=== PATIENT | male | born 1965 | race Caucasian/White ===

== ENCOUNTER 2016-10-18 16:16 | Inpatient (IN) | payer OTHER ==
[2016-10-18 17:39] VITALS: BMI 42.4
--- NOTE | 2016-10-18 17:55 | HP ---
CIWA Score - CIWA Score Nausea/Vomitin-Mild Nausea/No Vomiting Muscle Tremors: 4-Moderate,w/Arms Extend Anxiety: 4-Mod. Anxious/Guarded Agitation: 4-Moderately Restless Paroxysmal Sweats: 2 Orientation: 1-Uncertain about Date Tacttile Disturbances: 0-None Auditory Disturbances: 0-None Visual Disturbances: 0-None Headache: 2-Mild CIWA-Ar Total Score: 18 Admission ROS BHS - HPI Chief Complaint: withdrawal sx Allergies/Adverse Reactions: Allergies Allergy/AdvReac Type Severity Reaction Status Date / Time No Known Allergies Allergy Verified 10/18/16 17:52 History of Present Illness: 51 years old male with long history of alcohol dependence, asthma gerd left leg pain depression, is admitted to detox Exam Limitations: No Limitations - Ebola screening Have you traveled outside of the country in the last 21 days: No Have you had contact with anyone from an Ebola affected area: No Have you been sick,other than usual withdrawal symptoms: No Do you have a fever: No - Review of Systems Constitutional: Chills, Changes in sleep, Weight Stable EENT: reports: Dental Problems (upper left denture), Other (eye glasses) Respiratory: reports: No Symptoms reported Cardiac: reports: Palpitations GI: reports: Nausea, Poor Fluid Intake, Vomiting, Indigestion, Abdominal cramping : reports: No Symptoms Reported Musculoskeletal: reports: Muscle Weakness (left legs) Integumentary: reports: No Symptoms Reported Neuro: reports: Tremors Endocrine: reports: No Symptoms Reported Psychiatric: reports: Judgement Intact, Anxious, Depressed Other Systems: Reviewed and Negative Patient History - Patient Medical History Hx Anemia: No Hx Asthma: Yes Hx Chronic Obstructive Pulmonary Disease (COPD): No Hx Cancer: No Hx Cardiac Disorders: No Hx Congestive Heart Failure: No Hx Hypertension: No Hx Hypercholesterolemia: No Hx Pacemaker: No HX Cerebrovascular Accident: No Hx Seizures: No Hx Dementia: No Hx Diabetes: No Hx Gastrointestinal Disorders: Yes Hx Liver Disease: No Hx Genitourinary Disorders: No Hx Sexually Transmitted Disorders: No Hx Renal Disease (ESRD): No Hx Thyroid Disease: No Hx Human Immunodeficiency Virus (HIV): No Hx Hepatitis C: No Hx Depression: Yes Hx Suicide Attempt: No Hx Bipolar Disorder: No Hx Schizophrenia: No - Patient Surgical History Past Surgical History: No - PPD History Previous Implant?: Yes Documented Results: Negative w/o proof Implanted On Prior [facility] Admission?: No PPD to be Administered?: Yes - Smoking Cessation Smoking history: Smoker current status UNK Have you smoked in the past 12 months: No Hx Chewing Tobacco Use: No Initiated information on smoking cessation: No - Substance & Tx. History Hx Alcohol Use: Yes Hx Substance Use: Yes Substance Use Type: Alcohol, Cocaine Hx Substance Use Treatment: Yes - Substances Abused Alcohol Route: Oral Frequency: Daily Amount used: 1/2 gallon sara Age of first use: 10 Date of Last Use: 10/18/16 Family Disease History - Family Disease History Family Disease History: Other: Grandparent, Father ( alcohol), Mother ( alcohol) Admission Physical Exam BHS - Vital Signs Vital Signs: Vital Signs - 24 hr 10/18/16 17:37 Temperature 97.8 F Pulse Rate 99 H Respiratory 20 Rate Blood Pressure 114/72 - Physical General Appearance: Yes: Appropriately Dressed, Moderate Distress, Alcohol on Breath, Tremorous, Irritable, Sweating, Anxious HEENTM: Yes: Hearing grossly Normal, Normal ENT Inspection, Normocephalic, Normal Voice, Other (eye glasses) Respiratory: Yes: Chest Non-Tender, Lungs Clear, Normal Breath Sounds, No Respiratory Distress, No Accessory Muscle Use Neck: Yes: Supple, Trachea in good position Breast: Yes: Breasts Symetrical Cardiology: Yes: Regular Rhythm, Regular Rate, S1, S2 Abdominal: Yes: Non Tender, Soft Genitourinary: Yes: Within Normal Limits Back: Yes: Normal Inspection Musculoskeletal: Yes: full range of Motion, Gait Steady, Muscle weakness (left leg) Extremities: Yes: Normal Range of Motion, Non-Tender, Tremors Neurological: Yes: Alert, Motor Strength 5/5, Normal Response, Depressed Affect Integumentary: Yes: Warm, Clammy Lymphatic: Yes: Within Normal Limits - Diagnostic (1) Alcohol dependence with uncomplicated withdrawal Current Visit: Yes Status: Acute (2) Asthma Current Visit: Yes Status: Acute Qualifiers: Asthma severity: mild persistent Asthma complication type: with status asthmaticus Qualified Code(s): J45.32 - Mild persistent asthma with status asthmaticus (3) GERD (gastroesophageal reflux disease) Current Visit: Yes Status: Acute Qualifiers: Esophagitis presence: without esophagitis Qualified Code(s): K21.9 - Gastro-esophageal reflux disease without esophagitis (4) Burn of lip Current Visit: Yes Status: Acute Qualifiers: Encounter type: sequela Comment: smoke crack bacitracin ointment (5) Left leg weakness Current Visit: Yes Status: Acute Comment: cane naproxen flexeril (6) Encounter for monitoring Suboxone maintenance therapy Current Visit: Yes Status: Acute Comment: suboxone 8/2 tid x 6 years Cleared for Admission [facility] - Detox or Rehab [facility] Level of Care: Medically Managed Detox Regimen/Protocol: Librium [facility] Breath Alcohol Content Breath Alcohol Content: 0.200 Urine Drug Screen - Results Drug Screen Negative: No Urine Drug Screen Results: MARTIN-Cocaine
[2016-10-18] MEDS ORDERED: MENTHOL/PHENOL 1 EACH UD MM PRN (18:01)
[2016-10-18] MEDS ORDERED: MAGNESIUM CITRATE 300 ML BOTTLE PO PRN (18:01)
[2016-10-18] MEDS ORDERED: diphenhydrAMINE HCL 50 MG CAPSULE PO PRN (18:01)
[2016-10-18] MEDS ORDERED: MAG HYDROX/AL HYDROX/SIMETH 30 ML UNIT-DOSE CUP PO PRN (18:01)
[2016-10-18] MEDS ORDERED: ACETAMINOPHEN 325 MG TABLET (FP) PO PRN (18:01)
[2016-10-18] MEDS ORDERED: MAGNESIUM HYDROX 2400MG/30ML ORAL SUSPENSION 30 ML CUP PO PRN (18:01)
[2016-10-18] MEDS ORDERED: hydrOXYzine PAMOATE 50 MG CAPSULE (FP) PO PRN (18:01)
[2016-10-18] MEDS ORDERED: guaiFENesin/D-METHORPHAN HB 10 ML UNIT-DOSE CUPS PO PRN (18:01)
[2016-10-18] MEDS ORDERED: LOPERAMIDE HCL 2 MG CAPSULE PO PRN (18:01)
[2016-10-18] MEDS ORDERED: P-EPHED 60MG/TRIPROLIDI 2.5MG TABLET PO PRN (18:01)
[2016-10-18] MEDS ORDERED: ALBUTEROL SO4 6.7 GM HFA INHALER IH PRN (18:04)
[2016-10-18] MEDS ORDERED: ALBUTEROL SO4 2.5/IPRATROPIUM 0.5 INH SOL 3 ML VIAL.NEB. NEB PRN (18:04)
[2016-10-18] MEDS ORDERED: CYCLOBENZAPRINE HCL 10 MG TABLET (FP) PO PRN (18:05)
[2016-10-18] MEDS ORDERED: BACITRACIN 0.9 GM PACKET TP ONE (19:00)
[2016-10-18] MEDS ORDERED: chlordiazePOXIDE HCL 25 MG CAPSULE PO ONE (19:00)
[2016-10-18] MEDS: BUPRENORPHINE/NALOXONE 8 MG/2 MG FILM PACKET SL SCH (22:13)
[2016-10-18] MEDS: THIAMINE HCL 100 MG TABLET (FP) PO SCH (22:14)
[2016-10-18] MEDS: RANITIDINE HCL 150 MG TABLET (FP) PO SCH (22:14)
[2016-10-18] MEDS: chlordiazePOXIDE HCL 25 MG CAPSULE PO SCH (22:14)
[2016-10-18 22:59] LABS: URINE APPEARANCE CLEAR; URINE BILIRUBIN NEGATIVE (NEGATIVE); URINE BLOOD NEGATIVE (NEGATIVE); URINE COLOR AMBER; URINE GLUCOSE (UA) NEGATIVE (NEGATIVE); URINE KETONE NEGATIVE (NEGATIVE); URINE LEUK ESTERASE NEGATIVE (NEGATIVE); URINE NITRITE NEGATIVE (NEGATIVE); URINE UROBILINOGEN 2.0 E.U/dl E.U./dl (0.2-1.0)
[2016-10-18 23:00] LABS: URINE PROTEIN 2+ (NEGATIVE)
[2016-10-18 23:08] LABS: URINE RBC 1 /hpf (0-3); URINE WBC <1 /hpf (3-5)
[2016-10-19] MEDS: BUPRENORPHINE/NALOXONE 8 MG/2 MG FILM PACKET SL SCH (05:50)
[2016-10-19] MEDS: chlordiazePOXIDE HCL 25 MG CAPSULE PO SCH ×4 (05:50→22:09)
--- NOTE | 2016-10-19 07:53 | CONSULT ---
[facility] Psychiatric Consult - Data Date of interview: 10/19/16 Admission source: [facility] Identifying data: This is 51 years old male with no psychiatric hospitalization history, intoxicated with: Alcohol and Nicotine. Patient reports takijng prior to admission Suboxone 24mg films per day protocol Substance Abuse History: - Smoking Cessation. Smoking history: Smoker current status UNK. Have you smoked in the past 12 months: No. Hx Chewing Tobacco Use : No. Initiated information on smoking cessation: No. - Substance & Tx. History. Hx Alcohol Use: Yes. Hx Substance Use: Yes. Substance Use Type: Alcohol, Cocaine. Hx Substance Use Treatment: Yes. - Substances Abused. Alcohol. Route: Oral. Frequency: Daily. Amount used: 1/2 gallon volka. Age of first use: 10. Date of Last Use: 10/18/16 Medical History: GERD, Left leg weackness hidtory, Psychiatric History: Patient reports history of Anxiety and Insomnia, reprots taking prior to admission: Vistaril 50mg po tid. Seroquel 50mg po qhs Physical/Sexual Abuse/Trauma History: Denies Additional Comment: Vistaril 50mg po tid. Seroquel 50mg po qhs Mental Status Exam - Mental Status Exam Alert and Oriented to: Person Cognitive Function: Fair Patient Appearance: Unkempt Mood: Sad Affect: Flat Patient Behavior: Cooperative Speech Pattern: Appropriate Voice Loudness: Mildly Soft/Quiet Thought Process: Circumstantial, Goal Oriented Thought Disorder: Being Controlled Hallucinations: Denies Suicidal Ideation: Denies Homicidal Ideation: Denies Insight/Judgement: Fair Sleep: Difficulty falling asleep Appetite: Weight gain Muscle strength/Tone: Normal Gait/Station: Shuffling Additional Comments: Vistaril 50mg po tid. Seroquel 50mg po qhs Psychiatric Findings - Problem List ([place] 1, 2,3) (1) Alcohol dependence with uncomplicated withdrawal Current Visit: Yes Status: Acute (2) Opioid dependence Current Visit: Yes Status: Acute (3) Nicotine dependence Current Visit: Yes Status: Acute (4) Drug-induced mood disorder Current Visit: Yes Status: Acute - Initial Treatment Plan Initial Treatment Plan: Vistaril 50mg po tid. Seroquel 50mg po qhs
[2016-10-19 10:16] LABS: MCH 27.3 pg (25.7-33.7); MCHC 32.5 g/dl (32.0-35.9); MEAN CELL VOLUME 83.7 fl (80-96); MEAN PLT VOLUME 7.4 fl (7.5-11.1); PLATELET COUNT 98 K/MM3 (134-434); RDW 16.3 % (11.9-15.9); WHITE BLOOD COUNT 3.5 K/mm3 (4.0-10.0)
[2016-10-19 10:17] LABS: ANION GAP 8 (8-16); BILIRUBIN,TOTAL 0.7 mg/dL (0.2-1.0); CALCIUM 7.8 mg/dL (8.5-10.1); CO2 31 mmol/L (21-32); GLUCOSE,RANDOM 164 mg/dL (74-106); SGOT/AST 86 U/L (15-37); SGPT/ALT 40 U/L (12-78); TOT PROT 6.5 g/dl (6.4-8.2)
[2016-10-19 10:18] LABS: ALK PHOS 144 U/L (45-117)
[2016-10-19] MEDS: PRENATAL VITAMINS W/ FOLIC ACID TABLET (FP) PO SCH (10:23)
[2016-10-19] MEDS: NAPROXEN 500 MG TABLET (FP) PO PRN (10:24)
[2016-10-19] MEDS: RANITIDINE HCL 150 MG TABLET (FP) PO SCH ×2 (10:24→22:07)
--- NOTE | 2016-10-19 11:35 | PN ---
[facility] CIWA - CIWA Score Nausea/Vomitin Muscle Tremors: 3 Anxiety: 3 Agitation: 3 Paroxysmal Sweats: 3 Orientation: 0-Oriented Tacttile Disturbances: 2-Mild Itch/Numbness/Burn Auditory Disturbances: 0-None Visual Disturbances: 0-None Headache: 0-None Present CIWA-Ar Total Score: 17 S Progress Note (SOAP) Subjective: sweats, shakes , decreased appetite Objective: 10/19/16 11:33 Vital Signs Temperature 98.2 F 10/19/16 09:58 Pulse Rate 86 10/19/16 09:58 Respiratory Rate 18 10/19/16 09:58 Blood Pressure 145/102 10/19/16 09:58 O2 Sat by Pulse Oximetry (%) Laboratory Tests 10/18/16 10/19/16 10/19/16 21:00 07:00 07:00 WBC 3.5 L RBC 4.12 Hgb 11.2 L Hct 34.5 L MCV 83.7 MCHC 32.5 RDW 16.3 H Plt Count 98 L MPV 7.4 L Sodium 142 Potassium 2.9 L* Chloride 103 Carbon Dioxide 31 Anion Gap 8 BUN 8 Creatinine 1.0 Creat Clearance w eGFR > 60 Random Glucose 164 H Calcium 7.8 L Total Bilirubin 0.7 AST 86 H ALT 40 Alkaline Phosphatase 144 H Total Protein 6.5 Albumin 3.0 L Urine Color Surekha Urine Appearance Clear Urine pH 5.0 Ur Specific [place] 1.031 Urine Protein 2+ H Urine Glucose (UA) Negative Urine Ketones Negative Urine Blood Negative Urine Nitrite Negative Urine Bilirubin Negative Urine Urobilinogen 2.0 e.u/dl Ur Leukocyte Esterase Negative Urine RBC 1 Urine WBC <1 Ur Epithelial Cells Rare pt aox3 in nad sitting up in bed lipas multiple excoriations 10/19/16 13:57 Assessment: 10/19/16 11:34 withdrawl sx;s hypokalemia lip rea suboxone maintance want dosage decrease 10/19/16 11:35 10/19/16 13:57 Plan: cont. detox increase fuids decrease suboxone to 8mg bid bacitracin oint motrin prn
[2016-10-19] MEDS: POTASSIUM CHLORIDE TABS 20 MEQ TABLET.ER (FP) PO SCH ×3 (12:03→19:01)
[2016-10-19] MEDS: chlordiazePOXIDE HCL 25 MG CAPSULE PO PRN ×2 (12:14→19:04)
--- NOTE | 2016-10-19 12:21 | EKG ---
Test Reason : Blood Pressure : / mmHG Vent. Rate : 098 BPM Atrial Rate : 098 BPM P-R Int : 172 ms QRS Dur : 084 ms QT Int : 442 ms P-R-T Axes : 021 002 009 degrees QTc Int : 564 ms NORMAL SINUS RHYTHM PROLONGED QT ABNORMAL ECG NO PREVIOUS ECGS AVAILABLE Confirmed by JOHANNE BURCH MD ([id number]) on 10/19/2016 12:21:08 PM Referred By: Confirmed By:JOHANNE BURCH MD
[2016-10-19] MEDS: hydrOXYzine PAMOATE 50 MG CAPSULE (FP) PO SCH ×2 (14:29→22:07)
[2016-10-19] MEDS ORDERED: cloNIDine HCL 0.1 MG TABLET PO ONE (15:26)
[2016-10-19] MEDS: amLODIPine BESYLATE 5 MG TABLET (FP) PO SCH (15:43)
[2016-10-19] MEDS: THIAMINE HCL 100 MG TABLET (FP) PO SCH (22:07)
[2016-10-19] MEDS: QUEtiapine FUMARATE 50 MG TABLET PO SCH (22:07)
[2016-10-20] MEDS: hydrOXYzine PAMOATE 50 MG CAPSULE (FP) PO SCH ×3 (05:39→22:12)
[2016-10-20] MEDS: chlordiazePOXIDE HCL 25 MG CAPSULE PO SCH ×3 (05:39→17:54)
[2016-10-20] MEDS: PRENATAL VITAMINS W/ FOLIC ACID TABLET (FP) PO SCH (10:20)
[2016-10-20] MEDS: BUPRENORPHINE/NALOXONE 8 MG/2 MG FILM PACKET SL SCH ×2 (10:21→22:11)
[2016-10-20] MEDS: NAPROXEN 500 MG TABLET (FP) PO PRN (10:21)
[2016-10-20] MEDS: RANITIDINE HCL 150 MG TABLET (FP) PO SCH ×2 (10:21→22:12)
[2016-10-20] MEDS: amLODIPine BESYLATE 5 MG TABLET (FP) PO SCH (10:21)
--- NOTE | 2016-10-20 11:33 | PN ---
[facility] CIWA - CIWA Score Nausea/Vomitin-No Nausea/No Vomiting Muscle Tremors: 4-Moderate,w/Arms Extend Anxiety: 4-Mod. Anxious/Guarded Agitation: 4-Moderately Restless Paroxysmal Sweats: 3 Orientation: 0-Oriented Tacttile Disturbances: 0-None Auditory Disturbances: 0-None Visual Disturbances: 0-None Headache: 1-Very Mild CIWA-Ar Total Score: 16 BHS Progress Note (SOAP) Subjective: shakes sweats tired interrupted sleep Objective: 10/20/16 11:41 Vital Signs Temperature 97.5 F L 10/20/16 09:13 Pulse Rate 80 10/20/16 09:13 Respiratory Rate 18 10/20/16 09:13 Blood Pressure 150/101 10/20/16 09:13 O2 Sat by Pulse Oximetry (%) Laboratory Tests 10/18/16 10/19/16 10/19/16 21:00 07:00 07:00 WBC 3.5 L RBC 4.12 Hgb 11.2 L Hct 34.5 L MCV 83.7 MCHC 32.5 RDW 16.3 H Plt Count 98 L MPV 7.4 L Sodium 142 Potassium 2.9 L* Chloride 103 Carbon Dioxide 31 Anion Gap 8 BUN 8 Creatinine 1.0 Creat Clearance w eGFR > 60 Random Glucose 164 H Calcium 7.8 L Total Bilirubin 0.7 AST 86 H ALT 40 Alkaline Phosphatase 144 H Total Protein 6.5 Albumin 3.0 L Urine Color Surekha Urine Appearance Clear Urine pH 5.0 Ur Specific [place] 1.031 Urine Protein 2+ H Urine Glucose (UA) Negative Urine Ketones Negative Urine Blood Negative Urine Nitrite Negative Urine Bilirubin Negative Urine Urobilinogen 2.0 e.u/dl Ur Leukocyte Esterase Negative Urine RBC 1 Urine WBC <1 Ur Epithelial Cells Rare RPR Titer 10/19/16 07:00 WBC RBC Hgb Hct MCV MCHC RDW Plt Count MPV Sodium Potassium Chloride Carbon Dioxide Anion Gap BUN Creatinine Creat Clearance w eGFR Random Glucose Calcium Total Bilirubin AST ALT Alkaline Phosphatase Total Protein Albumin Urine Color Urine Appearance Urine pH Ur Specific [place] Urine Protein Urine Glucose (UA) Urine Ketones Urine Blood Urine Nitrite Urine Bilirubin Urine Urobilinogen Ur Leukocyte Esterase Urine RBC Urine WBC Ur Epithelial Cells RPR Titer Nonreactive awake/alert ambulating no acute distress hct 12.5mg daily ordered repeat cbc/cmp Assessment: 10/20/16 11:44 withdrawal sx Plan: continue detox hctz 12.5mg ordered labs repeated follow up
[2016-10-20] MEDS: chlordiazePOXIDE HCL 25 MG CAPSULE PO PRN (11:37)
[2016-10-20] MEDS: HYDROCHLOROTHIAZIDE 12.5 MG CAPSULE (FP) PO SCH (12:30)
[2016-10-20] MEDS: BACITRACIN 0.9 GM PACKET TP SCH ×2 (13:00→22:11)
[2016-10-20] MEDS: chlordiazePOXIDE 5 MG CAPSULE PO SCH (22:12)
[2016-10-20] MEDS: THIAMINE HCL 100 MG TABLET (FP) PO SCH (22:12)
[2016-10-20] MEDS: QUEtiapine FUMARATE 50 MG TABLET PO SCH (22:12)
[2016-10-21] MEDS: chlordiazePOXIDE 5 MG CAPSULE PO SCH ×3 (05:54→17:29)
[2016-10-21] MEDS: hydrOXYzine PAMOATE 50 MG CAPSULE (FP) PO SCH ×3 (06:21→22:12)
[2016-10-21] MEDS: PRENATAL VITAMINS W/ FOLIC ACID TABLET (FP) PO SCH (10:20)
[2016-10-21] MEDS: amLODIPine BESYLATE 5 MG TABLET (FP) PO SCH (10:20)
[2016-10-21] MEDS: NAPROXEN 500 MG TABLET (FP) PO PRN (10:20)
[2016-10-21] MEDS: BUPRENORPHINE/NALOXONE 8 MG/2 MG FILM PACKET SL SCH (10:20)
[2016-10-21] MEDS: RANITIDINE HCL 150 MG TABLET (FP) PO SCH ×2 (10:20→22:12)
[2016-10-21] MEDS: HYDROCHLOROTHIAZIDE 12.5 MG CAPSULE (FP) PO SCH (10:20)
[2016-10-21] MEDS: BACITRACIN 0.9 GM PACKET TP SCH ×2 (10:20→22:12)
[2016-10-21 10:21] LABS: BASOPHIL 1.1 % (0-2.0); EOSINOPHIL 6.2 % (0-4.5); MCH 27.1 pg (25.7-33.7); MCHC 32.2 g/dl (32.0-35.9); MEAN CELL VOLUME 84.1 fl (80-96); MEAN PLT VOLUME 7.6 fl (7.5-11.1); NEUTROPHILS 51.5 % (42.8-82.8); PLATELET COUNT 104 K/MM3 (134-434); RDW 16.3 % (11.9-15.9); WHITE BLOOD COUNT 4.8 K/mm3 (4.0-10.0)
[2016-10-21 10:32] LABS: ALK PHOS 152 U/L (45-117); ANION GAP 10 (8-16); BILIRUBIN,TOTAL 0.7 mg/dL (0.2-1.0); CALCIUM 8.6 mg/dL (8.5-10.1); CO2 29 mmol/L (21-32); GLUCOSE,RANDOM 164 mg/dL (74-106); SGOT/AST 83 U/L (15-37); SGPT/ALT 44 U/L (12-78); TOT PROT 6.4 g/dl (6.4-8.2)
--- NOTE | 2016-10-21 10:39 | PN ---
BHS Progress Note (SOAP) Subjective: CO POOR SLEEP, SHAKINESS, GI UPSET Objective: 10/21/16 10:38 Laboratory Tests 10/18/16 10/19/16 10/19/16 21:00 07:00 07:00 WBC 3.5 L RBC 4.12 Hgb 11.2 L Hct 34.5 L MCV 83.7 MCHC 32.5 RDW 16.3 H Plt Count 98 L MPV 7.4 L Neutrophils % Lymphocytes % Monocytes % Eosinophils % Basophils % Sodium 142 Potassium 2.9 L* Chloride 103 Carbon Dioxide 31 Anion Gap 8 BUN 8 Creatinine 1.0 Creat Clearance w eGFR > 60 Random Glucose 164 H Calcium 7.8 L Total Bilirubin 0.7 AST 86 H ALT 40 Alkaline Phosphatase 144 H Total Protein 6.5 Albumin 3.0 L Urine Color Surekha Urine Appearance Clear Urine pH 5.0 Ur Specific [place] 1.031 Urine Protein 2+ H Urine Glucose (UA) Negative Urine Ketones Negative Urine Blood Negative Urine Nitrite Negative Urine Bilirubin Negative Urine Urobilinogen 2.0 e.u/dl Ur Leukocyte Esterase Negative Urine RBC 1 Urine WBC <1 Ur Epithelial Cells Rare RPR Titer 10/19/16 10/21/16 07:00 07:00 WBC 4.8 D RBC 4.43 Hgb 12.0 Hct 37.2 MCV 84.1 MCHC 32.2 RDW 16.3 H Plt Count 104 L MPV 7.6 Neutrophils % 51.5 Lymphocytes % 31.4 Monocytes % 9.8 Eosinophils % 6.2 H Basophils % 1.1 Sodium Potassium Chloride Carbon Dioxide Anion Gap BUN Creatinine Creat Clearance w eGFR Random Glucose Calcium Total Bilirubin AST ALT Alkaline Phosphatase Total Protein Albumin Urine Color Urine Appearance Urine pH Ur Specific [place] Urine Protein Urine Glucose (UA) Urine Ketones Urine Blood Urine Nitrite Urine Bilirubin Urine Urobilinogen Ur Leukocyte Esterase Urine RBC Urine WBC Ur Epithelial Cells RPR Titer Nonreactive Vital Signs - 24 hr 10/20/16 10/20/16 10/20/16 13:52 18:19 21:46 Temperature 97.7 F 97.5 F L 96.1 F L Pulse Rate 78 78 72 Respiratory 18 16 18 Rate Blood Pressure 155/98 146/89 146/100 10/21/16 10/21/16 10/21/16 00:30 03:30 06:00 Temperature 97.9 F Pulse Rate 80 Respiratory 18 20 18 Rate Blood Pressure 154/92 10/21/16 10:16 Temperature 97.3 F L Pulse Rate 77 Respiratory 20 Rate Blood Pressure 151/98 Assessment: 10/21/16 10:38 ONGOING WITHDRAWAL Plan: CONTINUE DETOX PROTOCOL FU POTASSIUM LEVELS
[2016-10-21] MEDS: QUEtiapine FUMARATE 50 MG TABLET PO SCH (22:12)
[2016-10-21] MEDS: chlordiazePOXIDE HCL 10 MG CAPSULE PO SCH (22:12)
[2016-10-21] MEDS: THIAMINE HCL 100 MG TABLET (FP) PO SCH (22:12)
[2016-10-22] MEDS: hydrOXYzine PAMOATE 50 MG CAPSULE (FP) PO SCH (05:20)
[2016-10-22] MEDS: chlordiazePOXIDE HCL 10 MG CAPSULE PO SCH ×2 (05:20→11:03)
[2016-10-22 06:52] VITALS: TEMP 97.5
--- NOTE | 2016-10-22 08:34 | PN ---
S Progress Note (SOAP) Subjective: ALERT,NO COMPLAINT Objective: 10/22/16 08:31 Vital Signs Temperature 97.5 F L 10/22/16 06:52 Pulse Rate 87 10/22/16 06:52 Respiratory Rate 20 10/22/16 06:52 Blood Pressure 149/88 10/22/16 06:52 O2 Sat by Pulse Oximetry (%) 10/22/16 08:32 Laboratory Last Values WBC 4.8 K/mm3 (4.0-10.0) D 10/21/16 07:00 RBC 4.43 M/mm3 (4.00-5.60) 10/21/16 07:00 Hgb 12.0 GM/dL (11.7-16.9) 10/21/16 07:00 Hct 37.2 % (35.4-49) 10/21/16 07:00 MCV 84.1 fl (80-96) 10/21/16 07:00 MCHC 32.2 g/dl (32.0-35.9) 10/21/16 07:00 RDW 16.3 % (11.9-15.9) H 10/21/16 07:00 Plt Count 104 K/MM3 (134-434) L 10/21/16 07:00 MPV 7.6 fl (7.5-11.1) 10/21/16 07:00 Neutrophils % 51.5 % (42.8-82.8) 10/21/16 07:00 Lymphocytes % 31.4 % (8-40) 10/21/16 07:00 Monocytes % 9.8 % (3.8-10.2) 10/21/16 07:00 Eosinophils % 6.2 % (0-4.5) H 10/21/16 07:00 Basophils % 1.1 % (0-2.0) 10/21/16 07:00 Sodium 139 mmol/L (136-145) 10/21/16 07:00 Potassium 3.4 mmol/L (3.5-5.1) L 10/21/16 07:00 Chloride 100 mmol/L (98-107) 10/21/16 07:00 Carbon Dioxide 29 mmol/L (21-32) 10/21/16 07:00 Anion Gap 10 (8-16) 10/21/16 07:00 BUN 11 mg/dL (7-18) D 10/21/16 07:00 Creatinine 1.0 mg/dL (0.7-1.3) 10/21/16 07:00 Creat Clearance w eGFR > 60 (>60) 10/21/16 07:00 Random Glucose 164 mg/dL (74-106) H 10/21/16 07:00 Calcium 8.6 mg/dL (8.5-10.1) 10/21/16 07:00 Total Bilirubin 0.7 mg/dL (0.2-1.0) 10/21/16 07:00 AST 83 U/L (15-37) H 10/21/16 07:00 ALT 44 U/L (12-78) 10/21/16 07:00 Alkaline Phosphatase 152 U/L (45-117) H 10/21/16 07:00 Total Protein 6.4 g/dl (6.4-8.2) 10/21/16 07:00 Albumin 3.0 g/dl (3.4-5.0) L 10/21/16 07:00 Urine Color Surekha 10/18/16 21:00 Urine Appearance Clear 10/18/16 21:00 Urine pH 5.0 (5.0-8.0) 10/18/16 21:00 Ur Specific [place] 1.031 (1.001-1.035) 10/18/16 21:00 Urine Protein 2+ (NEGATIVE) H 10/18/16 21:00 Urine Glucose (UA) Negative (NEGATIVE) 10/18/16 21:00 Urine Ketones Negative (NEGATIVE) 10/18/16 21:00 Urine Blood Negative (NEGATIVE) 10/18/16 21:00 Urine Nitrite Negative (NEGATIVE) 10/18/16 21:00 Urine Bilirubin Negative (NEGATIVE) 10/18/16 21:00 Urine Urobilinogen 2.0 e.u/dl E.U./dl (0.2-1.0) 10/18/16 21:00 Ur Leukocyte Esterase Negative (NEGATIVE) 10/18/16 21:00 Urine RBC 1 /hpf (0-3) 10/18/16 21:00 Urine WBC <1 /hpf (3-5) 10/18/16 21:00 Ur Epithelial Cells Rare /hpf (FEW) 10/18/16 21:00 RPR Titer Nonreactive (NONREACTIVE) 10/19/16 07:00 Assessment: 10/22/16 08:33 DETOX COMPLETED,NO WITHDRAWAL SYMPTOM Plan: DISCHARGE TODAY,FOLLOW UP WITH AFTER CARE PROGRAM ARRANGEMENT
--- NOTE | 2016-10-22 08:36 | DS ---
[facility] Detox Discharge Summary Admission Date: 10/18/16 Discharge Date: 10/22/16 - History Present History: Alcohol Dependence Additional Comments: FOLLOW UP WITH AFTER [facility] PROGRAM ARRANGEMENT AND PMD FOR MEDICAL PROBLEM Pertinent Past History: ASTHMA HYPERTENSION - Physical Exam Results Vital Signs: Vital Signs Temperature 97.5 F L 10/22/16 06:52 Pulse Rate 87 10/22/16 06:52 Respiratory Rate 20 10/22/16 06:52 Blood Pressure 149/88 10/22/16 06:52 O2 Sat by Pulse Oximetry (%) Pertinent Admission Physical Exam Findings: WITHDRAWAL SYMPTOM - Treatment Hospital Course: Detox Protocol Followed, Detoxed Safely, Responded well, Discharged Condition Good, Rehab Referral Accepted Patient has Accepted a Rehab Referral to: [facility] - Medication Discharge Medications: Ambulatory Orders Esomeprazole Mag Trihydrate [NexIUM for SUSP] 40 mg PO DAILY 10/18/16 Hydroxyzine Pamoate [Vistaril -] 25 mg PO TID 10/18/16 Quetiapine Fumarate [Seroquel -] 50 mg PO HS 10/18/16 Fluoxetine HCl [Prozac] 20 mg PO DAILY #30 capsule 10/19/16 Quetiapine Fumarate [Seroquel -] 50 mg PO HS #30 tablet 10/19/16 - Diagnosis (1) Alcohol dependence with uncomplicated withdrawal Current Visit: Yes Status: Acute (2) Asthma Current Visit: Yes Status: Acute Qualifiers: Asthma severity: mild persistent Asthma complication type: with status asthmaticus Qualified Code(s): J45.32 - Mild persistent asthma with status asthmaticus (3) GERD (gastroesophageal reflux disease) Current Visit: Yes Status: Acute Qualifiers: Esophagitis presence: without esophagitis Qualified Code(s): K21.9 - Gastro-esophageal reflux disease without esophagitis (4) Nicotine dependence Current Visit: Yes Status: Acute - AMA Did Patient Leave Against Medical Advice: No
[2016-10-22 09:47] VITALS: BP 140/82; PULSE 89
[2016-10-22] MEDS ORDERED: BUPRENORPHINE/NALOXONE 8 MG/2 MG FILM PACKET SL ONE (10:57)
[2016-10-22] MEDS: PRENATAL VITAMINS W/ FOLIC ACID TABLET (FP) PO SCH (11:03)
[2016-10-22] MEDS: amLODIPine BESYLATE 5 MG TABLET (FP) PO SCH (11:03)
[2016-10-22] MEDS: BACITRACIN 0.9 GM PACKET TP SCH (11:04)
[2016-10-22] MEDS: RANITIDINE HCL 150 MG TABLET (FP) PO SCH (11:04)
[2016-10-22] MEDS: HYDROCHLOROTHIAZIDE 12.5 MG CAPSULE (FP) PO SCH (11:04)
== END 2016-10-22 11:14 | disposition home or self-care (01) | DRG 897 ==
LOC: YASAS 16:16 → Y6N 18:44
PROVIDERS: ADMIT Internal Medicine Addiction Medicine; ATTEND Internal Medicine Addiction Medicine
PROC: HZ2ZZZZ Detoxification Services for Substance Abuse Treatment (ICD-10-PCS; principal; 2016-10-22)
DX: F11.23 Opioid dependence with withdrawal (principal); J45.32 Mild persistent asthma with status asthmaticus; F10.230 Alcohol dependence with withdrawal, uncomplicated; F17.210 Nicotine dependence, cigarettes, uncomplicated; F19.24 Other psychoactive substance dependence with psychoactive substance-induced mood disorder; K21.9 Gastro-esophageal reflux disease without esophagitis; M62.81 Muscle weakness (generalized)
CPT/HCPCS: 36415; 80053; 81003; 81015; 85025; 85027; 86593; 93005; 93010

== ENCOUNTER 2016-11-13 10:34 | Inpatient (IN) | payer OTHER ==
[2016-11-13 10:59] VITALS: BMI 40.6
--- NOTE | 2016-11-13 15:09 | HP ---
CIWA Score - CIWA Score Nausea/Vomitin Muscle Tremors: 4-Moderate,w/Arms Extend Anxiety: 4-Mod. Anxious/Guarded Agitation: 4-Moderately Restless Paroxysmal Sweats: 3 Orientation: 0-Oriented Tacttile Disturbances: 2-Mild Itch/Numbness/Burn Auditory Disturbances: 0-None Visual Disturbances: 0-None Headache: 0-None Present CIWA-Ar Total Score: 19 Admission ROS BHS - HPI Chief Complaint: Withdrawal sx. Allergies/Adverse Reactions: Allergies Allergy/AdvReac Type Severity Reaction Status Date / Time No Known Drug Allergies Allergy Verified 11/13/16 13:56 History of Present Illness: 51 y/o man with a long hx. of alcoholism is admitted for detox. Pt. was here last month but did not f/u with after care program. Exam Limitations: No Limitations - Ebola screening Have you traveled outside of the country in the last 21 days: No Have you had contact with anyone from an Ebola affected area: No Have you been sick,other than usual withdrawal symptoms: No Do you have a fever: No - Review of Systems Constitutional: Diaphoresis EENT: reports: No Symptoms Reported Respiratory: reports: Shortness of Breath (asrhma) Cardiac: reports: No Symptoms Reported GI: reports: Nausea, Abdominal cramping : reports: No Symptoms Reported Musculoskeletal: reports: Back Pain, Joint Pain, Muscle Pain Integumentary: reports: Sweating Neuro: reports: Tremors Endocrine: reports: No Symptoms Reported Hematology: reports: No Symptoms Reported Psychiatric: reports: No Sypmtoms Reported Other Systems: Reviewed and Negative Patient History - Patient Medical History Hx Anemia: No Hx Asthma: Yes (ON VENTOLIN) Hx Chronic Obstructive Pulmonary Disease (COPD): No Hx Cancer: No Hx Cardiac Disorders: No Hx Congestive Heart Failure: No Hx Hypertension: Yes (ON NORVASC 5MG) Hx Hypercholesterolemia: No Hx Pacemaker: No HX Cerebrovascular Accident: No Hx Seizures: No Hx Dementia: No Hx Diabetes: No Hx Gastrointestinal Disorders: Yes (GERD was on nexium) Hx Liver Disease: Yes (cirrhosis was in a coma in 2010 from drinking) Hx Genitourinary Disorders: No Hx Sexually Transmitted Disorders: No Hx Renal Disease (ESRD): No Hx Thyroid Disease: No Hx Human Immunodeficiency Virus (HIV): No Hx Hepatitis C: No Hx Depression: Yes (seroquel 50mg hs) Hx Suicide Attempt: No Hx Bipolar Disorder: No Hx Schizophrenia: No - Patient Surgical History Past Surgical History: No Hx Neurologic Surgery: No Hx Cataract Extraction: No Hx Cardiac Surgery: No Hx Lung Surgery: No Hx Breast Surgery: No Hx Breast Biopsy: No Hx Abdominal Surgery: No Hx Appendectomy: No Hx Cholecystectomy: No Hx Genitourinary Surgery: No Hx Section: No Hx Orthopedic Surgery: No Anesthesia Reaction: No - PPD History Previous Implant?: Yes Documented Results: Negative w/proof Implanted On Prior [facility] Admission?: Yes Date: 10/20/16 PPD to be Administered?: No - Smoking Cessation Smoking history: Never smoked Have you smoked in the past 12 months: No Hx Chewing Tobacco Use: No - Substance & Tx. History Hx Alcohol Use: Yes Hx Substance Use: Yes Substance Use Type: Alcohol, Cocaine Hx Substance Use Treatment: Yes (Detox) - Substances Abused Alcohol Route: Smoking Frequency: Daily Amount used: vodka- half gallon daily Age of first use: 6 Date of Last Use: 11/13/16 Crack Route: Smoking Frequency: 1-3 times last 30 days Amount used: $30 Age of first use: 22 Date of Last Use: 11/07/16 Family Disease History - Family Disease History Family Disease History: Other: Grandparent, Father ( alcohol), Mother ( alcohol) Admission Physical Exam BHS - Vital Signs Vital Signs: Vital Signs - 24 hr 11/13/16 10:45 Temperature 96.8 F L Pulse Rate 86 Respiratory 18 Rate Blood Pressure 139/82 - Physical General Appearance: Yes: Alcohol on Breath, Tremorous, Sweating, Anxious HEENTM: Yes: Within Normal Limits Respiratory: Yes: Chest Non-Tender, Lungs Clear, Normal Breath Sounds Neck: Yes: Supple Breast: Yes: Breast Exam Deferred Cardiology: Yes: Regular Rhythm, Regular Rate, S1, S2 Abdominal: Yes: Normal Bowel Sounds, Non Tender, Soft Genitourinary: Yes: Within Normal Limits Back: Yes: Within Normal Limits Musculoskeletal: Yes: Within Normal Limits Extremities: Yes: Tremors Neurological: Yes: Fully Oriented, Alert Integumentary: Yes: Diaphoresis Lymphatic: Yes: Within Normal Limits - Diagnostic (1) Alcohol dependence with uncomplicated withdrawal Current Visit: Yes Status: Acute (2) Asthma Current Visit: Yes Status: Acute Qualifiers: Asthma severity: mild persistent Asthma complication type: with status asthmaticus Qualified Code(s): J45.32 - Mild persistent asthma with status asthmaticus (3) GERD (gastroesophageal reflux disease) Current Visit: Yes Status: Acute Qualifiers: Esophagitis presence: without esophagitis Qualified Code(s): K21.9 - Gastro-esophageal reflux disease without esophagitis Cleared for Admission [facility] - Detox or Rehab [facility] Level of Care: Medically Managed Detox Regimen/Protocol: Librium [facility] Breath Alcohol Content Breath Alcohol Content: 0.138 Urine Drug Screen - Results Drug Screen Negative: No Urine Drug Screen Results: MARTIN-Cocaine, BZO-Benzodiazepines
[2016-11-13] MEDS ORDERED: LOPERAMIDE HCL 2 MG CAPSULE PO PRN (15:14)
[2016-11-13] MEDS ORDERED: ACETAMINOPHEN 325 MG TABLET (FP) PO PRN (15:14)
[2016-11-13] MEDS ORDERED: chlordiazePOXIDE HCL 25 MG CAPSULE PO ONE (15:14)
[2016-11-13] MEDS ORDERED: diphenhydrAMINE HCL 50 MG CAPSULE PO PRN (15:14)
[2016-11-13] MEDS ORDERED: MAGNESIUM HYDROX 2400MG/30ML ORAL SUSPENSION 30 ML CUP PO PRN (15:14)
[2016-11-13] MEDS ORDERED: MAG HYDROX/AL HYDROX/SIMETH 30 ML UNIT-DOSE CUP PO PRN (15:14)
[2016-11-13] MEDS ORDERED: P-EPHED 60MG/TRIPROLIDI 2.5MG TABLET PO PRN (15:14)
[2016-11-13] MEDS ORDERED: IBUPROFEN 400 MG TABLET (FP) PO PRN (15:14)
[2016-11-13] MEDS ORDERED: MAGNESIUM CITRATE 300 ML BOTTLE PO PRN (15:14)
[2016-11-13] MEDS ORDERED: guaiFENesin/D-METHORPHAN HB 10 ML UNIT-DOSE CUPS PO PRN (15:14)
[2016-11-13] MEDS ORDERED: MENTHOL/PHENOL 1 EACH UD MM PRN (15:14)
[2016-11-13] MEDS ORDERED: ALBUTEROL SO4 6.7 GM HFA INHALER IH PRN (15:17)
[2016-11-13] MEDS: TRIAMTERENE AND HCTZ - 37.5 MG/25 MG CAPSULE PO SCH (16:08)
[2016-11-13] MEDS: chlordiazePOXIDE HCL 25 MG CAPSULE PO SCH ×2 (17:37→22:10)
[2016-11-13 20:56] LABS: URINE APPEARANCE CLEAR; URINE BILIRUBIN NEGATIVE (NEGATIVE); URINE BLOOD NEGATIVE (NEGATIVE); URINE COLOR LTYELLOW; URINE GLUCOSE (UA) NEGATIVE (NEGATIVE); URINE KETONE NEGATIVE (NEGATIVE); URINE LEUK ESTERASE NEGATIVE (NEGATIVE); URINE NITRITE NEGATIVE (NEGATIVE); URINE PROTEIN NEGATIVE (NEGATIVE); URINE UROBILINOGEN NEGATIVE E.U./dl (0.2-1.0)
[2016-11-13] MEDS: THIAMINE HCL 100 MG TABLET (FP) PO SCH (22:10)
[2016-11-14] MEDS: chlordiazePOXIDE HCL 25 MG CAPSULE PO PRN ×3 (00:45→19:58)
[2016-11-14] MEDS: chlordiazePOXIDE HCL 25 MG CAPSULE PO SCH ×4 (05:45→22:17)
[2016-11-14] MEDS: hydrOXYzine PAMOATE 50 MG CAPSULE (FP) PO PRN ×2 (09:04→19:58)
--- NOTE | 2016-11-14 09:13 | PN ---
S CIWA - CIWA Score Nausea/Vomitin-No Nausea/No Vomiting Muscle Tremors: 4-Moderate,w/Arms Extend Anxiety: 3 Agitation: 4-Moderately Restless Paroxysmal Sweats: 3 Orientation: 0-Oriented Tacttile Disturbances: 0-None Auditory Disturbances: 0-None Visual Disturbances: 0-None Headache: 1-Very Mild CIWA-Ar Total Score: 15 BHS Progress Note (SOAP) Subjective: shakes sweats irritable body aches agitation interrupted sleep Objective: 11/14/16 09:13 Vital Signs Temperature 97.5 F L 11/14/16 06:00 Pulse Rate 74 11/14/16 06:00 Respiratory Rate 20 11/14/16 06:00 Blood Pressure 134/84 11/14/16 06:00 O2 Sat by Pulse Oximetry (%) Laboratory Tests 11/13/16 20:30 Urine Color Ltyellow Urine Appearance Clear Urine pH 6.0 Ur Specific [place] 1.011 Urine Protein Negative Urine Glucose (UA) Negative Urine Ketones Negative Urine Blood Negative Urine Nitrite Negative Urine Bilirubin Negative Urine Urobilinogen Negative Ur Leukocyte Esterase Negative labs pending awake/alert ambulating no acute distress Assessment: 11/14/16 09:25 withdrawal sx Plan: continue detox increase fluids labs pending
[2016-11-14] MEDS: PRENATAL VITAMINS W/ FOLIC ACID TABLET (FP) PO SCH (10:29)
[2016-11-14] MEDS: amLODIPine BESYLATE 5 MG TABLET (FP) PO SCH (10:29)
[2016-11-14] MEDS: TRIAMTERENE AND HCTZ - 37.5 MG/25 MG CAPSULE PO SCH (10:29)
[2016-11-14 10:32] LABS: MCH 27.2 pg (25.7-33.7); MCHC 32.8 g/dl (32.0-35.9); MEAN CELL VOLUME 83.1 fl (80-96); MEAN PLT VOLUME 7.6 fl (7.5-11.1); PLATELET COUNT 175 K/MM3 (134-434); RDW 16.9 % (11.9-15.9); WHITE BLOOD COUNT 7.4 K/mm3 (4.0-10.0)
[2016-11-14 10:38] LABS: ALBUMIN 3.3 g/dl (3.4-5.0); ALK PHOS 163 U/L (45-117); BILIRUBIN,TOTAL 1.2 mg/dL (0.2-1.0); CO2 32 mmol/L (21-32); CREATININE 1.1 mg/dL (0.7-1.3); GLUCOSE,RANDOM 136 mg/dL (74-106); SGOT/AST 124 U/L (15-37); SGPT/ALT 53 U/L (12-78); TOT PROT 7.3 g/dl (6.4-8.2)
[2016-11-14 10:45] LABS: ANION GAP 12 (8-16)
[2016-11-14] MEDS: POTASSIUM CHLORIDE ORAL LIQUID 20 MEQ/15 ML PO SCH ×3 (12:43→19:55)
[2016-11-14] MEDS ORDERED: cloNIDine HCL 0.1 MG TABLET PO ONE (15:01)
--- NOTE | 2016-11-14 15:01 | EKG ---
Test Reason : Blood Pressure : / mmHG Vent. Rate : 082 BPM Atrial Rate : 082 BPM P-R Int : 164 ms QRS Dur : 078 ms QT Int : 394 ms P-R-T Axes : 049 000 015 degrees QTc Int : 460 ms NORMAL SINUS RHYTHM NORMAL ECG WHEN COMPARED WITH ECG OF 18-OCT-2016 19:41, NO SIGNIFICANT CHANGE WAS FOUND Confirmed by MATT CARBALLO MD ([id number]) on 11/14/2016 3:00:57 PM Referred By: Confirmed By:MATT CARBALLO MD
--- NOTE | 2016-11-14 16:12 | CONSULT ---
[facility] Psychiatric Consult - Data Date of interview: 11/14/16 Admission source: [facility] Identifying data: Readmissionb to [facility] for this 51 y/o male seeking detox treatment on for alcohol and cocaine (crack) dependence.Patient is single,a father of three,domiciled,disabled and supported on [facility] benefits. Substance Abuse History: - Smoking Cessation. Smoking history: Never smoked. Have you smoked in the past 12 months: No. Hx Chewing Tobacco Use: No. - Substance & Tx. History. Hx Alcohol Use: Yes. Hx Substance Use: Yes. Substance Use Type: Alcohol, Cocaine. Hx Substance Use Treatment: Yes (Detox). - Substances Abused. Alcohol. Route: Smoking. Frequency: Daily. Amount used: vodka- half gallon daily. Age of first use: 6. Date of Last Use: . Crack. Route: Smoking. Frequency: 1-3 times last 30 days. Amount used : $30. Age of first use: 22. Date of Last Use: 11/07/16. Confirmed by the patient. Medical History: Gerd,bronchial asthma,hypertension and cirrhosis of the liver. Psychiatric History: No reported history of psychiatric hospitalizations.Patient used to be on suboxone maintenance.Diagnosed with MDD and Anxiety Disorder.Mr Salinas is followed at the [facility] in [facility].Prescribed seroquel 50 mg/hs.Patient admits to a history of one suicide attempt via deliberate self exposure to oncoming traffic (1999). Physical/Sexual Abuse/Trauma History: Patient denies. Additional Comment: Urine Drug Screen Results: MARTIN-Cocaine, BZO- Benzodiazepines.Noted. Mental Status Exam - Mental Status Exam Alert and Oriented to: Time, Place, Person Cognitive Function: Good Patient Appearance: Well Groomed (obese,short stature) Mood: Nervous, Withdrawn, Anxious Affect: Mood Congruent Patient Behavior: Fatigued, Appropriate, Cooperative Speech Pattern: Clear, Appropriate Voice Loudness: Normal Thought Process: Goal Oriented Thought Disorder: Not Present Hallucinations: Denies Suicidal Ideation: Denies Homicidal Ideation: Denies Insight/Judgement: Poor Sleep: Poorly, Difficulty falling asleep Muscle strength/Tone: Normal Gait/Station: Normal Psychiatric Findings - Problem List ([place] 1, 2,3) (1) Alcohol dependence with uncomplicated withdrawal Current Visit: Yes Status: Acute (2) Cocaine dependence Current Visit: Yes Status: Acute (3) Drug-induced mood disorder Current Visit: Yes Status: Acute (4) Asthma Current Visit: Yes Status: Chronic Qualifiers: Asthma severity: mild persistent Asthma complication type: with status asthmaticus Qualified Code(s): J45.32 - Mild persistent asthma with status asthmaticus (5) GERD (gastroesophageal reflux disease) Current Visit: Yes Status: Chronic Qualifiers: Esophagitis presence: without esophagitis Qualified Code(s): K21.9 - Gastro-esophageal reflux disease without esophagitis (6) Insomnia Current Visit: Yes Status: Acute - Initial Treatment Plan Initial Treatment Plan: Psychoeducation.Detoxification.Seroquel 50 mg po hs.Side effects/benefits discussed with the patient.He agrees with this careplan.Observation.
[2016-11-14] MEDS: THIAMINE HCL 100 MG TABLET (FP) PO SCH (22:16)
[2016-11-14] MEDS: QUEtiapine FUMARATE 50 MG TABLET PO SCH (22:16)
[2016-11-14] MEDS: cloNIDine HCL 0.1 MG TABLET PO SCH (22:17)
[2016-11-15] MEDS: hydrOXYzine PAMOATE 50 MG CAPSULE (FP) PO PRN (01:01)
[2016-11-15] MEDS: chlordiazePOXIDE HCL 25 MG CAPSULE PO PRN ×2 (01:01→16:34)
[2016-11-15] MEDS: chlordiazePOXIDE HCL 25 MG CAPSULE PO SCH ×2 (06:19→10:44)
[2016-11-15] MEDS: TRIAMTERENE AND HCTZ - 37.5 MG/25 MG CAPSULE PO SCH (10:44)
[2016-11-15] MEDS: PRENATAL VITAMINS W/ FOLIC ACID TABLET (FP) PO SCH (10:44)
[2016-11-15] MEDS: cloNIDine HCL 0.1 MG TABLET PO SCH ×2 (10:44→22:18)
[2016-11-15] MEDS: amLODIPine BESYLATE 5 MG TABLET (FP) PO SCH (10:44)
[2016-11-15] MEDS: chlordiazePOXIDE 5 MG CAPSULE PO SCH ×2 (17:38→22:16)
[2016-11-15] MEDS: QUEtiapine FUMARATE 50 MG TABLET PO SCH (22:16)
[2016-11-15] MEDS: THIAMINE HCL 100 MG TABLET (FP) PO SCH (22:16)
[2016-11-16] MEDS: chlordiazePOXIDE 5 MG CAPSULE PO SCH ×2 (05:52→10:41)
--- NOTE | 2016-11-16 09:06 | PN ---
S CIWA - CIWA Score Nausea/Vomitin Muscle Tremors: 2 Anxiety: 2 Agitation: 2 Paroxysmal Sweats: 3 Orientation: 0-Oriented Tacttile Disturbances: 2-Mild Itch/Numbness/Burn Auditory Disturbances: 0-None Visual Disturbances: 0-None Headache: 0-None Present CIWA-Ar Total Score: 13 BHS Progress Note (SOAP) Subjective: note for 11/15/16 interrupted sleep, sweats , lbp Objective: 11/16/16 09:04 Vital Signs Temperature 97.2 F L 11/16/16 06:57 Pulse Rate 74 11/16/16 06:57 Respiratory Rate 20 11/16/16 06:57 Blood Pressure 94/54 11/16/16 06:57 O2 Sat by Pulse Oximetry (%) Laboratory Tests 11/13/16 11/14/16 11/14/16 20:30 07:00 07:00 WBC 7.4 D RBC 4.90 Hgb 13.3 D Hct 40.7 MCV 83.1 MCHC 32.8 RDW 16.9 H Plt Count 175 D MPV 7.6 Sodium 138 Potassium 2.8 L* Chloride 94 L Carbon Dioxide 32 Anion Gap 12 BUN 8 D Creatinine 1.1 Creat Clearance w eGFR > 60 Random Glucose 136 H Calcium 9.0 Total Bilirubin 1.2 H D AST 124 H D ALT 53 D Alkaline Phosphatase 163 H Total Protein 7.3 Albumin 3.3 L Urine Color Ltyellow Urine Appearance Clear Urine pH 6.0 Ur Specific [place] 1.011 Urine Protein Negative Urine Glucose (UA) Negative Urine Ketones Negative Urine Blood Negative Urine Nitrite Negative Urine Bilirubin Negative Urine Urobilinogen Negative Ur Leukocyte Esterase Negative RPR Titer 11/14/16 07:00 WBC RBC Hgb Hct MCV MCHC RDW Plt Count MPV Sodium Potassium Chloride Carbon Dioxide Anion Gap BUN Creatinine Creat Clearance w eGFR Random Glucose Calcium Total Bilirubin AST ALT Alkaline Phosphatase Total Protein Albumin Urine Color Urine Appearance Urine pH Ur Specific [place] Urine Protein Urine Glucose (UA) Urine Ketones Urine Blood Urine Nitrite Urine Bilirubin Urine Urobilinogen Ur Leukocyte Esterase RPR Titer Nonreactive pt aox3 in nad ambulating Assessment: 11/16/16 09:04 withdrawal sx's hypokalemia -k replaced Plan: cont. detox increase fluids d/c in am on 11/16/16.
[2016-11-16] MEDS ORDERED: IBUPROFEN 600 MG TABLET (FP) PO PRN (09:14)
[2016-11-16] MEDS: PRENATAL VITAMINS W/ FOLIC ACID TABLET (FP) PO SCH (09:19)
[2016-11-16] MEDS: amLODIPine BESYLATE 5 MG TABLET (FP) PO SCH (09:19)
[2016-11-16] MEDS: TRIAMTERENE AND HCTZ - 37.5 MG/25 MG CAPSULE PO SCH (09:19)
[2016-11-16] MEDS: cloNIDine HCL 0.1 MG TABLET PO SCH ×2 (09:19→22:19)
[2016-11-16] MEDS: chlordiazePOXIDE HCL 25 MG CAPSULE PO PRN (12:20)
[2016-11-16] MEDS: hydrOXYzine PAMOATE 50 MG CAPSULE (FP) PO PRN (14:33)
[2016-11-16] MEDS: chlordiazePOXIDE HCL 10 MG CAPSULE PO SCH ×2 (17:50→22:19)
[2016-11-16] MEDS ORDERED: QUEtiapine FUMARATE 25 MG TABLET (FP) ONE (20:55)
[2016-11-16] MEDS: THIAMINE HCL 100 MG TABLET (FP) PO SCH (22:20)
[2016-11-16] MEDS: QUEtiapine FUMARATE 50 MG TABLET PO SCH (22:20)
[2016-11-17] MEDS: hydrOXYzine PAMOATE 50 MG CAPSULE (FP) PO PRN (01:34)
[2016-11-17] MEDS: chlordiazePOXIDE HCL 10 MG CAPSULE PO SCH (05:59)
[2016-11-17] MEDS ORDERED: IBUPROFEN 400 MG TABLET (FP) PO ONE (09:08)
--- NOTE | 2016-11-17 09:40 | DS ---
[facility] Detox Discharge Summary Admission Date: 11/13/16 Discharge Date: 11/17/16 - History Present History: Alcohol Dependence, Cocaine Dependence, Opioid Dependence - Physical Exam Results Vital Signs: Vital Signs Temperature 96.7 F L 11/17/16 07:11 Pulse Rate 77 11/17/16 07:11 Respiratory Rate 18 11/17/16 07:11 Blood Pressure 109/68 11/17/16 07:11 O2 Sat by Pulse Oximetry (%) - Treatment Hospital Course: Detox Protocol Followed, Detoxed Safely, Responded well, Discharged Condition Good - Medication Discharge Medications: Ambulatory Orders Quetiapine Fumarate [Seroquel -] 50 mg PO HS 10/18/16 Albuterol Sulfate Inhaler - [Ventolin HFA Inhaler -] 2 puff IH Q4H PRN #1 inhaler 10/22/16 Amlodipine Besylate [Norvasc -] 5 mg PO DAILY #30 tablet 10/22/16 Buprenorphine HCl/Naloxone HCl [Suboxone 8 mg-2 mg Sl Tablets] 1 each SL TID 08/20 Quetiapine Fumarate [Seroquel -] 50 mg PO HS #30 tablet 11/14/16 - Diagnosis (1) Alcohol dependence with uncomplicated withdrawal Current Visit: Yes Status: Acute (2) Cocaine dependence Current Visit: Yes Status: Acute (3) Asthma Current Visit: Yes Status: Chronic Qualifiers: Asthma severity: mild persistent Asthma complication type: with status asthmaticus Qualified Code(s): J45.32 - Mild persistent asthma with status asthmaticus (4) GERD (gastroesophageal reflux disease) Current Visit: Yes Status: Chronic Qualifiers: Esophagitis presence: without esophagitis Qualified Code(s): K21.9 - Gastro-esophageal reflux disease without esophagitis (5) Encounter for monitoring Suboxone maintenance therapy Current Visit: Yes Status: Chronic (6) Nicotine dependence Current Visit: Yes Status: Chronic Qualifiers: Nicotine product type: cigarettes Substance use status: uncomplicated Qualified Code(s): F17.210 - Nicotine dependence, cigarettes, uncomplicated - AMA Did Patient Leave Against Medical Advice: No
[2016-11-17 10:14] VITALS: BP 131/61; PULSE 71; TEMP 96.8
[2016-11-17] MEDS: PRENATAL VITAMINS W/ FOLIC ACID TABLET (FP) PO SCH (10:26)
[2016-11-17] MEDS: amLODIPine BESYLATE 5 MG TABLET (FP) PO SCH (10:27)
[2016-11-17] MEDS: TRIAMTERENE AND HCTZ - 37.5 MG/25 MG CAPSULE PO SCH (10:27)
[2016-11-17] MEDS: cloNIDine HCL 0.1 MG TABLET PO SCH (10:27)
== END 2016-11-17 10:40 | disposition home or self-care (01) | DRG 897 ==
LOC: YASAS 10:34 → Y6N 14:24
PROVIDERS: ADMIT Internal Medicine; ATTEND Internal Medicine Addiction Medicine
PROC: HZ2ZZZZ Detoxification Services for Substance Abuse Treatment (ICD-10-PCS; principal; 2016-11-17)
DX: F11.20 Opioid dependence, uncomplicated (principal); F10.230 Alcohol dependence with withdrawal, uncomplicated; F14.20 Cocaine dependence, uncomplicated; F17.210 Nicotine dependence, cigarettes, uncomplicated; F19.24 Other psychoactive substance dependence with psychoactive substance-induced mood disorder; G47.00 Insomnia, unspecified; K74.60 Unspecified cirrhosis of liver; K21.9 Gastro-esophageal reflux disease without esophagitis
CPT/HCPCS: 36415; 80053; 81003; 85027; 86593; 93005; 93010

== ENCOUNTER 2019-03-04 10:32 | Inpatient (IN) | payer OTHER ==
[2019-03-04 12:39] VITALS: BMI 33.9
--- NOTE | 2019-03-04 14:27 | HP ---
CIWA Score Nausea/Vomitin-Int. Nausea w/Dry Heave Muscle Tremors: 3 Anxiety: 5 Agitation: 0-Normal Activity Paroxysmal Sweats: 3 Orientation: 0-Oriented Tacttile Disturbances: 0-None Auditory Disturbances: 1-Very Mild Visual Disturbances: 0-None Headache: 2-Mild CIWA-Ar Total Score: 18 - Admission Criteria OASAS Guidelines: Admission for Medically Managed Detox: Requires at least one of the followin. CIWA greater than 12 2. Seizures within the past 24 hours 3. Delirium tremens within the past 24 hours 4. Hallucinations within the past 24 hours 5. Acute intervention needed for co occurring medical disorder 6. Acute intervention needed for co occurring psychiatric disorder 7. Severe withdrawal that cannot be handled at a lower level of care (continued vomiting, continued diarrhea, abnormal vital signs) requiring intravenous medication and/or fluids 8. Admission ROS [facility] Chief Complaint: 54 y/o M with PMH liver cirrhosis, asthma, HTN, on suboxone, who is presenting for detox from alcohol. Last drink was at noon today. Feeling very anxious and nervous ever since. Never has had seizures from alcohol withdrawal. 1/2 gallon of vodka daily for the past five weeks, previously had been clean 2.5 yrs. Was age 14 when started drinking. Used to use heroin and cocaine but has been clean for five years. PMH: liver cirrhosis, asthma, HTN PsxH: October - bariatric surgery, lost 25 pounds meds: amlodipine, calcium, iron, daily multivitamin; since he has been drinking excessively last week, has been noncompliant, suboxone 24mg TID-last took it this morning. allergies: NKDA FH: none SH: lives in an apartment in [place]. denies smoking cigarettes alcohol use as above used to use heroin and cocaine in past. Allergies/Adverse Reactions: Allergies Allergy/AdvReac Type Severity Reaction Status Date / Time No Known Drug Allergies Allergy Verified 03/04/19 12:28 History of Present Illness: 54 y/o M with PMH liver cirrhosis, asthma, HTN who is presenting for detox from alcohol. Last drink was at noon today. Exam Limitations: No Limitations - Ebola screening Have you traveled outside of the country in the last 21 days: No Have you had contact with anyone from an Ebola affected area: No Do you have a fever: No - Review of Systems Constitutional: Diaphoresis, Loss of Appetite EENT: reports: No Symptoms Reported Respiratory: reports: No Symptoms reported Cardiac: reports: No Symptoms Reported GI: reports: Nausea, Vomiting, Abdominal cramping : reports: No Symptoms Reported Musculoskeletal: reports: No Symptoms Reported, Muscle Weakness Integumentary: reports: Sweating Neuro: reports: No Symptoms reported Endocrine: reports: No Symptoms Reported Hematology: reports: No Symptoms Reported Psychiatric: reports: Orientated x3 Patient History - Patient Medical History Hx Anemia: No Hx Asthma: Yes (ON VENTOLIN) Hx Chronic Obstructive Pulmonary Disease (COPD): No Hx Cancer: No Hx Cardiac Disorders: No Hx Congestive Heart Failure: No Hx Hypertension: Yes (ON NORVASC 5MG) Hx Hypercholesterolemia: No Hx Pacemaker: No HX Cerebrovascular Accident: No Hx Seizures: No Hx Dementia: No Hx Diabetes: No Hx Gastrointestinal Disorders: Yes (GERD was on nexium) Hx Liver Disease: Yes (cirrhosis was in a coma in 2010 from drinking) Hx Genitourinary Disorders: No Hx Sexually Transmitted Disorders: No Hx Renal Disease (ESRD): No Hx Thyroid Disease: No Hx Human Immunodeficiency Virus (HIV): No Hx Hepatitis C: No Hx Depression: Yes (seroquel 50mg hs) Hx Suicide Attempt: No Hx Bipolar Disorder: No Hx Schizophrenia: No - Patient Surgical History Past Surgical History: Yes Hx Neurologic Surgery: No Hx Cataract Extraction: No Hx Cardiac Surgery: No Hx Lung Surgery: No Hx Breast Surgery: No Hx Breast Biopsy: No Hx Abdominal Surgery: No Hx Appendectomy: No Hx Cholecystectomy: No Hx Genitourinary Surgery: No Hx Section: No Hx Orthopedic Surgery: No Anesthesia Reaction: No - PPD History Documented Results: Negative w/o proof Date: 10/20/16 PPD to be Administered?: Yes - Reproductive History Patient is a Female of Child Bearing Age (11 -55 yrs old): No - Smoking Cessation Smoking history: Never smoked Have you smoked in the past 12 months: No Hx Chewing Tobacco Use: No - Substance & Tx. History Hx Alcohol Use: Yes Substance Use Type: Alcohol Hx Substance Use Treatment: Yes (detox 2017 alcohol) - Substances abused Alcohol Substance route: Oral Frequency: Daily Amount used: 1.5 gallon of vodka a day Age of first use: 14 Date of last use: 03/04/19 Family Disease History - Family Disease History Family History: Denies Family Disease History: Other: Grandparent, Father ( alcohol), Mother ( alcohol) Admission Physical Exam [facility] - Vital Signs Vital Signs: Vital Signs - 24 hr 03/04/19 12:34 Temperature 97.7 F Pulse Rate 82 Respiratory 18 Rate Blood Pressure 139/93 - Physical General Appearance: Yes: Mild Distress HEENTM: Yes: Within Normal Limits Respiratory: Yes: Within Normal Limits, Lungs Clear, No Accessory Muscle Use Neck: Yes: Within Normal Limits Breast: Yes: Breast Exam Deferred Cardiology: Yes: Tachycardia Abdominal: Yes: Tenderness Genitourinary: Yes: Within Normal Limits Back: Yes: Muscle Spasm Musculoskeletal: Yes: Muscle Pain Extremities: Yes: Within Normal Limits Neurological: Yes: cabin cleaner II-XII NML intact Integumentary: Yes: Diaphoresis - Diagnostic (1) Cirrhosis of liver Current Visit: Yes Status: Acute (2) Depression Current Visit: Yes Status: Acute (3) Hypertension Current Visit: Yes Status: Acute (4) Alcohol dependence with uncomplicated withdrawal Current Visit: No Status: Acute (5) Asthma Current Visit: No Status: Chronic Qualifiers: Asthma severity: mild persistent Asthma complication type: with status asthmaticus (6) GERD (gastroesophageal reflux disease) Current Visit: No Status: Chronic Qualifiers: Esophagitis presence: without esophagitis Qualified Code(s): K21.9 - Gastro -esophageal reflux disease without esophagitis Cleared for Admission [facility] - Detox or Rehab [facility] Level of Care: Medically Managed (+ativan protocol d/t cirrhosis) Breathalyzer - Breathalyzer Breathalyzer: 0.156 Urine Drug Screen - Test Device Lot number: [id number] Expiration date: 11/01/20 - Control Is test valid?: Yes - Results Drug screen NEGATIVE: No Urine drug screen results: BZO-Benzodiazepines, BUP-Suboxone Inpatient Rehab Admission - Rehab Decision to Admit Inpatient rehab admission?: No
[2019-03-04] MEDS ORDERED: LORazepam 1 MG TABLET PO PRN (14:47)
[2019-03-04] MEDS ORDERED: MENTHOL/PHENOL 1 EACH UD MM PRN (14:49)
[2019-03-04] MEDS ORDERED: ACETAMINOPHEN 325 MG TABLET (FP) PO PRN ×2 (14:49)
[2019-03-04] MEDS ORDERED: hydrOXYzine PAMOATE 25 MG CAPSULE (FP) PO PRN (14:49)
[2019-03-04] MEDS ORDERED: MAG HYDROX/AL HYDROX/SIMETH 30 ML UNIT-DOSE CUP PO PRN (14:49)
[2019-03-04] MEDS ORDERED: METHOCARBAMOL 500 MG TABLET PO PRN (14:49)
[2019-03-04] MEDS ORDERED: BISMUTH SUBSALICYLATE 524 MG/30 ML UD PO PRN (14:49)
[2019-03-04] MEDS ORDERED: MAGNESIUM HYDROX 2400MG/30ML ORAL SUSPENSION 30 ML CUP PO PRN (14:49)
[2019-03-04] MEDS ORDERED: MAGNESIUM CITRATE 300 ML BOTTLE PO PRN (14:49)
[2019-03-04] MEDS ORDERED: IBUPROFEN 400 MG TABLET (FP) PO PRN (14:49)
[2019-03-04] MEDS ORDERED: MELATONIN 5 MG TABLETS PO PRN (14:49)
[2019-03-04] MEDS ORDERED: ALBUTEROL SO4 8 GM HFA INHALER IH PRN (14:53)
--- NOTE | 2019-03-04 15:44 | PN ---
EITAN Progress Note Note: this 54 years old male with alcohol dependence ,cirrhosis of liver,s/p lap bariatic surgery ,incisional hernia,also suboxone maintenance for inpatient detox medically manage,librium regimen i personally present ,review and decision making with plan of treatment and concurred with history,physical examination, by Dr.Abbi Humphreys
[2019-03-04] MEDS: amLODIPine BESYLATE 5 MG TABLET (FP) PO SCH (16:39)
[2019-03-04] MEDS: LORazepam 2 MG TABLET PO SCH ×2 (16:39→22:35)
[2019-03-04 18:11] LABS: HEMATOCRIT 43.3 % (35.4-49); HEMOGLOBIN 14.5 GM/dL (11.7-16.9); MCH 28.2 pg (25.7-33.7); MCHC 33.4 g/dl (32.0-35.9); MEAN CELL VOLUME 84.3 fl (80-96); PLATELET COUNT 151 K/MM3 (134-434); RBC 5.13 M/mm3 (4.00-5.60); RDW 15.9 % (11.9-15.9); WHITE BLOOD COUNT 7.1 K/mm3 (4.0-10.0)
[2019-03-04 18:30] LABS: ALBUMIN 3.6 g/dl (3.4-5.0); BILIRUBIN,TOTAL 0.5 mg/dL (0.2-1); BLOOD UREA NITROGEN 3.4 mg/dL (7-18); CALCIUM 8.5 mg/dL (8.5-10.1); CREATININE 0.9 mg/dL (0.55-1.3); POTASSIUM 3.4 mmol/L (3.5-5.1); TOT PROT 7.9 g/dl (6.4-8.2)
[2019-03-04] MEDS: QUEtiapine FUMARATE 50 MG TABLET PO SCH (22:35)
[2019-03-04] MEDS: BUPRENORPHINE/NALOXONE 8 MG/2 MG FILM PACKET SL SCH (22:35)
[2019-03-04] MEDS: THIAMINE HCL 100 MG TABLET (FP) PO SCH (22:36)
[2019-03-05] MEDS ORDERED: LORazepam 0.5 MG TABLET PO ONE (05:00)
[2019-03-05] MEDS: LORazepam 2 MG TABLET PO SCH ×4 (06:00→22:33)
[2019-03-05] MEDS: BUPRENORPHINE/NALOXONE 8 MG/2 MG FILM PACKET SL SCH ×3 (06:00→22:32)
[2019-03-05] MEDS ORDERED: PRENATAL VITAMINS W/ FOLIC ACID TABLET (FP) PO SCH (10:00)
[2019-03-05] MEDS ORDERED: TRIAMTERENE AND HCTZ - 37.5 MG/25 MG CAPSULE PO SCH (10:00)
--- NOTE | 2019-03-05 10:14 | CONSULT ---
[facility] Psychiatric Consult - Data Date of interview: 03/05/19 Admission source: Self-referred Identifying data: Mr Salinas is a 54 years old single , father of 3 children, unemployed SSD, domiciled seeking detox treatment for alcohol Substance Abuse History: Reports history of alcohol use. Refer to addiction conselor's summary for further information Medical History: Significant for GERD, bronchial asthma, hypertension, cirrhosis of the liver and history of bariatric surgery Psychiatric History: Patient reports being diagnosed with depression and anxiety and prescribed medication by a staff psychiatrist while in treatment at [facility]. His most recent outpatient psychiatric treatment was while at [facility] in [facility] which he completed in September 2017. Reports that he was prescribed Seroquel 50 mg/hs. 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 Denies previous psychiatric hospitalization. Patient admits to one previous suicide attempt in 1999 via deliberate self exposure to oncoming traffic. At present, Physical/Sexual Abuse/Trauma History: Denies history of emotional, physical or sexual abuse as well as DV relationship. No service Additional Comment: Reports history of multiple previous misdemeanor arrests on charges of trespParAcceling Mental Status Exam - Mental Status Exam Alert and Oriented to: Place, Person Cognitive Function: Fair Patient Appearance: Well Groomed Mood: Depressed Affect: Appropriate Patient Behavior: Sedated (mildly ), Cooperative Hallucinations: Denies Suicidal Ideation: Denies Homicidal Ideation: Denies Insight/Judgement: Poor Sleep: Poorly Appetite: Poor Muscle strength/Tone: Normal Gait/Station: Normal Psychiatric Findings - Problem List ([place] 1, 2,3) (1) Mood disorder Current Visit: Yes Status: Chronic (2) Substance induced mood disorder Current Visit: Yes Status: Acute (3) Substance-induced sleep disorder Current Visit: Yes Status: Acute (4) Alcohol dependence with uncomplicated withdrawal Current Visit: No Status: Acute (5) Opioid dependence on agonist therapy Current Visit: Yes Status: Chronic (6) HTN (hypertension) Current Visit: Yes Status: Chronic (7) Bronchial asthma Current Visit: Yes Status: Chronic (8) GERD (gastroesophageal reflux disease) Current Visit: No Status: Chronic Qualifiers: Esophagitis presence: without esophagitis Qualified Code(s): K21.9 - Gastro -esophageal reflux disease without esophagitis (9) Cirrhosis of liver Current Visit: Yes Status: Chronic (10) Hx of bariatric surgery Current Visit: Yes Status: Resolved - Initial Treatment Plan Initial Treatment Plan: 1) Start Seroquel 50 mg po HS. 2) Continue inpatient detoxification
[2019-03-05] MEDS: amLODIPine BESYLATE 5 MG TABLET (FP) PO SCH (10:49)
--- NOTE | 2019-03-05 11:21 | PN ---
CHANDRAS Progress Note Note: patient is on ativan regimen,history of cirrhosis of liver
--- NOTE | 2019-03-05 11:25 | PN ---
S CIWA - CIWA Score Nausea/Vomitin Muscle Tremors: 2 Anxiety: 2 Agitation: 2 Paroxysmal Sweats: No Perspiration Orientation: 0-Oriented Tacttile Disturbances: 1-Very Mild Itch/Numbness Auditory Disturbances: 1-Very Mild Visual Disturbances: 0-None Headache: 2-Mild CIWA-Ar Total Score: 12 BHS Progress Note (SOAP) Subjective: alert,irritable,anxious,interrupted sleep,tremor Objective: 03/05/19 11:23 Vital Signs Temperature 98.6 F 03/05/19 09:25 Pulse Rate 97 H 03/05/19 09:25 Respiratory Rate 18 03/05/19 09:25 Blood Pressure 152/96 03/05/19 09:25 O2 Sat by Pulse Oximetry (%) 03/05/19 11:23 Laboratory Last Values WBC 7.1 K/mm3 (4.0-10.0) 03/04/19 14:50 RBC 5.13 M/mm3 (4.00-5.60) 03/04/19 14:50 Hgb 14.5 GM/dL (11.7-16.9) 03/04/19 14:50 Hct 43.3 % (35.4-49) 03/04/19 14:50 MCV 84.3 fl (80-96) 03/04/19 14:50 MCH 28.2 pg (25.7-33.7) 03/04/19 14:50 MCHC 33.4 g/dl (32.0-35.9) 03/04/19 14:50 RDW 15.9 % (11.9-15.9) 03/04/19 14:50 Plt Count 151 K/MM3 (134-434) 03/04/19 14:50 MPV 7.0 fl (7.5-11.1) L 03/04/19 14:50 Sodium 139 mmol/L (136-145) 03/04/19 14:50 Potassium 3.4 mmol/L (3.5-5.1) L 03/04/19 14:50 Chloride 103 mmol/L (98-107) 03/04/19 14:50 Carbon Dioxide 31 mmol/L (21-32) 03/04/19 14:50 Anion Gap 5 MMOL/L (8-16) L 03/04/19 14:50 BUN 3.4 mg/dL (7-18) L 03/04/19 14:50 Creatinine 0.9 mg/dL (0.55-1.3) 03/04/19 14:50 Est GFR (CKD-EPI)AfAm 111.83 03/04/19 14:50 Est GFR (CKD-EPI)NonAf 96.49 03/04/19 14:50 Random Glucose 107 mg/dL (74-106) H 03/04/19 14:50 Calcium 8.5 mg/dL (8.5-10.1) 03/04/19 14:50 Total Bilirubin 0.5 mg/dL (0.2-1) 03/04/19 14:50 AST 41 U/L (15-37) H 03/04/19 14:50 ALT 26 U/L (13-61) 03/04/19 14:50 Alkaline Phosphatase 210 U/L (45-117) H 03/04/19 14:50 Total Protein 7.9 g/dl (6.4-8.2) 03/04/19 14:50 Albumin 3.6 g/dl (3.4-5.0) 03/04/19 14:50 Assessment: 03/05/19 11:24 withdrawal symptom Plan: continue detox,k is 3.4,k dur 20 meq po daily
[2019-03-05] MEDS ORDERED: ALBUTEROL SO4 8 GM HFA INHALER IH PRN (11:37)
[2019-03-05] MEDS ORDERED: POTASSIUM CHLORIDE TABS 20 MEQ TABLET.ER (FP) PO SCH (11:45)
[2019-03-05 17:52] LABS: URINE APPEARANCE CLEAR; URINE BILIRUBIN NEGATIVE (NEGATIVE); URINE COLOR YELLOW; URINE GLUCOSE (UA) NEGATIVE (NEGATIVE); URINE KETONE NEGATIVE (NEGATIVE); URINE LEUK ESTERASE NEGATIVE (NEGATIVE); URINE NITRITE NEGATIVE (NEGATIVE); URINE PROTEIN NEGATIVE (NEGATIVE); URINE UROBILINOGEN 0.2 mg/dL (0.2-1.0)
[2019-03-05] MEDS: THIAMINE HCL 100 MG TABLET (FP) PO SCH (22:32)
[2019-03-05] MEDS: QUEtiapine FUMARATE 50 MG TABLET PO SCH (22:33)
[2019-03-06] MEDS ORDERED: LORazepam 1 MG TABLET PO SCH (05:00)
[2019-03-06] MEDS: BUPRENORPHINE/NALOXONE 8 MG/2 MG FILM PACKET SL SCH (05:46)
[2019-03-06 08:00] VITALS: BP 113/105; PULSE 113; TEMP 98.2
[2019-03-06 10:19] LABS: BLOOD UREA NITROGEN 11.9 mg/dL (7-18); CREATININE 0.9 mg/dL (0.55-1.3); POTASSIUM 3.2 mmol/L (3.5-5.1)
--- NOTE | 2019-03-06 16:27 | DS ---
[facility] Detox Discharge Summary Admission Date: 03/04/19 Discharge Date: 03/06/19 - History Present History: Alcohol Dependence, Cocaine Dependence Additional Comments: PT DECLINED TO CONTINUE WITH DETOX FOR PERSONAL REASONS. PT REPORTS HE HAS A PRIMARY CARE AT [facility]. ALERT O X 3. DENIES S/H/I. Pertinent Past History: PLEASE SEE DX BELOW - Physical Exam Results Vital Signs: Vital Signs Temperature 98.2 F 03/06/19 07:55 Pulse Rate 113 H 03/06/19 07:55 Respiratory Rate 20 03/06/19 07:55 Blood Pressure 113/105 H 03/06/19 07:55 O2 Sat by Pulse Oximetry (%) Pertinent Admission Physical Exam Findings: WITHDRAWAL SX Laboratory Tests 03/04/19 03/04/19 03/04/19 14:50 14:50 14:50 WBC 7.1 RBC 5.13 Hgb 14.5 Hct 43.3 MCV 84.3 MCH 28.2 MCHC 33.4 RDW 15.9 Plt Count 151 MPV 7.0 L Sodium 139 Potassium 3.4 L Chloride 103 Carbon Dioxide 31 Anion Gap 5 L BUN 3.4 L Creatinine 0.9 Est GFR (CKD-EPI)AfAm 111.83 Est GFR (CKD-EPI)NonAf 96.49 Random Glucose 107 H Calcium 8.5 Total Bilirubin 0.5 AST 41 H ALT 26 Alkaline Phosphatase 210 H Total Protein 7.9 Albumin 3.6 Urine Color Urine Appearance Urine pH Ur Specific [place] Urine Protein Urine Glucose (UA) Urine Ketones Urine Blood Urine Nitrite Urine Bilirubin Urine Urobilinogen Ur Leukocyte Esterase RPR Titer Nonreactive HIV 1&2 Antibody Screen HIV P24 Antigen TB (QFT) Incubation TB Test (QFT) Nil TB Test (QFT) Mitogen TB Test (QFT) Antigen TB Test (QFT) TB Positive Criteria 03/04/19 03/04/19 03/04/19 14:50 15:30 23:30 WBC RBC Hgb Hct MCV MCH MCHC RDW Plt Count MPV Sodium Potassium Chloride Carbon Dioxide Anion Gap BUN Creatinine Est GFR (CKD-EPI)AfAm Est GFR (CKD-EPI)NonAf Random Glucose Calcium Total Bilirubin AST ALT Alkaline Phosphatase Total Protein Albumin Urine Color Yellow Urine Appearance Clear Urine pH 5.0 Ur Specific [place] 1.002 L Urine Protein Negative Urine Glucose (UA) Negative Urine Ketones Negative Urine Blood Negative Urine Nitrite Negative Urine Bilirubin Negative Urine Urobilinogen 0.2 Ur Leukocyte Esterase Negative RPR Titer HIV 1&2 Antibody Screen Negative HIV P24 Antigen Negative TB (QFT) Incubation TB Test (QFT) Nil 0.05 TB Test (QFT) Mitogen >10.00 TB Test (QFT) Antigen 0.14 TB Test (QFT) Negative TB Positive Criteria 03/06/19 07:50 WBC RBC Hgb Hct MCV MCH MCHC RDW Plt Count MPV Sodium 137 Potassium 3.2 L Chloride 99 Carbon Dioxide 28 Anion Gap 10 BUN 11.9 Creatinine 0.9 Est GFR (CKD-EPI)AfAm 111.83 Est GFR (CKD-EPI)NonAf 96.49 Random Glucose 171 H Calcium 9.0 Total Bilirubin AST ALT Alkaline Phosphatase Total Protein Albumin Urine Color Urine Appearance Urine pH Ur Specific [place] Urine Protein Urine Glucose (UA) Urine Ketones Urine Blood Urine Nitrite Urine Bilirubin Urine Urobilinogen Ur Leukocyte Esterase RPR Titer HIV 1&2 Antibody Screen HIV P24 Antigen TB (QFT) Incubation TB Test (QFT) Nil TB Test (QFT) Mitogen TB Test (QFT) Antigen TB Test (QFT) TB Positive Criteria - Treatment Hospital Course: Discharged Condition Good - Medication Discharge Medications: Ambulatory Orders Buprenorphine/Naloxone [Suboxone 8Mg/2Mg Sl Film -] 1 each SL TID 07/22/16 Ibuprofen [Motrin -] 600 mg PO TID PRN 07/22/16 Quetiapine Fumarate [Seroquel -] 50 mg PO HS #30 tablet 07/23/16 Albuterol Sulfate Inhaler - [Ventolin HFA Inhaler -] 2 inh IH Q4H PRN #1 inhaler 07/26/16 Fluticasone Prop 0.05% Nasal [Flonase -] 1 spray NS BID #1 spray 07/26/16 Potassium Chloride [K-Dur -] 20 meq PO BID #10 tablet.er 07/26/16 hydrOXYzine PAMOATE [Vistaril -] 50 mg PO Q4H PRN #120 capsule 08/15/16 Quetiapine Fumarate [Seroquel -] 50 mg PO HS 10/18/16 Albuterol Sulfate Inhaler - [Ventolin HFA Inhaler -] 2 puff IH Q4H PRN #1 inhaler 10/22/16 Amlodipine Besylate [Norvasc -] 5 mg PO DAILY #30 tablet 10/22/16 Buprenorphine HCl/Naloxone HCl [Suboxone 8 mg-2 mg Sl Tablets] 1 each SL TID 08/20 Quetiapine Fumarate [Seroquel -] 50 mg PO HS #30 tablet 11/14/16 Albuterol Sulfate Inhaler - [Ventolin HFA Inhaler -] 2 puff IH Q4H PRN #1 inhaler 11/17/16 Amlodipine Besylate [Norvasc -] 5 mg PO DAILY #30 tablet 11/17/16 Hctz 25Mg/Triamterene [Dyazide 25/37.5 -] 1 cap PO DAILY #30 tab 11/17/16 Ibuprofen [Motrin -] 800 mg PO TID PRN #90 tablet 11/17/16 - AMA Did Patient Leave Against Medical Advice: Yes (AMA)
[2019-03-07] MEDS ORDERED: LORazepam 0.5 MG TABLET PO PRN
[2019-03-07] MEDS ORDERED: LORazepam 0.5 MG TABLET PO SCH (05:00)
== END 2019-03-06 09:22 | disposition left against medical advice (07) | DRG 894 ==
LOC: YASAS 10:32 → Y6N 15:32
PROVIDERS: ADMIT Surgery; ATTEND Surgery
PROC: HZ2ZZZZ Detoxification Services for Substance Abuse Treatment (ICD-10-PCS; principal; 2019-03-04)
DX: F10.230 Alcohol dependence with withdrawal, uncomplicated (principal); F11.20 Opioid dependence, uncomplicated; F14.20 Cocaine dependence, uncomplicated; F19.282 Other psychoactive substance dependence with psychoactive substance-induced sleep disorder; F19.24 Other psychoactive substance dependence with psychoactive substance-induced mood disorder; F32.9 Major depressive disorder, single episode, unspecified; E87.6 Hypokalemia; I10 Essential (primary) hypertension; J45.909 Unspecified asthma, uncomplicated; K21.9 Gastro-esophageal reflux disease without esophagitis; K74.60 Unspecified cirrhosis of liver; Z98.84 Bariatric surgery status
CPT/HCPCS: 36415; 80048; 80053; 81003; 85027; 86480; 86593; 87389

== ENCOUNTER 2019-04-08 11:15 | Inpatient (IN) | payer OTHER ==
[2019-04-08 12:24] VITALS: BMI 37.5
--- NOTE | 2019-04-08 13:28 | HP ---
CIWA Score Nausea/Vomitin-Mild Nausea/No Vomiting Muscle Tremors: 4-Moderate,w/Arms Extend Anxiety: 5 Agitation: 3 Paroxysmal Sweats: 1-Minimal Palms Moist Orientation: 0-Oriented Tacttile Disturbances: 0-None Auditory Disturbances: 0-None Visual Disturbances: 0-None Headache: 2-Mild CIWA-Ar Total Score: 16 - Admission Criteria OASAS Guidelines: Admission for Medically Managed Detox: Requires at least one of the followin. CIWA greater than 12 2. Seizures within the past 24 hours 3. Delirium tremens within the past 24 hours 4. Hallucinations within the past 24 hours 5. Acute intervention needed for co occurring medical disorder 6. Acute intervention needed for co occurring psychiatric disorder 7. Severe withdrawal that cannot be handled at a lower level of care (continued vomiting, continued diarrhea, abnormal vital signs) requiring intravenous medication and/or fluids 8. Admission ROS [facility] Chief Complaint: here for alcohol detox. Was here about a month ago for the same reason Allergies/Adverse Reactions: Allergies Allergy/AdvReac Type Severity Reaction Status Date / Time No Known Drug Allergies Allergy Verified 04/08/19 12:06 History of Present Illness: 54 y/o M with PMH liver cirrhosis, asthma, umbilical hernia, HTN, on suboxone, who is presenting for detox from alcohol. Last drink was this morning. Feeling very anxious and nervous ever since. Never has had seizures from alcohol withdrawal. 1/2 gallon of vodka daily for the past five weeks, previously had been without using for 3 yrs. Was age 14 when started drinking. Used to use heroin and cocaine but has been without using for five years[address] Candelario, [address], Cirrhosis doc- [facility] hosp. Pt has a protrusion of umbilical hernia- that needs to be repaired[facility]: liver cirrhosis, asthma, HTN PsxH: October 2018 - bariatric surgery, lost 25 pounds meds: amlodipine, calcium, iron, daily multivitamin; since he has been drinking excessively last week, has been noncompliant, suboxone 24mg TID-last took it this morning. allergies: NKDA FH: none SH: lives in an apartment in [place]. denies smoking cigarettes alcohol use as above used to use heroin and cocaine in past. DUR- suboxone 8mg/2mg #90 on 7/3/19 NATHALY- 0.128, no drugs on Utox - Ebola screening Have you traveled outside of the country in the last 21 days: No Have you had contact with anyone from an Ebola affected area: No Do you have a fever: No - Review of Systems Constitutional: Malaise EENT: reports: No Symptoms Reported Respiratory: reports: No Symptoms reported Cardiac: reports: No Symptoms Reported GI: reports: No Symptoms Reported : reports: Other (midline abd hernia, and some pain RLQ) Musculoskeletal: reports: No Symptoms Reported Integumentary: reports: No Symptoms Reported Neuro: reports: No Symptoms reported Hematology: reports: Other Psychiatric: reports: Anxious Patient History - Patient Medical History Hx Anemia: No Hx Asthma: Yes (on albuterol inhaler) Hx Chronic Obstructive Pulmonary Disease (COPD): No Hx Cancer: No Hx Cardiac Disorders: No Hx Congestive Heart Failure: No Hx Hypertension: Yes Hx Hypercholesterolemia: No Hx Pacemaker: No HX Cerebrovascular Accident: No Hx Seizures: No Hx Dementia: No Hx Diabetes: No Hx Gastrointestinal Disorders: No (umbilical hernia) Hx Liver Disease: Yes (cirrhosis) Hx Genitourinary Disorders: No Hx Sexually Transmitted Disorders: No Hx Renal Disease (ESRD): No Hx Thyroid Disease: No Hx Human Immunodeficiency Virus (HIV): No (last 01/17) Hx Hepatitis C: No Hx Depression: Yes Hx Suicide Attempt: No Hx Bipolar Disorder: No Hx Schizophrenia: No - Patient Surgical History Past Surgical History: Yes Hx Neurologic Surgery: No Hx Cataract Extraction: No Hx Cardiac Surgery: No Hx Lung Surgery: No Hx Breast Surgery: No Hx Breast Biopsy: No Hx Abdominal Surgery: No Hx Appendectomy: No Hx Cholecystectomy: No Hx Genitourinary Surgery: No Hx Section: No Hx Orthopedic Surgery: No Other Surgical History: s/p tracheostomy in 1990 Anesthesia Reaction: No - PPD History Date: 07/24/16 Results: 0 mm - Smoking Cessation Smoking history: Never smoked Have you smoked in the past 12 months: No Hx Chewing Tobacco Use: No Initiated information on smoking cessation: No - Substance & Tx. History Hx Alcohol Use: Yes Hx Substance Use: No Substance Use Type: Prescribed - Substances abused Alcohol Substance route: Oral Frequency: Daily Amount used: 1.5 gallon of vodka a day Age of first use: 12 Date of last use: 04/08/19 Family Disease History - Family Disease History Family Disease History: Other: Grandparent, Father ( alcohol), Mother ( alcohol) Admission Physical Exam BHS - Vital Signs Vital Signs: Vital Signs - 24 hr 04/08/19 12:16 Temperature 97.6 F Pulse Rate 76 Respiratory 18 Rate Blood Pressure 145/95 - Physical General Appearance: Yes: Moderate Distress, Obese HEENTM: Yes: Within Normal Limits, HEATHER Respiratory: Yes: Within Normal Limits, Lungs Clear Neck: Yes: Within Normal Limits Cardiology: Yes: Within Normal Limits, Regular Rate Abdominal: Yes: Protuberent, Hernia (abdominal hernia), Other Genitourinary: Yes: Within Normal Limits Musculoskeletal: Yes: Within Normal Limits Extremities: Yes: Within Normal Limits, Normal Capillary Refill, Other Neurological: Yes: Within Normal Limits, tire wrapper II-XII NML intact Integumentary: Yes: Within Normal Limits Lymphatic: Yes: Within Normal Limits - Diagnostic (1) Alcohol dependence with uncomplicated withdrawal Current Visit: No Status: Acute (2) Alcohol-induced sleep disorder Current Visit: No Status: Acute (3) Cirrhosis of liver Current Visit: No Status: Chronic (4) Opioid dependence on agonist therapy Current Visit: No Status: Chronic (5) Umbilical hernia Current Visit: No Status: Chronic (6) Hx of bariatric surgery Current Visit: No Status: Resolved Breathalyzer - Breathalyzer Breathalyzer: 0.128 Urine Drug Screen - Test Device Lot number: [id number] Expiration date: 01/01/21 - Control Is test valid?: Yes - Results Drug screen NEGATIVE: No Urine drug screen results: BUP-Suboxone Inpatient Rehab Admission - Rehab Decision to Admit Inpatient rehab admission?: No
[2019-04-08] MEDS ORDERED: ACETAMINOPHEN 325 MG TABLET (FP) PO PRN ×2 (13:44)
[2019-04-08] MEDS ORDERED: MELATONIN 5 MG TABLETS PO PRN (13:44)
[2019-04-08] MEDS ORDERED: MAGNESIUM HYDROX 2400MG/30ML ORAL SUSPENSION 30 ML CUP PO PRN (13:44)
[2019-04-08] MEDS ORDERED: ONDANSETRON *ODT* 4 MG TABLET SL PRN (13:44)
[2019-04-08] MEDS ORDERED: METHOCARBAMOL 500 MG TABLET PO PRN (13:44)
[2019-04-08] MEDS ORDERED: MAG HYDROX/AL HYDROX/SIMETH 30 ML UNIT-DOSE CUP PO PRN (13:44)
[2019-04-08] MEDS ORDERED: MENTHOL/PHENOL 1 EACH UD MM PRN (13:44)
[2019-04-08] MEDS ORDERED: hydrOXYzine PAMOATE 25 MG CAPSULE (FP) PO PRN (13:44)
[2019-04-08] MEDS ORDERED: BISMUTH SUBSALICYLATE 524 MG/30 ML UD PO PRN (13:44)
[2019-04-08] MEDS ORDERED: IBUPROFEN 400 MG TABLET (FP) PO PRN (13:44)
[2019-04-08] MEDS ORDERED: MAGNESIUM CITRATE 300 ML BOTTLE PO PRN (13:44)
[2019-04-08] MEDS ORDERED: ALBUTEROL SO4 8 GM HFA INHALER IH PRN (13:46)
[2019-04-08] MEDS ORDERED: LORazepam 2 MG TABLET PO ONE (14:30)
[2019-04-08] MEDS: BUPRENORPHINE/NALOXONE 8 MG/2 MG FILM PACKET SL SCH ×2 (15:45→22:23)
[2019-04-08 16:49] LABS: HEMOGLOBIN 12.5 GM/dL (11.7-16.9); MCH 28.7 pg (25.7-33.7); MCHC 33.9 g/dl (32.0-35.9); MEAN CELL VOLUME 84.6 fl (80-96); MEAN PLT VOLUME 7.2 fl (7.5-11.1); PLATELET COUNT 102 K/MM3 (134-434); RBC 4.37 M/mm3 (4.00-5.60); RDW 15.9 % (11.9-15.9); WHITE BLOOD COUNT 5.2 K/mm3 (4.0-10.0)
[2019-04-08 17:30] LABS: ALBUMIN 3.3 g/dl (3.4-5.0); BILIRUBIN,TOTAL 0.5 mg/dL (0.2-1); CALCIUM 7.9 mg/dL (8.5-10.1); CREATININE 0.8 mg/dL (0.55-1.3); POTASSIUM 3.7 mmol/L (3.5-5.1); TOT PROT 7.4 g/dl (6.4-8.2)
[2019-04-08 17:42] LABS: BLOOD UREA NITROGEN 2.8 mg/dL (7-18)
[2019-04-08] MEDS: LORazepam 2 MG TABLET PO SCH ×2 (17:56→22:21)
[2019-04-08] MEDS: QUEtiapine FUMARATE 25 MG TABLET (FP) PO SCH (22:21)
[2019-04-08] MEDS: THIAMINE HCL 100 MG TABLET (FP) PO SCH (22:21)
[2019-04-09] MEDS: LORazepam 2 MG TABLET PO SCH ×4 (05:37→22:17)
[2019-04-09] MEDS: PRENATAL VITAMINS W/ FOLIC ACID TABLET (FP) PO SCH (10:11)
--- NOTE | 2019-04-09 11:09 | PN ---
S CIWA - CIWA Score Nausea/Vomitin-Mild Nausea/No Vomiting Muscle Tremors: 3 Anxiety: 4-Mod. Anxious/Guarded Agitation: 3 Paroxysmal Sweats: 1-Minimal Palms Moist Orientation: 0-Oriented Tacttile Disturbances: 0-None Auditory Disturbances: 0-None Visual Disturbances: 0-None Headache: 1-Very Mild CIWA-Ar Total Score: 13 BHS Progress Note (SOAP) Subjective: 54 years old male admitted on 04/08/19 for acute alcohol withdrawal sx management doing well with ativan detox regimen has hypertension asthma depression last 30 days suboxone 8-2mg bid on 04/02/19 Objective: 04/09/19 11:09 Vital Signs Temperature 97.4 F L 04/09/19 09:22 Pulse Rate 94 H 04/09/19 09:22 Respiratory Rate 20 04/09/19 09:22 Blood Pressure 113/78 04/09/19 09:22 O2 Sat by Pulse Oximetry (%) Laboratory Last Values WBC 5.2 K/mm3 (4.0-10.0) 04/08/19 14:15 RBC 4.37 M/mm3 (4.00-5.60) 04/08/19 14:15 Hgb 12.5 GM/dL (11.7-16.9) 04/08/19 14:15 Hct 37.0 % (35.4-49) 04/08/19 14:15 MCV 84.6 fl (80-96) 04/08/19 14:15 MCH 28.7 pg (25.7-33.7) 04/08/19 14:15 MCHC 33.9 g/dl (32.0-35.9) 04/08/19 14:15 RDW 15.9 % (11.9-15.9) 04/08/19 14:15 Plt Count 102 K/MM3 (134-434) L D 04/08/19 14:15 MPV 7.2 fl (7.5-11.1) L 04/08/19 14:15 Sodium 140 mmol/L (136-145) 04/08/19 14:15 Potassium 3.7 mmol/L (3.5-5.1) 04/08/19 14:15 Chloride 106 mmol/L (98-107) 04/08/19 14:15 Carbon Dioxide 29 mmol/L (21-32) 04/08/19 14:15 Anion Gap 6 MMOL/L (8-16) L 04/08/19 14:15 BUN 2.8 mg/dL (7-18) L* 04/08/19 14:15 Creatinine 0.8 mg/dL (0.55-1.3) 04/08/19 14:15 Est GFR (CKD-EPI)AfAm 117.38 04/08/19 14:15 Est GFR (CKD-EPI)NonAf 101.27 04/08/19 14:15 Random Glucose 115 mg/dL (74-106) H 04/08/19 14:15 Calcium 7.9 mg/dL (8.5-10.1) L 04/08/19 14:15 Total Bilirubin 0.5 mg/dL (0.2-1) 04/08/19 14:15 AST 69 U/L (15-37) H 04/08/19 14:15 ALT 35 U/L (13-61) 04/08/19 14:15 Alkaline Phosphatase 236 U/L (45-117) H 04/08/19 14:15 Total Protein 7.4 g/dl (6.4-8.2) 04/08/19 14:15 Albumin 3.3 g/dl (3.4-5.0) L 04/08/19 14:15 lab noted low Ca++ Assessment: 04/09/19 11:11 alcohol withdrawal sx low Ca++ Plan: continue alcohol detox oscal bid
[2019-04-09] MEDS: amLODIPine BESYLATE 5 MG TABLET (FP) PO SCH (11:10)
[2019-04-09] MEDS: BUPRENORPHINE/NALOXONE 8 MG/2 MG FILM PACKET SL SCH ×2 (11:10→22:18)
[2019-04-09] MEDS: CALCIUM 250MG/VIT-D 125 UNITS 1 COMBO TABLET PO SCH ×2 (14:39→22:17)
[2019-04-09] MEDS: THIAMINE HCL 100 MG TABLET (FP) PO SCH (22:17)
[2019-04-09] MEDS: QUEtiapine FUMARATE 25 MG TABLET (FP) PO SCH (22:17)
[2019-04-10] MEDS: LORazepam 1 MG TABLET PO SCH ×4 (06:00→22:36)
[2019-04-10] MEDS: PRENATAL VITAMINS W/ FOLIC ACID TABLET (FP) PO SCH (10:06)
[2019-04-10] MEDS: CALCIUM 250MG/VIT-D 125 UNITS 1 COMBO TABLET PO SCH ×2 (10:06→21:32)
[2019-04-10] MEDS: amLODIPine BESYLATE 5 MG TABLET (FP) PO SCH (10:06)
[2019-04-10] MEDS: BUPRENORPHINE/NALOXONE 8 MG/2 MG FILM PACKET SL SCH ×2 (10:06→21:33)
[2019-04-10] MEDS: LORazepam 1 MG TABLET PO PRN ×2 (12:34→19:27)
--- NOTE | 2019-04-10 14:51 | PN ---
[facility] CIWA - CIWA Score Nausea/Vomitin-Mild Nausea/No Vomiting Muscle Tremors: 3 Anxiety: 2 Agitation: 2 Paroxysmal Sweats: 1-Minimal Palms Moist Orientation: 0-Oriented Tacttile Disturbances: 1-Very Mild Itch/Numbness Auditory Disturbances: 0-None Visual Disturbances: 0-None Headache: 0-None Present CIWA-Ar Total Score: 10 BHS Progress Note (SOAP) Subjective: patient is doing well with ativan detox regimen and suboxone maintenance patient prefers return to suboxone maintenance program for follow up care Objective: 04/10/19 14:52 Vital Signs Temperature 97.9 F 04/10/19 14:16 Pulse Rate 101 H 04/10/19 14:16 Respiratory Rate 20 04/10/19 14:16 Blood Pressure 144/96 04/10/19 14:16 O2 Sat by Pulse Oximetry (%) Laboratory Last Values WBC 5.2 K/mm3 (4.0-10.0) 04/08/19 14:15 RBC 4.37 M/mm3 (4.00-5.60) 04/08/19 14:15 Hgb 12.5 GM/dL (11.7-16.9) 04/08/19 14:15 Hct 37.0 % (35.4-49) 04/08/19 14:15 MCV 84.6 fl (80-96) 04/08/19 14:15 MCH 28.7 pg (25.7-33.7) 04/08/19 14:15 MCHC 33.9 g/dl (32.0-35.9) 04/08/19 14:15 RDW 15.9 % (11.9-15.9) 04/08/19 14:15 Plt Count 102 K/MM3 (134-434) L D 04/08/19 14:15 MPV 7.2 fl (7.5-11.1) L 04/08/19 14:15 Sodium 140 mmol/L (136-145) 04/08/19 14:15 Potassium 3.7 mmol/L (3.5-5.1) 04/08/19 14:15 Chloride 106 mmol/L (98-107) 04/08/19 14:15 Carbon Dioxide 29 mmol/L (21-32) 04/08/19 14:15 Anion Gap 6 MMOL/L (8-16) L 04/08/19 14:15 BUN 2.8 mg/dL (7-18) L* 04/08/19 14:15 Creatinine 0.8 mg/dL (0.55-1.3) 04/08/19 14:15 Est GFR (CKD-EPI)AfAm 117.38 04/08/19 14:15 Est GFR (CKD-EPI)NonAf 101.27 04/08/19 14:15 Random Glucose 115 mg/dL (74-106) H 04/08/19 14:15 Calcium 7.9 mg/dL (8.5-10.1) L 04/08/19 14:15 Total Bilirubin 0.5 mg/dL (0.2-1) 04/08/19 14:15 AST 69 U/L (15-37) H 04/08/19 14:15 ALT 35 U/L (13-61) 04/08/19 14:15 Alkaline Phosphatase 236 U/L (45-117) H 04/08/19 14:15 Total Protein 7.4 g/dl (6.4-8.2) 04/08/19 14:15 Albumin 3.3 g/dl (3.4-5.0) L 04/08/19 14:15 lab noted low ca++ continue oscal bid Assessment: 04/10/19 14:53 alcohol withdrawal sx Plan: continue alcohol detox
[2019-04-10] MEDS: THIAMINE HCL 100 MG TABLET (FP) PO SCH (21:32)
[2019-04-10] MEDS: QUEtiapine FUMARATE 25 MG TABLET (FP) PO SCH (21:33)
[2019-04-11] MEDS ORDERED: LORazepam 0.5 MG TABLET PO PRN
[2019-04-11] MEDS: LORazepam 0.5 MG TABLET PO SCH ×4 (05:49→22:13)
[2019-04-11] MEDS: PRENATAL VITAMINS W/ FOLIC ACID TABLET (FP) PO SCH (10:11)
[2019-04-11] MEDS: CALCIUM 250MG/VIT-D 125 UNITS 1 COMBO TABLET PO SCH ×2 (10:11→22:13)
[2019-04-11] MEDS: amLODIPine BESYLATE 5 MG TABLET (FP) PO SCH (10:11)
[2019-04-11] MEDS: BUPRENORPHINE/NALOXONE 8 MG/2 MG FILM PACKET SL SCH ×2 (10:11→22:13)
--- NOTE | 2019-04-11 14:46 | PN ---
S CIWA - CIWA Score Nausea/Vomitin-No Nausea/No Vomiting Muscle Tremors: 2 Anxiety: 3 Agitation: 1-Slight > Activity Paroxysmal Sweats: No Perspiration Orientation: 0-Oriented Tacttile Disturbances: 0-None Auditory Disturbances: 0-None Visual Disturbances: 1-Very Mild Sensitivity Headache: 0-None Present CIWA-Ar Total Score: 7 BHS Progress Note (SOAP) Subjective: Anxious, Tremors (Mild). Objective: PATIENT A & O X 3, OBSERVED AMBULATING ON UNIT UNASSISTED. IN NO ACUTE DISTRESS. 04/11/19 14:41 Vital Signs Temperature 97.6 F 04/11/19 13:35 Pulse Rate 68 04/11/19 13:35 Respiratory Rate 18 04/11/19 13:35 Blood Pressure 152/93 04/11/19 13:35 O2 Sat by Pulse Oximetry (%) Laboratory Tests 04/08/19 04/08/19 14:15 14:15 WBC 5.2 RBC 4.37 Hgb 12.5 Hct 37.0 MCV 84.6 MCH 28.7 MCHC 33.9 RDW 15.9 Plt Count 102 L D MPV 7.2 L Sodium 140 Potassium 3.7 Chloride 106 Carbon Dioxide 29 Anion Gap 6 L BUN 2.8 L* Creatinine 0.8 Est GFR (CKD-EPI)AfAm 117.38 Est GFR (CKD-EPI)NonAf 101.27 Random Glucose 115 H Calcium 7.9 L Total Bilirubin 0.5 AST 69 H ALT 35 Alkaline Phosphatase 236 H Total Protein 7.4 Albumin 3.3 L LABS NOTED. PATIENT HAS HAD ELEVATED AST AND ALK. PHOS. LEVELS ON PREVIOUS ADMISSIONS. 04/11/19 14:46 Assessment: 04/11/19 14:44 WITHDRAWAL SYMPTOMS. THROMBOCYTOPENIA. ELEVATED AST LEVEL ELEVATED ALK. PHOS. LEVEL. HYPERTENSION. 04/11/19 14:44 Plan: CONTINUE DETOX. AMLODIPINE, 5 MG PO X 1 DOSE NOW FOR ELEVATED BP DESPITE PREVIOUS TREATMENT. PATIENT SCHEDULED FOR D/C FORM DETOX UNIT TOMORROW.
[2019-04-11] MEDS ORDERED: amLODIPine BESYLATE 5 MG TABLET (FP) PO ONE (14:55)
[2019-04-11] MEDS: THIAMINE HCL 100 MG TABLET (FP) PO SCH (22:13)
[2019-04-11] MEDS: QUEtiapine FUMARATE 25 MG TABLET (FP) PO SCH (22:13)
[2019-04-12] MEDS ORDERED: LORazepam 0.5 MG TABLET PO ONE (05:00)
[2019-04-12 06:29] VITALS: BP 147/89; PULSE 65; TEMP 97.1
--- NOTE | 2019-04-12 18:19 | DS ---
[facility] Detox Discharge Summary Admission Date: 04/08/19 Discharge Date: 04/12/19 - History Present History: Alcohol Dependence Additional Comments: PATIENT GOING TO [facility] PROGRAM ([place], [place]). PATIENT ADVISED TO FOLLOW-UP WITH [facility]ER AFTER DISCHARGE FROM DETOX FOR GENERAL MEDICAL ASSESSMENT AND FOR ELEVATED LIVER ENZYMES, FOR LOW PLATELET LEVEL NOTED ON DETOX ADMISSION LABORATORY ASSESSMENT AND FOR REPORTED HISTORY OF CIRRHOSIS OF LIVER. PATIENT VERBALIZED UNDERSTANDING OF ALL RECOMMENDATIONS PRESENTED TO HIM AT TIME OF DISCHARGE FROM DETOX UNIT. COPIES OF RESULTS OF ALL LABS DRAWN WHILE ADMITTED FOR DETOX GIVEN TO PATIENT AT TIME OF DISCHARGE FROM DETOX UNIT. PATIENT DECLINED OFFER OF MEDICATION PRESCRIPTION FOR HOME MEDICATION AT TIME OF DISCHARGE FROM DETOX, NOTING THAT HE CURRENTLY HAS ADEQUATE SUPPLIES OF ALL PRESCRIBED HOME MEDICATIONS AT HOME. PATIENT WAS DISCHARGED FROM DETOX UNIT IN STABLE MEDICAL CONDITION. Pertinent Past History: History Of Cirrhosis Of liver, Asthma, HTN, Thrombocytopenia, Elevated Liver Enzymes, History Of Suboxone Maintenance Therapy, History Of Umbilical Hernia, History Of Bariatric Surgery. - Physical Exam Results Vital Signs: Vital Signs Temperature 97.1 F L 04/12/19 06:28 Pulse Rate 65 04/12/19 06:28 Respiratory Rate 18 04/12/19 06:28 Blood Pressure 147/89 04/12/19 06:28 O2 Sat by Pulse Oximetry (%) Pertinent Admission Physical Exam Findings: WITHDRAWAL SYMPTOMS. Laboratory Tests 04/08/19 04/08/19 14:15 14:15 WBC 5.2 RBC 4.37 Hgb 12.5 Hct 37.0 MCV 84.6 MCH 28.7 MCHC 33.9 RDW 15.9 Plt Count 102 L D MPV 7.2 L Sodium 140 Potassium 3.7 Chloride 106 Carbon Dioxide 29 Anion Gap 6 L BUN 2.8 L* Creatinine 0.8 Est GFR (CKD-EPI)AfAm 117.38 Est GFR (CKD-EPI)NonAf 101.27 Random Glucose 115 H Calcium 7.9 L Total Bilirubin 0.5 AST 69 H ALT 35 Alkaline Phosphatase 236 H Total Protein 7.4 Albumin 3.3 L LABS NOTED. - Treatment Hospital Course: Detox Protocol Followed, Detoxed Safely, Responded well, Discharged Condition Good Patient has Accepted a Rehab Referral to: PT. GOING TO [facility] ([place], [place]). - Medication Discharge Medications: Ambulatory Orders Fluticasone Prop 0.05% Nasal [Flonase -] 1 spray NS BID #1 spray 07/26/16 hydrOXYzine PAMOATE [Vistaril -] 50 mg PO Q4H PRN #120 capsule 08/15/16 Albuterol Sulfate Inhaler - [Ventolin HFA Inhaler -] 2 puff IH Q4H PRN #1 inhaler 11/17/16 Amlodipine Besylate [Norvasc -] 5 mg PO DAILY #30 tablet 11/17/16 Hctz 25Mg/Triamterene [Dyazide 25/37.5 -] 1 cap PO DAILY #30 tab 11/17/16 Ibuprofen [Motrin -] 800 mg PO TID PRN #90 tablet 11/17/16 Quetiapine Fumarate [Seroquel -] 75 mg PO HS 04/08/19 - Diagnosis (1) Alcohol dependence with uncomplicated withdrawal Status: Acute (2) Alcohol-induced sleep disorder Status: Acute (3) Elevated alkaline phosphatase level Status: Acute (4) Elevated aspartate aminotransferase level Status: Acute (5) Thrombocytopenia Status: Acute (6) Cirrhosis of liver Status: Chronic Qualifiers: Hepatic cirrhosis type: unspecified hepatic cirrhosis Ascites presence: unspecified Qualified Code(s): K74.60 - Unspecified cirrhosis of liver (7) Opioid dependence on agonist therapy Status: Chronic (8) Umbilical hernia Status: Chronic Qualifiers: Obstruction and gangrene presence: without obstruction or gangrene Qualified Code(s): K42.9 - Umbilical hernia without obstruction or gangrene (9) Hx of bariatric surgery Status: Resolved - AMA Did Patient Leave Against Medical Advice: No
== END 2019-04-12 08:40 | disposition home or self-care (01) | DRG 897 ==
LOC: YASAS 11:15 → Y3N 14:02
PROVIDERS: ADMIT Surgery; ATTEND Surgery
PROC: HZ2ZZZZ Detoxification Services for Substance Abuse Treatment (ICD-10-PCS; principal; 2019-04-08)
DX: F10.230 Alcohol dependence with withdrawal, uncomplicated (principal); F11.20 Opioid dependence, uncomplicated; F10.282 Alcohol dependence with alcohol-induced sleep disorder; I10 Essential (primary) hypertension; R74.8 Abnormal levels of other serum enzymes; R74.0 Nonspecific elevation of levels of transaminase and lactic acid dehydrogenase [LDH]; D69.6 Thrombocytopenia, unspecified; K74.60 Unspecified cirrhosis of liver; K42.9 Umbilical hernia without obstruction or gangrene; E66.9 Obesity, unspecified; Z68.37 Body mass index [BMI] 37.0-37.9, adult; Z98.84 Bariatric surgery status
CPT/HCPCS: 36415; 80053; 85027

== ENCOUNTER 2019-04-25 11:09 | Inpatient (IN) | payer OTHER ==
[2019-04-25 12:34] VITALS: BMI 38.4
--- NOTE | 2019-04-25 14:16 | HP ---
Screened but not Admitted - Documentation of Visit Screened but not Admitted: Yes Left Prior to Completion of Assessment: Yes Insurance Authorization Denied: No Patient Does Not Meet Criteria for Admission: No Level of Care Recommended at this Time: ER Evaluation/Care Additional Information/Explanation: pt had blood in ear and sp fall
--- NOTE | 2019-04-25 17:48 | HP ---
CIWA Score Nausea/Vomitin Muscle Tremors: 3 Anxiety: 4-Mod. Anxious/Guarded Agitation: 2 Paroxysmal Sweats: 1-Minimal Palms Moist Orientation: 1-Uncertain about Date Tacttile Disturbances: 0-None Auditory Disturbances: 0-None Visual Disturbances: 2-Mild Sensitivity Headache: 3-Moderate CIWA-Ar Total Score: 18 - Admission Criteria OASAS Guidelines: Admission for Medically Managed Detox: Requires at least one of the followin. CIWA greater than 12 2. Seizures within the past 24 hours 3. Delirium tremens within the past 24 hours 4. Hallucinations within the past 24 hours 5. Acute intervention needed for co occurring medical disorder 6. Acute intervention needed for co occurring psychiatric disorder 7. Severe withdrawal that cannot be handled at a lower level of care (continued vomiting, continued diarrhea, abnormal vital signs) requiring intravenous medication and/or fluids 8. Patient presents the following: CIWA greater than 12 Admission Criteria Met: Admission criteria met Admission ROS BHS - HPI Chief Complaint: I NEED TO STOP Allergies/Adverse Reactions: Allergies Allergy/AdvReac Type Severity Reaction Status Date / Time No Known Drug Allergies Allergy Verified 04/25/19 12:27 History of Present Illness: ETOH USE BEGAN AGE 16 1.5 Y ABSTINENT DRINKING 1/2 GALLON VODKA DAILY HAS CIRRHOSIS RELAPSED A FEW WEEKS AGO ON SUBOXONE NO OPIATES X 5 YEARS SP FALL AT HOME - Ebola screening Have you traveled outside of the country in the last 21 days: No (N) Have you had contact with anyone from an Ebola affected area: No Do you have a fever: No - Review of Systems Constitutional: Changes in sleep EENT: reports: No Symptoms Reported Respiratory: reports: No Symptoms reported Cardiac: reports: No Symptoms Reported GI: reports: Abdominal cramping : reports: No Symptoms Reported Musculoskeletal: reports: No Symptoms Reported Integumentary: reports: No Symptoms Reported Neuro: reports: Headache, Other (SP FALL) Endocrine: reports: No Symptoms Reported Hematology: reports: No Symptoms Reported Psychiatric: reports: Anxious Patient History - Patient Medical History Hx Anemia: No Hx Asthma: Yes Hx Chronic Obstructive Pulmonary Disease (COPD): No Hx Cancer: No Hx Cardiac Disorders: No Hx Congestive Heart Failure: No Hx Hypertension: Yes Hx Hypercholesterolemia: No Hx Pacemaker: No HX Cerebrovascular Accident: No Hx Seizures: No Hx Dementia: No Hx Diabetes: No Hx Gastrointestinal Disorders: No Hx Liver Disease: Yes (cirrhosis) Hx Genitourinary Disorders: No Hx Sexually Transmitted Disorders: No Hx Renal Disease (ESRD): No Hx Thyroid Disease: No Hx Human Immunodeficiency Virus (HIV): No (last 01/17) Hx Hepatitis C: No Hx Depression: Yes (OFF MEDS) Hx Suicide Attempt: No Hx Bipolar Disorder: No Hx Schizophrenia: No - Patient Surgical History Past Surgical History: Yes Hx Neurologic Surgery: No Hx Cataract Extraction: No Hx Cardiac Surgery: No Hx Lung Surgery: No Hx Breast Surgery: No Hx Breast Biopsy: No Hx Abdominal Surgery: No Hx Appendectomy: No Hx Cholecystectomy: No Hx Genitourinary Surgery: No Hx Section: No Hx Orthopedic Surgery: No Other Surgical History: s/p tracheostomy in 1990 Anesthesia Reaction: No - PPD History Date: 07/24/16 Results: 0 mm - Smoking Cessation Smoking history: Never smoked Have you smoked in the past 12 months: No Hx Chewing Tobacco Use: No - Substances abused Alcohol Substance route: Oral Frequency: Daily Amount used: 1/2 gallon of vodka Age of first use: 12 Date of last use: 04/24/19 Family Disease History - Family Disease History Family Disease History: Other: Grandparent, Father ( alcohol), Mother ( alcohol) Admission Physical Exam BHS - Vital Signs Vital Signs: Vital Signs - 24 hr 04/25/19 04/25/19 12:25 17:09 Temperature 98.0 F 98.5 F Pulse Rate 92 H 84 Respiratory 20 18 Rate Blood Pressure 143/80 149/90 - Physical General Appearance: Yes: Irritable, Anxious HEENTM: Yes: EOMI, Other (BLOOD ON RIGHT EAR) Respiratory: Yes: Chest Non-Tender, Lungs Clear Neck: Yes: Within Normal Limits Breast: Yes: Breast Exam Deferred Cardiology: Yes: Within Normal Limits, Regular Rhythm, Regular Rate, S1, S2 Abdominal: Yes: Normal Bowel Sounds, Non Tender Genitourinary: Yes: Within Normal Limits Back: Yes: Within Normal Limits Musculoskeletal: Yes: Within Normal Limits Extremities: Yes: Pedal Edema, Other (VENOUS STASIS) Neurological: Yes: cream hauler II-XII NML intact, Fully Oriented, Alert, Motor Strength 5/5 Integumentary: Yes: Pitting Edema - Diagnostic (1) Alcohol dependence with intoxication Current Visit: Yes Status: Acute (2) Alcohol dependence with uncomplicated withdrawal Current Visit: Yes Status: Acute (3) Cellulitis Current Visit: No Status: Chronic (4) Depression Current Visit: Yes Status: Chronic (5) Encounter for monitoring Suboxone maintenance therapy Current Visit: No Status: Chronic (6) Otitic barotrauma, initial encounter Current Visit: Yes Status: Acute (7) Cirrhosis of liver Current Visit: Yes Status: Chronic Qualifiers: (8) GERD (gastroesophageal reflux disease) Current Visit: Yes Status: Chronic Qualifiers: (9) HTN (hypertension) Current Visit: Yes Status: Chronic Breathalyzer - Breathalyzer Breathalyzer: 0.147 Urine Drug Screen - Test Device Lot number: [id number] Expiration date: 02/01/21 - Control Is test valid?: Yes - Results Drug screen NEGATIVE: No Urine drug screen results: BUP-Suboxone Inpatient Rehab Admission - Rehab Decision to Admit Inpatient rehab admission?: No
[2019-04-25] MEDS ORDERED: MAGNESIUM HYDROX 2400MG/30ML ORAL SUSPENSION 30 ML CUP PO PRN (17:54)
[2019-04-25] MEDS ORDERED: BISMUTH SUBSALICYLATE 524 MG/30 ML UD PO PRN (17:54)
[2019-04-25] MEDS ORDERED: MAG HYDROX/AL HYDROX/SIMETH 30 ML UNIT-DOSE CUP PO PRN (17:54)
[2019-04-25] MEDS ORDERED: MELATONIN 5 MG TABLETS PO PRN (17:54)
[2019-04-25] MEDS ORDERED: MENTHOL/PHENOL 1 EACH UD MM PRN (17:54)
[2019-04-25] MEDS ORDERED: MAGNESIUM CITRATE 300 ML BOTTLE PO PRN (17:54)
[2019-04-25] MEDS ORDERED: chlordiazePOXIDE HCL 25 MG CAPSULE PO PRN (17:54)
[2019-04-25] MEDS ORDERED: METHOCARBAMOL 500 MG TABLET PO PRN (17:54)
[2019-04-25] MEDS ORDERED: ACETAMINOPHEN 325 MG TABLET (FP) PO PRN (17:54)
[2019-04-25] MEDS ORDERED: ALBUTEROL SO4 8 GM HFA INHALER IH PRN (17:56)
[2019-04-25] MEDS ORDERED: LORazepam 1 MG TABLET PO PRN (20:21)
[2019-04-25] MEDS: LORazepam 2 MG TABLET PO SCH (22:03)
[2019-04-25] MEDS: THIAMINE HCL 100 MG TABLET (FP) PO SCH (22:03)
[2019-04-25] MEDS: BUPRENORPHINE HCL/NALOXONE 12 MG-3 MG SL FILM PACKET SL SCH (22:03)
[2019-04-25] MEDS: ACETAMINOPHEN 325 MG TABLET (FP) PO PRN (22:18)
[2019-04-25] MEDS ORDERED: chlordiazePOXIDE HCL 25 MG CAPSULE PO SCH (23:00)
[2019-04-26] MEDS: LORazepam 2 MG TABLET PO SCH ×4 (05:30→22:47)
[2019-04-26] MEDS ORDERED: amLODIPine BESYLATE 5 MG TABLET (FP) PO SCH (10:00)
[2019-04-26 10:30] LABS: HEMOGLOBIN 12.2 GM/dL (11.7-16.9); MCH 28.6 pg (25.7-33.7); MCHC 33.1 g/dl (32.0-35.9); MEAN CELL VOLUME 86.5 fl (80-96); MEAN PLT VOLUME 6.5 fl (7.5-11.1); PLATELET COUNT 210 K/MM3 (134-434); RBC 4.28 M/mm3 (4.00-5.60); RDW 15.5 % (11.9-15.9); WHITE BLOOD COUNT 4.7 K/mm3 (4.0-10.0)
[2019-04-26] MEDS: PRENATAL VITAMINS W/ FOLIC ACID TABLET (FP) PO SCH (10:39)
[2019-04-26] MEDS: BUPRENORPHINE HCL/NALOXONE 12 MG-3 MG SL FILM PACKET SL SCH ×2 (10:39→22:47)
[2019-04-26] MEDS: TRIAMTERENE AND HCTZ - 37.5 MG/25 MG CAPSULE PO SCH (10:39)
[2019-04-26 10:52] LABS: ALBUMIN 3.2 g/dl (3.4-5.0); BILIRUBIN,TOTAL 0.7 mg/dL (0.2-1); BLOOD UREA NITROGEN 4.9 mg/dL (7-18); CALCIUM 8.2 mg/dL (8.5-10.1); CREATININE 0.8 mg/dL (0.55-1.3); POTASSIUM 3.4 mmol/L (3.5-5.1); TOT PROT 7.4 g/dl (6.4-8.2)
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
--- NOTE | 2019-04-26 14:34 | PN ---
S CIWA - CIWA Score Nausea/Vomitin Muscle Tremors: 3 Anxiety: 3 Agitation: 1-Slight > Activity Paroxysmal Sweats: No Perspiration Orientation: 2-Disoriented Date<2 days Tacttile Disturbances: 2-Mild Itch/Numbness/Burn Auditory Disturbances: 0-None Visual Disturbances: 2-Mild Sensitivity Headache: 0-None Present CIWA-Ar Total Score: 15 BHS Progress Note (SOAP) Subjective: Tremors, Fatigue, Nausea, Anxious. Objective: PATIENT A & O X 2 (UNCERTAIN ABOUT CURRENT DAY / DATE). PATIENT OBSERVED AMBULATING ON UNIT UNASSISTED. IN NO ACUTE DISTRESS. 04/26/19 14:35 Vital Signs Temperature 97.2 F L 04/26/19 14:08 Pulse Rate 64 04/26/19 14:08 Respiratory Rate 18 04/26/19 14:08 Blood Pressure 154/99 04/26/19 14:08 O2 Sat by Pulse Oximetry (%) Laboratory Tests 04/26/19 04/26/19 04/26/19 07:00 07:00 07:00 WBC 4.7 RBC 4.28 Hgb 12.2 Hct 37.0 MCV 86.5 MCH 28.6 MCHC 33.1 RDW 15.5 Plt Count 210 D MPV 6.5 L Sodium 144 Potassium 3.4 L Chloride 102 Carbon Dioxide 34 H Anion Gap 8 BUN 4.9 L Creatinine 0.8 Est GFR (CKD-EPI)AfAm 117.38 Est GFR (CKD-EPI)NonAf 101.27 Random Glucose 116 H Calcium 8.2 L Total Bilirubin 0.7 AST 43 H ALT 24 Alkaline Phosphatase 194 H Total Protein 7.4 Albumin 3.2 L RPR Titer Nonreactive LABS NOTED. PATIENT HAS HAD ELEVATED ALKALINE PHOSPHATASE LEVELS AND LOW POTASSIUM LEVELS N PREVIOUS ADMISSIONS. 04/26/19 14:43 Assessment: 04/26/19 14:42 WITHDRAWAL SYMPTOMS. HYPERTENSION. HYPOKALEMIA. ELEVATED ALKALINE PHOSPHATASE LEVEL. 04/26/19 14:45 Plan: CONTINUE DETOX. INCREASE DAILY DOSE OF AMLODIPINE TO 10 MG PO DAILY FOR ELEVATED BLOOD PRESSURE DESPITE PREVIOUS TREATMENT. K-DUR, 40 MEQ PO X 1 DOSE TODAY, THEN 20 MEQ PO X 1 DOSE TOMORROW FOR LOW POTASSIUM LEVEL NOTED ON DETOX ADMISSION LABORATORY ASSESSMENT. RE-CHECK POTASSIUM LEVEL ON 04/28/2019 TO ASSESS FOR EFFECT.
[2019-04-26] MEDS ORDERED: POTASSIUM CHLORIDE TABS 20 MEQ TABLET.ER (FP) PO ONE (16:00)
[2019-04-26] MEDS ORDERED: amLODIPine BESYLATE 5 MG TABLET (FP) PO ONE (17:00)
[2019-04-26] MEDS: ACETAMINOPHEN 325 MG TABLET (FP) PO PRN (17:49)
[2019-04-26] MEDS: QUEtiapine FUMARATE 25 MG TABLET (FP) PO SCH (22:47)
[2019-04-26] MEDS: THIAMINE HCL 100 MG TABLET (FP) PO SCH (22:47)
[2019-04-26] MEDS: IBUPROFEN 400 MG TABLET (FP) PO PRN (22:48)
[2019-04-27] MEDS ORDERED: chlordiazePOXIDE HCL 25 MG CAPSULE PO SCH (05:00)
[2019-04-27] MEDS: LORazepam 1 MG TABLET PO SCH ×4 (05:51→22:23)
[2019-04-27] MEDS ORDERED: POTASSIUM CHLORIDE TABS 20 MEQ TABLET.ER (FP) PO ONE (10:00)
[2019-04-27] MEDS: BUPRENORPHINE HCL/NALOXONE 12 MG-3 MG SL FILM PACKET SL SCH ×2 (10:16→22:23)
[2019-04-27] MEDS: PRENATAL VITAMINS W/ FOLIC ACID TABLET (FP) PO SCH (10:16)
[2019-04-27] MEDS: amLODIPine BESYLATE 10 MG TABLET (FP) PO SCH (10:17)
[2019-04-27] MEDS: TRIAMTERENE AND HCTZ - 37.5 MG/25 MG CAPSULE PO SCH (10:17)
--- NOTE | 2019-04-27 13:59 | PN ---
S CIWA - CIWA Score Nausea/Vomitin Muscle Tremors: 3 Anxiety: 3 Agitation: 2 Paroxysmal Sweats: No Perspiration Orientation: 0-Oriented Tacttile Disturbances: 2-Mild Itch/Numbness/Burn Auditory Disturbances: 0-None Visual Disturbances: 1-Very Mild Sensitivity Headache: 0-None Present CIWA-Ar Total Score: 13 S Progress Note (SOAP) Subjective: Fatigue, Tremors, Nausea, Anxious. Objective: PATIENT A & O X 3, OBSERVED AMBULATING ON UNIT UNASSISTED. IN NO ACUTE DISTRESS. 04/27/19 13:59 Vital Signs Temperature 97.8 F 04/27/19 13:11 Pulse Rate 95 H 04/27/19 13:11 Respiratory Rate 18 04/27/19 13:11 Blood Pressure 120/88 04/27/19 13:11 O2 Sat by Pulse Oximetry (%) Laboratory Tests 04/26/19 04/26/19 04/26/19 07:00 07:00 07:00 WBC 4.7 RBC 4.28 Hgb 12.2 Hct 37.0 MCV 86.5 MCH 28.6 MCHC 33.1 RDW 15.5 Plt Count 210 D MPV 6.5 L Sodium 144 Potassium 3.4 L Chloride 102 Carbon Dioxide 34 H Anion Gap 8 BUN 4.9 L Creatinine 0.8 Est GFR (CKD-EPI)AfAm 117.38 Est GFR (CKD-EPI)NonAf 101.27 Random Glucose 116 H Calcium 8.2 L Total Bilirubin 0.7 AST 43 H ALT 24 Alkaline Phosphatase 194 H Total Protein 7.4 Albumin 3.2 L RPR Titer Nonreactive LABS NOTED. Assessment: 04/27/19 14:00 WITHDRAWAL SYMPTOMS. HYPERTENSION. HYPOKALEMIA. ELEVATED ALKALINE PHOSPHATASE LEVEL. Plan: CONTINUE DETOX. K-DUR PO ADMINISTERED YESTERDAY AND EARLIER TODAY FOR LOW K LEVEL NOTED ON DETOX ADMISSION LABORATORY ASSESSMENT. REPEAT K LEVEL ORDERED FOR TOMORROW AM TO SEE IF ANY INCREASE IN K LEVEL. PATIENT WAS EVALUATED AT [facility] ON 04/25/2019 FOR RIGHT EAR DISORDER. NEOMYCIN/POLYMYXIN/HC EAR DROPS ORDERED FOR TREATMENT OF THIS CONDITION. DROPS NOT ORDERED ON DETOX UNIT WHEN PATIENT WAS RETURNED TO [facility] DETOX UNIT. MEDICATION ORDERED TODAY.
[2019-04-27] MEDS: ACETAMINOPHEN 325 MG TABLET (FP) PO PRN ×2 (14:02→21:09)
[2019-04-27] MEDS: NEOMYCIN/POLYMYXN/HC OTIC SUSPENSION 10 ML BOTTLE AD SCH ×3 (15:15→23:52)
[2019-04-27] MEDS: THIAMINE HCL 100 MG TABLET (FP) PO SCH (22:23)
[2019-04-27] MEDS: QUEtiapine FUMARATE 25 MG TABLET (FP) PO SCH (22:23)
[2019-04-27] MEDS: IBUPROFEN 400 MG TABLET (FP) PO PRN (22:26)
[2019-04-28] MEDS ORDERED: LORazepam 0.5 MG TABLET PO PRN
[2019-04-28] MEDS ORDERED: chlordiazePOXIDE HCL 10 MG CAPSULE PO PRN
[2019-04-28] MEDS: hydrOXYzine PAMOATE 25 MG CAPSULE (FP) PO PRN ×2 (01:48→08:42)
[2019-04-28] MEDS ORDERED: chlordiazePOXIDE HCL 10 MG CAPSULE PO SCH (05:00)
[2019-04-28] MEDS: LORazepam 0.5 MG TABLET PO SCH ×4 (05:57→22:26)
[2019-04-28] MEDS: amLODIPine BESYLATE 10 MG TABLET (FP) PO SCH (09:28)
[2019-04-28] MEDS: PRENATAL VITAMINS W/ FOLIC ACID TABLET (FP) PO SCH (09:28)
[2019-04-28] MEDS: BUPRENORPHINE HCL/NALOXONE 12 MG-3 MG SL FILM PACKET SL SCH ×2 (09:28→22:26)
[2019-04-28] MEDS: TRIAMTERENE AND HCTZ - 37.5 MG/25 MG CAPSULE PO SCH (09:29)
[2019-04-28] MEDS: BENZOCAINE 20 % GEL TUBE MM PRN (09:29)
--- NOTE | 2019-04-28 11:34 | PN ---
S CIWA - CIWA Score Nausea/Vomitin-Mild Nausea/No Vomiting Muscle Tremors: 3 Anxiety: 2 Agitation: 2 Paroxysmal Sweats: 1-Minimal Palms Moist Orientation: 0-Oriented Tacttile Disturbances: 0-None Auditory Disturbances: 0-None Visual Disturbances: 0-None Headache: 0-None Present CIWA-Ar Total Score: 9 BHS Progress Note (SOAP) Subjective: 54 years old male admitted on 04/25/19 for acute alcohol withdrawal sx management doing well with ativan detox regimen patient agrees to return to suboxone provider for monthly opiate management patient reporting that he fell around 04/20/19 "bloody" right ear treated in ER medically cleared discharged with neomycin polymyciin hydorcortison ear drop for "fluid in right ear" patient tolerated ear drop well denies ear ache Objective: 04/28/19 11:45 Vital Signs Temperature 97.7 F 04/28/19 09:21 Pulse Rate 76 04/28/19 09:21 Respiratory Rate 18 04/28/19 09:21 Blood Pressure 130/91 04/28/19 09:21 O2 Sat by Pulse Oximetry (%) Laboratory Last Values WBC 4.7 K/mm3 (4.0-10.0) 04/26/19 07:00 RBC 4.28 M/mm3 (4.00-5.60) 04/26/19 07:00 Hgb 12.2 GM/dL (11.7-16.9) 04/26/19 07:00 Hct 37.0 % (35.4-49) 04/26/19 07:00 MCV 86.5 fl (80-96) 04/26/19 07:00 MCH 28.6 pg (25.7-33.7) 04/26/19 07:00 MCHC 33.1 g/dl (32.0-35.9) 04/26/19 07:00 RDW 15.5 % (11.9-15.9) 04/26/19 07:00 Plt Count 210 K/MM3 (134-434) D 04/26/19 07:00 MPV 6.5 fl (7.5-11.1) L 04/26/19 07:00 Sodium 144 mmol/L (136-145) 04/26/19 07:00 Potassium 3.6 mmol/L (3.5-5.1) 04/28/19 07:45 Chloride 102 mmol/L (98-107) 04/26/19 07:00 Carbon Dioxide 34 mmol/L (21-32) H 04/26/19 07:00 Anion Gap 8 MMOL/L (8-16) 04/26/19 07:00 BUN 4.9 mg/dL (7-18) L 04/26/19 07:00 Creatinine 0.8 mg/dL (0.55-1.3) 04/26/19 07:00 Est GFR (CKD-EPI)AfAm 117.38 04/26/19 07:00 Est GFR (CKD-EPI)NonAf 101.27 04/26/19 07:00 Random Glucose 116 mg/dL (74-106) H 04/26/19 07:00 Calcium 8.2 mg/dL (8.5-10.1) L 04/26/19 07:00 Total Bilirubin 0.7 mg/dL (0.2-1) 04/26/19 07:00 AST 43 U/L (15-37) H 04/26/19 07:00 ALT 24 U/L (13-61) 04/26/19 07:00 Alkaline Phosphatase 194 U/L (45-117) H 04/26/19 07:00 Total Protein 7.4 g/dl (6.4-8.2) 04/26/19 07:00 Albumin 3.2 g/dl (3.4-5.0) L 04/26/19 07:00 RPR Titer Nonreactive (NONREACTIVE) 04/26/19 07:00 lab noted Assessment: 04/28/19 11:46 alcohol withdrawal sx Plan: continue ativan detox
[2019-04-28] MEDS: NEOMYCIN/POLYMYXN/HC OTIC SUSPENSION 10 ML BOTTLE AD SCH ×3 (12:45→23:19)
[2019-04-28] MEDS: ACETAMINOPHEN 325 MG TABLET (FP) PO PRN (17:29)
[2019-04-28] MEDS: QUEtiapine FUMARATE 25 MG TABLET (FP) PO SCH (22:26)
[2019-04-28] MEDS: THIAMINE HCL 100 MG TABLET (FP) PO SCH (22:26)
[2019-04-29] MEDS ORDERED: chlordiazePOXIDE HCL 10 MG CAPSULE PO SCH (05:00)
[2019-04-29] MEDS ORDERED: LORazepam 0.5 MG TABLET PO ONE (05:00)
[2019-04-29] MEDS: ACETAMINOPHEN 325 MG TABLET (FP) PO PRN (06:08)
[2019-04-29] MEDS: BENZOCAINE 20 % GEL TUBE MM PRN (06:09)
[2019-04-29 06:16] VITALS: BP 126/83; PULSE 77; TEMP 97
[2019-04-29] MEDS: NEOMYCIN/POLYMYXN/HC OTIC SUSPENSION 10 ML BOTTLE AD SCH ×2 (07:38→07:39)
--- NOTE | 2019-04-29 11:17 | DS ---
[facility] Detox Discharge Summary Admission Date: 04/25/19 Discharge Date: 04/29/19 - History Present History: Alcohol Dependence Additional Comments: 54 years old male admitted on 04/25/19 for alcohol withdrawal sx management doing well with ativan detox regimen no complication throughout the detox stay patient is alert oriented x 3 steady gait denies dizziness denies pain no wheezing skin warm and dry - Physical Exam Results Vital Signs: Vital Signs Temperature 97 F L 04/29/19 06:15 Pulse Rate 77 04/29/19 06:15 Respiratory Rate 18 04/29/19 06:15 Blood Pressure 126/83 04/29/19 06:15 O2 Sat by Pulse Oximetry (%) Pertinent Admission Physical Exam Findings: alcohol withdrawal sx Laboratory Last Values WBC 4.7 K/mm3 (4.0-10.0) 04/26/19 07:00 RBC 4.28 M/mm3 (4.00-5.60) 04/26/19 07:00 Hgb 12.2 GM/dL (11.7-16.9) 04/26/19 07:00 Hct 37.0 % (35.4-49) 04/26/19 07:00 MCV 86.5 fl (80-96) 04/26/19 07:00 MCH 28.6 pg (25.7-33.7) 04/26/19 07:00 MCHC 33.1 g/dl (32.0-35.9) 04/26/19 07:00 RDW 15.5 % (11.9-15.9) 04/26/19 07:00 Plt Count 210 K/MM3 (134-434) D 04/26/19 07:00 MPV 6.5 fl (7.5-11.1) L 04/26/19 07:00 Sodium 144 mmol/L (136-145) 04/26/19 07:00 Potassium 3.6 mmol/L (3.5-5.1) 04/28/19 07:45 Chloride 102 mmol/L (98-107) 04/26/19 07:00 Carbon Dioxide 34 mmol/L (21-32) H 04/26/19 07:00 Anion Gap 8 MMOL/L (8-16) 04/26/19 07:00 BUN 4.9 mg/dL (7-18) L 04/26/19 07:00 Creatinine 0.8 mg/dL (0.55-1.3) 04/26/19 07:00 Est GFR (CKD-EPI)AfAm 117.38 04/26/19 07:00 Est GFR (CKD-EPI)NonAf 101.27 04/26/19 07:00 Random Glucose 116 mg/dL (74-106) H 04/26/19 07:00 Calcium 8.2 mg/dL (8.5-10.1) L 04/26/19 07:00 Total Bilirubin 0.7 mg/dL (0.2-1) 04/26/19 07:00 AST 43 U/L (15-37) H 04/26/19 07:00 ALT 24 U/L (13-61) 04/26/19 07:00 Alkaline Phosphatase 194 U/L (45-117) H 04/26/19 07:00 Total Protein 7.4 g/dl (6.4-8.2) 04/26/19 07:00 Albumin 3.2 g/dl (3.4-5.0) L 04/26/19 07:00 RPR Titer Nonreactive (NONREACTIVE) 04/26/19 07:00 lab noted - Treatment Hospital Course: Detox Protocol Followed, Detoxed Safely, Responded well, Discharged Condition Good, Rehab Referral Accepted Patient has Accepted a Rehab Referral to: [facility] - Medication Discharge Medications: Ambulatory Orders Fluticasone Prop 0.05% Nasal [Flonase -] 1 spray NS BID #1 spray 07/26/16 hydrOXYzine PAMOATE [Vistaril -] 50 mg PO Q4H PRN #120 capsule 08/15/16 Amlodipine Besylate [Norvasc -] 5 mg PO DAILY #30 tablet 11/17/16 Hctz 25Mg/Triamterene [Dyazide 2537.5 -] 1 cap PO DAILY #30 tab 11/17/16 Ibuprofen [Motrin -] 800 mg PO TID PRN #90 tablet 11/17/16 Quetiapine Fumarate [Seroquel -] 75 mg PO HS 04/08/19 Albuterol Sulfate Inhaler - [Ventolin HFA Inhaler -] 2 puff IH Q4H PRN #1 inhaler 04/28/19 Amlodipine Besylate [Norvasc -] 10 mg PO DAILY #30 tablet 04/28/19 Neomycin/Polymyxin B/Hydrocort [Tcxahlst-Fxrinzpgs-Ew Ear Susp] 2 drop AD Q6H 5 Days #1 bottle 04/28/19 - Diagnosis (1) Alcohol dependence with uncomplicated withdrawal Status: Acute (2) Asthma Status: Chronic Qualifiers: Asthma severity: mild Asthma persistence: intermittent Asthma complication type: with status asthmaticus Qualified Code(s): J45.22 - Mild intermittent asthma with status asthmaticus (3) GERD (gastroesophageal reflux disease) Status: Chronic Qualifiers: Esophagitis presence: without esophagitis (4) HTN (hypertension) Status: Chronic Qualifiers: Hypertension type: essential hypertension Qualified Code(s): I10 - Essential (primary) hypertension (5) Nicotine dependence Status: Acute Qualifiers: Nicotine product type: cigarettes Substance use status: in withdrawal Qualified Code(s): F17.213 - Nicotine dependence, cigarettes, with withdrawal (6) Substance induced mood disorder Status: Suspected (7) Encounter for monitoring Suboxone maintenance therapy Status: Chronic - AMA Did Patient Leave Against Medical Advice: No CIWA Score - CIWA Score Nausea/Vomitin-No Nausea/No Vomiting Muscle Tremors: 3 Anxiety: 1-Mildly Anxious Agitation: 1-Slight > Activity Paroxysmal Sweats: No Perspiration Orientation: 0-Oriented Tacttile Disturbances: 0-None Auditory Disturbances: 0-None Visual Disturbances: 0-None Headache: 0-None Present CIWA-Ar Total Score: 5
[2019-04-30] MEDS ORDERED: chlordiazePOXIDE HCL 10 MG CAPSULE PO ONE (05:00)
== END 2019-04-29 08:39 | disposition home or self-care (01) | DRG 897 ==
LOC: YASAS 11:09 → Y3N 17:54
PROVIDERS: ADMIT Surgery; ATTEND Surgery
PROC: HZ2ZZZZ Detoxification Services for Substance Abuse Treatment (ICD-10-PCS; principal; 2019-04-25)
DX: F10.230 Alcohol dependence with withdrawal, uncomplicated (principal); F11.20 Opioid dependence, uncomplicated; J45.22 Mild intermittent asthma with status asthmaticus; F17.213 Nicotine dependence, cigarettes, with withdrawal; F19.24 Other psychoactive substance dependence with psychoactive substance-induced mood disorder; G47.00 Insomnia, unspecified; I10 Essential (primary) hypertension; K21.9 Gastro-esophageal reflux disease without esophagitis; E87.6 Hypokalemia; R74.8 Abnormal levels of other serum enzymes; Z51.81 Encounter for therapeutic drug level monitoring; T70.0XXA Otitic barotrauma, initial encounter; W19.XXXA Unspecified fall, initial encounter; Y93.89 Activity, other specified; Y92.89 Other specified places as the place of occurrence of the external cause; Y99.8 Other external cause status; Z86.59 Personal history of other mental and behavioral disorders
CPT/HCPCS: 36415; 80053; 84132; 85027; 86593

== ENCOUNTER 2019-04-25 14:44 | Emergency (ER) | payer OTHER ==
[2019-04-25 14:55] VITALS: BP 155/90; PULSE 92; TEMP 98.3; BMI 38.7
--- NOTE | 2019-04-25 14:57 | PDOC ---
Rapid Medical Evaluation Chief Complaint: Injury Time Seen by Provider: 04/25/19 14:50 Medical Evaluation: Allergies Allergy/AdvReac Type Severity Reaction Status Date / Time No Known Drug Allergies Allergy Verified 04/25/19 12:27 04/25/19 14:55 Pt c/o: sent from park for clearance due to head injury 5 days ago and statement of decreased hearing to rt ear, Pt denies loc or headache presently Pt on brief exam: noted abrasion to tragus of rt ear, mild edema to area Pt ordered for: tdap, facial and head ct ordered Pt to proceed to the ED Discharge Disposition - Diagnosis Head injury - Referrals - Patient Instructions - Post Discharge Activity
[2019-04-25] MEDS ORDERED: LORazepam 1 MG TABLET PO ONE (15:36)
[2019-04-25] MEDS ORDERED: chlordiazePOXIDE HCL 25 MG CAPSULE ONE (16:21)
[2019-04-25] MEDS ORDERED: chlordiazePOXIDE HCL 25 MG CAPSULE PO ONE (16:22)
--- NOTE | 2019-04-25 16:34 | PDOC ---
History of Present Illness - General Chief Complaint: Injury Stated Complaint: FALL Time Seen by Provider: 04/25/19 14:50 History Source: Patient Exam Limitations: Clinical Condition - History of Present Illness Initial Comments: 04/25/19 16:54 Patient with past medical history of alcohol abuse present with complaint of right ear pain and decreased hearing in right ear status post fall hitting right side of the ear on the ground 5 days ago. Patient denies syncopal episode after accident. Patient is being admitted to [facility] for detox and parquet one him evaluated before being sent to [facility] for detox. Patient denies dizziness , blurry vision, change in vision, nausea or vomiting. Denies any other symptoms Timing/Duration: other (5 days) Past History - Past Medical History Allergies/Adverse Reactions: Allergies Allergy/AdvReac Type Severity Reaction Status Date / Time No Known Drug Allergies Allergy Verified 04/25/19 12:27 Home Medications: Ambulatory Orders Fluticasone Prop 0.05% Nasal [Flonase -] 1 spray NS BID #1 spray 07/26/16 hydrOXYzine PAMOATE [Vistaril -] 50 mg PO Q4H PRN #120 capsule 08/15/16 Albuterol Sulfate Inhaler - [Ventolin HFA Inhaler -] 2 puff IH Q4H PRN #1 inhaler 11/17/16 Amlodipine Besylate [Norvasc -] 5 mg PO DAILY #30 tablet 11/17/16 Hctz 25Mg/Triamterene [Dyazide 25/37.5 -] 1 cap PO DAILY #30 tab 11/17/16 Ibuprofen [Motrin -] 800 mg PO TID PRN #90 tablet 11/17/16 Quetiapine Fumarate [Seroquel -] 75 mg PO HS 04/08/19 Neomycin/Polymyxin B/Hydrocort [Jmmwhnla-Qpclmgtyl-Bb Ear Susp] 2 drop AD Q6H 5 Days #1 bottle 04/25/19 Anemia: No Asthma: Yes Cancer: No Cardiac Disorders: No CVA: No COPD: No CHF: No Dementia: No Diabetes: No GI Disorders: No Disorders: No HTN: Yes Hypercholesterolemia: No Kidney Stones: No Liver Disease: Yes (cirrhosis) Seizures: No Thyroid Disease: No - Surgical History Abdominal Surgery: No Appendectomy: No Cardiac Surgery: No Cholecystectomy: No Lung Surgery: No Neurologic Surgery: No Orthopedic Surgery: No - Reproductive History Testicular Surgery: No - Immunization History Immunization Up to Date: Yes - Suicide/Smoking/Psychosocial Hx Smoking History: Never smoked Have you smoked in the past 12 months: No Hx Alcohol Use: Yes (half gallon vodka daily) Drug/Substance Use Hx: No Substance Use Type: Prescribed Hx Substance Use Treatment: No Review of Systems - Review of Systems Able to Perform ROS?: Yes Is the patient limited German proficient: No Constitutional: No: Fever, Malaise, Weakness HEENTM: Yes: Symptoms Reported, See HPI, Ear Pain (right ear). No: Eye Pain, Blurred Vision, Tearing, Recent change in vision, Double Vision, Cataracts, Ocular Prothesis, Ear Discharge, Nose Pain, Nose Congestion, Tinnitus, Nose Bleeding, Hearing Loss, Throat Pain, Throat Swelling, Mouth Pain, Dental Problems, Difficulty Swallowing, Mouth Swelling, Other Respiratory: No: Symptoms reported, See HPI, Cough, Orthopnea, Shortness of Breath, SOB with Exertion, SOB at Rest, Stridor, Wheezing, Productive cough, Hemoptysis, Other Cardiac (ROS): No: Symptoms Reported, See HPI, Chest Pain, Edema, Irregular Heart Rate, Lightheadedness, Palpitations, Syncope, Chest Tightness, Other ABD/GI: No: Nausea, Vomiting All Other Systems: Reviewed and Negative *Physical Exam - Vital Signs Last Vital Signs Temp Pulse Resp BP Pulse Ox 98.3 F 92 H 18 155/90 96 04/25/19 14:53 04/25/19 14:53 04/25/19 14:53 04/25/19 14:53 04/25/19 14:53 - Physical Exam Comments: 04/25/19 17:00 GENERAL: Well developed, well nourished. Awake and alert. No acute distress. HEENT: Small amount of yellow serous fluid in right ear canal with mild swelling to extend the right ear canal. Left ear canal normal. No mastoid tenderness bilateral. And panic membrane normal bilateral. Normocephalic, atraumatic. PERRLA, EOMI. No conjunctival pallor. Sclera are non-icteric. Moist mucous membranes. Oropharynx is clear. NECK: Supple. Full ROM. CARDIOVASCULAR: Regular rate and rhythm. No murmurs, rubs, or gallops. Distal pulses are 2+ and symmetric. PULMONARY: No evidence of respiratory distress. Lungs clear to auscultation bilaterally. No wheezing, rales or rhonchi. ABDOMINAL: Soft. Non-tender. Non-distended. No rebound or guarding. No organomegaly. Normoactive bowel sounds. MUSCULOSKELETAL Normal range of motion at all joints. SKIN: Warm and dry. Normal capillary refill. No rashes. NEUROLOGICAL: Alert, awake, appropriate. Gait is normal without ataxia. PSYCHIATRIC: Cooperative. Good eye contact. Appropriate mood General Appearance: Yes: Nourished, Appropriately Dressed. No: Apparent Distress Medical Decision Making - Medical Decision Making 04/25/19 16:57 Patient with past medical history of alcohol abuse present with complaint of right ear pain and decreased hearing right ear status post fall hitting right side of the ear on the ground 5 days ago. Patient denies syncopal episode after accident. [facility] to [facility] for detox. Patient denies dizziness, blurry vision, change in vision, nausea or vomiting. Denies any other symptoms Exam significant for small amount of serous yellow fluid in right ear canal with mild swelling and extend all right ear canal. No mastoid tenderness or erythema. Left ear canal normal. Patient with mild hand tremors. Head CT and facial CT shows no acute fracture. Patient with mild withdrawal symptoms with hand trauma. Librium 50 mg by mouth given for possible early withdrawal symptoms. Patient is stable for discharge on neomycin with polymycin ear drops for serious otitis externa in the right ear. Patient is stable for discharge back to [facility] for detox *DC/Admit/Observation/Transfer Diagnosis at time of Disposition: Otitic barotrauma, initial encounter, Alcohol dependence with uncomplicated withdrawal Head injury Qualifiers: Encounter type: initial encounter Qualified Code(s): S09.90XA - Unspecified injury of head, initial encounter - Discharge Dispostion Disposition: HOME Condition at time of disposition: Stable Decision to Admit order: No - Prescriptions Prescriptions: Neomycin/Polymyxin B/Hydrocort [Bhwwrlti-Dbbdxoxbr-Tc Ear Susp] 2 drop AD Q6H 5 Days #1 bottle - Referrals Referrals: Ponce Metcalf MD [Staff Physician] - - Patient Instructions Additional Instructions: Your head CATS scan shows no fracture . There is fluids in your right ear with swelling. Take neomycin-polymycin- hydrocortisone ear drops as prescribed. Follow-up with referred ENT if symptoms persists - Post Discharge Activity
[2019-04-26] MEDS ORDERED: QUEtiapine FUMARATE 50 MG TABLET PO SCH (22:00)
== END 2019-04-25 16:45 | disposition home or self-care (01) ==
LOC: JER 14:44
DX: T70.0XXA Otitic barotrauma, initial encounter (principal); S09.90XS Unspecified injury of head, sequela; F10.230 Alcohol dependence with withdrawal, uncomplicated; W18.30XA Fall on same level, unspecified, initial encounter; Y93.9 Activity, unspecified; Y92.9 Unspecified place or not applicable; I10 Essential (primary) hypertension; K74.60 Unspecified cirrhosis of liver; J45.909 Unspecified asthma, uncomplicated
CPT/HCPCS: 70450-TC; 70486-TC; 99281-25

== ENCOUNTER 2019-05-13 13:57 | Inpatient (IN) | payer OTHER ==
[2019-05-13 18:33] VITALS: BMI 42.9
--- NOTE | 2019-05-13 20:01 | HP ---
CIWA Score Nausea/Vomitin-Int. Nausea w/Dry Heave Muscle Tremors: 4-Moderate,w/Arms Extend Anxiety: 3 Agitation: 1-Slight > Activity Paroxysmal Sweats: 3 (Increased facial moisture) Orientation: 3-Disoriented Date>2 days Tacttile Disturbances: 0-None Auditory Disturbances: 0-None Visual Disturbances: 0-None Headache: 4-Moderately Severe CIWA-Ar Total Score: 22 - Admission Criteria OASAS Guidelines: Admission for Medically Managed Detox: Requires at least one of the followin. CIWA greater than 12 2. Seizures within the past 24 hours 3. Delirium tremens within the past 24 hours 4. Hallucinations within the past 24 hours 5. Acute intervention needed for co occurring medical disorder 6. Acute intervention needed for co occurring psychiatric disorder 7. Severe withdrawal that cannot be handled at a lower level of care (continued vomiting, continued diarrhea, abnormal vital signs) requiring intravenous medication and/or fluids 8. Patient presents the following: CIWA greater than 12, Acute intervention needed for co-occurring med or psych disorder (Hx. Liver Cirrhosis) Admission Criteria Met: Admission criteria met Admission ROS [facility] Allergies/Adverse Reactions: Allergies Allergy/AdvReac Type Severity Reaction Status Date / Time No Known Drug Allergies Allergy Verified 04/25/19 12:27 History of Present Illness: 54 y/o resents w/AOB, some intoxication, and alcohol withdrawal symptoms. Discharged fro detox on 04/29/19 and immediately relapsed. States memory is bad and having trouble remembering date. Confused as to current location. Knows month and year NATHALY 0.222 after 2 hrs repeat was 0.200 UTox: + BZO/BUP Alcohol use since age 14. Current use 1/2 gallon liquor per day. Last drink was this morning. Feeling very anxious and nervous ever since. Hx opiate use disorder controlled on Suboxone x 5 years. Denies illicit opiate relapse. Hx: Alcoholic coma 2011. Denies hx seizures. PMH: Cirrhosis, Asthma, HTN, Swollen legs TB Gold(QFT) 03/04/19: Neg RPR 04/26/19) Non-reactive (will not repeat this visit) MHHx: Depression. Anxiety. Has not seen MH Provider in 3 months. Stopped own MH meds PsxH: October 2018 - bariatric surgery (States was almost 300 pounds) SHx: Domiciled. On Disability. Denies legal issues. Patient Name: Kris Salinas Date: 1965 [address] [place] [address] Sex: Male Rx Written Rx Dispensed Drug Quantity Days Supply Prescriber Name 03/29/2019 04/12/2019 buprenorphine-naloxone 8-2 mg sl film 90 30 Raji Jensen Jr, MD 03/01/2019 03/06/2019 buprenorphine-naloxone 8-2 mg sl film 90 30 Raji Jensen Jr, MD 01/31/2019 01/31/2019 buprenorphine-naloxone 8-2 mg sl film 90 30 Raji Jensen Jr, MD 01/02/2019 01/02/2019 buprenorphine-naloxone 8-2 mg sl film 90 30 Raji Jensen Jr, MD 12/04/2018 12/06/2018 buprenorphine-naloxone 8-2 mg sl film 90 30 Raji Jensen Jr, MD 11/06/2018 11/07/2018 suboxone 12 mg-3 mg sl film 60 30 SylvainpepeLisa cota DO 10/05/2018 10/30/2018 suboxone 12 mg-3 mg sl film 60 30 SylvainpepeLisa cota DO 10/11/2018 10/11/2018 oxycodone-acetaminophen 5-325 mg tab 15 5 William Young 10/11/2018 10/11/2018 lyrica 50 mg capsule 20 10 William Young 09/07/2018 09/11/2018 suboxone 12 mg-3 mg sl film 60 30 SylvaintiffanyblilybeataLisa DO 08/10/2018 08/17/2018 suboxone 12 mg-3 mg sl film 60 30 SylvaintiffanyLisa herrmann DO 07/13/2018 08/03/2018 suboxone 12 mg-3 mg sl film 60 30 SylvainsherriLisa DO 06/15/2018 06/20/2018 suboxone 12 mg-3 mg sl film 60 30 SylvainsherriLisa DO 05/08/2018 06/15/2018 suboxone 12 mg-3 mg sl film 60 30 Lisa Burrell DO Search Terms: Kris Salinas, 1965 Search Date: 05/13/2019 08:00:49 PM States Searched: [place], [place], [place], [place], [place], [place], [place] The Drug Utilization Report below displays the controlled substance prescriptions, if any, that were dispensed in the indicated state(s). The information displayed on this report is compiled from requests submitted to other states' PMPs, and accurately reflects the information as returned by them. Blank mcgill indicate data not provided by other state. This report was requested by: Parvin Fabian | Reference #: [id number] Exam Limitations: Intoxication - Ebola screening Have you traveled outside of the country in the last 21 days: No (N) Have you had contact with anyone from an Ebola affected area: No Have you been sick,other than usual withdrawal symptoms: No Do you have a fever: No - Review of Systems Constitutional: Chills, Diaphoresis, Changes in sleep (Difficulty falling asleep - used to take seroquel) EENT: reports: Blurred Vision Respiratory: reports: No Symptoms reported Cardiac: reports: No Symptoms Reported GI: reports: Diarrhea (x 5 days. Watery, brownish,), Nausea, Vomiting : reports: No Symptoms Reported Musculoskeletal: reports: No Symptoms Reported Integumentary: reports: Change in Color (Reddish x years), Other (Swollen legs - x 2 weeks.) Neuro: reports: Headache (Throbbing frontal "7"), Tremors Endocrine: reports: Increased Thirst Hematology: reports: No Symptoms Reported Psychiatric: reports: Agitated, Anxious, Depressed, Disorientated (States memory is bad and having trouble remembering date. Confused as to current location. Knows month and year) Patient History - Patient Medical History Hx Anemia: No Hx Asthma: Yes Hx Chronic Obstructive Pulmonary Disease (COPD): No Hx Cancer: No Hx Cardiac Disorders: No Hx Congestive Heart Failure: No Hx Hypertension: Yes Hx Hypercholesterolemia: No Hx Pacemaker: No HX Cerebrovascular Accident: No Hx Seizures: No Hx Dementia: No Hx Diabetes: No Hx Gastrointestinal Disorders: No Hx Liver Disease: Yes (cirrhosis) Hx Genitourinary Disorders: No Hx Sexually Transmitted Disorders: No Hx Renal Disease (ESRD): No Hx Thyroid Disease: No Hx Human Immunodeficiency Virus (HIV): No (last 01/17) Hx Hepatitis C: No Hx Depression: Yes Hx Suicide Attempt: No Hx Bipolar Disorder: No Hx Schizophrenia: No - Patient Surgical History Past Surgical History: Yes Hx Neurologic Surgery: No Hx Cataract Extraction: No Hx Cardiac Surgery: No Hx Lung Surgery: No Hx Breast Surgery: No Hx Breast Biopsy: No Hx Abdominal Surgery: No Hx Appendectomy: No Hx Cholecystectomy: No Hx Genitourinary Surgery: No Hx Section: No Hx Orthopedic Surgery: No Other Surgical History: s/p tracheostomy in 1990 Anesthesia Reaction: No - PPD History Previous Implant?: Yes (TB Gold (QFT) neg on 03/04/19) Implanted On Prior [facility] Admission?: Yes Date: 07/24/16 Results: 0 mm PPD to be Administered?: No - Smoking Cessation Smoking history: Never smoked Have you smoked in the past 12 months: No Hx Chewing Tobacco Use: No Initiated information on smoking cessation: No - Substance & Tx. History Hx Alcohol Use: Yes Hx Substance Use: Yes Substance Use Type: Alcohol, Opiates Hx Substance Use Treatment: Yes (detox, ehab; Currently on Suboxone ) - Substances abused Alcohol Substance route: Oral Frequency: Daily Amount used: 1/2 gallon of vodka Age of first use: 12 Date of last use: 05/12/19 Family Disease History - Family Disease History Family Disease History: Other: Grandparent, Father ( alcohol), Mother ( alcohol) Admission Physical Exam S - Vital Signs Vital Signs: Vital Signs - 24 hr 05/13/19 05/13/19 18:29 18:51 Temperature 97.8 F 97.8 F Pulse Rate 90 90 Respiratory 20 20 Rate Blood Pressure 164/100 164/100 - Physical General Appearance: Yes: Mild Distress, Alcohol on Breath, Intoxicated (NATHALY: 0.222), Obese, Tremorous, Sweating (Increased facial moisture), Anxious HEENTM: Yes: EOMI, Hearing grossly Normal, Normocephalic, HEATHER, Pharynx Normal Respiratory: Yes: Lungs Clear (Pulse oximeter = 90 - 92 w/o SOB.), Normal Breath Sounds, No Respiratory Distress Neck: Yes: Supple Breast: Yes: Breast Exam Deferred Cardiology: Yes: Regular Rhythm, Regular Rate (88), S1, S2, Edema (Toes to knees. Pedal pulses (+)) Abdominal: Yes: Soft, Increased Bowel Sounds, Protuberent (Increased abdominal adiposity), Tenderness (RUQ tenderness. No guarding. No rebound.), Hernia ( Large (9 cm) umbilical hernia w/ tenderness at surgical ring - states this way for months. Slightly reducible.) Genitourinary: Yes: Within Normal Limits Back: Yes: Normal Inspection Musculoskeletal: Yes: full range of Motion, Gait Steady Extremities: Yes: Normal Capillary Refill, Swelling (Pitting edema toes to below knees. (L) calf = 47 cm; (R) calf = 48.5 cm), Erythema (Increased erythema both shins w/ increased warmth.), Inflammation (BLE) Neurological: Yes: Alert, Motor Strength 5/5, Disoriented (Unsure of location and date - re-oriented.) Integumentary: Yes: Warm, Erythema (BLE w/ increased warmth.), Diaphoresis ( Increased facial moisture), Pitting Edema - Diagnostic (1) History of asthma Current Visit: Yes Status: Chronic (2) History of cirrhosis of liver Current Visit: Yes Status: Chronic (3) Alcohol dependence with intoxication Current Visit: Yes Status: Acute Qualifiers: Complication of substance-induced condition: uncomplicated Qualified Code(s ): F10.220 - Alcohol dependence with intoxication, uncomplicated (4) HTN (hypertension) Current Visit: Yes Status: Chronic Qualifiers: Hypertension type: essential hypertension Qualified Code(s): I10 - Essential (primary) hypertension (5) Opioid dependence on agonist therapy Current Visit: Yes Status: Chronic Comment: On Suboxone (6) Umbilical hernia Current Visit: Yes Status: Chronic Qualifiers: Obstruction and gangrene presence: without obstruction or gangrene Qualified Code(s): K42.9 - Umbilical hernia without obstruction or gangrene (7) Hx of bariatric surgery Current Visit: Yes Status: Chronic (8) Cellulitis Current Visit: Yes Status: Chronic Qualifiers: Site of cellulitis: extremity Site of cellulitis of extremity: lower extremity Laterality: unspecified laterality Qualified Code(s): L03.119 - Cellulitis of unspecified part of limb Comment: Bilateral (9) Morbid obesity with BMI of 40.0-44.9, adult Current Visit: Yes Status: Chronic (10) Gastro-esophageal reflux disease without esophagitis Current Visit: Yes Status: Chronic Cleared for Admission [facility] - Detox or Rehab S Level of Care: Medically Managed Detox Regimen/Protocol: Not Applicable (ATIVAN DETOX - hc cirrhosis) Claeared for Rehab Admission: No Breathalyzer - Breathalyzer Breathalyzer: 0.222 Urine Drug Screen - Test Device Lot number: [id number] Expiration date: 02/01/21 - Control Is test valid?: Yes - Results Drug screen NEGATIVE: No Urine drug screen results: BZO-Benzodiazepines, BUP-Suboxone Inpatient Rehab Admission - Rehab Decision to Admit Inpatient rehab admission?: No
[2019-05-13] MEDS ORDERED: MAGNESIUM CITRATE 300 ML BOTTLE PO PRN (20:49)
[2019-05-13] MEDS ORDERED: LORazepam 2 MG TABLET PO ONE (20:49)
[2019-05-13] MEDS ORDERED: MAG HYDROX/AL HYDROX/SIMETH 30 ML UNIT-DOSE CUP PO PRN (20:49)
[2019-05-13] MEDS ORDERED: MENTHOL/PHENOL 1 EACH UD MM PRN (20:49)
[2019-05-13] MEDS ORDERED: BISMUTH SUBSALICYLATE 524 MG/30 ML UD PO PRN (20:49)
[2019-05-13] MEDS ORDERED: MAGNESIUM HYDROX 2400MG/30ML ORAL SUSPENSION 30 ML CUP PO PRN (20:49)
[2019-05-13] MEDS ORDERED: ACETAMINOPHEN 325 MG TABLET (FP) PO PRN (20:49)
[2019-05-13] MEDS ORDERED: cloNIDine HCL 0.1 MG TABLET PO ONE (20:52)
[2019-05-13] MEDS: LORazepam 2 MG TABLET PO SCH (22:34)
[2019-05-13] MEDS: THIAMINE HCL 100 MG TABLET (FP) PO SCH (22:34)
[2019-05-13] MEDS: BUPRENORPHINE/NALOXONE 8 MG/2 MG FILM PACKET SL SCH (22:34)
[2019-05-13] MEDS: MELATONIN 5 MG TABLETS PO PRN (22:37)
[2019-05-13] MEDS ORDERED: ALBUTEROL SO4 0.083% IH SOL 2.5 MG/3 ML VIAL.NEB. NEB PRN (23:40)
[2019-05-14] MEDS: CEPHALEXIN MONOHYDRATE 500 MG CAPSULE (UD) PO SCH ×5 (00:22→23:05)
[2019-05-14] MEDS: LORazepam 1 MG TABLET PO PRN ×2 (03:32→20:18)
[2019-05-14] MEDS: BUPRENORPHINE/NALOXONE 8 MG/2 MG FILM PACKET SL SCH ×3 (05:59→22:12)
[2019-05-14] MEDS: LORazepam 2 MG TABLET PO SCH ×4 (05:59→22:12)
[2019-05-14] MEDS ORDERED: amLODIPine BESYLATE 10 MG TABLET (FP) PO SCH ×2 (10:00)
[2019-05-14 10:07] LABS: HEMOGLOBIN 10.9 GM/dL (11.7-16.9); MCH 29.1 pg (25.7-33.7); MEAN CELL VOLUME 88.2 fl (80-96); MEAN PLT VOLUME 6.8 fl (7.5-11.1); RBC 3.74 M/mm3 (4.00-5.60); RDW 16.5 % (11.9-15.9); WHITE BLOOD COUNT 5.2 K/mm3 (4.0-10.0)
[2019-05-14 10:13] LABS: PLATELET COUNT 105 K/MM3 (134-434)
[2019-05-14 10:17] LABS: BLOOD UREA NITROGEN 4.9 mg/dL (7-18); CALCIUM 7.6 mg/dL (8.5-10.1); CREATININE 0.8 mg/dL (0.55-1.3); POTASSIUM 3.3 mmol/L (3.5-5.1)
[2019-05-14] MEDS: amLODIPine BESYLATE 5 MG TABLET (FP) PO SCH (10:34)
[2019-05-14] MEDS: PRENATAL VITAMINS W/ FOLIC ACID TABLET (FP) PO SCH (10:36)
[2019-05-14] MEDS: TRIAMTERENE AND HCTZ - 37.5 MG/25 MG CAPSULE PO SCH (11:17)
--- NOTE | 2019-05-14 11:24 | EKG ---
Test Reason : Blood Pressure : / mmHG Vent. Rate : 092 BPM Atrial Rate : 092 BPM P-R Int : 182 ms QRS Dur : 072 ms QT Int : 378 ms P-R-T Axes : 040 007 032 degrees QTc Int : 467 ms NORMAL SINUS RHYTHM NORMAL ECG WHEN COMPARED WITH ECG OF 13-NOV-2016 15:38, NO SIGNIFICANT CHANGE WAS FOUND Confirmed by Hardy Hassan MD ([id number]) on 05/14/2019 11:23:33 AM Referred By: Confirmed By:Hardy Hassan MD
[2019-05-14] MEDS ORDERED: ALBUTEROL SO4 8 GM HFA INHALER IH PRN (11:52)
--- NOTE | 2019-05-14 12:01 | PN ---
S CIWA - CIWA Score Nausea/Vomitin-Mild Nausea/No Vomiting Muscle Tremors: 4-Moderate,w/Arms Extend Anxiety: 4-Mod. Anxious/Guarded Agitation: 4-Moderately Restless Paroxysmal Sweats: 3 Orientation: 0-Oriented Tacttile Disturbances: 0-None Auditory Disturbances: 0-None Visual Disturbances: 0-None Headache: 0-None Present CIWA-Ar Total Score: 16 BHS Progress Note (SOAP) Subjective: sweats shakes nausea body aches chills anxiety Objective: 05/14/19 11:56 Vital Signs Temperature 99.3 F 05/14/19 09:56 Pulse Rate 100 H 05/14/19 09:56 Respiratory Rate 18 05/14/19 09:56 Blood Pressure 145/97 05/14/19 09:56 O2 Sat by Pulse Oximetry (%) Laboratory Tests 05/14/19 05/14/19 08:00 08:00 WBC 5.2 RBC 3.74 L Hgb 10.9 L Hct 33.0 L MCV 88.2 MCH 29.1 MCHC 33.0 RDW 16.5 H Plt Count 105 L D MPV 6.8 L Sodium 142 Potassium 3.3 L Chloride 101 Carbon Dioxide 31 Anion Gap 10 BUN 4.9 L Creatinine 0.8 Est GFR (CKD-EPI)AfAm 117.38 Est GFR (CKD-EPI)NonAf 101.27 Random Glucose 144 H Calcium 7.6 L Total Bilirubin 1.0 AST 55 H ALT 29 Alkaline Phosphatase 230 H Total Protein 7.0 Albumin 3.0 L labs noted mild hypokalemia 3.3, will order 20meq potassium x one mild low H:H; iron supplement required aaox3 ambulating no acute distress Assessment: 05/14/19 11:59 withdrawal sx Plan: continue detox increase fluids reorder labs iron supplement order kdur 20meqx one
[2019-05-14] MEDS ORDERED: FERROUS SO4 325 MG TABLET (FP) PO ONE (12:45)
[2019-05-14] MEDS ORDERED: POTASSIUM CHLORIDE TABS 20 MEQ TABLET.ER (FP) PO ONE (12:45)
[2019-05-14] MEDS: ACETAMINOPHEN 325 MG TABLET (FP) PO PRN (16:32)
[2019-05-14] MEDS: FERROUS SO4 325 MG TABLET (FP) PO SCH (17:00)
[2019-05-14] MEDS: THIAMINE HCL 100 MG TABLET (FP) PO SCH (22:12)
[2019-05-14] MEDS: FLUTICASONE PROP 0.05% 16 GM NASAL SPRAY NS SCH (22:13)
[2019-05-14] MEDS: MELATONIN 5 MG TABLETS PO PRN (22:14)
[2019-05-15] MEDS: LORazepam 1 MG TABLET PO PRN ×2 (03:00→09:51)
[2019-05-15] MEDS: CEPHALEXIN MONOHYDRATE 500 MG CAPSULE (UD) PO SCH ×4 (06:18→23:22)
[2019-05-15] MEDS: LORazepam 1 MG TABLET PO SCH ×4 (06:18→22:11)
[2019-05-15] MEDS: BUPRENORPHINE/NALOXONE 8 MG/2 MG FILM PACKET SL SCH ×3 (06:19→22:11)
[2019-05-15] MEDS: ACETAMINOPHEN 325 MG TABLET (FP) PO PRN (06:20)
[2019-05-15] MEDS: FERROUS SO4 325 MG TABLET (FP) PO SCH ×2 (07:15→17:23)
[2019-05-15] MEDS: TRIAMTERENE AND HCTZ - 37.5 MG/25 MG CAPSULE PO SCH (10:30)
[2019-05-15] MEDS: amLODIPine BESYLATE 5 MG TABLET (FP) PO SCH (10:30)
[2019-05-15] MEDS: PRENATAL VITAMINS W/ FOLIC ACID TABLET (FP) PO SCH (10:30)
[2019-05-15] MEDS: FLUTICASONE PROP 0.05% 16 GM NASAL SPRAY NS SCH ×2 (10:30→22:11)
--- NOTE | 2019-05-15 11:55 | PN ---
S CIWA - CIWA Score Nausea/Vomitin-No Nausea/No Vomiting Muscle Tremors: 3 Anxiety: 3 Agitation: 4-Moderately Restless Paroxysmal Sweats: 3 Orientation: 0-Oriented Tacttile Disturbances: 0-None Auditory Disturbances: 0-None Visual Disturbances: 0-None Headache: 0-None Present CIWA-Ar Total Score: 13 BHS Progress Note (SOAP) Subjective: sweats shakes anxiety sometimes when I open my eyes i think i see something but then i take another look and nothing is there. interrupted sleep Objective: 05/15/19 11:55 Vital Signs Temperature 97.9 F 05/15/19 09:46 Pulse Rate 83 05/15/19 09:46 Respiratory Rate 20 05/15/19 09:46 Blood Pressure 145/90 05/15/19 09:46 O2 Sat by Pulse Oximetry (%) Laboratory Tests 05/14/19 05/14/19 08:00 08:00 WBC 5.2 RBC 3.74 L Hgb 10.9 L Hct 33.0 L MCV 88.2 MCH 29.1 MCHC 33.0 RDW 16.5 H Plt Count 105 L D MPV 6.8 L Sodium 142 Potassium 3.3 L Chloride 101 Carbon Dioxide 31 Anion Gap 10 BUN 4.9 L Creatinine 0.8 Est GFR (CKD-EPI)AfAm 117.38 Est GFR (CKD-EPI)NonAf 101.27 Random Glucose 144 H Calcium 7.6 L Total Bilirubin 1.0 AST 55 H ALT 29 Alkaline Phosphatase 230 H Total Protein 7.0 Albumin 3.0 L Assessment: 05/15/19 11:56 withdrawals pt was asked exactly what is it that he sees, he cannot explain. pt denies having a history of hallucinations. pt was told he will benefit from having a psych consultation. pt appeared hesitate but then agreed to see him. psych consultation ordered. Plan: continue with detox increase fluids psych ordered for evaluation
[2019-05-15] MEDS: THIAMINE HCL 100 MG TABLET (FP) PO SCH (22:10)
[2019-05-15] MEDS: MELATONIN 5 MG TABLETS PO PRN (22:11)
[2019-05-16] MEDS ORDERED: LORazepam 0.5 MG TABLET PO PRN
[2019-05-16] MEDS ORDERED: hydrOXYzine HCL 25 MG TABLET (FP) PO PRN (03:22)
[2019-05-16] MEDS ORDERED: LORazepam 0.5 MG TABLET PO SCH (05:00)
[2019-05-16] MEDS: BUPRENORPHINE/NALOXONE 8 MG/2 MG FILM PACKET SL SCH (05:33)
[2019-05-16] MEDS: CEPHALEXIN MONOHYDRATE 500 MG CAPSULE (UD) PO SCH (05:33)
[2019-05-16] MEDS: FERROUS SO4 325 MG TABLET (FP) PO SCH (07:00)
[2019-05-16] MEDS: TRIAMTERENE AND HCTZ - 37.5 MG/25 MG CAPSULE PO SCH (09:15)
[2019-05-16] MEDS: PRENATAL VITAMINS W/ FOLIC ACID TABLET (FP) PO SCH (09:15)
[2019-05-16] MEDS: amLODIPine BESYLATE 5 MG TABLET (FP) PO SCH (09:15)
[2019-05-16 09:39] VITALS: BP 143/87; PULSE 85; TEMP 97.7
--- NOTE | 2019-05-16 10:09 | DS ---
[facility] Detox Discharge Summary Admission Date: 05/13/19 Discharge Date: 05/16/19 - History Present History: Alcohol Dependence, Cocaine Dependence - Physical Exam Results Vital Signs: Vital Signs Temperature 97.7 F 05/16/19 09:37 Pulse Rate 85 05/16/19 09:37 Respiratory Rate 20 05/16/19 09:37 Blood Pressure 143/87 05/16/19 09:37 O2 Sat by Pulse Oximetry (%) Pertinent Admission Physical Exam Findings: pt arrived in withdrawal from alcohol dependence - Treatment Hospital Course: Detox Protocol Followed, Detoxed Safely, Responded well, Discharged Condition Good, Rehab Referral Accepted Patient has Accepted a Rehab Referral to: pt declined rehab; referral provided - Medication Discharge Medications: Ambulatory Orders Quetiapine Fumarate [Seroquel -] 75 mg PO HS 04/08/19 Albuterol Sulfate Inhaler - [Ventolin HFA Inhaler -] 2 puff IH Q4H PRN #1 inhaler 04/28/19 Amlodipine Besylate [Norvasc -] 20 mg PO DAILY 05/13/19 - Diagnosis (1) Alcohol dependence with uncomplicated withdrawal Status: Chronic (2) Alcohol-induced sleep disorder Status: Acute (3) Cocaine dependence Status: Chronic Qualifiers: Substance use status: uncomplicated Qualified Code(s): F14.20 - Cocaine dependence, uncomplicated (4) Depressive disorder Status: Acute (5) Drug-induced mood disorder Status: Acute (6) Elevated aspartate aminotransferase level Status: Chronic (7) Hypokalemia Status: Acute (8) Nicotine dependence Status: Acute Qualifiers: Nicotine product type: cigarettes Substance use status: uncomplicated Qualified Code(s): F17.210 - Nicotine dependence, cigarettes, uncomplicated (9) Substance-induced sleep disorder Status: Acute (10) Asthma Status: Chronic Qualifiers: Asthma severity: mild Asthma persistence: unspecified Asthma complication type: uncomplicated Qualified Code(s): J45.909 - Unspecified asthma, uncomplicated (11) Cellulitis Status: Acute Qualifiers: Site of cellulitis: extremity Site of cellulitis of extremity: lower extremity Laterality: unspecified laterality Qualified Code(s): L03.119 - Cellulitis of unspecified part of limb (12) Cirrhosis of liver Status: Chronic Qualifiers: Hepatic cirrhosis type: unspecified hepatic cirrhosis (13) Depression Status: Chronic (14) Encounter for monitoring Suboxone maintenance therapy Status: Chronic (15) GERD (gastroesophageal reflux disease) Status: Chronic Qualifiers: Esophagitis presence: without esophagitis (16) HTN (hypertension) Status: Chronic Qualifiers: Hypertension type: essential hypertension Qualified Code(s): I10 - Essential (primary) hypertension (17) History of cirrhosis of liver Status: Chronic (18) History of depression Status: Chronic (19) Hx of bariatric surgery Status: Chronic (20) Insomnia Status: Chronic (21) Mood disorder Status: Chronic (22) Morbid obesity with BMI of 40.0-44.9, adult Status: Chronic (23) Umbilical hernia Status: Chronic Qualifiers: Obstruction and gangrene presence: without obstruction or gangrene Qualified Code(s): K42.9 - Umbilical hernia without obstruction or gangrene (24) Substance induced mood disorder Status: Suspected - AMA Did Patient Leave Against Medical Advice: No
[2019-05-17] MEDS ORDERED: LORazepam 0.5 MG TABLET PO ONE (05:00)
== END 2019-05-16 09:44 | disposition home or self-care (01) | DRG 897 ==
LOC: YASAS 13:57 → Y6N 21:32
PROVIDERS: ADMIT Surgery; ATTEND Surgery
PROC: HZ2ZZZZ Detoxification Services for Substance Abuse Treatment (ICD-10-PCS; principal; 2019-05-13)
DX: F10.230 Alcohol dependence with withdrawal, uncomplicated (principal); F11.20 Opioid dependence, uncomplicated; F14.20 Cocaine dependence, uncomplicated; L03.119 Cellulitis of unspecified part of limb; Z68.41 Body mass index [BMI] 40.0-44.9, adult; F10.220 Alcohol dependence with intoxication, uncomplicated; F10.282 Alcohol dependence with alcohol-induced sleep disorder; F17.210 Nicotine dependence, cigarettes, uncomplicated; F32.9 Major depressive disorder, single episode, unspecified; F19.24 Other psychoactive substance dependence with psychoactive substance-induced mood disorder; F39 Unspecified mood [affective] disorder; I10 Essential (primary) hypertension; K74.60 Unspecified cirrhosis of liver; R74.0 Nonspecific elevation of levels of transaminase and lactic acid dehydrogenase [LDH]; E87.6 Hypokalemia; J45.909 Unspecified asthma, uncomplicated; K21.9 Gastro-esophageal reflux disease without esophagitis; G47.00 Insomnia, unspecified; K42.9 Umbilical hernia without obstruction or gangrene; R60.0 Localized edema; E66.01 Morbid (severe) obesity due to excess calories; Z98.84 Bariatric surgery status
CPT/HCPCS: 36415; 80053; 85027; 93005; 93010; J0735

== ENCOUNTER 2019-07-23 11:38 | Inpatient (IN) | payer OTHER ==
[2019-07-23 12:03] VITALS: BMI 42.7
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
[2019-07-23] MEDS ORDERED: LORazepam 1 MG TABLET PO PRN (13:39)
[2019-07-23] MEDS ORDERED: IBUPROFEN 400 MG TABLET (FP) PO PRN (13:39)
[2019-07-23] MEDS ORDERED: ACETAMINOPHEN 325 MG TABLET (FP) PO PRN ×2 (13:39)
[2019-07-23] MEDS ORDERED: MELATONIN 5 MG TABLETS PO PRN (13:39)
[2019-07-23] MEDS ORDERED: MAGNESIUM HYDROX 2400MG/30ML ORAL SUSPENSION 30 ML CUP PO PRN (13:39)
[2019-07-23] MEDS ORDERED: BISMUTH SUBSALICYLATE 262 MG/15 ML BTL PO PRN (13:39)
[2019-07-23] MEDS ORDERED: MAGNESIUM CITRATE 300 ML BOTTLE PO PRN (13:39)
[2019-07-23] MEDS ORDERED: MAG HYDROX/AL HYDROX/SIMETH 30 ML UNIT-DOSE CUP PO PRN (13:39)
[2019-07-23] MEDS ORDERED: MENTHOL/PHENOL 1 EACH UD MM PRN (13:39)
[2019-07-23] MEDS ORDERED: ALBUTEROL SO4 8 GM HFA INHALER IH PRN (14:01)
[2019-07-23] MEDS: BUPRENORPHINE/NALOXONE 8 MG/2 MG FILM PACKET SL SCH ×2 (15:28→22:04)
[2019-07-23] MEDS: hydrOXYzine PAMOATE 25 MG CAPSULE (FP) PO PRN (15:38)
[2019-07-23] MEDS: CLOTRIMAZOLE 1% CREAM 15 GM TUBE TP SCH ×2 (15:39→22:05)
[2019-07-23] MEDS: TRIAMTERENE AND HCTZ - 37.5 MG/25 MG CAPSULE PO SCH (15:46)
[2019-07-23] MEDS: LORazepam 2 MG TABLET PO SCH ×2 (17:14→22:03)
[2019-07-23] MEDS: THIAMINE HCL 100 MG TABLET (FP) PO SCH (22:03)
[2019-07-24] MEDS: hydrOXYzine PAMOATE 25 MG CAPSULE (FP) PO PRN (02:05)
[2019-07-24] MEDS: METHOCARBAMOL 500 MG TABLET PO PRN (02:05)
[2019-07-24] MEDS: LORazepam 2 MG TABLET PO SCH ×4 (06:02→22:08)
[2019-07-24] MEDS: BUPRENORPHINE/NALOXONE 8 MG/2 MG FILM PACKET SL SCH ×3 (06:02→21:32)
[2019-07-24] MEDS ORDERED: SPIRONOLACTONE 25 MG TABLET (FP) PO SCH (10:00)
[2019-07-24 10:15] LABS: HEMATOCRIT 37.4 % (35.4-49); MCH 28.3 pg (25.7-33.7); MCHC 32.2 g/dl (32.0-35.9); MEAN CELL VOLUME 88.1 fl (80-96); MEAN PLT VOLUME 7.4 fl (7.5-11.1); PLATELET COUNT 114 K/MM3 (134-434); RBC 4.24 M/mm3 (4.00-5.60); WHITE BLOOD COUNT 4.9 K/mm3 (4.0-10.0)
[2019-07-24] MEDS: TRIAMTERENE AND HCTZ - 37.5 MG/25 MG CAPSULE PO SCH (10:19)
[2019-07-24] MEDS: PRENATAL VITAMINS W/ FOLIC ACID TABLET (FP) PO SCH (10:19)
[2019-07-24] MEDS: CLOTRIMAZOLE 1% CREAM 15 GM TUBE TP SCH ×2 (10:19→21:32)
[2019-07-24 10:24] LABS: ALBUMIN 3.2 g/dl (3.4-5.0); BILIRUBIN,TOTAL 1.1 mg/dL (0.2-1); BLOOD UREA NITROGEN 6.1 mg/dL (7-18); CALCIUM 8.3 mg/dL (8.5-10.1); CREATININE 0.8 mg/dL (0.55-1.3); POTASSIUM 3.5 mmol/L (3.5-5.1); TOT PROT 7.3 g/dl (6.4-8.2)
--- NOTE | 2019-07-24 10:44 | PN ---
S CIWA - CIWA Score Nausea/Vomitin-Mild Nausea/No Vomiting Muscle Tremors: 3 Anxiety: 4-Mod. 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 [id number] last hctz 10 days filled 09/2018 last spironolacton 05/2019 one week supple due to the risks of medications begin amlodipine 5 mg po daily Objective: 07/24/19 10:59 Vital Signs Temperature 98.6 F 07/24/19 09:06 Pulse Rate 87 07/24/19 09:06 Respiratory Rate 18 07/24/19 09:06 Blood Pressure 128/71 07/24/19 09:06 O2 Sat by Pulse Oximetry (%) Laboratory Last Values WBC 4.9 K/mm3 (4.0-10.0) 07/24/19 08:15 RBC 4.24 M/mm3 (4.00-5.60) 07/24/19 08:15 Hgb 12.0 GM/dL (11.7-16.9) 07/24/19 08:15 Hct 37.4 % (35.4-49) 07/24/19 08:15 MCV 88.1 fl (80-96) 07/24/19 08:15 MCH 28.3 pg (25.7-33.7) 07/24/19 08:15 MCHC 32.2 g/dl (32.0-35.9) 07/24/19 08:15 RDW 16.0 % (11.9-15.9) H 07/24/19 08:15 Plt Count 114 K/MM3 (134-434) L 07/24/19 08:15 MPV 7.4 fl (7.5-11.1) L 07/24/19 08:15 Sodium 140 mmol/L (136-145) 07/24/19 08:15 Potassium 3.5 mmol/L (3.5-5.1) 07/24/19 08:15 Chloride 103 mmol/L (98-107) 07/24/19 08:15 Carbon Dioxide 33 mmol/L (21-32) H 07/24/19 08:15 Anion Gap 4 MMOL/L (8-16) L 07/24/19 08:15 BUN 6.1 mg/dL (7-18) L 07/24/19 08:15 Creatinine 0.8 mg/dL (0.55-1.3) 07/24/19 08:15 Est GFR (CKD-EPI)AfAm 117.38 07/24/19 08:15 Est GFR (CKD-EPI)NonAf 101.27 07/24/19 08:15 Random Glucose 128 mg/dL (74-106) H 07/24/19 08:15 Calcium 8.3 mg/dL (8.5-10.1) L 07/24/19 08:15 Total Bilirubin 1.1 mg/dL (0.2-1) H 07/24/19 08:15 AST 94 U/L (15-37) H 07/24/19 08:15 ALT 49 U/L (13-61) 07/24/19 08:15 Alkaline Phosphatase 304 U/L (45-117) H 07/24/19 08:15 Total Protein 7.3 g/dl (6.4-8.2) 07/24/19 08:15 Albumin 3.2 g/dl (3.4-5.0) L 07/24/19 08:15 lab noted Assessment: 07/24/19 11:00 alcohol withdrawal sx Plan: continue ativan detox regimen
[2019-07-24] MEDS: amLODIPine BESYLATE 5 MG TABLET (FP) PO SCH (11:16)
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
[2019-07-24] MEDS ORDERED: amLODIPine BESYLATE 5 MG TABLET (FP) PO ONE (21:26)
[2019-07-24] MEDS: QUEtiapine FUMARATE 25 MG TABLET (FP) PO SCH (21:32)
[2019-07-24] MEDS: THIAMINE HCL 100 MG TABLET (FP) PO SCH (21:32)
[2019-07-25] MEDS ORDERED: P-EPHED 60MG/TRIPROLIDI 2.5MG TABLET PO PRN (04:56)
[2019-07-25] MEDS: LORazepam 1 MG TABLET PO SCH ×4 (04:59→22:04)
[2019-07-25] MEDS: BUPRENORPHINE/NALOXONE 8 MG/2 MG FILM PACKET SL SCH ×3 (05:09→22:06)
--- NOTE | 2019-07-25 09:23 | PN ---
[facility] CIWA - CIWA Score Nausea/Vomitin-Mild Nausea/No Vomiting Muscle Tremors: 2 Anxiety: 3 Agitation: 1-Slight > Activity Paroxysmal Sweats: 2 Orientation: 0-Oriented Tacttile Disturbances: 1-Very Mild Itch/Numbness Auditory Disturbances: 0-None Visual Disturbances: 0-None Headache: 1-Very Mild CIWA-Ar Total Score: 11 S Progress Note (SOAP) Subjective: 54 years old male admitted on 07/23/19 for alcohol withdrawal sx management treated with ativan detox regimen reported feeling better today but feeling anxious that taking hydralazine 75 mg po bid daily for anxiety and works well for him patient requests to be seen by psychiatrist and discuss hydralazine psychiatrist referral Objective: 07/25/19 09:25 Vital Signs Temperature 98.4 F 07/25/19 09:12 Pulse Rate 100 H 07/25/19 09:12 Respiratory Rate 18 07/25/19 09:12 Blood Pressure 110/69 07/25/19 09:12 O2 Sat by Pulse Oximetry (%) Laboratory Last Values WBC 4.9 K/mm3 (4.0-10.0) 07/24/19 08:15 RBC 4.24 M/mm3 (4.00-5.60) 07/24/19 08:15 Hgb 12.0 GM/dL (11.7-16.9) 07/24/19 08:15 Hct 37.4 % (35.4-49) 07/24/19 08:15 MCV 88.1 fl (80-96) 07/24/19 08:15 MCH 28.3 pg (25.7-33.7) 07/24/19 08:15 MCHC 32.2 g/dl (32.0-35.9) 07/24/19 08:15 RDW 16.0 % (11.9-15.9) H 07/24/19 08:15 Plt Count 114 K/MM3 (134-434) L 07/24/19 08:15 MPV 7.4 fl (7.5-11.1) L 07/24/19 08:15 Sodium 140 mmol/L (136-145) 07/24/19 08:15 Potassium 3.5 mmol/L (3.5-5.1) 07/24/19 08:15 Chloride 103 mmol/L (98-107) 07/24/19 08:15 Carbon Dioxide 33 mmol/L (21-32) H 07/24/19 08:15 Anion Gap 4 MMOL/L (8-16) L 07/24/19 08:15 BUN 6.1 mg/dL (7-18) L 07/24/19 08:15 Creatinine 0.8 mg/dL (0.55-1.3) 07/24/19 08:15 Est GFR (CKD-EPI)AfAm 117.38 07/24/19 08:15 Est GFR (CKD-EPI)NonAf 101.27 07/24/19 08:15 Random Glucose 128 mg/dL (74-106) H 07/24/19 08:15 Calcium 8.3 mg/dL (8.5-10.1) L 07/24/19 08:15 Total Bilirubin 1.1 mg/dL (0.2-1) H 07/24/19 08:15 AST 94 U/L (15-37) H 07/24/19 08:15 ALT 49 U/L (13-61) 07/24/19 08:15 Alkaline Phosphatase 304 U/L (45-117) H 07/24/19 08:15 Total Protein 7.3 g/dl (6.4-8.2) 07/24/19 08:15 Albumin 3.2 g/dl (3.4-5.0) L 07/24/19 08:15 RPR Titer Nonreactive (NONREACTIVE) 07/24/19 08:15 lab noted 07/25/19 09:27 glucose elevation fasting glucose Assessment: 07/25/19 09:28 alcohol withdrawal sx weight loss no concentrated sugar 07/25/19 09:29 modify diet as appropriated for glucose elevation and bp elevation Plan: continue ativan detox regimen
[2019-07-25] MEDS: CLOTRIMAZOLE 1% CREAM 15 GM TUBE TP SCH ×2 (10:35→22:06)
[2019-07-25] MEDS: amLODIPine BESYLATE 5 MG TABLET (FP) PO SCH (10:36)
[2019-07-25] MEDS: PRENATAL VITAMINS W/ FOLIC ACID TABLET (FP) PO SCH (10:36)
[2019-07-25] MEDS: METHOCARBAMOL 500 MG TABLET PO PRN (10:37)
[2019-07-25] MEDS: cloNIDine HCL 0.1 MG TABLET PO PRN (10:37)
[2019-07-25] MEDS: hydrOXYzine PAMOATE 25 MG CAPSULE (FP) PO PRN (11:36)
[2019-07-25] MEDS: QUEtiapine FUMARATE 25 MG TABLET (FP) PO SCH (22:03)
[2019-07-25] MEDS: THIAMINE HCL 100 MG TABLET (FP) PO SCH (22:03)
[2019-07-26] MEDS ORDERED: LORazepam 0.5 MG TABLET PO PRN
[2019-07-26] MEDS: LORazepam 0.5 MG TABLET PO SCH ×4 (05:36→22:00)
[2019-07-26] MEDS: hydrOXYzine PAMOATE 25 MG CAPSULE (FP) PO PRN ×2 (05:37→13:05)
[2019-07-26] MEDS: BUPRENORPHINE/NALOXONE 8 MG/2 MG FILM PACKET SL SCH ×3 (07:42→22:00)
[2019-07-26] MEDS: amLODIPine BESYLATE 5 MG TABLET (FP) PO SCH (10:21)
[2019-07-26] MEDS: PRENATAL VITAMINS W/ FOLIC ACID TABLET (FP) PO SCH (10:21)
[2019-07-26] MEDS: CLOTRIMAZOLE 1% CREAM 15 GM TUBE TP SCH ×2 (10:21→22:05)
--- NOTE | 2019-07-26 13:47 | PN ---
S CIWA - CIWA Score Nausea/Vomitin-Mild Nausea/No Vomiting Muscle Tremors: 1-None Visible, but [place] Anxiety: 2 Agitation: 2 Paroxysmal Sweats: No Perspiration Orientation: 0-Oriented Tacttile Disturbances: 1-Very Mild Itch/Numbness Auditory Disturbances: 0-None Visual Disturbances: 0-None Headache: 1-Very Mild CIWA-Ar Total Score: 8 BHS Progress Note (SOAP) Subjective: alert,irritable,anxious,pain in the body and back Objective: 07/26/19 13:47 Vital Signs Temperature 99.1 F 07/26/19 13:33 Pulse Rate 87 07/26/19 13:33 Respiratory Rate 18 07/26/19 13:33 Blood Pressure 147/96 07/26/19 13:33 O2 Sat by Pulse Oximetry (%) Assessment: 07/26/19 13:47 withdrawal symptom Plan: continue detox ativan regimen,,discharge in am
[2019-07-26] MEDS: QUEtiapine FUMARATE 25 MG TABLET (FP) PO SCH (22:00)
[2019-07-26] MEDS: THIAMINE HCL 100 MG TABLET (FP) PO SCH (22:00)
[2019-07-26] MEDS: cloNIDine HCL 0.1 MG TABLET PO PRN (22:01)
[2019-07-27] MEDS ORDERED: LORazepam 0.5 MG TABLET PO ONE (05:00)
[2019-07-27] MEDS: BUPRENORPHINE/NALOXONE 8 MG/2 MG FILM PACKET SL SCH (05:59)
[2019-07-27 09:31] VITALS: BP 132/88; PULSE 78; TEMP 97.5
== END 2019-07-27 11:28 | disposition home or self-care (01) | DRG 897 ==
LOC: YASAS 11:38 → Y3N 14:27
PROVIDERS: ADMIT Allergy & Immunology; ATTEND Allergy & Immunology
PROC: HZ2ZZZZ Detoxification Services for Substance Abuse Treatment (ICD-10-PCS; principal; 2019-07-23)
DX: F10.230 Alcohol dependence with withdrawal, uncomplicated (principal); F11.20 Opioid dependence, uncomplicated; F14.20 Cocaine dependence, uncomplicated; F19.24 Other psychoactive substance dependence with psychoactive substance-induced mood disorder; F32.9 Major depressive disorder, single episode, unspecified; F41.8 Other specified anxiety disorders; G47.00 Insomnia, unspecified; I10 Essential (primary) hypertension; J45.909 Unspecified asthma, uncomplicated; K21.9 Gastro-esophageal reflux disease without esophagitis; K74.60 Unspecified cirrhosis of liver; R60.0 Localized edema; R21 Rash and other nonspecific skin eruption; L81.9 Disorder of pigmentation, unspecified; Z98.84 Bariatric surgery status; Z91.5 Personal history of self-harm
CPT/HCPCS: 36415; 80053; 82947; 85027; 86593; J0735

== ENCOUNTER 2019-08-08 10:04 | Inpatient (IN) | payer OTHER ==
[2019-08-08 10:16] VITALS: BMI 42.7
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
[2019-08-08] MEDS ORDERED: MAG HYDROX/AL HYDROX/SIMETH 30 ML UNIT-DOSE CUP PO PRN (11:16)
[2019-08-08] MEDS ORDERED: MAGNESIUM HYDROX 2400MG/30ML ORAL SUSPENSION 30 ML CUP PO PRN (11:16)
[2019-08-08] MEDS ORDERED: ONDANSETRON *ODT* 4 MG TABLET SL PRN (11:16)
[2019-08-08] MEDS ORDERED: IBUPROFEN 400 MG TABLET (FP) PO PRN (11:16)
[2019-08-08] MEDS ORDERED: MAGNESIUM CITRATE 300 ML BOTTLE PO PRN (11:16)
[2019-08-08] MEDS ORDERED: BISMUTH SUBSALICYLATE 262 MG/15 ML BTL PO PRN (11:16)
[2019-08-08] MEDS ORDERED: MENTHOL/PHENOL 1 EACH UD MM PRN (11:16)
[2019-08-08] MEDS ORDERED: diazePAM 5 MG TABLET PO ONE (11:20)
[2019-08-08] MEDS: diazePAM 5 MG TABLET PO SCH ×2 (13:00→21:55)
[2019-08-08 15:07] LABS: ALBUMIN 3.6 g/dl (3.4-5.0); BILIRUBIN,DIRECT 0.4 mg/dL (0.0-0.2); BILIRUBIN,TOTAL 0.9 mg/dL (0.2-1); TOT PROT 8.3 g/dl (6.4-8.2)
[2019-08-08] MEDS: diazePAM 5 MG TABLET PO PRN ×2 (16:42→20:41)
[2019-08-08] MEDS: hydrOXYzine PAMOATE 25 MG CAPSULE (FP) PO PRN ×2 (16:43→23:30)
[2019-08-08] MEDS ORDERED: ALBUTEROL SO4 8 GM HFA INHALER IH PRN (19:05)
--- NOTE | 2019-08-08 19:05 | PN ---
[facility] Progress Note Note: reports received requesting psych consultr e: patietn with hx of anxiety and depression and patient is anxious with alcohol withdrawal sx. gabapentin 100 mg tid ordered for withdrawal sx increase fluids continue to monitor
[2019-08-08] MEDS ORDERED: QUEtiapine FUMARATE 25 MG TABLET (FP) PO ONE (19:10)
[2019-08-08] MEDS: THIAMINE HCL 100 MG TABLET (FP) PO SCH (21:53)
[2019-08-08] MEDS: GABAPENTIN 100 MG CAPSULE (FP) PO SCH (21:54)
[2019-08-08] MEDS: MELATONIN 5 MG TABLETS PO PRN (21:55)
[2019-08-09] MEDS: diazePAM 5 MG TABLET PO PRN ×3 (03:23→17:04)
[2019-08-09] MEDS: GABAPENTIN 100 MG CAPSULE (FP) PO SCH ×3 (05:15→22:04)
[2019-08-09] MEDS: diazePAM 5 MG TABLET PO SCH ×3 (05:15→22:04)
[2019-08-09] MEDS: hydrOXYzine PAMOATE 25 MG CAPSULE (FP) PO PRN ×2 (07:47→13:38)
--- NOTE | 2019-08-09 09:07 | PN ---
S CIWA - CIWA Score Nausea/Vomitin Muscle Tremors: 5 Anxiety: 4-Mod. Anxious/Guarded Agitation: 1-Slight > Activity Paroxysmal Sweats: 1-Minimal Palms Moist Orientation: 0-Oriented Tacttile Disturbances: 2-Mild Itch/Numbness/Burn Auditory Disturbances: 0-None Visual Disturbances: 1-Very Mild Sensitivity Headache: 1-Very Mild CIWA-Ar Total Score: 17 BHS Progress Note (SOAP) Subjective: Patient is here for alcohol detox, c/o shakes chills, anxious restless, interrupted sleep Objective: 08/09/19 15:55 Vital Signs Temperature 97.2 F L 08/09/19 13:53 Pulse Rate 100 H 08/09/19 13:53 Respiratory Rate 18 08/09/19 13:53 Blood Pressure 144/87 08/09/19 13:53 O2 Sat by Pulse Oximetry (%) Laboratory Last Values Total Bilirubin 0.9 mg/dL (0.2-1) 08/08/19 11:40 Direct Bilirubin 0.4 mg/dL (0.0-0.2) H 08/08/19 11:40 AST 109 U/L (15-37) H 08/08/19 11:40 ALT 46 U/L (13-61) 08/08/19 11:40 Alkaline Phosphatase 253 U/L (45-117) H 08/08/19 11:40 Total Protein 8.3 g/dl (6.4-8.2) H 08/08/19 11:40 Albumin 3.6 g/dl (3.4-5.0) 08/08/19 11:40 repeat cmp, cbc pending 08/09/19 15:59 Assessment: Patient Aox3 no cute distress + bilateral hand tremors secondary to alcohol withdrawal +cheilithis no adventitious breath sounds full ROM no gait disturbance withdrawal sx Plan: Reports hx of opioid use disorder in remirssion on BUP 8 mg TID, NOC ENGINEER reviewed see admission H&P, patient suboxone resume 8 mg tid increase PO fluids repeat CMP , CBC pending continue detox continue to monitor
[2019-08-09] MEDS: PRENATAL VITAMINS W/ FOLIC ACID TABLET (FP) PO SCH (10:06)
[2019-08-09] MEDS: BUPRENORPHINE/NALOXONE 8 MG/2 MG FILM PACKET SL SCH ×3 (10:06→22:05)
[2019-08-09] MEDS: amLODIPine BESYLATE 5 MG TABLET (FP) PO SCH (10:07)
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
[2019-08-09] MEDS: TRIAMTERENE AND HCTZ - 37.5 MG/25 MG CAPSULE PO SCH (12:40)
[2019-08-09] MEDS ORDERED: cloNIDine HCL 0.1 MG TABLET PO ONE (18:38)
[2019-08-09] MEDS: QUEtiapine FUMARATE 25 MG TABLET (FP) PO SCH (22:04)
[2019-08-09] MEDS: THIAMINE HCL 100 MG TABLET (FP) PO SCH (22:04)
[2019-08-09] MEDS: MELATONIN 5 MG TABLETS PO PRN (22:05)
[2019-08-10] MEDS: diazePAM 5 MG TABLET PO SCH ×2 (05:51→17:03)
[2019-08-10] MEDS: GABAPENTIN 100 MG CAPSULE (FP) PO SCH ×3 (05:51→22:11)
[2019-08-10] MEDS: BUPRENORPHINE/NALOXONE 8 MG/2 MG FILM PACKET SL SCH ×3 (05:51→22:50)
[2019-08-10 10:32] LABS: HEMATOCRIT 38.3 % (35.4-49); HEMOGLOBIN 12.6 GM/dL (11.7-16.9); MCH 28.2 pg (25.7-33.7); MCHC 32.8 g/dl (32.0-35.9); MEAN CELL VOLUME 85.9 fl (80-96); MEAN PLT VOLUME 7.6 fl (7.5-11.1); PLATELET COUNT 80 K/MM3 (134-434); RBC 4.46 M/mm3 (4.00-5.60); RDW 15.9 % (11.9-15.9); WHITE BLOOD COUNT 4.1 K/mm3 (4.0-10.0)
[2019-08-10] MEDS: PRENATAL VITAMINS W/ FOLIC ACID TABLET (FP) PO SCH (10:42)
[2019-08-10] MEDS: TRIAMTERENE AND HCTZ - 37.5 MG/25 MG CAPSULE PO SCH (10:42)
[2019-08-10] MEDS: amLODIPine BESYLATE 5 MG TABLET (FP) PO SCH (10:42)
[2019-08-10] MEDS: hydrOXYzine PAMOATE 25 MG CAPSULE (FP) PO PRN ×2 (10:44→17:04)
[2019-08-10 10:51] LABS: ALBUMIN 3.5 g/dl (3.4-5.0); BILIRUBIN,TOTAL 1.9 mg/dL (0.2-1); BLOOD UREA NITROGEN 10.3 mg/dL (7-18); CALCIUM 8.5 mg/dL (8.5-10.1); CREATININE 0.9 mg/dL (0.55-1.3); TOT PROT 7.6 g/dl (6.4-8.2)
[2019-08-10 11:31] LABS: POTASSIUM 2.6 mmol/L (3.5-5.1)
[2019-08-10] MEDS ORDERED: POTASSIUM CHLORIDE TABS 20 MEQ TABLET.ER (FP) PO ONE ×2 (12:03→17:00)
--- NOTE | 2019-08-10 12:13 | PN ---
S CIWA - CIWA Score Nausea/Vomitin-No Nausea/No Vomiting Muscle Tremors: None Anxiety: 2 Agitation: 0-Normal Activity Paroxysmal Sweats: 2 Orientation: 0-Oriented Tacttile Disturbances: 0-None Auditory Disturbances: 0-None Visual Disturbances: 0-None Headache: 1-Very Mild CIWA-Ar Total Score: 5 [facility] Progress Note (SOAP) Subjective: c/o sweats, anxiety, and mild headache. Objective: 08/10/19 12:11 Vital Signs 08/10/19 08/10/19 07:09 09:19 Temperature 97.6 F 99.7 F H Pulse Rate 75 118 H Respiratory 18 20 Rate Blood Pressure 126/84 122/88 Laboratory Last Values WBC 4.1 K/mm3 (4.0-10.0) 08/10/19 07:40 RBC 4.46 M/mm3 (4.00-5.60) 08/10/19 07:40 Hgb 12.6 GM/dL (11.7-16.9) 08/10/19 07:40 Hct 38.3 % (35.4-49) 08/10/19 07:40 MCV 85.9 fl (80-96) 08/10/19 07:40 MCH 28.2 pg (25.7-33.7) 08/10/19 07:40 MCHC 32.8 g/dl (32.0-35.9) 08/10/19 07:40 RDW 15.9 % (11.9-15.9) 08/10/19 07:40 Plt Count 80 K/MM3 (134-434) L D 08/10/19 07:40 MPV 7.6 fl (7.5-11.1) 08/10/19 07:40 Absolute Neuts (auto) 2.4 K/mm3 (1.5-8.0) 08/10/19 07:40 Neutrophils % 59.0 % (42.8-82.8) 08/10/19 07:40 Lymphocytes % 29.0 % (8-40) 08/10/19 07:40 Monocytes % 8.0 % (3.8-10.2) 08/10/19 07:40 Eosinophils % 3.0 % (0-4.5) 08/10/19 07:40 Basophils % 1.0 % (0-2.0) 08/10/19 07:40 Nucleated RBC % 0 % (0-0) 08/10/19 07:40 Sodium 135 mmol/L (136-145) L 08/10/19 07:40 Potassium 2.6 mmol/L (3.5-5.1) L* 08/10/19 07:40 Chloride 96 mmol/L (98-107) L 08/10/19 07:40 Carbon Dioxide 29 mmol/L (21-32) 08/10/19 07:40 Anion Gap 10 MMOL/L (8-16) 08/10/19 07:40 BUN 10.3 mg/dL (7-18) 08/10/19 07:40 Creatinine 0.9 mg/dL (0.55-1.3) 08/10/19 07:40 Est GFR (CKD-EPI)AfAm 111.83 08/10/19 07:40 Est GFR (CKD-EPI)NonAf 96.49 08/10/19 07:40 Random Glucose 131 mg/dL (74-106) H 08/10/19 07:40 Calcium 8.5 mg/dL (8.5-10.1) 08/10/19 07:40 Total Bilirubin 1.9 mg/dL (0.2-1) H 08/10/19 07:40 Direct Bilirubin 0.4 mg/dL (0.0-0.2) H 08/08/19 11:40 AST 79 U/L (15-37) H 08/10/19 07:40 ALT 39 U/L (13-61) 08/10/19 07:40 Alkaline Phosphatase 240 U/L (45-117) H 08/10/19 07:40 Total Protein 7.6 g/dl (6.4-8.2) 08/10/19 07:40 Albumin 3.5 g/dl (3.4-5.0) 08/10/19 07:40 Labs noted with low K+ level of 2.6. Assessment: 08/10/19 12:11 AOX3, in no acute respiratory distress. Full ROM, ambulating in the unit. Withdrawal symptoms. Hypokalemia. For d/c tomorrow. Plan: continue detox. potassium chloride 40meq po x2 doses 4hrs apart. Repeat K+ level in at 6am. D/C in AM when k+ level is normal.
[2019-08-10] MEDS: QUEtiapine FUMARATE 25 MG TABLET (FP) PO SCH (22:11)
[2019-08-10] MEDS: THIAMINE HCL 100 MG TABLET (FP) PO SCH (22:11)
[2019-08-10] MEDS: MELATONIN 5 MG TABLETS PO PRN (22:12)
--- NOTE | 2019-08-10 23:25 | EKG ---
Test Reason : Blood Pressure : / mmHG Vent. Rate : 078 BPM Atrial Rate : 078 BPM P-R Int : 170 ms QRS Dur : 078 ms QT Int : 404 ms P-R-T Axes : 019 016 017 degrees QTc Int : 460 ms NORMAL SINUS RHYTHM NORMAL ECG WHEN COMPARED WITH ECG OF 13-MAY-2019 21:28, NO SIGNIFICANT CHANGE WAS FOUND Confirmed by MATT CARBALLO MD ([id number]) on 08/10/2019 11:25:45 PM Referred By: Confirmed By:MATT CARBALLO MD
[2019-08-11] MEDS: GABAPENTIN 100 MG CAPSULE (FP) PO SCH ×3 (05:42→22:13)
[2019-08-11] MEDS: BUPRENORPHINE/NALOXONE 8 MG/2 MG FILM PACKET SL SCH ×3 (05:43→22:13)
[2019-08-11] MEDS ORDERED: diazePAM 5 MG TABLET PO ONE (06:00)
--- NOTE | 2019-08-11 09:25 | DS ---
[facility] Detox Discharge Summary Admission Date: 08/08/19 Discharge Date: 08/11/19 - History Present History: Alcohol Dependence Additional Comments: 54 years old male admitted on 08/08/19 for alcohol withdrawal sx management treated with valium detox regimen patient tolerated well alert oriented x 3 cardiac s1s2 regular rate rhythm respiratory clear lung bilaterally on auscultation extremities full range of motion as obese capacity Pertinent Past History: patient prefers to return to suboxone program for medical mental behavior and psychosocial therapies - Physical Exam Results Vital Signs: Vital Signs Temperature 97.6 F 08/11/19 09:08 Pulse Rate 84 08/11/19 09:08 Respiratory Rate 18 08/11/19 09:08 Blood Pressure 121/81 08/11/19 09:08 O2 Sat by Pulse Oximetry (%) Pertinent Admission Physical Exam Findings: alcohol withdrawal sx Laboratory Last Values WBC 4.1 K/mm3 (4.0-10.0) 08/10/19 07:40 RBC 4.46 M/mm3 (4.00-5.60) 08/10/19 07:40 Hgb 12.6 GM/dL (11.7-16.9) 08/10/19 07:40 Hct 38.3 % (35.4-49) 08/10/19 07:40 MCV 85.9 fl (80-96) 08/10/19 07:40 MCH 28.2 pg (25.7-33.7) 08/10/19 07:40 MCHC 32.8 g/dl (32.0-35.9) 08/10/19 07:40 RDW 15.9 % (11.9-15.9) 08/10/19 07:40 Plt Count 80 K/MM3 (134-434) L D 08/10/19 07:40 MPV 7.6 fl (7.5-11.1) 08/10/19 07:40 Absolute Neuts (auto) 2.4 K/mm3 (1.5-8.0) 08/10/19 07:40 Neutrophils % 59.0 % (42.8-82.8) 08/10/19 07:40 Lymphocytes % 29.0 % (8-40) 08/10/19 07:40 Monocytes % 8.0 % (3.8-10.2) 08/10/19 07:40 Eosinophils % 3.0 % (0-4.5) 08/10/19 07:40 Basophils % 1.0 % (0-2.0) 08/10/19 07:40 Nucleated RBC % 0 % (0-0) 08/10/19 07:40 Sodium 135 mmol/L (136-145) L 08/10/19 07:40 Potassium 2.6 mmol/L (3.5-5.1) L* 08/10/19 07:40 Chloride 96 mmol/L (98-107) L 08/10/19 07:40 Carbon Dioxide 29 mmol/L (21-32) 08/10/19 07:40 Anion Gap 10 MMOL/L (8-16) 08/10/19 07:40 BUN 10.3 mg/dL (7-18) 08/10/19 07:40 Creatinine 0.9 mg/dL (0.55-1.3) 08/10/19 07:40 Est GFR (CKD-EPI)AfAm 111.83 08/10/19 07:40 Est GFR (CKD-EPI)NonAf 96.49 08/10/19 07:40 Random Glucose 131 mg/dL (74-106) H 08/10/19 07:40 Calcium 8.5 mg/dL (8.5-10.1) 08/10/19 07:40 Total Bilirubin 1.9 mg/dL (0.2-1) H 08/10/19 07:40 Direct Bilirubin 0.4 mg/dL (0.0-0.2) H 08/08/19 11:40 AST 79 U/L (15-37) H 08/10/19 07:40 ALT 39 U/L (13-61) 08/10/19 07:40 Alkaline Phosphatase 240 U/L (45-117) H 08/10/19 07:40 Total Protein 7.6 g/dl (6.4-8.2) 08/10/19 07:40 Albumin 3.5 g/dl (3.4-5.0) 08/10/19 07:40 lab noted low K+ low plt discontinue motrin - Treatment Hospital Course: Detox Protocol Followed, Detoxed Safely, Responded well, Discharged Condition Good, Rehab Referral Accepted Patient has Accepted a Rehab Referral to: suboxone maintenance program - Medication Discharge Medications: Ambulatory Orders Quetiapine Fumarate [Seroquel -] 75 mg PO HS 04/08/19 Hctz 25Mg/Triamterene [Dyazide 25/37.5 -] 1 cap PO DAILY #10 capsule 05/16/19 Buprenorphine/Naloxone [Suboxone 8Mg/2Mg Sl Film -] 1 each SL TID 07/23/19 Albuterol Sulfate Inhaler - [Ventolin HFA Inhaler -] 2 puff IH Q4H PRN #1 inhaler 07/27/19 Amlodipine Besylate [Norvasc -] 5 mg PO DAILY #10 tablet 07/27/19 - Diagnosis (1) Alcohol dependence with uncomplicated withdrawal Current Visit: Yes Status: Acute (2) Substance induced mood disorder Current Visit: Yes Status: Chronic (3) Asthma Current Visit: Yes Status: Chronic Qualifiers: Asthma severity: mild Asthma persistence: intermittent Asthma complication type: with status asthmaticus Qualified Code(s): J45.22 - Mild intermittent asthma with status asthmaticus (4) Cirrhosis of liver Current Visit: Yes Status: Chronic Qualifiers: Hepatic cirrhosis type: unspecified hepatic cirrhosis Ascites presence: without ascites Qualified Code(s): K74.60 - Unspecified cirrhosis of liver (5) Encounter for monitoring Suboxone maintenance therapy Current Visit: Yes Status: Chronic (6) GERD (gastroesophageal reflux disease) Current Visit: Yes Status: Chronic Qualifiers: Esophagitis presence: without esophagitis Qualified Code(s): K21.9 - Gastro -esophageal reflux disease without esophagitis (7) HTN (hypertension) Current Visit: Yes Status: Chronic Qualifiers: Hypertension type: essential hypertension Qualified Code(s): I10 - Essential (primary) hypertension (8) Morbid obesity with BMI of 40.0-44.9, adult Current Visit: Yes Status: Chronic (9) Nicotine dependence Current Visit: Yes Status: Acute Qualifiers: Nicotine product type: cigarettes Substance use status: in withdrawal Qualified Code(s): F17.213 - Nicotine dependence, cigarettes, with withdrawal (10) Umbilical hernia Current Visit: Yes Status: Chronic Qualifiers: Obstruction and gangrene presence: without obstruction or gangrene Qualified Code(s): K42.9 - Umbilical hernia without obstruction or gangrene - AMA Did Patient Leave Against Medical Advice: No
--- NOTE | 2019-08-11 09:46 | PN ---
S CIWA - CIWA Score Nausea/Vomitin-No Nausea/No Vomiting Muscle Tremors: 1-None Visible, but [place] Anxiety: 1-Mildly Anxious Agitation: 0-Normal Activity Paroxysmal Sweats: No Perspiration Orientation: 0-Oriented Tacttile Disturbances: 0-None Auditory Disturbances: 0-None Visual Disturbances: 0-None Headache: 0-None Present CIWA-Ar Total Score: 2 [facility] Progress Note (SOAP) Subjective: 54 years old male admitted on 08/08/19 for alcohol withdrawal sx management treated with valium detox regimen patient has K+ 2.6 treated with two doses of 40 meq K+ yesterday K+ repeat blood work not available for today repeat K+ blood tomorrow Objective: 08/11/19 09:51 Vital Signs Temperature 97.6 F 08/11/19 09:08 Pulse Rate 84 08/11/19 09:08 Respiratory Rate 18 08/11/19 09:08 Blood Pressure 121/81 08/11/19 09:08 O2 Sat by Pulse Oximetry (%) Laboratory Last Values WBC 4.1 K/mm3 (4.0-10.0) 08/10/19 07:40 RBC 4.46 M/mm3 (4.00-5.60) 08/10/19 07:40 Hgb 12.6 GM/dL (11.7-16.9) 08/10/19 07:40 Hct 38.3 % (35.4-49) 08/10/19 07:40 MCV 85.9 fl (80-96) 08/10/19 07:40 MCH 28.2 pg (25.7-33.7) 08/10/19 07:40 MCHC 32.8 g/dl (32.0-35.9) 08/10/19 07:40 RDW 15.9 % (11.9-15.9) 08/10/19 07:40 Plt Count 80 K/MM3 (134-434) L D 08/10/19 07:40 MPV 7.6 fl (7.5-11.1) 08/10/19 07:40 Absolute Neuts (auto) 2.4 K/mm3 (1.5-8.0) 08/10/19 07:40 Neutrophils % 59.0 % (42.8-82.8) 08/10/19 07:40 Lymphocytes % 29.0 % (8-40) 08/10/19 07:40 Monocytes % 8.0 % (3.8-10.2) 08/10/19 07:40 Eosinophils % 3.0 % (0-4.5) 08/10/19 07:40 Basophils % 1.0 % (0-2.0) 08/10/19 07:40 Nucleated RBC % 0 % (0-0) 08/10/19 07:40 Sodium 135 mmol/L (136-145) L 08/10/19 07:40 Potassium 2.6 mmol/L (3.5-5.1) L* 08/10/19 07:40 Chloride 96 mmol/L (98-107) L 08/10/19 07:40 Carbon Dioxide 29 mmol/L (21-32) 08/10/19 07:40 Anion Gap 10 MMOL/L (8-16) 08/10/19 07:40 BUN 10.3 mg/dL (7-18) 08/10/19 07:40 Creatinine 0.9 mg/dL (0.55-1.3) 08/10/19 07:40 Est GFR (CKD-EPI)AfAm 111.83 08/10/19 07:40 Est GFR (CKD-EPI)NonAf 96.49 08/10/19 07:40 Random Glucose 131 mg/dL (74-106) H 08/10/19 07:40 Calcium 8.5 mg/dL (8.5-10.1) 08/10/19 07:40 Total Bilirubin 1.9 mg/dL (0.2-1) H 08/10/19 07:40 Direct Bilirubin 0.4 mg/dL (0.0-0.2) H 08/08/19 11:40 AST 79 U/L (15-37) H 08/10/19 07:40 ALT 39 U/L (13-61) 08/10/19 07:40 Alkaline Phosphatase 240 U/L (45-117) H 08/10/19 07:40 Total Protein 7.6 g/dl (6.4-8.2) 08/10/19 07:40 Albumin 3.5 g/dl (3.4-5.0) 08/10/19 07:40 lab noted low K+ low plt discontinue motrin 40meq K+ in am 20meq K+ pm repeat K+ tomorrow 08/11/19 09:52 Assessment: 08/11/19 09:53 alcohol withdrawal sx Plan: continue valium regimen
[2019-08-11] MEDS ORDERED: POTASSIUM CHLORIDE ORAL LIQUID 20 MEQ/15 ML PO ONE (09:48)
[2019-08-11] MEDS: amLODIPine BESYLATE 5 MG TABLET (FP) PO SCH (10:34)
[2019-08-11] MEDS: PRENATAL VITAMINS W/ FOLIC ACID TABLET (FP) PO SCH (10:34)
[2019-08-11] MEDS: TRIAMTERENE AND HCTZ - 37.5 MG/25 MG CAPSULE PO SCH (10:34)
[2019-08-11] MEDS: POTASSIUM CHLORIDE ORAL LIQUID 20 MEQ/15 ML PO SCH ×2 (10:39→22:13)
[2019-08-11] MEDS: hydrOXYzine PAMOATE 25 MG CAPSULE (FP) PO PRN ×2 (10:39→19:06)
[2019-08-11] MEDS: MELATONIN 5 MG TABLETS PO PRN (22:12)
[2019-08-11] MEDS: QUEtiapine FUMARATE 25 MG TABLET (FP) PO SCH (22:13)
[2019-08-11] MEDS: THIAMINE HCL 100 MG TABLET (FP) PO SCH (22:13)
[2019-08-12] MEDS: GABAPENTIN 100 MG CAPSULE (FP) PO SCH (05:14)
[2019-08-12] MEDS: hydrOXYzine PAMOATE 25 MG CAPSULE (FP) PO PRN (05:14)
[2019-08-12] MEDS: BUPRENORPHINE/NALOXONE 8 MG/2 MG FILM PACKET SL SCH (05:15)
[2019-08-12 06:13] VITALS: BP 103/71; PULSE 78; TEMP 97
--- NOTE | 2019-08-12 12:02 | DS ---
[facility] Detox Discharge Summary Admission Date: 08/08/19 Discharge Date: 08/12/19 - History Present History: Alcohol Dependence Additional Comments: 54 years old male admitted on 08/08/19 for alcohol withdrawal sx management treated with valium detox regimen lab indicated low K+ treated with K+ supplement patient refuses repeating K+ today patient agrees returning to suboxone provider for K+ serum level follow up patient states that his primary care provider who he can walk in without appointment patient is alert oriented x 3 cardiac s1s2 regular rate rhythm respiratory clear lung bilaterally on auscultation abdomen soft round obese no rebound tenderness - Physical Exam Results Vital Signs: Vital Signs Temperature 97.0 F L 08/12/19 06:13 Pulse Rate 78 08/12/19 06:13 Respiratory Rate 20 08/12/19 06:13 Blood Pressure 103/71 08/12/19 06:13 O2 Sat by Pulse Oximetry (%) Pertinent Admission Physical Exam Findings: alcohol withdrawal sx Laboratory Last Values WBC 4.1 K/mm3 (4.0-10.0) 08/10/19 07:40 RBC 4.46 M/mm3 (4.00-5.60) 08/10/19 07:40 Hgb 12.6 GM/dL (11.7-16.9) 08/10/19 07:40 Hct 38.3 % (35.4-49) 08/10/19 07:40 MCV 85.9 fl (80-96) 08/10/19 07:40 MCH 28.2 pg (25.7-33.7) 08/10/19 07:40 MCHC 32.8 g/dl (32.0-35.9) 08/10/19 07:40 RDW 15.9 % (11.9-15.9) 08/10/19 07:40 Plt Count 80 K/MM3 (134-434) L D 08/10/19 07:40 MPV 7.6 fl (7.5-11.1) 08/10/19 07:40 Absolute Neuts (auto) 2.4 K/mm3 (1.5-8.0) 08/10/19 07:40 Neutrophils % 59.0 % (42.8-82.8) 08/10/19 07:40 Lymphocytes % 29.0 % (8-40) 08/10/19 07:40 Monocytes % 8.0 % (3.8-10.2) 08/10/19 07:40 Eosinophils % 3.0 % (0-4.5) 08/10/19 07:40 Basophils % 1.0 % (0-2.0) 08/10/19 07:40 Nucleated RBC % 0 % (0-0) 08/10/19 07:40 Sodium 135 mmol/L (136-145) L 08/10/19 07:40 Potassium 2.6 mmol/L (3.5-5.1) L* 08/10/19 07:40 Chloride 96 mmol/L (98-107) L 08/10/19 07:40 Carbon Dioxide 29 mmol/L (21-32) 08/10/19 07:40 Anion Gap 10 MMOL/L (8-16) 08/10/19 07:40 BUN 10.3 mg/dL (7-18) 08/10/19 07:40 Creatinine 0.9 mg/dL (0.55-1.3) 08/10/19 07:40 Est GFR (CKD-EPI)AfAm 111.83 08/10/19 07:40 Est GFR (CKD-EPI)NonAf 96.49 08/10/19 07:40 Random Glucose 131 mg/dL (74-106) H 08/10/19 07:40 Calcium 8.5 mg/dL (8.5-10.1) 08/10/19 07:40 Total Bilirubin 1.9 mg/dL (0.2-1) H 08/10/19 07:40 Direct Bilirubin 0.4 mg/dL (0.0-0.2) H 08/08/19 11:40 AST 79 U/L (15-37) H 08/10/19 07:40 ALT 39 U/L (13-61) 08/10/19 07:40 Alkaline Phosphatase 240 U/L (45-117) H 08/10/19 07:40 Total Protein 7.6 g/dl (6.4-8.2) 08/10/19 07:40 Albumin 3.5 g/dl (3.4-5.0) 08/10/19 07:40 lab noted low K+ received K+ supplement refuses K+ repeat serum level patient prefers suboxone provider follow up K+ level - Treatment Hospital Course: Detox Protocol Followed, Detoxed Safely, Responded well, Discharged Condition Good, Rehab Referral Accepted Patient has Accepted a Rehab Referral to: [facility] - Medication Discharge Medications: Ambulatory Orders Quetiapine Fumarate [Seroquel -] 75 mg PO HS 04/08/19 Hctz 25Mg/Triamterene [Dyazide 25/37.5 -] 1 cap PO DAILY #10 capsule 05/16/19 Buprenorphine/Naloxone [Suboxone 8Mg/2Mg Sl Film -] 1 each SL TID 07/23/19 Albuterol Sulfate Inhaler - [Ventolin HFA Inhaler -] 2 puff IH Q4H PRN #1 inhaler 07/27/19 Amlodipine Besylate [Norvasc -] 5 mg PO DAILY #10 tablet 07/27/19 - Diagnosis (1) Alcohol dependence with uncomplicated withdrawal Status: Acute (2) Substance induced mood disorder Status: Suspected (3) Asthma Status: Chronic Qualifiers: Asthma severity: mild Asthma persistence: intermittent Asthma complication type: with status asthmaticus Qualified Code(s): J45.22 - Mild intermittent asthma with status asthmaticus (4) Cirrhosis of liver Status: Chronic Qualifiers: Hepatic cirrhosis type: unspecified hepatic cirrhosis Ascites presence: without ascites Qualified Code(s): K74.60 - Unspecified cirrhosis of liver (5) Encounter for monitoring Suboxone maintenance therapy Status: Chronic (6) GERD (gastroesophageal reflux disease) Status: Chronic Qualifiers: Esophagitis presence: without esophagitis Qualified Code(s): K21.9 - Gastro -esophageal reflux disease without esophagitis (7) HTN (hypertension) Status: Chronic Qualifiers: Hypertension type: essential hypertension Qualified Code(s): I10 - Essential (primary) hypertension (8) Morbid obesity with BMI of 40.0-44.9, adult Status: Chronic (9) Nicotine dependence Status: Acute Qualifiers: Nicotine product type: cigarettes Substance use status: in withdrawal Qualified Code(s): F17.213 - Nicotine dependence, cigarettes, with withdrawal (10) Umbilical hernia Status: Chronic Qualifiers: Obstruction and gangrene presence: without obstruction or gangrene Qualified Code(s): K42.9 - Umbilical hernia without obstruction or gangrene - AMA Did Patient Leave Against Medical Advice: No CIWA Score - CIWA Score Nausea/Vomitin-No Nausea/No Vomiting Muscle Tremors: 1-None Visible, but [place] Anxiety: 0-No Anxiety, at Ease Agitation: 0-Normal Activity Paroxysmal Sweats: No Perspiration Orientation: 0-Oriented Tacttile Disturbances: 0-None Auditory Disturbances: 0-None Visual Disturbances: 0-None Headache: 0-None Present CIWA-Ar Total Score: 1
== END 2019-08-12 08:39 | disposition home or self-care (01) | DRG 897 ==
LOC: YASAS 10:04 → Y3N 11:35
PROVIDERS: ADMIT Allergy & Immunology; ATTEND Allergy & Immunology
PROC: HZ2ZZZZ Detoxification Services for Substance Abuse Treatment (ICD-10-PCS; principal; 2019-08-08)
DX: F10.230 Alcohol dependence with withdrawal, uncomplicated (principal); J45.22 Mild intermittent asthma with status asthmaticus; Z68.41 Body mass index [BMI] 40.0-44.9, adult; F17.213 Nicotine dependence, cigarettes, with withdrawal; F19.24 Other psychoactive substance dependence with psychoactive substance-induced mood disorder; F32.9 Major depressive disorder, single episode, unspecified; I10 Essential (primary) hypertension; E87.6 Hypokalemia; K74.60 Unspecified cirrhosis of liver; K21.9 Gastro-esophageal reflux disease without esophagitis; K42.9 Umbilical hernia without obstruction or gangrene; G47.00 Insomnia, unspecified; E66.01 Morbid (severe) obesity due to excess calories; Z98.84 Bariatric surgery status; Z98.890 Other specified postprocedural states; Z51.81 Encounter for therapeutic drug level monitoring
CPT/HCPCS: 36415; 80053; 80076; 85025; 93005; 93010; J0735

== ENCOUNTER 2019-09-07 13:42 | Inpatient (IN) | payer OTHER ==
[2019-09-07 14:16] VITALS: BMI 42.7
--- NOTE | 2019-09-07 14:19 | HP ---
"CIWA Score Nausea/Vomitin Muscle Tremors: 4-Moderate,w/Arms Extend Anxiety: 4-Mod. Anxious/Guarded Agitation: 3 Paroxysmal Sweats: 1-Minimal Palms Moist Orientation: 0-Oriented Tacttile Disturbances: 1-Very Mild Itch/Numbness Auditory Disturbances: 1-Very Mild Visual Disturbances: 1-Very Mild Sensitivity Headache: 2-Mild CIWA-Ar Total Score: 19 - Admission Criteria OASAS Guidelines: Admission for Medically Managed Detox: Requires at least one of the followin. CIWA greater than 12 2. Seizures within the past 24 hours 3. Delirium tremens within the past 24 hours 4. Hallucinations within the past 24 hours 5. Acute intervention needed for co occurring medical disorder 6. Acute intervention needed for co occurring psychiatric disorder 7. Severe withdrawal that cannot be handled at a lower level of care (continued vomiting, continued diarrhea, abnormal vital signs) requiring intravenous medication and/or fluids 8. 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 - HPI Chief Complaint: I have a problem with alcohol, that's my problem; I got a little lost Allergies/Adverse Reactions: Allergies Allergy/AdvReac Type Severity Reaction Status Date / Time No Known Drug Allergies Allergy Verified 09/07/19 14:00 History of Present Illness: 54 yo gentleman here for detox from alcohol - one of several admissions for treatment. Patient was last here 08/08/19 - was supposed to go to rehab but he chose to go home - counseled importance of follow up treatment after detox. Denies seizures but does have black outs. States he was sober for about 3 years but relapsed in 2019 due to fiance left him. Patient lives alone in apartment, is on psychiatric disability. He has been on a suboxone program for about 8 years, On previous admission 12/5/19 patient was given valium due to cirrhosis - he states he really struggled with withdrawal symptoms and felt it did not help him and would rather try the librium which was used previously. No emergency room visits recently. [facility] Search Terms: kris cowart, 1965 Search Date: 09/07/2019 02:14:53 PM The Drug Utilization Report below displays all of the controlled substance prescriptions, if any, that your patient has filled in the last twelve months. The information displayed on this report is compiled from pharmacy submissions to the Department, and accurately reflects the information as submitted by the pharmacies. This report was requested by: Yesy Steen | Reference #: [id number] Others' Prescriptions Patient Name: Kris Cowart Date: 1965 Address: [address] [place] [address] Sex: Male Rx Written Rx Dispensed Drug Quantity Days Supply Prescriber Name 09/03/2019 09/05/2019 buprenorphine-naloxone 8-2 mg sl film 90 30 Raji Jensen Jr, MD 07/30/2019 07/31/2019 buprenorphine-naloxone 8-2 mg sl film 90 30 Raji Jensen Jr, MD 07/01/2019 07/02/2019 buprenorphine-naloxone 8-2 mg sl film 90 30 Raji Jensen Jr, MD 03/29/2019 04/12/2019 buprenorphine-naloxone 8-2 mg sl film 90 30 Raji Jensen Jr, MD 03/01/2019 03/06/2019 buprenorphine-naloxone 8-2 mg sl film 90 30 Raji Jensen Jr, MD 01/31/2019 01/31/2019 buprenorphine-naloxone 8-2 mg sl film 90 30 Raji Jensen Jr, MD 01/02/2019 01/02/2019 buprenorphine-naloxone 8-2 mg sl film 90 30 Raji Jensen Jr, MD 12/04/2018 12/06/2018 buprenorphine-naloxone 8-2 mg sl film 90 30 Raji Jensen Jr, MD 11/06/2018 11/07/2018 suboxone 12 mg-3 mg sl film 60 30 Lisa Burrell DO 10/05/2018 10/30/2018 suboxone 12 mg-3 mg sl film 60 30 Lisa Burrell DO 10/11/2018 10/11/2018 oxycodone-acetaminophen 5-325 mg tab 15 5 William Young 10/11/2018 10/11/2018 lyrica 50 mg capsule 20 10 William Young 09/07/2018 09/11/2018 suboxone 12 mg-3 mg sl film 60 30 Lisa Burrell DO Exam Limitations: No Limitations - Ebola screening Have you traveled outside of the country in the last 21 days: No Have you had contact with anyone from an Ebola affected area: No Do you have a fever: No - Review of Systems Constitutional: Loss of Appetite, Malaise, Changes in sleep, Weakness EENT: reports: No Symptoms Reported Respiratory: reports: No Symptoms reported Cardiac: reports: No Symptoms Reported GI: reports: Nausea, Poor Appetite, Indigestion, Abdominal cramping : reports: Frequency Musculoskeletal: reports: Back Pain Integumentary: reports: Dryness Neuro: reports: Headache, Tingling, Tremors, Weakness, Unsteady Gait Endocrine: reports: No Symptoms Reported Hematology: reports: No Symptoms Reported Psychiatric: reports: Judgement Intact, Mood/Affect Appropiate, Anxious Other Systems: Reviewed and Negative Patient History - Patient Medical History Hx Anemia: No Hx Asthma: Yes Hx Chronic Obstructive Pulmonary Disease (COPD): No Hx Cancer: No Hx Cardiac Disorders: No Hx Congestive Heart Failure: No Hx Hypertension: Yes Hx Hypercholesterolemia: No Hx Pacemaker: No HX Cerebrovascular Accident: No Hx Seizures: No Hx Dementia: No Hx Diabetes: No Hx Gastrointestinal Disorders: Yes (reflux) Hx Liver Disease: Yes (cirrhosis) Hx Genitourinary Disorders: No Hx Sexually Transmitted Disorders: No Hx Renal Disease (ESRD): No Hx Thyroid Disease: No Hx Human Immunodeficiency Virus (HIV): No (last 01/17) Hx Hepatitis C: No Hx Depression: Yes (history of hospitalizations, sees psych now - on meds) Hx Suicide Attempt: Yes (long time ago) Hx Bipolar Disorder: No Hx Schizophrenia: No Other Medical History: edema; umbilical hernia, sleep apnea - Patient Surgical History Past Surgical History: Yes Hx Neurologic Surgery: No Hx Cataract Extraction: No Hx Cardiac Surgery: No Hx Lung Surgery: No Hx Breast Surgery: No Hx Breast Biopsy: No Hx Abdominal Surgery: Yes (bariatric sleeve 2018) Hx Appendectomy: No Hx Cholecystectomy: No Hx Genitourinary Surgery: No Hx Section: No Hx Orthopedic Surgery: No Other Surgical History: s/p tracheostomy in 2012 - sepsis - in a coma x 1 month Anesthesia Reaction: No - PPD History Previous Implant?: Yes Documented Results: Negative w/proof Implanted On Prior [facility] Admission?: Yes Date: 07/23/19 Results: 0 mm PPD to be Administered?: No - Reproductive History Patient is a Female of Child Bearing Age (11 -55 yrs old): No - Smoking Cessation Smoking history: Never smoked Have you smoked in the past 12 months: No Hx Chewing Tobacco Use: No Initiated information on smoking cessation: No - Substance & Tx. History Hx Alcohol Use: Yes Hx Substance Use: Yes Substance Use Type: Alcohol, Opiates Hx Substance Use Treatment: Yes (detox, hx campral, on suboxone now) - Substances abused Alcohol Substance route: Oral Frequency: Daily Amount used: 1/2-1 gallon of vodka Age of first use: 12 Date of last use: 09/07/19 Admission Physical Exam BHS - Vital Signs Vital Signs: Vital Signs - 24 hr 09/07/19 14:13 Temperature 98.0 F Pulse Rate 91 H Respiratory 22 H Rate Blood Pressure 122/82 - Physical General Appearance: Yes: Nourished, Appropriately Dressed, Moderate Distress, Obese, Anxious HEENTM: Yes: EOMI, Hearing grossly Normal, Normocephalic, Normal Voice, Pharynx Normal, Other (missing teeth) Respiratory: Yes: Normal Breath Sounds, No Respiratory Distress Neck: Yes: No masses,lesions,Nodules Breast: Yes: Breast Exam Deferred Cardiology: Yes: Regular Rhythm, Regular Rate Abdominal: Yes: Distended, Hernia (prominent umbilical hernia) Genitourinary: Yes: Frequency Back: Yes: Normal Inspection Musculoskeletal: Yes: full range of Motion, Back pain, Joint Stiffness Extremities: Yes: Pedal Edema (1-2 + bilateral lower extremity edema) Neurological: Yes: Alert, Normal Mood/Affect, Normal Response, Numbness Integumentary: Yes: Normal Color, Dry, Warm Lymphatic: Yes: Within Normal Limits - Diagnostic (1) Alcohol dependence with uncomplicated withdrawal Current Visit: Yes Status: Chronic (2) Asthma Current Visit: Yes Status: Chronic Qualifiers: Asthma severity: mild Asthma persistence: intermittent Asthma complication type: with status asthmaticus Qualified Code(s): J45.22 - Mild intermittent asthma with status asthmaticus (3) Cirrhosis of liver Current Visit: Yes Status: Chronic Qualifiers: Hepatic cirrhosis type: unspecified hepatic cirrhosis Ascites presence: without ascites Qualified Code(s): K74.60 - Unspecified cirrhosis of liver (4) HTN (hypertension) Current Visit: Yes Status: Chronic Qualifiers: Hypertension type: essential hypertension Qualified Code(s): I10 - Essential (primary) hypertension (5) Morbid obesity with BMI of 40.0-44.9, adult Current Visit: Yes Status: Chronic (6) Opioid dependence on agonist therapy Current Visit: Yes Status: Chronic Comment: [facility] suboxone clinic for 8 years (7) Sleep apnea Current Visit: Yes Status: Acute Qualifiers: Sleep apnea type: obstructive Qualified Code(s): G47.33 - Obstructive sleep apnea (adult) (pediatric) (8) GERD (gastroesophageal reflux disease) Current Visit: Yes Status: Chronic Qualifiers: Esophagitis presence: without esophagitis Qualified Code(s): K21.9 - Gastro -esophageal reflux disease without esophagitis (9) History of cirrhosis of liver Current Visit: Yes Status: Chronic (10) Hx of bariatric surgery Current Visit: Yes Status: Chronic Comment: gastric sleeve (11) Umbilical hernia Current Visit: Yes Status: Chronic Qualifiers: Obstruction and gangrene presence: without obstruction or gangrene Qualified Code(s): K42.9 - Umbilical hernia without obstruction or gangrene Cleared for Admission [facility] - Detox or Rehab [facility] Level of Care: Medically Managed Detox Regimen/Protocol: Ativan Breathalyzer - Breathalyzer Breathalyzer: 0.280 Urine Drug Screen - Test Device Lot number: [id number] Expiration date: 04/03/21 - Control Is test valid?: Yes - Results Drug screen NEGATIVE: No Urine drug screen results: MARTIN-Cocaine, BZO-Benzodiazepines, BUP-Suboxone Inpatient Rehab Admission - Rehab Decision to Admit Inpatient rehab admission?: No"
[2019-09-07] MEDS ORDERED: BISMUTH SUBSALICYLATE 524 MG/30 ML UD PO PRN (15:00)
[2019-09-07] MEDS ORDERED: MAG HYDROX/AL HYDROX/SIMETH 30 ML UNIT-DOSE CUP PO PRN (15:00)
[2019-09-07] MEDS ORDERED: MAGNESIUM HYDROX 2400MG/30ML ORAL SUSPENSION 30 ML CUP PO PRN (15:00)
[2019-09-07] MEDS ORDERED: chlordiazePOXIDE HCL 25 MG CAPSULE PO ONE (15:00)
[2019-09-07] MEDS ORDERED: chlordiazePOXIDE HCL 25 MG CAPSULE PO PRN (15:00)
[2019-09-07] MEDS ORDERED: MAGNESIUM CITRATE 300 ML BOTTLE PO PRN (15:00)
[2019-09-07] MEDS ORDERED: hydrOXYzine PAMOATE 25 MG CAPSULE (FP) PO PRN (15:00)
[2019-09-07] MEDS ORDERED: MENTHOL/PHENOL 1 EACH UD MM PRN (15:00)
[2019-09-07] MEDS ORDERED: ALBUTEROL SO4 8 GM HFA INHALER IH PRN (15:02)
[2019-09-07] MEDS: chlordiazePOXIDE HCL 25 MG CAPSULE PO SCH ×2 (17:39→22:25)
[2019-09-07] MEDS: PANTOPRAZOLE 20 MG TABLET (FP) PO SCH (17:39)
[2019-09-07] MEDS ORDERED: QUEtiapine FUMARATE 25 MG TABLET (FP) PO ONE (22:00)
[2019-09-07] MEDS: THIAMINE HCL 100 MG TABLET (FP) PO SCH (22:25)
[2019-09-07] MEDS: MELATONIN 5 MG TABLETS PO PRN (22:26)
[2019-09-08] MEDS: BUPRENORPHINE/NALOXONE 8 MG/2 MG FILM PACKET SL SCH ×4 (05:15→22:58)
[2019-09-08] MEDS: chlordiazePOXIDE HCL 25 MG CAPSULE PO SCH ×4 (05:15→22:56)
[2019-09-08] MEDS ORDERED: amLODIPine BESYLATE 5 MG TABLET (FP) PO SCH (10:00)
[2019-09-08] MEDS: PRENATAL VITAMINS W/ FOLIC ACID TABLET (FP) PO SCH (10:15)
[2019-09-08] MEDS: TRIAMTERENE AND HCTZ - 37.5 MG/25 MG CAPSULE PO SCH (10:16)
[2019-09-08] MEDS: PANTOPRAZOLE 20 MG TABLET (FP) PO SCH (10:16)
[2019-09-08] MEDS ORDERED: cloNIDine HCL 0.1 MG TABLET PO PRN (11:31)
--- NOTE | 2019-09-08 11:34 | PN ---
S CIWA - CIWA Score Nausea/Vomitin-Mild Nausea/No Vomiting Muscle Tremors: 3 Anxiety: 3 Agitation: 2 Paroxysmal Sweats: 2 Orientation: 0-Oriented Tacttile Disturbances: 1-Very Mild Itch/Numbness Auditory Disturbances: 0-None Visual Disturbances: 0-None Headache: 2-Mild CIWA-Ar Total Score: 14 BHS Progress Note (SOAP) Subjective: 54 years old male admitted on 09/07/19 for alcohol withdrawal sx management treating with librium detox regimen sitting on the edge of the bed eating breakfast no trouble chewing nor swallowing tremor of both hands librium 50mg po x 1 Objective: 09/08/19 12:35 Vital Signs Temperature 97.0 F L 09/08/19 09:27 Pulse Rate 96 H 09/08/19 09:27 Respiratory Rate 18 09/08/19 09:27 Blood Pressure 159/99 09/08/19 09:27 O2 Sat by Pulse Oximetry (%) Laboratory Last Values POC Glucometer 151 UNITS (80-120) 09/07/19 17:37 09/08/19 12:35 lab pending 09/08/19 12:39 long history of hypertension increase amlodipine from 5 mg to 10 mg additional lisinopril 10 mg po daily Assessment: 09/08/19 12:39 alcohol withdrawal Plan: libirum regimen
--- NOTE | 2019-09-08 13:27 | CONSULT ---
[facility] Psychiatric Consult - Data Date of interview: 09/08/19 Admission source: [facility] Identifying data: Patient is a 54 year old single male, father of three, domiciled, and is supported by [facility]. This is one of multiple admissions for patient. Patient admitted to for alcohol and cocaine dependence. Substance Abuse History: - Smoking Cessation. Smoking history: Never smoked. Have you smoked in the past 12 months: No. Hx Chewing Tobacco Use: No. Initiated information on smoking cessation: No. - Substance & Tx. History. Hx Alcohol Use: Yes. Hx Substance Use: Yes. Substance Use Type: Alcohol, Opiates. Hx Substance Use Treatment: Yes (detox, hx campral, on suboxone now). - Substances abused. Alcohol. Substance route: Oral. Frequency: Daily. Amount used: 1/2-1 gallon of vodka. Age of first use: 12. Date of last use: Medical History: hypertension, GERD, asthma, cirrhosis,edema, umbilical hernia, sleep apnea, bariatric sleeve 2019, /p tracheostomy in 2011 - sepsis - in a coma x 1 month Psychiatric History: Patient's first psychiatric contact was twelve years ago after he saw an outpatient psychiatrist at [facility]. He was diagnosed with MDD and prescribed psychotropic medications. Mr. Salinas reports history of one psychiatric hospitalization at [facility] six years ago due to depression. Mr. Salinas is currently provided with outpatient psychiatric care by Dr. Lang at [facility] and is prescribed Seroquel 75mg HS. Patient reports history of one suicide attempt by walking onto incomining traffic. At present patient denies suicidal/homicidal ideation. Physical/Sexual Abuse/Trauma History: denies. Mental Status Exam - Mental Status Exam Alert and Oriented to: Time, Place, Person Cognitive Function: Good Patient Appearance: Well Groomed Mood: Withdrawn Affect: Mood Congruent Patient Behavior: Fatigued, Cooperative Speech Pattern: Appropriate Voice Loudness: Normal Thought Process: Goal Oriented Thought Disorder: Not Present Hallucinations: Denies Suicidal Ideation: Denies Homicidal Ideation: Denies Insight/Judgement: Poor Sleep: Poorly Appetite: Fair Muscle strength/Tone: Normal Gait/Station: Normal Psychiatric Findings - Problem List ([place] 1, 2,3) (1) Alcohol dependence with uncomplicated withdrawal Current Visit: Yes Status: Acute (2) Opioid dependence on agonist therapy Current Visit: Yes Status: Chronic Comment: [facility] suboxone clinic for 8 years (3) Substance-induced sleep disorder Current Visit: Yes Status: Acute (4) History of depression Current Visit: Yes Status: Chronic (5) Substance induced mood disorder Current Visit: Yes Status: Acute - Initial Treatment Plan Initial Treatment Plan: Psychoeducation provided. Detoxification in progress. Will order Seroquel 75mg HS. Benefits and side effects discussed. Verbal consent given.
[2019-09-08 13:48] LABS: HEMATOCRIT 34.6 % (35.4-49); HEMOGLOBIN 11.3 GM/dL (11.7-16.9); MCH 28.3 pg (25.7-33.7); MCHC 32.7 g/dl (32.0-35.9); MEAN CELL VOLUME 86.5 fl (80-96); MEAN PLT VOLUME 7.1 fl (7.5-11.1); PLATELET COUNT 44 K/MM3 (134-434); RBC 3.99 M/mm3 (4.00-5.60); RDW 17.3 % (11.9-15.9)
[2019-09-08] MEDS ORDERED: chlordiazePOXIDE HCL 25 MG CAPSULE PO ONE (14:00)
[2019-09-08 15:19] LABS: ALBUMIN 3.1 g/dl (3.4-5.0); BILIRUBIN,TOTAL 1.3 mg/dL (0.2-1); BLOOD UREA NITROGEN 6.2 mg/dL (7-18); CALCIUM 7.7 mg/dL (8.5-10.1); CREATININE 0.8 mg/dL (0.55-1.3)
[2019-09-08 15:34] LABS: POTASSIUM 2.9 mmol/L (3.5-5.1)
[2019-09-08] MEDS ORDERED: POTASSIUM CHLORIDE ORAL LIQUID 20 MEQ/15 ML PO ONE ×2 (16:00→21:00)
[2019-09-08] MEDS: THIAMINE HCL 100 MG TABLET (FP) PO SCH (21:45)
[2019-09-08] MEDS: QUEtiapine FUMARATE 50 MG TABLET PO SCH (21:46)
[2019-09-08] MEDS: LISINOPRIL 10 MG TABLET (FP) PO SCH (21:47)
[2019-09-08] MEDS: IBUPROFEN 400 MG TABLET (FP) PO PRN (22:57)
[2019-09-09] MEDS: BUPRENORPHINE/NALOXONE 8 MG/2 MG FILM PACKET SL SCH ×3 (05:24→22:03)
[2019-09-09] MEDS: chlordiazePOXIDE HCL 25 MG CAPSULE PO SCH ×4 (05:24→22:02)
[2019-09-09] MEDS: PANTOPRAZOLE 20 MG TABLET (FP) PO SCH (10:09)
[2019-09-09] MEDS: PRENATAL VITAMINS W/ FOLIC ACID TABLET (FP) PO SCH (10:09)
[2019-09-09] MEDS: amLODIPine BESYLATE 5 MG TABLET (FP) PO SCH (10:09)
[2019-09-09] MEDS: POTASSIUM CHLORIDE ORAL LIQUID 20 MEQ/15 ML PO SCH ×2 (10:10→22:02)
[2019-09-09] MEDS: TRIAMTERENE AND HCTZ - 37.5 MG/25 MG CAPSULE PO SCH (10:10)
[2019-09-09] MEDS: IBUPROFEN 400 MG TABLET (FP) PO PRN (10:11)
--- NOTE | 2019-09-09 13:10 | PN ---
[facility] CIWA - CIWA Score Nausea/Vomitin-Mild Nausea/No Vomiting Muscle Tremors: 3 Anxiety: 3 Agitation: 2 Paroxysmal Sweats: 1-Minimal Palms Moist Orientation: 1-Uncertain about Date Tacttile Disturbances: 0-None Auditory Disturbances: 0-None Visual Disturbances: 0-None Headache: 0-None Present CIWA-Ar Total Score: 11 S Progress Note (SOAP) Subjective: 54 years old male admitted on 09/07/19 for alcohol withdrawal sx management treating with librium detox regimen c/o muscle spasm robaxin 500mg po x 1 c/o long history of stuffy nose treated with flonas Objective: 09/09/19 13:13 Vital Signs Temperature 98.8 F 09/09/19 09:04 Pulse Rate 100 H 09/09/19 09:04 Respiratory Rate 18 09/09/19 09:04 Blood Pressure 102/69 09/09/19 09:04 O2 Sat by Pulse Oximetry (%) Laboratory Last Values WBC 3.0 K/mm3 (4.0-10.0) L 09/08/19 07:30 RBC 3.99 M/mm3 (4.00-5.60) L 09/08/19 07:30 Hgb 11.3 GM/dL (11.7-16.9) L 09/08/19 07:30 Hct 34.6 % (35.4-49) L 09/08/19 07:30 MCV 86.5 fl (80-96) 09/08/19 07:30 MCH 28.3 pg (25.7-33.7) 09/08/19 07:30 MCHC 32.7 g/dl (32.0-35.9) 09/08/19 07:30 RDW 17.3 % (11.9-15.9) H 09/08/19 07:30 Plt Count 44 K/MM3 (134-434) L D 09/08/19 07:30 MPV 7.1 fl (7.5-11.1) L 09/08/19 07:30 Sodium 141 mmol/L (136-145) 09/08/19 07:30 Potassium 3.5 mmol/L (3.5-5.1) 09/09/19 08:10 Chloride 102 mmol/L (98-107) 01/05/20 07:30 Carbon Dioxide 28 mmol/L (21-32) 09/08/19 07:30 Anion Gap 11 MMOL/L (8-16) 09/08/19 07:30 BUN 6.2 mg/dL (7-18) L 09/08/19 07:30 Creatinine 0.8 mg/dL (0.55-1.3) 09/08/19 07:30 Est GFR (CKD-EPI)AfAm 117.38 09/08/19 07:30 Est GFR (CKD-EPI)NonAf 101.27 09/08/19 07:30 POC Glucometer 133 UNITS (80-120) 09/09/19 05:27 Random Glucose 125 mg/dL (74-106) H 09/08/19 07:30 Calcium 7.7 mg/dL (8.5-10.1) L 09/08/19 07:30 Total Bilirubin 1.3 mg/dL (0.2-1) H 09/08/19 07:30 AST 204 U/L (15-37) H 09/08/19 07:30 ALT 71 U/L (13-61) H 09/08/19 07:30 Alkaline Phosphatase 311 U/L (45-117) H 09/08/19 07:30 Total Protein 7.0 g/dl (6.4-8.2) 09/08/19 07:30 Albumin 3.1 g/dl (3.4-5.0) L 09/08/19 07:30 RPR Titer Nonreactive (NONREACTIVE) 09/08/19 07:30 lab noted low Ca++ oscal supplement K+ within normal due to lisinopril continue K+ supplement 09/09/19 13:14 Assessment: 09/09/19 13:15 alcohol withdrawal Plan: librium regimen
[2019-09-09] MEDS: METHOCARBAMOL 500 MG TABLET PO PRN (13:43)
[2019-09-09] MEDS ORDERED: METHOCARBAMOL 500 MG TABLET PO ONE (14:38)
[2019-09-09] MEDS: FLUTICASONE PROP 0.05% 16 GM NASAL SPRAY NS SCH (14:53)
[2019-09-09] MEDS: THIAMINE HCL 100 MG TABLET (FP) PO SCH (22:03)
[2019-09-09] MEDS: LISINOPRIL 10 MG TABLET (FP) PO SCH (22:03)
[2019-09-09] MEDS: QUEtiapine FUMARATE 50 MG TABLET PO SCH (22:04)
[2019-09-09] MEDS: MELATONIN 5 MG TABLETS PO PRN (22:04)
[2019-09-10] MEDS ORDERED: chlordiazePOXIDE HCL 10 MG CAPSULE PO PRN
[2019-09-10] MEDS: chlordiazePOXIDE HCL 10 MG CAPSULE PO SCH ×4 (05:01→22:02)
[2019-09-10] MEDS: BUPRENORPHINE/NALOXONE 8 MG/2 MG FILM PACKET SL SCH ×3 (05:02→22:05)
[2019-09-10] MEDS: amLODIPine BESYLATE 5 MG TABLET (FP) PO SCH (10:07)
[2019-09-10] MEDS: PRENATAL VITAMINS W/ FOLIC ACID TABLET (FP) PO SCH (10:08)
[2019-09-10] MEDS: POTASSIUM CHLORIDE ORAL LIQUID 20 MEQ/15 ML PO SCH ×2 (10:08→22:00)
[2019-09-10] MEDS: PANTOPRAZOLE 20 MG TABLET (FP) PO SCH (10:08)
[2019-09-10] MEDS: TRIAMTERENE AND HCTZ - 37.5 MG/25 MG CAPSULE PO SCH (10:09)
[2019-09-10] MEDS: FLUTICASONE PROP 0.05% 16 GM NASAL SPRAY NS SCH (10:09)
[2019-09-10] MEDS: IBUPROFEN 400 MG TABLET (FP) PO PRN (10:10)
--- NOTE | 2019-09-10 11:54 | PN ---
S CIWA - CIWA Score Nausea/Vomitin-No Nausea/No Vomiting Muscle Tremors: 2 Anxiety: 2 Agitation: 2 Paroxysmal Sweats: 1-Minimal Palms Moist Orientation: 0-Oriented Tacttile Disturbances: 1-Very Mild Itch/Numbness Auditory Disturbances: 0-None Visual Disturbances: 0-None Headache: 0-None Present CIWA-Ar Total Score: 8 BHS Progress Note (SOAP) Subjective: 54 years old male admitted on 09/07/19 for alcohol withdrawal sx management treating with librium detox regimen feeling ok today slept through the night Objective: 09/10/19 11:50 Vital Signs Temperature 97.5 F L 09/10/19 10:01 Pulse Rate 66 09/10/19 10:01 Respiratory Rate 18 09/10/19 10:01 Blood Pressure 131/77 09/10/19 10:01 O2 Sat by Pulse Oximetry (%) Laboratory Last Values WBC 3.0 K/mm3 (4.0-10.0) L 09/08/19 07:30 RBC 3.99 M/mm3 (4.00-5.60) L 09/08/19 07:30 Hgb 11.3 GM/dL (11.7-16.9) L 09/08/19 07:30 Hct 34.6 % (35.4-49) L 09/08/19 07:30 MCV 86.5 fl (80-96) 09/08/19 07:30 MCH 28.3 pg (25.7-33.7) 09/08/19 07:30 MCHC 32.7 g/dl (32.0-35.9) 09/08/19 07:30 RDW 17.3 % (11.9-15.9) H 09/08/19 07:30 Plt Count 44 K/MM3 (134-434) L D 09/08/19 07:30 MPV 7.1 fl (7.5-11.1) L 09/08/19 07:30 Sodium 141 mmol/L (136-145) 09/08/19 07:30 Potassium 3.5 mmol/L (3.5-5.1) 09/09/19 08:10 Chloride 102 mmol/L (98-107) 09/08/19 07:30 Carbon Dioxide 28 mmol/L (21-32) 09/08/19 07:30 Anion Gap 11 MMOL/L (8-16) 09/08/19 07:30 BUN 6.2 mg/dL (7-18) L 09/08/19 07:30 Creatinine 0.8 mg/dL (0.55-1.3) 09/08/19 07:30 Est GFR (CKD-EPI)AfAm 117.38 09/08/19 07:30 Est GFR (CKD-EPI)NonAf 101.27 09/08/19 07:30 POC Glucometer 130 UNITS (80-120) 09/10/19 05:00 Random Glucose 125 mg/dL (74-106) H 09/08/19 07:30 Calcium 7.7 mg/dL (8.5-10.1) L 09/08/19 07:30 Total Bilirubin 1.3 mg/dL (0.2-1) H 09/08/19 07:30 AST 204 U/L (15-37) H 09/08/19 07:30 ALT 71 U/L (13-61) H 09/08/19 07:30 Alkaline Phosphatase 311 U/L (45-117) H 09/08/19 07:30 Total Protein 7.0 g/dl (6.4-8.2) 09/08/19 07:30 Albumin 3.1 g/dl (3.4-5.0) L 09/08/19 07:30 RPR Titer Nonreactive (NONREACTIVE) 09/08/19 07:30 lab noted low plt low Ca++ ast elevation Assessment: 09/10/19 11:53 alcohol withdrawal discontinue motrin oscal po bid repeat ast Plan: libirum regimen
[2019-09-10] MEDS: CALCIUM 250MG/VIT-D 125 UNITS 1 COMBO TABLET PO SCH ×2 (13:27→22:00)
[2019-09-10] MEDS: QUEtiapine FUMARATE 50 MG TABLET PO SCH (22:00)
[2019-09-10] MEDS: THIAMINE HCL 100 MG TABLET (FP) PO SCH (22:00)
[2019-09-10] MEDS: LISINOPRIL 10 MG TABLET (FP) PO SCH (22:00)
[2019-09-10] MEDS: METHOCARBAMOL 500 MG TABLET PO PRN (22:03)
[2019-09-10] MEDS: MELATONIN 5 MG TABLETS PO PRN (22:04)
[2019-09-11] MEDS: chlordiazePOXIDE HCL 10 MG CAPSULE PO SCH ×2 (05:14→17:27)
[2019-09-11] MEDS: BUPRENORPHINE/NALOXONE 8 MG/2 MG FILM PACKET SL SCH ×3 (06:17→21:59)
[2019-09-11] MEDS: FLUTICASONE PROP 0.05% 16 GM NASAL SPRAY NS SCH (09:57)
[2019-09-11] MEDS: POTASSIUM CHLORIDE ORAL LIQUID 20 MEQ/15 ML PO SCH ×2 (09:58→22:04)
[2019-09-11] MEDS: PANTOPRAZOLE 20 MG TABLET (FP) PO SCH (09:58)
[2019-09-11] MEDS: PRENATAL VITAMINS W/ FOLIC ACID TABLET (FP) PO SCH (09:58)
[2019-09-11] MEDS: amLODIPine BESYLATE 5 MG TABLET (FP) PO SCH (09:58)
[2019-09-11] MEDS: CALCIUM 250MG/VIT-D 125 UNITS 1 COMBO TABLET PO SCH ×2 (09:58→22:04)
[2019-09-11] MEDS: TRIAMTERENE AND HCTZ - 37.5 MG/25 MG CAPSULE PO SCH (09:58)
[2019-09-11] MEDS: METHOCARBAMOL 500 MG TABLET PO PRN (09:58)
--- NOTE | 2019-09-11 11:31 | PN ---
[facility] CIWA - CIWA Score Nausea/Vomitin-No Nausea/No Vomiting Muscle Tremors: 1-None Visible, but [place] Anxiety: 2 Agitation: 1-Slight > Activity Paroxysmal Sweats: 1-Minimal Palms Moist Orientation: 0-Oriented Tacttile Disturbances: 0-None Auditory Disturbances: 0-None Visual Disturbances: 0-None Headache: 0-None Present CIWA-Ar Total Score: 5 BHS Progress Note (SOAP) Subjective: 54 years old male admitted on 09/07/19 for alcohol withdrawal sx management treating with librium detox regimen feeling better today less tremor contineu suboxone 8-2mg sl tid Objective: 09/11/19 11:29 Vital Signs Temperature 97.3 F L 09/11/19 09:14 Pulse Rate 87 09/11/19 09:14 Respiratory Rate 18 09/11/19 09:14 Blood Pressure 110/73 09/11/19 09:14 O2 Sat by Pulse Oximetry (%) Laboratory Last Values WBC 3.0 K/mm3 (4.0-10.0) L 09/08/19 07:30 RBC 3.99 M/mm3 (4.00-5.60) L 09/08/19 07:30 Hgb 11.3 GM/dL (11.7-16.9) L 09/08/19 07:30 Hct 34.6 % (35.4-49) L 09/08/19 07:30 MCV 86.5 fl (80-96) 09/08/19 07:30 MCH 28.3 pg (25.7-33.7) 09/08/19 07:30 MCHC 32.7 g/dl (32.0-35.9) 09/08/19 07:30 RDW 17.3 % (11.9-15.9) H 09/08/19 07:30 Plt Count 44 K/MM3 (134-434) L D 09/08/19 07:30 MPV 7.1 fl (7.5-11.1) L 09/08/19 07:30 Sodium 141 mmol/L (136-145) 09/08/19 07:30 Potassium 3.5 mmol/L (3.5-5.1) 09/09/19 08:10 Chloride 102 mmol/L (98-107) 09/08/19 07:30 Carbon Dioxide 28 mmol/L (21-32) 09/08/19 07:30 Anion Gap 11 MMOL/L (8-16) 09/08/19 07:30 BUN 6.2 mg/dL (7-18) L 09/08/19 07:30 Creatinine 0.8 mg/dL (0.55-1.3) 09/08/19 07:30 Est GFR (CKD-EPI)AfAm 117.38 09/08/19 07:30 Est GFR (CKD-EPI)NonAf 101.27 09/08/19 07:30 POC Glucometer 133 UNITS (80-120) 09/11/19 05:16 Random Glucose 125 mg/dL (74-106) H 09/08/19 07:30 Calcium 7.7 mg/dL (8.5-10.1) L 09/08/19 07:30 Total Bilirubin 1.3 mg/dL (0.2-1) H 09/08/19 07:30 AST 110 U/L (15-37) H 09/11/19 08:00 ALT 71 U/L (13-61) H 09/08/19 07:30 Alkaline Phosphatase 311 U/L (45-117) H 09/08/19 07:30 Total Protein 7.0 g/dl (6.4-8.2) 09/08/19 07:30 Albumin 3.1 g/dl (3.4-5.0) L 09/08/19 07:30 RPR Titer Nonreactive (NONREACTIVE) 09/08/19 07:30 lab noted continue calcium supplement no motrin health teaching on alcohol related ast elevation Assessment: 09/11/19 11:30 alcohol withdrawal Plan: librium regimen
[2019-09-11] MEDS: QUEtiapine FUMARATE 50 MG TABLET PO SCH (21:58)
[2019-09-11] MEDS: LISINOPRIL 10 MG TABLET (FP) PO SCH (21:58)
[2019-09-11] MEDS: THIAMINE HCL 100 MG TABLET (FP) PO SCH (21:58)
[2019-09-11] MEDS: MELATONIN 5 MG TABLETS PO PRN (21:59)
[2019-09-12] MEDS ORDERED: chlordiazePOXIDE HCL 10 MG CAPSULE PO ONE (05:00)
[2019-09-12] MEDS: BUPRENORPHINE/NALOXONE 8 MG/2 MG FILM PACKET SL SCH (05:37)
[2019-09-12 09:07] VITALS: BP 134/91; PULSE 77; TEMP 96.6
[2019-09-12] MEDS: amLODIPine BESYLATE 5 MG TABLET (FP) PO SCH (10:33)
[2019-09-12] MEDS: TRIAMTERENE AND HCTZ - 37.5 MG/25 MG CAPSULE PO SCH (10:33)
[2019-09-12] MEDS: FLUTICASONE PROP 0.05% 16 GM NASAL SPRAY NS SCH (10:33)
[2019-09-12] MEDS: PRENATAL VITAMINS W/ FOLIC ACID TABLET (FP) PO SCH (10:34)
[2019-09-12] MEDS: CALCIUM 250MG/VIT-D 125 UNITS 1 COMBO TABLET PO SCH (10:34)
[2019-09-12] MEDS: PANTOPRAZOLE 20 MG TABLET (FP) PO SCH (10:34)
--- NOTE | 2019-09-12 12:45 | DS ---
[facility] Detox Discharge Summary Admission Date: 09/07/19 Discharge Date: 09/12/19 - History Present History: Alcohol Dependence Additional Comments: 54 years old male admitted on for alcohol withdrawal sx management treated with librium detox regimen patient tolerated and completed the detox regimen alert oriented x 3 cardiac s1s2 regular rate rhythm respiratory clear lungs bilaterally on auscultation extremities full range of motion - Physical Exam Results Vital Signs: Vital Signs Temperature 96.6 F L 09/12/19 09:07 Pulse Rate 77 09/12/19 09:07 Respiratory Rate 18 09/12/19 09:07 Blood Pressure 134/91 09/12/19 09:07 O2 Sat by Pulse Oximetry (%) Pertinent Admission Physical Exam Findings: alcohol withdrawal Laboratory Last Values WBC 3.0 K/mm3 (4.0-10.0) L 09/08/19 07:30 RBC 3.99 M/mm3 (4.00-5.60) L 09/08/19 07:30 Hgb 11.3 GM/dL (11.7-16.9) L 09/08/19 07:30 Hct 34.6 % (35.4-49) L 09/08/19 07:30 MCV 86.5 fl (80-96) 09/08/19 07:30 MCH 28.3 pg (25.7-33.7) 09/08/19 07:30 MCHC 32.7 g/dl (32.0-35.9) 09/08/19 07:30 RDW 17.3 % (11.9-15.9) H 09/08/19 07:30 Plt Count 44 K/MM3 (134-434) L D 09/08/19 07:30 MPV 7.1 fl (7.5-11.1) L 09/08/19 07:30 Sodium 141 mmol/L (136-145) 09/08/19 07:30 Potassium 3.5 mmol/L (3.5-5.1) 09/09/19 08:10 Chloride 102 mmol/L (98-107) 09/08/19 07:30 Carbon Dioxide 28 mmol/L (21-32) 09/08/19 07:30 Anion Gap 11 MMOL/L (8-16) 09/08/19 07:30 BUN 6.2 mg/dL (7-18) L 09/08/19 07:30 Creatinine 0.8 mg/dL (0.55-1.3) 09/08/19 07:30 Est GFR (CKD-EPI)AfAm 117.38 09/08/19 07:30 Est GFR (CKD-EPI)NonAf 101.27 09/08/19 07:30 POC Glucometer 130 UNITS (80-120) 09/12/19 06:31 Random Glucose 125 mg/dL (74-106) H 09/08/19 07:30 Calcium 7.7 mg/dL (8.5-10.1) L 09/08/19 07:30 Total Bilirubin 1.3 mg/dL (0.2-1) H 09/08/19 07:30 AST 110 U/L (15-37) H 09/11/19 08:00 ALT 71 U/L (13-61) H 09/08/19 07:30 Alkaline Phosphatase 311 U/L (45-117) H 09/08/19 07:30 Total Protein 7.0 g/dl (6.4-8.2) 09/08/19 07:30 Albumin 3.1 g/dl (3.4-5.0) L 09/08/19 07:30 RPR Titer Nonreactive (NONREACTIVE) 09/08/19 07:30 lab noted low plt low calcium low elevation ast and alkaline phosphatase patient agrees to bringing in lab result to [facility] dependent aftercare facility for follow up - Treatment Hospital Course: Detox Protocol Followed, Detoxed Safely, Responded well, Discharged Condition Good, Rehab Referral Accepted Patient has Accepted a Rehab Referral to: [facility] rehab - Medication Discharge Medications: Ambulatory Orders Quetiapine Fumarate [Seroquel -] 75 mg PO HS 04/08/19 Hctz 25Mg/Triamterene [Dyazide 25/37.5 -] 1 cap PO DAILY #10 capsule 05/16/19 Buprenorphine/Naloxone [Suboxone 8Mg/2Mg Sl Film -] 1 each SL TID 07/23/19 Albuterol Sulfate Inhaler - [Ventolin HFA Inhaler -] 2 puff IH Q4H PRN #1 inhaler 07/27/19 Amlodipine Besylate [Norvasc -] 5 mg PO DAILY #10 tablet 07/27/19 Esomeprazole Magnesium [Nexium 24Hr] 20 mg PO DAILY 09/07/19 - Diagnosis (1) Alcohol dependence with uncomplicated withdrawal Status: Acute (2) Nicotine dependence Status: Acute Qualifiers: Nicotine product type: cigarettes Substance use status: in withdrawal Qualified Code(s): F17.213 - Nicotine dependence, cigarettes, with withdrawal (3) Substance induced mood disorder Status: Suspected (4) Asthma Status: Chronic Qualifiers: Asthma severity: mild Asthma persistence: intermittent Asthma complication type: with status asthmaticus Qualified Code(s): J45.22 - Mild intermittent asthma with status asthmaticus (5) Encounter for monitoring Suboxone maintenance therapy Status: Chronic (6) GERD (gastroesophageal reflux disease) Status: Chronic Qualifiers: Esophagitis presence: without esophagitis Qualified Code(s): K21.9 - Gastro -esophageal reflux disease without esophagitis (7) HTN (hypertension) Status: Chronic Qualifiers: Hypertension type: essential hypertension Qualified Code(s): I10 - Essential (primary) hypertension (8) History of cirrhosis of liver Status: Chronic (9) Hx of bariatric surgery Status: Chronic (10) Morbid obesity with BMI of 40.0-44.9, adult Status: Chronic - AMA Did Patient Leave Against Medical Advice: No CIWA Score - CIWA Score Nausea/Vomitin-No Nausea/No Vomiting Muscle Tremors: 1-None Visible, but [place] Anxiety: 1-Mildly Anxious Agitation: 0-Normal Activity Paroxysmal Sweats: No Perspiration Orientation: 0-Oriented Tacttile Disturbances: 0-None Auditory Disturbances: 0-None Visual Disturbances: 0-None Headache: 0-None Present CIWA-Ar Total Score: 2
== END 2019-09-12 09:00 | disposition home or self-care (01) | DRG 897 ==
LOC: YASAS 13:42 → Y3N 16:21
PROVIDERS: ADMIT Allergy & Immunology; ATTEND Allergy & Immunology
PROC: HZ2ZZZZ Detoxification Services for Substance Abuse Treatment (ICD-10-PCS; principal; 2019-09-07)
DX: F10.230 Alcohol dependence with withdrawal, uncomplicated (principal); F11.20 Opioid dependence, uncomplicated; F19.282 Other psychoactive substance dependence with psychoactive substance-induced sleep disorder; J45.22 Mild intermittent asthma with status asthmaticus; Z68.41 Body mass index [BMI] 40.0-44.9, adult; F17.213 Nicotine dependence, cigarettes, with withdrawal; F19.24 Other psychoactive substance dependence with psychoactive substance-induced mood disorder; F41.8 Other specified anxiety disorders; F32.9 Major depressive disorder, single episode, unspecified; E87.6 Hypokalemia; E83.51 Hypocalcemia; I10 Essential (primary) hypertension; K21.9 Gastro-esophageal reflux disease without esophagitis; K74.60 Unspecified cirrhosis of liver; K42.9 Umbilical hernia without obstruction or gangrene; E66.01 Morbid (severe) obesity due to excess calories; Z98.84 Bariatric surgery status; Z51.81 Encounter for therapeutic drug level monitoring
CPT/HCPCS: 36415; 80053; 82962; 84132; 84450; 85027; 86593; J0735

== ENCOUNTER 2020-12-16 15:17 | Inpatient (IN) | payer OTHER ==
[2020-12-16 16:05] VITALS: BMI 37.1
[2020-12-16] MEDS ORDERED: ALBUTEROL SO4 HFA INHALER IH PRN (17:37)
[2020-12-16] MEDS ORDERED: MAGNESIUM CITRATE 300 ML BOTTLE PO PRN (17:38)
[2020-12-16] MEDS ORDERED: ONDANSETRON *ODT* 4 MG TABLET SL PRN (17:38)
[2020-12-16] MEDS ORDERED: MENTHOL/PHENOL 1 EACH UD MM PRN (17:38)
[2020-12-16] MEDS ORDERED: IBUPROFEN 400 MG TABLET (FP) PO PRN (17:38)
[2020-12-16] MEDS ORDERED: MAGNESIUM HYDROX 2400MG/30ML ORAL SUSPENSION 30 ML CUP PO PRN (17:38)
[2020-12-16] MEDS ORDERED: ACETAMINOPHEN 325 MG TABLET (FP) PO PRN ×2 (17:38)
[2020-12-16] MEDS ORDERED: BISMUTH SUBSALICYLATE 524 MG/30 ML UD PO PRN (17:38)
[2020-12-16] MEDS ORDERED: MAG HYDROX/AL HYDROX/SIMETH 30 ML UNIT-DOSE CUP PO PRN (17:38)
[2020-12-16] MEDS ORDERED: LORazepam 1 MG TABLET PO PRN (17:47)
[2020-12-16] MEDS: hydrOXYzine PAMOATE 25 MG CAPSULE (FP) PO SCH ×2 (18:44→22:04)
[2020-12-16] MEDS: PRENATAL VITAMINS W/ FOLIC ACID TABLET (FP) PO SCH (18:50)
[2020-12-16] MEDS: THIAMINE HCL 100 MG TABLET (FP) PO SCH (22:04)
[2020-12-16] MEDS: LORazepam 2 MG TABLET PO SCH (22:04)
[2020-12-16] MEDS: MELATONIN 5 MG TABLETS PO SCH (22:05)
[2020-12-17] MEDS: LORazepam 2 MG TABLET PO SCH ×4 (05:45→22:03)
[2020-12-17] MEDS: hydrOXYzine PAMOATE 25 MG CAPSULE (FP) PO SCH (05:46)
[2020-12-17] MEDS: amLODIPine BESYLATE 5 MG TABLET (FP) PO SCH (10:26)
[2020-12-17] MEDS: PRENATAL VITAMINS W/ FOLIC ACID TABLET (FP) PO SCH (10:26)
[2020-12-17 11:09] LABS: CALCIUM 8.6 mg/dL (8.5-10.1)
[2020-12-17 11:10] LABS: ALBUMIN 2.7 g/dl (3.4-5.0); BLOOD UREA NITROGEN 11.4 mg/dL (7-18)
[2020-12-17 11:13] LABS: CREATININE 0.8 mg/dL (0.55-1.3)
[2020-12-17 11:14] LABS: BILIRUBIN,TOTAL 0.9 mg/dL (0.2-1); HEMATOCRIT 22.4 % (35.4-49); HEMOGLOBIN 7.3 GM/dL (11.7-16.9); MCH 24.3 pg (25.7-33.7); MCHC 32.4 g/dl (32.0-35.9); MEAN PLT VOLUME 7.4 fl (7.5-11.1); PLATELET COUNT 125 K/MM3 (134-434); RBC 2.99 M/mm3 (4.00-5.60); RDW 17.7 % (11.9-15.9); TOT PROT 6.3 g/dl (6.4-8.2); WHITE BLOOD COUNT 5.7 K/mm3 (4.0-10.0)
[2020-12-17] MEDS ORDERED: POTASSIUM CHLORIDE ORAL LIQUID 20 MEQ/15 ML PO ONE (14:58)
[2020-12-17] MEDS ORDERED: POTASSIUM CHLORIDE TABS 20 MEQ TABLET.ER (FP) PO ONE (15:18)
[2020-12-17] MEDS ORDERED: POTASSIUM CHLORIDE ORAL LIQUID 20 MEQ/15 ML PO SCH (22:00)
[2020-12-17] MEDS: POTASSIUM CHLORIDE TABS 20 MEQ TABLET.ER (FP) PO SCH (22:02)
[2020-12-17] MEDS: BUPRENORPHINE/NALOXONE 8 MG/2 MG FILM PACKET SL SCH (22:02)
[2020-12-17] MEDS: MELATONIN 5 MG TABLETS PO SCH (22:03)
[2020-12-17] MEDS: QUEtiapine FUMARATE 100 MG TABLET (FP) PO SCH (22:03)
[2020-12-17] MEDS: THIAMINE HCL 100 MG TABLET (FP) PO SCH (22:03)
[2020-12-18] MEDS: BUPRENORPHINE/NALOXONE 8 MG/2 MG FILM PACKET SL SCH ×3 (06:28→22:40)
[2020-12-18] MEDS: LORazepam 1 MG TABLET PO SCH ×4 (06:28→22:39)
[2020-12-18] MEDS: POTASSIUM CHLORIDE TABS 20 MEQ TABLET.ER (FP) PO SCH ×2 (10:19→22:39)
[2020-12-18] MEDS: PRENATAL VITAMINS W/ FOLIC ACID TABLET (FP) PO SCH (10:19)
[2020-12-18] MEDS: amLODIPine BESYLATE 5 MG TABLET (FP) PO SCH (10:19)
[2020-12-18 12:18] LABS: INR 1.12 (0.83-1.09); PROTHROMBIN TIME (PATIENT) 13.7 SEC (9.7-13.0)
[2020-12-18 12:19] LABS: HEMATOCRIT 22.8 % (35.4-49); HEMOGLOBIN 7.4 GM/dL (11.7-16.9); MCH 24.6 pg (25.7-33.7); MCHC 32.2 g/dl (32.0-35.9); MEAN CELL VOLUME 76.3 fl (80-96); MEAN PLT VOLUME 7.7 fl (7.5-11.1); PLATELET COUNT 127 K/MM3 (134-434); RBC 2.99 M/mm3 (4.00-5.60); RDW 17.5 % (11.9-15.9); RETICULOCYTES 4.55 % (0.5-1.5); WHITE BLOOD COUNT 5.4 K/mm3 (4.0-10.0)
[2020-12-18 12:24] LABS: ALBUMIN 2.6 g/dl (3.4-5.0); BLOOD UREA NITROGEN 11.8 mg/dL (7-18); CALCIUM 7.9 mg/dL (8.5-10.1)
[2020-12-18 12:29] LABS: BILIRUBIN,TOTAL 0.5 mg/dL (0.2-1); TOT PROT 6.3 g/dl (6.4-8.2)
[2020-12-18] MEDS: FERROUS SO4 325 MG TABLET (FP) PO SCH (18:04)
[2020-12-18] MEDS: THIAMINE HCL 100 MG TABLET (FP) PO SCH (22:39)
[2020-12-18] MEDS: MELATONIN 5 MG TABLETS PO SCH (22:40)
[2020-12-18] MEDS: QUEtiapine FUMARATE 100 MG TABLET (FP) PO SCH (22:40)
[2020-12-19] MEDS ORDERED: LORazepam 0.5 MG TABLET PO PRN
[2020-12-19] MEDS: LORazepam 0.5 MG TABLET PO SCH ×4 (05:33→22:28)
[2020-12-19] MEDS: BUPRENORPHINE/NALOXONE 8 MG/2 MG FILM PACKET SL SCH ×3 (05:34→22:27)
[2020-12-19 10:07] LABS: SARS-CoV-2 NAA Not Detected (Not Detected)
[2020-12-19] MEDS: FERROUS SO4 325 MG TABLET (FP) PO SCH ×2 (11:45→17:33)
[2020-12-19] MEDS: POTASSIUM CHLORIDE TABS 20 MEQ TABLET.ER (FP) PO SCH (11:46)
[2020-12-19] MEDS: hydrOXYzine PAMOATE 50 MG CAPSULE (FP) PO PRN ×2 (11:46→14:54)
[2020-12-19] MEDS: PRENATAL VITAMINS W/ FOLIC ACID TABLET (FP) PO SCH (11:46)
[2020-12-19] MEDS: amLODIPine BESYLATE 5 MG TABLET (FP) PO SCH (11:46)
[2020-12-19] MEDS ORDERED: MELATONIN 5 MG TABLETS PO PRN (16:49)
[2020-12-19] MEDS: METHOCARBAMOL 500 MG TABLET PO PRN (17:33)
[2020-12-19] MEDS: THIAMINE HCL 100 MG TABLET (FP) PO SCH (22:27)
[2020-12-19] MEDS: QUEtiapine FUMARATE 100 MG TABLET (FP) PO SCH (22:28)
[2020-12-20] MEDS: hydrOXYzine PAMOATE 50 MG CAPSULE (FP) PO PRN ×3 (04:02→15:51)
[2020-12-20] MEDS ORDERED: LORazepam 0.5 MG TABLET PO ONE (05:00)
[2020-12-20] MEDS: BUPRENORPHINE/NALOXONE 8 MG/2 MG FILM PACKET SL SCH ×3 (05:27→22:14)
[2020-12-20] MEDS: FERROUS SO4 325 MG TABLET (FP) PO SCH ×2 (07:07→18:01)
[2020-12-20] MEDS: amLODIPine BESYLATE 5 MG TABLET (FP) PO SCH (10:47)
[2020-12-20] MEDS: PRENATAL VITAMINS W/ FOLIC ACID TABLET (FP) PO SCH (10:47)
[2020-12-20] MEDS: METHOCARBAMOL 500 MG TABLET PO PRN (22:14)
[2020-12-20] MEDS: THIAMINE HCL 100 MG TABLET (FP) PO SCH (22:14)
[2020-12-20] MEDS: QUEtiapine FUMARATE 100 MG TABLET (FP) PO SCH (22:14)
[2020-12-21] MEDS: hydrOXYzine PAMOATE 50 MG CAPSULE (FP) PO PRN ×2 (05:38→10:24)
[2020-12-21] MEDS: BUPRENORPHINE/NALOXONE 8 MG/2 MG FILM PACKET SL SCH (05:38)
[2020-12-21] MEDS: FERROUS SO4 325 MG TABLET (FP) PO SCH (07:25)
[2020-12-21 09:24] VITALS: BP 104/68; PULSE 101; TEMP 98.1
[2020-12-21] MEDS: amLODIPine BESYLATE 5 MG TABLET (FP) PO SCH (10:22)
[2020-12-21] MEDS: PRENATAL VITAMINS W/ FOLIC ACID TABLET (FP) PO SCH (10:22)
== END 2020-12-21 13:25 | disposition other institution (70) | DRG 897 ==
LOC: YASAS 15:17 → Y6N 17:53
PROVIDERS: ADMIT Allergy & Immunology; ATTEND Allergy & Immunology
PROC: HZ2ZZZZ Detoxification Services for Substance Abuse Treatment (ICD-10-PCS; principal; 2020-12-16)
DX: F10.230 Alcohol dependence with withdrawal, uncomplicated (principal); F14.20 Cocaine dependence, uncomplicated; F19.280 Other psychoactive substance dependence with psychoactive substance-induced anxiety disorder; F19.282 Other psychoactive substance dependence with psychoactive substance-induced sleep disorder; F12.20 Cannabis dependence, uncomplicated; F17.210 Nicotine dependence, cigarettes, uncomplicated; F41.8 Other specified anxiety disorders; F32.9 Major depressive disorder, single episode, unspecified; D50.9 Iron deficiency anemia, unspecified; E87.6 Hypokalemia; G47.33 Obstructive sleep apnea (adult) (pediatric); I10 Essential (primary) hypertension; J45.909 Unspecified asthma, uncomplicated; K21.9 Gastro-esophageal reflux disease without esophagitis; K74.60 Unspecified cirrhosis of liver; K42.9 Umbilical hernia without obstruction or gangrene; R74.01 Elevation of levels of liver transaminase levels; R74.8 Abnormal levels of other serum enzymes; E66.9 Obesity, unspecified; Z68.37 Body mass index [BMI] 37.0-37.9, adult; Z86.16 Personal history of COVID-19; Z98.84 Bariatric surgery status; Z51.81 Encounter for therapeutic drug level monitoring
CPT/HCPCS: 36415; 80053; 82728; 82746; 83540; 83550; 84132; 85027; 85045; 85610; 86780; C9803; U0003; U0005

== ENCOUNTER 2020-12-21 11:53 | Inpatient (IN) | payer OTHER ==
[2020-12-21] MEDS ORDERED: LOPERAMIDE HCL 2 MG CAPSULE PO PRN (13:57)
[2020-12-21] MEDS ORDERED: ACETAMINOPHEN 325 MG TABLET (FP) PO PRN (13:57)
[2020-12-21] MEDS ORDERED: MAGNESIUM CITRATE 300 ML BOTTLE PO PRN (13:57)
[2020-12-21] MEDS ORDERED: P-EPHED 60MG/TRIPROLIDI 2.5MG TABLET PO PRN (13:57)
[2020-12-21] MEDS ORDERED: NICOTINE POLACRILEX 2 MG GUM BUC PRN (13:57)
[2020-12-21] MEDS ORDERED: guaiFENesin 200 MG/10 ML 10 ML UNIT-DOSE CUPS PO PRN (13:57)
[2020-12-21] MEDS ORDERED: MENTHOL/PHENOL 1 EACH UD MM PRN (13:57)
[2020-12-21] MEDS ORDERED: MAGNESIUM HYDROX 2400MG/30ML ORAL SUSPENSION 30 ML CUP PO PRN (13:57)
[2020-12-21] MEDS: BUPRENORPHINE/NALOXONE 8 MG/2 MG FILM PACKET SL SCH ×2 (14:27→21:15)
[2020-12-21] MEDS: hydrOXYzine PAMOATE 25 MG CAPSULE (FP) PO PRN ×2 (15:52→19:55)
[2020-12-21] MEDS: FERROUS SO4 325 MG TABLET (FP) PO SCH (17:25)
[2020-12-21] MEDS: MAG HYDROX/AL HYDROX/SIMETH 30 ML UNIT-DOSE CUP PO PRN (19:55)
[2020-12-21] MEDS: THIAMINE HCL 100 MG TABLET (FP) PO SCH (21:12)
[2020-12-21] MEDS: MELATONIN 5 MG TABLETS PO SCH (21:12)
[2020-12-21] MEDS: QUEtiapine FUMARATE 100 MG TABLET (FP) PO SCH (21:13)
[2020-12-21] MEDS ORDERED: PATIENT'S OWN MEDICATION (NON-FORMULARY) (Ferrous Sulfate [Feosol] 325 MG Tablet) PO SCH (22:00)
[2020-12-22] MEDS: BUPRENORPHINE/NALOXONE 8 MG/2 MG FILM PACKET SL SCH ×3 (06:47→21:14)
[2020-12-22] MEDS: hydrOXYzine PAMOATE 25 MG CAPSULE (FP) PO PRN ×4 (06:49→21:12)
[2020-12-22] MEDS: FERROUS SO4 325 MG TABLET (FP) PO SCH ×2 (07:48→17:20)
[2020-12-22] MEDS ORDERED: NICOTINE 7 MG/24 HOURS TOPICAL PATCH TD SCH (10:00)
[2020-12-22] MEDS: amLODIPine BESYLATE 5 MG TABLET (FP) PO SCH (10:18)
[2020-12-22] MEDS: PRENATAL VITAMINS W/ FOLIC ACID TABLET (FP) PO SCH (10:19)
[2020-12-22] MEDS: METHOCARBAMOL 500 MG TABLET PO PRN ×2 (12:37→21:13)
[2020-12-22] MEDS: MELATONIN 5 MG TABLETS PO SCH (21:12)
[2020-12-22] MEDS: QUEtiapine FUMARATE 100 MG TABLET (FP) PO SCH (21:12)
[2020-12-22] MEDS: THIAMINE HCL 100 MG TABLET (FP) PO SCH (21:12)
[2020-12-22] MEDS: FAMOTIDINE 20 MG TABLET PO SCH (21:13)
[2020-12-23] MEDS: BUPRENORPHINE/NALOXONE 8 MG/2 MG FILM PACKET SL SCH ×3 (06:26→21:29)
[2020-12-23] MEDS: METHOCARBAMOL 500 MG TABLET PO PRN ×2 (06:29→21:25)
[2020-12-23] MEDS: hydrOXYzine PAMOATE 25 MG CAPSULE (FP) PO PRN ×4 (06:29→21:29)
[2020-12-23] MEDS: FERROUS SO4 325 MG TABLET (FP) PO SCH ×2 (07:41→17:03)
[2020-12-23] MEDS: amLODIPine BESYLATE 5 MG TABLET (FP) PO SCH (10:01)
[2020-12-23] MEDS: PRENATAL VITAMINS W/ FOLIC ACID TABLET (FP) PO SCH (10:01)
[2020-12-23] MEDS: FAMOTIDINE 20 MG TABLET PO SCH ×2 (10:01→21:26)
[2020-12-23 11:33] LABS: HEMATOCRIT 24.6 % (35.4-49); HEMOGLOBIN 7.8 GM/dL (11.7-16.9); MCH 23.6 pg (25.7-33.7); MCHC 31.8 g/dl (32.0-35.9); MEAN CELL VOLUME 74.1 fl (80-96); MEAN PLT VOLUME 7.3 fl (7.5-11.1); PLATELET COUNT 288 K/MM3 (134-434); RBC 3.32 M/mm3 (4.00-5.60); RDW 17.3 % (11.9-15.9); WHITE BLOOD COUNT 6.1 K/mm3 (4.0-10.0)
[2020-12-23 11:46] LABS: CALCIUM 8.2 mg/dL (8.5-10.1)
[2020-12-23 11:47] LABS: BLOOD UREA NITROGEN 8.9 mg/dL (7-18)
[2020-12-23 11:48] LABS: BILIRUBIN,TOTAL 0.8 mg/dL (0.2-1)
[2020-12-23 11:50] LABS: CREATININE 0.9 mg/dL (0.55-1.3)
[2020-12-23] MEDS: IBUPROFEN 400 MG TABLET (FP) PO PRN ×2 (12:59→21:28)
[2020-12-23] MEDS: THIAMINE HCL 100 MG TABLET (FP) PO SCH (21:25)
[2020-12-23] MEDS: MELATONIN 5 MG TABLETS PO SCH (21:25)
[2020-12-23] MEDS: QUEtiapine FUMARATE 100 MG TABLET (FP) PO SCH (21:26)
[2020-12-24] MEDS: BUPRENORPHINE/NALOXONE 8 MG/2 MG FILM PACKET SL SCH ×3 (06:26→21:56)
[2020-12-24] MEDS: hydrOXYzine PAMOATE 25 MG CAPSULE (FP) PO PRN ×3 (06:26→21:58)
[2020-12-24] MEDS: METHOCARBAMOL 500 MG TABLET PO PRN ×2 (06:26→21:57)
[2020-12-24] MEDS: FERROUS SO4 325 MG TABLET (FP) PO SCH ×2 (07:38→18:10)
[2020-12-24] MEDS: PRENATAL VITAMINS W/ FOLIC ACID TABLET (FP) PO SCH (10:01)
[2020-12-24] MEDS: FAMOTIDINE 20 MG TABLET PO SCH ×2 (10:02→21:58)
[2020-12-24] MEDS: amLODIPine BESYLATE 5 MG TABLET (FP) PO SCH (10:02)
[2020-12-24] MEDS: THIAMINE HCL 100 MG TABLET (FP) PO SCH (21:58)
[2020-12-24] MEDS: MELATONIN 5 MG TABLETS PO SCH (21:58)
[2020-12-24] MEDS: QUEtiapine FUMARATE 100 MG TABLET (FP) PO SCH (21:58)
[2020-12-25] MEDS: BUPRENORPHINE/NALOXONE 8 MG/2 MG FILM PACKET SL SCH ×3 (06:14→21:09)
[2020-12-25] MEDS: METHOCARBAMOL 500 MG TABLET PO PRN ×2 (06:14→21:09)
[2020-12-25] MEDS: hydrOXYzine PAMOATE 25 MG CAPSULE (FP) PO PRN ×3 (06:14→21:09)
[2020-12-25] MEDS: FERROUS SO4 325 MG TABLET (FP) PO SCH ×2 (07:05→17:10)
[2020-12-25] MEDS: PRENATAL VITAMINS W/ FOLIC ACID TABLET (FP) PO SCH (09:47)
[2020-12-25] MEDS: FAMOTIDINE 20 MG TABLET PO SCH ×2 (09:47→21:10)
[2020-12-25] MEDS: amLODIPine BESYLATE 5 MG TABLET (FP) PO SCH (09:48)
[2020-12-25 10:08] LABS: SARS-CoV-2 NAA Not Detected (Not Detected)
[2020-12-25] MEDS: QUEtiapine FUMARATE 100 MG TABLET (FP) PO SCH (21:09)
[2020-12-25] MEDS: MELATONIN 5 MG TABLETS PO SCH (21:09)
[2020-12-25] MEDS: THIAMINE HCL 100 MG TABLET (FP) PO SCH (21:11)
[2020-12-26] MEDS: BUPRENORPHINE/NALOXONE 8 MG/2 MG FILM PACKET SL SCH ×3 (06:20→21:10)
[2020-12-26] MEDS: hydrOXYzine PAMOATE 25 MG CAPSULE (FP) PO PRN ×3 (06:20→21:08)
[2020-12-26] MEDS: METHOCARBAMOL 500 MG TABLET PO PRN (06:20)
[2020-12-26] MEDS: FERROUS SO4 325 MG TABLET (FP) PO SCH ×2 (07:25→18:01)
[2020-12-26] MEDS: amLODIPine BESYLATE 5 MG TABLET (FP) PO SCH (09:42)
[2020-12-26] MEDS: FAMOTIDINE 20 MG TABLET PO SCH ×2 (09:42→21:09)
[2020-12-26] MEDS: PRENATAL VITAMINS W/ FOLIC ACID TABLET (FP) PO SCH (09:42)
[2020-12-26] MEDS: QUEtiapine FUMARATE 100 MG TABLET (FP) PO SCH (21:08)
[2020-12-26] MEDS: THIAMINE HCL 100 MG TABLET (FP) PO SCH (21:08)
[2020-12-26] MEDS: MELATONIN 5 MG TABLETS PO SCH (21:08)
[2020-12-27] MEDS: hydrOXYzine PAMOATE 25 MG CAPSULE (FP) PO PRN ×3 (06:29→21:17)
[2020-12-27] MEDS: IBUPROFEN 400 MG TABLET (FP) PO PRN (06:29)
[2020-12-27] MEDS: BUPRENORPHINE/NALOXONE 8 MG/2 MG FILM PACKET SL SCH ×3 (06:29→21:17)
[2020-12-27] MEDS: METHOCARBAMOL 500 MG TABLET PO PRN ×2 (07:17→14:17)
[2020-12-27] MEDS: FERROUS SO4 325 MG TABLET (FP) PO SCH ×2 (07:18→17:30)
[2020-12-27] MEDS: amLODIPine BESYLATE 5 MG TABLET (FP) PO SCH (09:52)
[2020-12-27] MEDS: FAMOTIDINE 20 MG TABLET PO SCH ×2 (09:52→21:15)
[2020-12-27] MEDS: PRENATAL VITAMINS W/ FOLIC ACID TABLET (FP) PO SCH (09:52)
[2020-12-27 10:40] LABS: HEMATOCRIT 27.2 % (35.4-49); HEMOGLOBIN 8.6 GM/dL (11.7-16.9); MCH 23.3 pg (25.7-33.7); MCHC 31.5 g/dl (32.0-35.9); MEAN CELL VOLUME 74.2 fl (80-96); MEAN PLT VOLUME 7.4 fl (7.5-11.1); PLATELET COUNT 362 K/MM3 (134-434); RBC 3.67 M/mm3 (4.00-5.60); WHITE BLOOD COUNT 6.4 K/mm3 (4.0-10.0)
[2020-12-27 10:55] LABS: ALBUMIN 3.2 g/dl (3.4-5.0); BLOOD UREA NITROGEN 8.2 mg/dL (7-18); CALCIUM 8.6 mg/dL (8.5-10.1)
[2020-12-27 10:58] LABS: CREATININE 0.9 mg/dL (0.55-1.3)
[2020-12-27 11:00] LABS: BILIRUBIN,TOTAL 0.7 mg/dL (0.2-1); TOT PROT 7.4 g/dl (6.4-8.2)
[2020-12-27] MEDS: MAG HYDROX/AL HYDROX/SIMETH 30 ML UNIT-DOSE CUP PO PRN (19:49)
[2020-12-27] MEDS: THIAMINE HCL 100 MG TABLET (FP) PO SCH (21:15)
[2020-12-27] MEDS: MELATONIN 5 MG TABLETS PO SCH (21:15)
[2020-12-27] MEDS: QUEtiapine FUMARATE 100 MG TABLET (FP) PO SCH (21:15)
[2020-12-28] MEDS: METHOCARBAMOL 500 MG TABLET PO PRN ×2 (06:26→21:03)
[2020-12-28] MEDS: BUPRENORPHINE/NALOXONE 8 MG/2 MG FILM PACKET SL SCH ×3 (06:26→21:04)
[2020-12-28] MEDS: hydrOXYzine PAMOATE 25 MG CAPSULE (FP) PO PRN ×4 (06:26→21:03)
[2020-12-28] MEDS ORDERED: PT OWN MED DRAWER 7, Y5N ONE (06:26)
[2020-12-28] MEDS: FERROUS SO4 325 MG TABLET (FP) PO SCH ×2 (07:44→16:56)
[2020-12-28] MEDS: amLODIPine BESYLATE 5 MG TABLET (FP) PO SCH (09:44)
[2020-12-28] MEDS: FAMOTIDINE 20 MG TABLET PO SCH ×2 (09:45→21:03)
[2020-12-28] MEDS: PRENATAL VITAMINS W/ FOLIC ACID TABLET (FP) PO SCH (09:45)
[2020-12-28] MEDS: MAG HYDROX/AL HYDROX/SIMETH 30 ML UNIT-DOSE CUP PO PRN (09:46)
[2020-12-28] MEDS: MELATONIN 5 MG TABLETS PO SCH (21:03)
[2020-12-28] MEDS: QUEtiapine FUMARATE 100 MG TABLET (FP) PO SCH (21:03)
[2020-12-28] MEDS: THIAMINE HCL 100 MG TABLET (FP) PO SCH (21:03)
[2020-12-29] MEDS: BUPRENORPHINE/NALOXONE 8 MG/2 MG FILM PACKET SL SCH ×3 (06:23→21:02)
[2020-12-29] MEDS: MAG HYDROX/AL HYDROX/SIMETH 30 ML UNIT-DOSE CUP PO PRN ×2 (06:25→17:04)
[2020-12-29] MEDS: METHOCARBAMOL 500 MG TABLET PO PRN ×2 (06:25→21:00)
[2020-12-29] MEDS: hydrOXYzine PAMOATE 25 MG CAPSULE (FP) PO PRN ×3 (06:25→21:00)
[2020-12-29] MEDS: FERROUS SO4 325 MG TABLET (FP) PO SCH ×2 (07:20→17:04)
[2020-12-29] MEDS: amLODIPine BESYLATE 5 MG TABLET (FP) PO SCH (09:52)
[2020-12-29] MEDS: PRENATAL VITAMINS W/ FOLIC ACID TABLET (FP) PO SCH (09:52)
[2020-12-29] MEDS: FAMOTIDINE 20 MG TABLET PO SCH ×2 (09:52→21:00)
[2020-12-29] MEDS: MELATONIN 5 MG TABLETS PO SCH (20:59)
[2020-12-29] MEDS: QUEtiapine FUMARATE 100 MG TABLET (FP) PO SCH (21:00)
[2020-12-29] MEDS: THIAMINE HCL 100 MG TABLET (FP) PO SCH (21:00)
[2020-12-30] MEDS: METHOCARBAMOL 500 MG TABLET PO PRN ×2 (06:24→21:18)
[2020-12-30] MEDS: hydrOXYzine PAMOATE 25 MG CAPSULE (FP) PO PRN ×2 (06:24→10:33)
[2020-12-30] MEDS: BUPRENORPHINE/NALOXONE 8 MG/2 MG FILM PACKET SL SCH ×3 (06:24→22:12)
[2020-12-30] MEDS: FERROUS SO4 325 MG TABLET (FP) PO SCH ×2 (07:54→17:54)
[2020-12-30] MEDS: FAMOTIDINE 20 MG TABLET PO SCH ×2 (09:56→21:17)
[2020-12-30] MEDS: PRENATAL VITAMINS W/ FOLIC ACID TABLET (FP) PO SCH (09:56)
[2020-12-30] MEDS: amLODIPine BESYLATE 5 MG TABLET (FP) PO SCH (09:56)
[2020-12-30] MEDS: MAG HYDROX/AL HYDROX/SIMETH 30 ML UNIT-DOSE CUP PO PRN ×2 (09:58→21:17)
[2020-12-30] MEDS: MELATONIN 5 MG TABLETS PO SCH (21:17)
[2020-12-30] MEDS: THIAMINE HCL 100 MG TABLET (FP) PO SCH (21:17)
[2020-12-30] MEDS: QUEtiapine FUMARATE 100 MG TABLET (FP) PO SCH (21:17)
[2020-12-31] MEDS: hydrOXYzine PAMOATE 25 MG CAPSULE (FP) PO PRN ×3 (06:18→21:04)
[2020-12-31] MEDS: METHOCARBAMOL 500 MG TABLET PO PRN ×2 (06:18→21:04)
[2020-12-31] MEDS: BUPRENORPHINE/NALOXONE 8 MG/2 MG FILM PACKET SL SCH ×3 (06:18→21:05)
[2020-12-31] MEDS: FERROUS SO4 325 MG TABLET (FP) PO SCH ×2 (07:43→17:35)
[2020-12-31] MEDS: PRENATAL VITAMINS W/ FOLIC ACID TABLET (FP) PO SCH (10:10)
[2020-12-31] MEDS: amLODIPine BESYLATE 5 MG TABLET (FP) PO SCH (10:11)
[2020-12-31] MEDS: MAG HYDROX/AL HYDROX/SIMETH 30 ML UNIT-DOSE CUP PO PRN (10:11)
[2020-12-31] MEDS: FAMOTIDINE 20 MG TABLET PO SCH ×2 (10:11→21:04)
[2020-12-31 10:18] LABS: HEMATOCRIT 25.3 % (35.4-49); HEMOGLOBIN 7.9 GM/dL (11.7-16.9); MCH 22.7 pg (25.7-33.7); MCHC 31.3 g/dl (32.0-35.9); MEAN CELL VOLUME 72.5 fl (80-96); MEAN PLT VOLUME 7.6 fl (7.5-11.1); PLATELET COUNT 335 K/MM3 (134-434); RBC 3.49 M/mm3 (4.00-5.60); RDW 17.4 % (11.9-15.9)
[2020-12-31] MEDS ORDERED: PT OWN MED DRAWER 7, Y5N ONE (10:21)
[2020-12-31] MEDS: THIAMINE HCL 100 MG TABLET (FP) PO SCH (21:03)
[2020-12-31] MEDS: MELATONIN 5 MG TABLETS PO SCH (21:03)
[2020-12-31] MEDS: QUEtiapine FUMARATE 100 MG TABLET (FP) PO SCH (21:04)
[2021-01-01] MEDS: METHOCARBAMOL 500 MG TABLET PO PRN ×2 (06:18→13:07)
[2021-01-01] MEDS: BUPRENORPHINE/NALOXONE 8 MG/2 MG FILM PACKET SL SCH ×3 (06:18→21:15)
[2021-01-01] MEDS: hydrOXYzine PAMOATE 25 MG CAPSULE (FP) PO PRN ×3 (06:19→21:14)
[2021-01-01] MEDS: FERROUS SO4 325 MG TABLET (FP) PO SCH ×2 (07:42→17:40)
[2021-01-01] MEDS: FAMOTIDINE 20 MG TABLET PO SCH ×2 (09:57→21:14)
[2021-01-01] MEDS: PRENATAL VITAMINS W/ FOLIC ACID TABLET (FP) PO SCH (09:57)
[2021-01-01] MEDS: amLODIPine BESYLATE 5 MG TABLET (FP) PO SCH (09:57)
[2021-01-01] MEDS: MAG HYDROX/AL HYDROX/SIMETH 30 ML UNIT-DOSE CUP PO PRN (09:59)
[2021-01-01] MEDS: MELATONIN 5 MG TABLETS PO SCH (21:14)
[2021-01-01] MEDS: QUEtiapine FUMARATE 100 MG TABLET (FP) PO SCH (21:14)
[2021-01-01] MEDS: THIAMINE HCL 100 MG TABLET (FP) PO SCH (21:14)
[2021-01-02] MEDS: hydrOXYzine PAMOATE 25 MG CAPSULE (FP) PO PRN ×4 (06:11→21:07)
[2021-01-02] MEDS: METHOCARBAMOL 500 MG TABLET PO PRN (06:11)
[2021-01-02] MEDS: BUPRENORPHINE/NALOXONE 8 MG/2 MG FILM PACKET SL SCH ×3 (06:11→21:06)
[2021-01-02] MEDS: FERROUS SO4 325 MG TABLET (FP) PO SCH ×2 (07:58→17:32)
[2021-01-02] MEDS: FAMOTIDINE 20 MG TABLET PO SCH ×2 (09:39→21:05)
[2021-01-02] MEDS: PRENATAL VITAMINS W/ FOLIC ACID TABLET (FP) PO SCH (09:39)
[2021-01-02] MEDS: MAG HYDROX/AL HYDROX/SIMETH 30 ML UNIT-DOSE CUP PO PRN ×2 (09:39→21:07)
[2021-01-02] MEDS: amLODIPine BESYLATE 5 MG TABLET (FP) PO SCH (09:39)
[2021-01-02] MEDS: QUEtiapine FUMARATE 100 MG TABLET (FP) PO SCH (21:05)
[2021-01-02] MEDS: MELATONIN 5 MG TABLETS PO SCH (21:05)
[2021-01-02] MEDS: THIAMINE HCL 100 MG TABLET (FP) PO SCH (21:05)
[2021-01-03] MEDS: hydrOXYzine PAMOATE 25 MG CAPSULE (FP) PO PRN ×3 (06:06→21:07)
[2021-01-03] MEDS: METHOCARBAMOL 500 MG TABLET PO PRN (06:06)
[2021-01-03] MEDS: BUPRENORPHINE/NALOXONE 8 MG/2 MG FILM PACKET SL SCH ×3 (06:06→21:08)
[2021-01-03] MEDS: FERROUS SO4 325 MG TABLET (FP) PO SCH ×2 (08:07→17:28)
[2021-01-03] MEDS: PRENATAL VITAMINS W/ FOLIC ACID TABLET (FP) PO SCH (09:32)
[2021-01-03] MEDS: FAMOTIDINE 20 MG TABLET PO SCH ×2 (09:32→21:06)
[2021-01-03] MEDS: amLODIPine BESYLATE 5 MG TABLET (FP) PO SCH (09:32)
[2021-01-03] MEDS: MAG HYDROX/AL HYDROX/SIMETH 30 ML UNIT-DOSE CUP PO PRN (09:33)
[2021-01-03] MEDS: QUEtiapine FUMARATE 100 MG TABLET (FP) PO SCH (21:06)
[2021-01-03] MEDS: MELATONIN 5 MG TABLETS PO SCH (21:06)
[2021-01-03] MEDS: THIAMINE HCL 100 MG TABLET (FP) PO SCH (21:06)
[2021-01-04] MEDS: hydrOXYzine PAMOATE 25 MG CAPSULE (FP) PO PRN ×4 (06:10→21:07)
[2021-01-04] MEDS: BUPRENORPHINE/NALOXONE 8 MG/2 MG FILM PACKET SL SCH ×3 (06:10→21:07)
[2021-01-04] MEDS: METHOCARBAMOL 500 MG TABLET PO PRN ×2 (06:10→21:08)
[2021-01-04] MEDS: FERROUS SO4 325 MG TABLET (FP) PO SCH ×2 (07:43→17:59)
[2021-01-04] MEDS: PRENATAL VITAMINS W/ FOLIC ACID TABLET (FP) PO SCH (09:40)
[2021-01-04] MEDS: FAMOTIDINE 20 MG TABLET PO SCH ×2 (09:40→21:06)
[2021-01-04] MEDS: amLODIPine BESYLATE 5 MG TABLET (FP) PO SCH (09:40)
[2021-01-04] MEDS ORDERED: PT OWN MED DRAWER 7, Y5N ONE (13:06)
[2021-01-04] MEDS: MAG HYDROX/AL HYDROX/SIMETH 30 ML UNIT-DOSE CUP PO PRN (17:59)
[2021-01-04] MEDS: QUEtiapine FUMARATE 100 MG TABLET (FP) PO SCH (21:06)
[2021-01-04] MEDS: THIAMINE HCL 100 MG TABLET (FP) PO SCH (21:06)
[2021-01-04] MEDS: MELATONIN 5 MG TABLETS PO SCH (21:06)
[2021-01-05] MEDS: BUPRENORPHINE/NALOXONE 8 MG/2 MG FILM PACKET SL SCH ×3 (05:55→22:50)
[2021-01-05] MEDS: hydrOXYzine PAMOATE 25 MG CAPSULE (FP) PO PRN ×4 (06:56→21:35)
[2021-01-05] MEDS: FERROUS SO4 325 MG TABLET (FP) PO SCH ×2 (07:24→18:06)
[2021-01-05] MEDS: MAG HYDROX/AL HYDROX/SIMETH 30 ML UNIT-DOSE CUP PO PRN ×2 (10:13→18:06)
[2021-01-05] MEDS: PRENATAL VITAMINS W/ FOLIC ACID TABLET (FP) PO SCH (10:13)
[2021-01-05] MEDS: FAMOTIDINE 20 MG TABLET PO SCH ×2 (10:14→21:35)
[2021-01-05] MEDS: amLODIPine BESYLATE 5 MG TABLET (FP) PO SCH (10:14)
[2021-01-05] MEDS: MELATONIN 5 MG TABLETS PO SCH (21:35)
[2021-01-05] MEDS: THIAMINE HCL 100 MG TABLET (FP) PO SCH (21:35)
[2021-01-05] MEDS: QUEtiapine FUMARATE 100 MG TABLET (FP) PO SCH (21:35)
[2021-01-06] MEDS: BUPRENORPHINE/NALOXONE 8 MG/2 MG FILM PACKET SL SCH ×3 (06:05→22:46)
[2021-01-06] MEDS: METHOCARBAMOL 500 MG TABLET PO PRN (06:06)
[2021-01-06] MEDS: hydrOXYzine PAMOATE 25 MG CAPSULE (FP) PO PRN ×4 (06:06→21:04)
[2021-01-06] MEDS: FERROUS SO4 325 MG TABLET (FP) PO SCH ×2 (07:07→17:35)
[2021-01-06] MEDS: amLODIPine BESYLATE 5 MG TABLET (FP) PO SCH (10:22)
[2021-01-06] MEDS: FAMOTIDINE 20 MG TABLET PO SCH ×2 (10:22→21:04)
[2021-01-06] MEDS: MAG HYDROX/AL HYDROX/SIMETH 30 ML UNIT-DOSE CUP PO PRN (10:22)
[2021-01-06] MEDS: PRENATAL VITAMINS W/ FOLIC ACID TABLET (FP) PO SCH (10:24)
[2021-01-06] MEDS: THIAMINE HCL 100 MG TABLET (FP) PO SCH (21:04)
[2021-01-06] MEDS: MELATONIN 5 MG TABLETS PO SCH (21:04)
[2021-01-06] MEDS: QUEtiapine FUMARATE 100 MG TABLET (FP) PO SCH (21:04)
[2021-01-07] MEDS: hydrOXYzine PAMOATE 25 MG CAPSULE (FP) PO PRN ×4 (06:09→21:46)
[2021-01-07] MEDS: METHOCARBAMOL 500 MG TABLET PO PRN (06:09)
[2021-01-07] MEDS: BUPRENORPHINE/NALOXONE 8 MG/2 MG FILM PACKET SL SCH ×3 (06:11→22:50)
[2021-01-07] MEDS: FERROUS SO4 325 MG TABLET (FP) PO SCH ×2 (07:07→17:35)
[2021-01-07] MEDS: PRENATAL VITAMINS W/ FOLIC ACID TABLET (FP) PO SCH (10:28)
[2021-01-07] MEDS: FAMOTIDINE 20 MG TABLET PO SCH ×2 (10:28→21:45)
[2021-01-07] MEDS: amLODIPine BESYLATE 5 MG TABLET (FP) PO SCH (10:28)
[2021-01-07] MEDS: MAG HYDROX/AL HYDROX/SIMETH 30 ML UNIT-DOSE CUP PO PRN (18:56)
[2021-01-07] MEDS: QUEtiapine FUMARATE 100 MG TABLET (FP) PO SCH (21:45)
[2021-01-07] MEDS: MELATONIN 5 MG TABLETS PO SCH (21:45)
[2021-01-07] MEDS: THIAMINE HCL 100 MG TABLET (FP) PO SCH (21:45)
[2021-01-08] MEDS: METHOCARBAMOL 500 MG TABLET PO PRN (05:59)
[2021-01-08] MEDS: hydrOXYzine PAMOATE 25 MG CAPSULE (FP) PO PRN ×4 (06:00→21:06)
[2021-01-08] MEDS: BUPRENORPHINE/NALOXONE 8 MG/2 MG FILM PACKET SL SCH ×3 (06:05→22:50)
[2021-01-08] MEDS: FERROUS SO4 325 MG TABLET (FP) PO SCH ×2 (07:08→18:20)
[2021-01-08] MEDS: amLODIPine BESYLATE 5 MG TABLET (FP) PO SCH (10:38)
[2021-01-08] MEDS: FAMOTIDINE 20 MG TABLET PO SCH ×2 (10:38→21:05)
[2021-01-08] MEDS: PRENATAL VITAMINS W/ FOLIC ACID TABLET (FP) PO SCH (10:38)
[2021-01-08] MEDS: MAG HYDROX/AL HYDROX/SIMETH 30 ML UNIT-DOSE CUP PO PRN (14:25)
[2021-01-08] MEDS: THIAMINE HCL 100 MG TABLET (FP) PO SCH (21:05)
[2021-01-08] MEDS: MELATONIN 5 MG TABLETS PO SCH (21:05)
[2021-01-08] MEDS: QUEtiapine FUMARATE 100 MG TABLET (FP) PO SCH (21:05)
[2021-01-09] MEDS: BUPRENORPHINE/NALOXONE 8 MG/2 MG FILM PACKET SL SCH ×3 (06:27→22:14)
[2021-01-09] MEDS: hydrOXYzine PAMOATE 25 MG CAPSULE (FP) PO PRN ×4 (06:28→21:03)
[2021-01-09] MEDS: METHOCARBAMOL 500 MG TABLET PO PRN (06:28)
[2021-01-09] MEDS: FERROUS SO4 325 MG TABLET (FP) PO SCH ×2 (07:09→17:46)
[2021-01-09] MEDS: FAMOTIDINE 20 MG TABLET PO SCH ×2 (10:35→21:03)
[2021-01-09] MEDS: PRENATAL VITAMINS W/ FOLIC ACID TABLET (FP) PO SCH (10:35)
[2021-01-09] MEDS: amLODIPine BESYLATE 5 MG TABLET (FP) PO SCH (10:36)
[2021-01-09] MEDS: ALBUTEROL SO4 HFA INHALER IH PRN (10:37)
[2021-01-09] MEDS: MELATONIN 5 MG TABLETS PO SCH (21:03)
[2021-01-09] MEDS: THIAMINE HCL 100 MG TABLET (FP) PO SCH (21:03)
[2021-01-09] MEDS: QUEtiapine FUMARATE 100 MG TABLET (FP) PO SCH (21:03)
[2021-01-10] MEDS: BUPRENORPHINE/NALOXONE 8 MG/2 MG FILM PACKET SL SCH ×3 (06:03→21:53)
[2021-01-10] MEDS: METHOCARBAMOL 500 MG TABLET PO PRN ×2 (06:04→21:51)
[2021-01-10] MEDS: hydrOXYzine PAMOATE 25 MG CAPSULE (FP) PO PRN ×4 (06:04→21:52)
[2021-01-10] MEDS: FERROUS SO4 325 MG TABLET (FP) PO SCH ×2 (07:36→17:25)
[2021-01-10] MEDS: PRENATAL VITAMINS W/ FOLIC ACID TABLET (FP) PO SCH (09:37)
[2021-01-10] MEDS: amLODIPine BESYLATE 5 MG TABLET (FP) PO SCH (09:37)
[2021-01-10] MEDS: FAMOTIDINE 20 MG TABLET PO SCH ×2 (09:37→21:53)
[2021-01-10] MEDS: THIAMINE HCL 100 MG TABLET (FP) PO SCH (21:51)
[2021-01-10] MEDS: QUEtiapine FUMARATE 100 MG TABLET (FP) PO SCH (21:51)
[2021-01-10] MEDS: MELATONIN 5 MG TABLETS PO SCH (21:51)
[2021-01-11] MEDS: METHOCARBAMOL 500 MG TABLET PO PRN (06:08)
[2021-01-11] MEDS: hydrOXYzine PAMOATE 25 MG CAPSULE (FP) PO PRN (06:08)
[2021-01-11] MEDS: BUPRENORPHINE/NALOXONE 8 MG/2 MG FILM PACKET SL SCH (06:08)
[2021-01-11] MEDS: FERROUS SO4 325 MG TABLET (FP) PO SCH (07:00)
[2021-01-11 07:19] VITALS: BP 132/76; PULSE 79; TEMP 97.5
[2021-01-11] MEDS: PRENATAL VITAMINS W/ FOLIC ACID TABLET (FP) PO SCH (09:32)
[2021-01-11] MEDS: amLODIPine BESYLATE 5 MG TABLET (FP) PO SCH (09:33)
[2021-01-11] MEDS: FAMOTIDINE 20 MG TABLET PO SCH (09:33)
[2021-01-11] MEDS: ALBUTEROL SO4 HFA INHALER IH PRN (09:35)
== END 2021-01-11 09:53 | disposition home or self-care (01) | DRG 895 ==
LOC: YASAS 11:53 → Y3E 11:54 → Y3W 01-04 14:22
PROVIDERS: ADMIT Allergy & Immunology; ATTEND Allergy & Immunology
PROC: HZ42ZZZ Group Counseling for Substance Abuse Treatment, Cognitive-Behavioral (ICD-10-PCS; principal; 2020-12-21)
DX: F10.20 Alcohol dependence, uncomplicated (principal); F14.20 Cocaine dependence, uncomplicated; F11.20 Opioid dependence, uncomplicated; F12.20 Cannabis dependence, uncomplicated; D64.9 Anemia, unspecified; I10 Essential (primary) hypertension; K74.60 Unspecified cirrhosis of liver; Z86.010 Personal history of colon polyps
CPT/HCPCS: 36415; 80053; 82272; 85025; 85027; 85610; 85730; 86850; 86900; 86901; 99285-25; C9803; U0003; U0005

== ENCOUNTER 2020-12-24 12:27 | Emergency (ER) | payer OTHER ==
[2020-12-24 12:51] VITALS: TEMP 96.9; BMI 35.5
[2020-12-24] MEDS ORDERED: clonazePAM 0.5 MG TABLET PO ONE ×2 (13:33→17:58)
[2020-12-24] MEDS ORDERED: clonazePAM 0.5 MG TABLET ONE ×2 (13:46→18:24)
[2020-12-24 14:17] LABS: BASO % 1.3 % (0-2.0); EOS % 1.4 % (0-4.5); HEMATOCRIT 25.6 % (35.4-49); LYMPH % 27.3 % (8-40); MCH 23.2 pg (25.7-33.7); MCHC 31.5 g/dl (32.0-35.9); MEAN CELL VOLUME 73.7 fl (80-96); MEAN PLT VOLUME 7.4 fl (7.5-11.1); MONO % 11.6 % (3.8-10.2); NEUT % 58.4 % (42.8-82.8); PLATELET COUNT 314 K/MM3 (134-434); RBC 3.47 M/mm3 (4.00-5.60); WHITE BLOOD COUNT 5.5 K/mm3 (4.0-10.0)
[2020-12-24 14:25] LABS: INR 1.14 (0.83-1.09)
[2020-12-24 14:27] LABS: ACTIVATED PTT 32.7 SECONDS (25.2-36.5)
[2020-12-24 14:48] LABS: CALCIUM 8.3 mg/dL (8.5-10.1)
[2020-12-24 14:49] LABS: ALBUMIN 3.1 g/dl (3.4-5.0); BLOOD UREA NITROGEN 9.9 mg/dL (7-18)
[2020-12-24 14:52] LABS: CREATININE 0.9 mg/dL (0.55-1.3)
[2020-12-24 14:53] LABS: BILIRUBIN,TOTAL 0.5 mg/dL (0.2-1)
[2020-12-24 14:54] LABS: TOT PROT 7.3 g/dl (6.4-8.2)
[2020-12-24 19:18] VITALS: BP 101/61; PULSE 82
== END 2020-12-24 21:02 | disposition home or self-care (01) ==
LOC: JER 12:27
DX: D64.9 Anemia, unspecified (principal); F10.230 Alcohol dependence with withdrawal, uncomplicated; K92.1 Melena
CPT/HCPCS: 36415; 80053; 82272; 85025; 85610; 85730; 86850; 86900; 86901; 99285-25

== ENCOUNTER 2021-07-09 12:50 | Inpatient (IN) | payer OTHER ==
[2021-07-09] MEDS ORDERED: BISMUTH SUBSALICYLATE 524 MG/30 ML PO PRN (13:19)
[2021-07-09] MEDS ORDERED: MAG HYDROX/AL HYDROX/SIMETH 30 ML UNIT-DOSE CUP PO PRN (13:19)
[2021-07-09] MEDS ORDERED: ACETAMINOPHEN 325 MG TABLET (FP) PO PRN ×2 (13:19)
[2021-07-09] MEDS ORDERED: NICOTINE 10 MG CARTRIDGE (INHALER) IH PRN (13:19)
[2021-07-09] MEDS ORDERED: ONDANSETRON *ODT* 4 MG TABLET SL PRN (13:19)
[2021-07-09] MEDS ORDERED: LORazepam 1 MG TABLET PO PRN (13:19)
[2021-07-09] MEDS ORDERED: MENTHOL/PHENOL 1 EACH UD MM PRN (13:19)
[2021-07-09] MEDS ORDERED: MAGNESIUM HYDROX 2400MG/30ML ORAL SUSPENSION 30 ML CUP PO PRN (13:19)
[2021-07-09] MEDS ORDERED: IBUPROFEN 400 MG TABLET (FP) PO PRN (13:19)
[2021-07-09] MEDS ORDERED: MAGNESIUM CITRATE 300 ML BOTTLE PO PRN (13:19)
[2021-07-09 14:32] VITALS: BMI 41.4
[2021-07-09] MEDS ORDERED: ALBUTEROL SO4 HFA INHALER IH PRN (15:17)
[2021-07-09] MEDS: PRENATAL VITAMINS W/ FOLIC ACID TABLET (FP) PO SCH (15:56)
[2021-07-09] MEDS: hydrOXYzine PAMOATE 25 MG CAPSULE (FP) PO SCH ×3 (15:56→22:13)
[2021-07-09] MEDS: NICOTINE 14 MG/24 HOURS TOPICAL PATCH TD SCH (15:56)
[2021-07-09] MEDS: PANTOPRAZOLE 40 MG TABLET PO SCH (15:57)
[2021-07-09] MEDS: LORazepam 2 MG TABLET PO SCH ×2 (15:59→22:13)
[2021-07-09] MEDS ORDERED: QUEtiapine FUMARATE 100 MG TABLET (FP) PO SCH (22:00)
[2021-07-09] MEDS: THIAMINE HCL 100 MG TABLET (FP) PO SCH (22:13)
[2021-07-09] MEDS: MELATONIN 5 MG TABLETS PO SCH (22:13)
[2021-07-09] MEDS: BUPRENORPHINE/NALOXONE 8 MG/2 MG FILM PACKET SL SCH (22:13)
[2021-07-10] MEDS: LORazepam 2 MG TABLET PO SCH ×4 (05:24→22:09)
[2021-07-10] MEDS: hydrOXYzine PAMOATE 25 MG CAPSULE (FP) PO SCH ×5 (05:24→22:09)
[2021-07-10] MEDS: BUPRENORPHINE/NALOXONE 8 MG/2 MG FILM PACKET SL SCH ×3 (05:25→22:10)
[2021-07-10] MEDS: PRENATAL VITAMINS W/ FOLIC ACID TABLET (FP) PO SCH (10:41)
[2021-07-10] MEDS: NICOTINE 14 MG/24 HOURS TOPICAL PATCH TD SCH (10:41)
[2021-07-10] MEDS: amLODIPine BESYLATE 5 MG TABLET (FP) PO SCH (10:42)
[2021-07-10] MEDS: PANTOPRAZOLE 40 MG TABLET PO SCH (10:42)
[2021-07-10] MEDS: THIAMINE HCL 100 MG TABLET (FP) PO SCH (22:08)
[2021-07-10] MEDS: MELATONIN 5 MG TABLETS PO SCH (22:08)
[2021-07-11] MEDS: hydrOXYzine PAMOATE 25 MG CAPSULE (FP) PO SCH ×5 (05:25→22:05)
[2021-07-11] MEDS: LORazepam 1 MG TABLET PO SCH ×4 (05:25→22:05)
[2021-07-11] MEDS: BUPRENORPHINE/NALOXONE 8 MG/2 MG FILM PACKET SL SCH ×3 (07:42→22:06)
[2021-07-11] MEDS: amLODIPine BESYLATE 5 MG TABLET (FP) PO SCH (10:12)
[2021-07-11] MEDS: PANTOPRAZOLE 40 MG TABLET PO SCH (10:12)
[2021-07-11] MEDS: NICOTINE 14 MG/24 HOURS TOPICAL PATCH TD SCH (10:12)
[2021-07-11] MEDS: PRENATAL VITAMINS W/ FOLIC ACID TABLET (FP) PO SCH (10:13)
[2021-07-11] MEDS: MELATONIN 5 MG TABLETS PO SCH (22:04)
[2021-07-11] MEDS: THIAMINE HCL 100 MG TABLET (FP) PO SCH (22:05)
[2021-07-12] MEDS ORDERED: LORazepam 0.5 MG TABLET PO PRN
[2021-07-12] MEDS: METHOCARBAMOL 500 MG TABLET PO PRN ×2 (01:51→17:38)
[2021-07-12] MEDS: LORazepam 0.5 MG TABLET PO SCH ×4 (05:30→22:18)
[2021-07-12] MEDS: BUPRENORPHINE/NALOXONE 8 MG/2 MG FILM PACKET SL SCH ×3 (05:30→22:19)
[2021-07-12] MEDS: hydrOXYzine PAMOATE 25 MG CAPSULE (FP) PO SCH ×5 (05:30→22:18)
[2021-07-12] MEDS: PRENATAL VITAMINS W/ FOLIC ACID TABLET (FP) PO SCH (10:20)
[2021-07-12] MEDS: PANTOPRAZOLE 40 MG TABLET PO SCH (10:21)
[2021-07-12] MEDS: NICOTINE 14 MG/24 HOURS TOPICAL PATCH TD SCH (10:21)
[2021-07-12] MEDS: amLODIPine BESYLATE 5 MG TABLET (FP) PO SCH (10:21)
[2021-07-12 11:36] LABS: HEMATOCRIT 23.9 % (35.4-49); HEMOGLOBIN 7.4 GM/dL (11.7-16.9); MEAN CELL VOLUME 58.8 fl (80-96); MEAN PLT VOLUME 8.1 fl (7.5-11.1); PLATELET COUNT 178 10^3/uL (134-434); RBC 4.06 M/mm3 (4.00-5.60); RDW 21.1 % (11.9-15.9); WHITE BLOOD COUNT 7.4 K/mm3 (4.0-10.0)
[2021-07-12 11:46] LABS: CALCIUM 8.9 mg/dL (8.5-10.1)
[2021-07-12 11:47] LABS: BLOOD UREA NITROGEN 12.4 mg/dL (7-18); CREATININE 1.2 mg/dL (0.55-1.3)
[2021-07-12 11:49] LABS: BILIRUBIN,TOTAL 1.6 mg/dL (0.2-1); TOT PROT 7.9 g/dl (6.4-8.2)
[2021-07-12 11:49] LABS: MCH 18.2 pg (25.7-33.7)
[2021-07-12] MEDS: FERROUS SO4 325 MG TABLET (FP) PO SCH ×2 (14:35→22:19)
[2021-07-12] MEDS: MELATONIN 5 MG TABLETS PO SCH (22:19)
[2021-07-12] MEDS: THIAMINE HCL 100 MG TABLET (FP) PO SCH (22:19)
[2021-07-13] MEDS ORDERED: LORazepam 0.5 MG TABLET PO ONE (05:00)
[2021-07-13] MEDS: hydrOXYzine PAMOATE 25 MG CAPSULE (FP) PO SCH ×3 (05:28→13:11)
[2021-07-13] MEDS: BUPRENORPHINE/NALOXONE 8 MG/2 MG FILM PACKET SL SCH ×2 (05:28→13:09)
[2021-07-13 09:25] VITALS: TEMP 97.3
[2021-07-13] MEDS: PRENATAL VITAMINS W/ FOLIC ACID TABLET (FP) PO SCH (10:04)
[2021-07-13] MEDS: PANTOPRAZOLE 40 MG TABLET PO SCH (10:04)
[2021-07-13] MEDS: NICOTINE 14 MG/24 HOURS TOPICAL PATCH TD SCH (10:04)
[2021-07-13] MEDS: amLODIPine BESYLATE 5 MG TABLET (FP) PO SCH (10:04)
[2021-07-13] MEDS: FERROUS SO4 325 MG TABLET (FP) PO SCH (10:04)
[2021-07-13 10:56] LABS: MCHC 29.7 g/dl (32.0-35.9); MEAN CELL VOLUME 61.1 fl (80-96); MEAN PLT VOLUME 8.2 fl (7.5-11.1); PLATELET COUNT 167 10^3/uL (134-434); RBC 3.76 M/mm3 (4.00-5.60); RDW 21.7 % (11.9-15.9); WHITE BLOOD COUNT 5.8 K/mm3 (4.0-10.0)
[2021-07-13 10:59] LABS: INR 1.38 (0.83-1.09); PROTHROMBIN TIME (PATIENT) 16.2 SEC (9.7-13.0)
[2021-07-13 11:06] LABS: CALCIUM 8.5 mg/dL (8.5-10.1)
[2021-07-13 11:07] LABS: ALBUMIN 2.6 g/dl (3.4-5.0); BLOOD UREA NITROGEN 13.8 mg/dL (7-18)
[2021-07-13 11:09] LABS: CREATININE 1.1 mg/dL (0.55-1.3)
[2021-07-13 11:11] LABS: BILIRUBIN,TOTAL 1.2 mg/dL (0.2-1); TOT PROT 7.1 g/dl (6.4-8.2)
[2021-07-13 11:23] LABS: MCH 18.1 pg (25.7-33.7)
[2021-07-13 11:24] LABS: HEMOGLOBIN 6.8 GM/dL (11.7-16.9)
[2021-07-13] MEDS ORDERED: FERROUS SO4 325 MG TABLET (FP) PO SCH (12:00)
[2021-07-13 13:34] VITALS: BP 133/84; PULSE 87
== END 2021-07-13 15:22 | disposition other institution (70) | DRG 897 ==
LOC: YASAS 12:50 → Y3N 14:34
PROVIDERS: ADMIT Allergy & Immunology; ATTEND Allergy & Immunology
PROC: HZ2ZZZZ Detoxification Services for Substance Abuse Treatment (ICD-10-PCS; principal; 2021-07-09)
DX: F10.230 Alcohol dependence with withdrawal, uncomplicated (principal); F11.20 Opioid dependence, uncomplicated; Z68.41 Body mass index [BMI] 40.0-44.9, adult; F17.210 Nicotine dependence, cigarettes, uncomplicated; F10.282 Alcohol dependence with alcohol-induced sleep disorder; F32.A Depression, unspecified; D50.9 Iron deficiency anemia, unspecified; I10 Essential (primary) hypertension; G47.00 Insomnia, unspecified; K74.60 Unspecified cirrhosis of liver; R94.5 Abnormal results of liver function studies; E66.01 Morbid (severe) obesity due to excess calories; Z86.16 Personal history of COVID-19; Z98.84 Bariatric surgery status; Z87.19 Personal history of other diseases of the digestive system
CPT/HCPCS: 36415; 80053; 82947; 83036; 85027; 85610; 86780; C9803; U0003; U0005

== ENCOUNTER 2021-07-13 15:36 | Inpatient (IN) | payer OTHER ==
[2021-07-13] MEDS ORDERED: MAGNESIUM CITRATE 300 ML BOTTLE PO PRN (18:15)
[2021-07-13] MEDS ORDERED: LOPERAMIDE HCL 2 MG CAPSULE PO PRN (18:15)
[2021-07-13] MEDS ORDERED: MENTHOL/PHENOL 1 EACH UD MM PRN (18:15)
[2021-07-13] MEDS ORDERED: MAGNESIUM HYDROX 2400MG/30ML ORAL SUSPENSION 30 ML CUP PO PRN (18:15)
[2021-07-13] MEDS ORDERED: IBUPROFEN 400 MG TABLET (FP) PO PRN (18:15)
[2021-07-13] MEDS ORDERED: P-EPHED 60MG/TRIPROLIDI 2.5MG TABLET PO PRN (18:15)
[2021-07-13] MEDS ORDERED: guaiFENesin 200 MG/10 ML 10 ML UNIT-DOSE CUPS PO PRN (18:15)
[2021-07-13] MEDS: THIAMINE HCL 100 MG TABLET (FP) PO SCH (21:57)
[2021-07-13] MEDS: MELATONIN 5 MG TABLETS PO SCH (21:57)
[2021-07-13] MEDS: BUPRENORPHINE/NALOXONE 8 MG/2 MG FILM PACKET SL SCH (22:00)
[2021-07-14] MEDS: BUPRENORPHINE/NALOXONE 8 MG/2 MG FILM PACKET SL SCH ×3 (06:16→21:24)
[2021-07-14] MEDS: PRENATAL VITAMINS W/ FOLIC ACID TABLET (FP) PO SCH (09:57)
[2021-07-14] MEDS: FERROUS SO4 325 MG TABLET (FP) PO SCH ×3 (09:58→18:12)
[2021-07-14] MEDS: amLODIPine BESYLATE 5 MG TABLET (FP) PO SCH (09:58)
[2021-07-14] MEDS: hydrOXYzine PAMOATE 50 MG CAPSULE (FP) PO PRN ×2 (14:23→21:25)
[2021-07-14] MEDS: MELATONIN 5 MG TABLETS PO SCH (21:24)
[2021-07-14] MEDS: QUEtiapine FUMARATE 100 MG TABLET (FP) PO SCH (21:25)
[2021-07-14] MEDS: THIAMINE HCL 100 MG TABLET (FP) PO SCH (21:25)
[2021-07-15] MEDS: hydrOXYzine PAMOATE 50 MG CAPSULE (FP) PO PRN ×3 (06:03→21:24)
[2021-07-15] MEDS: BUPRENORPHINE/NALOXONE 8 MG/2 MG FILM PACKET SL SCH ×3 (06:03→21:25)
[2021-07-15] MEDS: FERROUS SO4 325 MG TABLET (FP) PO SCH ×3 (07:15→17:48)
[2021-07-15] MEDS: amLODIPine BESYLATE 5 MG TABLET (FP) PO SCH (09:58)
[2021-07-15] MEDS: PRENATAL VITAMINS W/ FOLIC ACID TABLET (FP) PO SCH (09:58)
[2021-07-15] MEDS: MELATONIN 5 MG TABLETS PO SCH (21:24)
[2021-07-15] MEDS: THIAMINE HCL 100 MG TABLET (FP) PO SCH (21:24)
[2021-07-15] MEDS: QUEtiapine FUMARATE 100 MG TABLET (FP) PO SCH (21:24)
[2021-07-16] MEDS: BUPRENORPHINE/NALOXONE 8 MG/2 MG FILM PACKET SL SCH ×3 (06:11→21:24)
[2021-07-16] MEDS: FERROUS SO4 325 MG TABLET (FP) PO SCH ×3 (07:05→17:51)
[2021-07-16] MEDS: amLODIPine BESYLATE 5 MG TABLET (FP) PO SCH (09:29)
[2021-07-16] MEDS: PRENATAL VITAMINS W/ FOLIC ACID TABLET (FP) PO SCH (09:29)
[2021-07-16] MEDS: hydrOXYzine PAMOATE 50 MG CAPSULE (FP) PO PRN (09:30)
[2021-07-16] MEDS: QUEtiapine FUMARATE 100 MG TABLET (FP) PO SCH (21:24)
[2021-07-16] MEDS: MELATONIN 5 MG TABLETS PO SCH (21:24)
[2021-07-16] MEDS: THIAMINE HCL 100 MG TABLET (FP) PO SCH (21:24)
[2021-07-17] MEDS: FERROUS SO4 325 MG TABLET (FP) PO SCH ×3 (07:13→18:10)
[2021-07-17] MEDS: PRENATAL VITAMINS W/ FOLIC ACID TABLET (FP) PO SCH (09:47)
[2021-07-17] MEDS: amLODIPine BESYLATE 5 MG TABLET (FP) PO SCH (09:47)
[2021-07-17] MEDS: BUPRENORPHINE/NALOXONE 8 MG/2 MG FILM PACKET SL SCH ×3 (09:48→20:37)
[2021-07-17] MEDS: hydrOXYzine PAMOATE 50 MG CAPSULE (FP) PO PRN (21:00)
[2021-07-17] MEDS: QUEtiapine FUMARATE 100 MG TABLET (FP) PO SCH (21:00)
[2021-07-17] MEDS: THIAMINE HCL 100 MG TABLET (FP) PO SCH (21:00)
[2021-07-17] MEDS: MELATONIN 5 MG TABLETS PO SCH (21:00)
[2021-07-18] MEDS: FERROUS SO4 325 MG TABLET (FP) PO SCH ×3 (07:11→18:42)
[2021-07-18] MEDS: PRENATAL VITAMINS W/ FOLIC ACID TABLET (FP) PO SCH (10:09)
[2021-07-18] MEDS: BUPRENORPHINE/NALOXONE 8 MG/2 MG FILM PACKET SL SCH ×3 (10:09→20:03)
[2021-07-18] MEDS: amLODIPine BESYLATE 5 MG TABLET (FP) PO SCH (10:09)
[2021-07-18] MEDS: THIAMINE HCL 100 MG TABLET (FP) PO SCH (21:13)
[2021-07-18] MEDS: QUEtiapine FUMARATE 100 MG TABLET (FP) PO SCH (21:13)
[2021-07-18] MEDS: MELATONIN 5 MG TABLETS PO SCH (21:13)
[2021-07-18] MEDS: hydrOXYzine PAMOATE 50 MG CAPSULE (FP) PO PRN (21:13)
[2021-07-19] MEDS: FERROUS SO4 325 MG TABLET (FP) PO SCH ×3 (07:40→17:42)
[2021-07-19] MEDS: BUPRENORPHINE/NALOXONE 8 MG/2 MG FILM PACKET SL SCH ×3 (10:11→21:32)
[2021-07-19] MEDS: amLODIPine BESYLATE 5 MG TABLET (FP) PO SCH (10:11)
[2021-07-19] MEDS: PRENATAL VITAMINS W/ FOLIC ACID TABLET (FP) PO SCH (10:11)
[2021-07-19] MEDS: MAG HYDROX/AL HYDROX/SIMETH 30 ML UNIT-DOSE CUP PO PRN (10:12)
[2021-07-19 10:13] LABS: BASO % 2.2 % (0-2.0); EOS % 3.4 % (0-4.5); HEMATOCRIT 24.4 % (35.4-49); HEMOGLOBIN 7.3 GM/dL (11.7-16.9); LYMPH % 26.9 % (8-40); MCHC 29.9 g/dl (32.0-35.9); MEAN CELL VOLUME 63.2 fl (80-96); MEAN PLT VOLUME 8.5 fl (7.5-11.1); MONO % 8.5 % (3.8-10.2); PLATELET COUNT 200 10^3/uL (134-434); RBC 3.86 M/mm3 (4.00-5.60); RDW 24.6 % (11.9-15.9); WHITE BLOOD COUNT 5.1 K/mm3 (4.0-10.0)
[2021-07-19 10:17] LABS: MCH 18.9 pg (25.7-33.7)
[2021-07-19 11:37] LABS: ANISOCYTOSIS 3+; OVALOCYTE 1+; TARGET CELLS 1+; TEAR DROP CELLS 1+
[2021-07-19 11:38] LABS: PLATELET ESTIMATE NORMAL
[2021-07-19] MEDS: BACITRACIN 0.9 GM PACKET TP SCH (12:54)
[2021-07-19] MEDS: THIAMINE HCL 100 MG TABLET (FP) PO SCH (21:32)
[2021-07-19] MEDS: QUEtiapine FUMARATE 100 MG TABLET (FP) PO SCH (21:32)
[2021-07-19] MEDS: MELATONIN 5 MG TABLETS PO SCH (21:32)
[2021-07-19] MEDS: hydrOXYzine PAMOATE 50 MG CAPSULE (FP) PO PRN (21:34)
[2021-07-20] MEDS: FERROUS SO4 325 MG TABLET (FP) PO SCH ×3 (07:09→18:05)
[2021-07-20] MEDS: PRENATAL VITAMINS W/ FOLIC ACID TABLET (FP) PO SCH (09:44)
[2021-07-20] MEDS: BACITRACIN 0.9 GM PACKET TP SCH (09:45)
[2021-07-20] MEDS: BUPRENORPHINE/NALOXONE 8 MG/2 MG FILM PACKET SL SCH ×3 (09:45→20:43)
[2021-07-20] MEDS: amLODIPine BESYLATE 5 MG TABLET (FP) PO SCH (11:50)
[2021-07-20] MEDS: MELATONIN 5 MG TABLETS PO SCH (21:34)
[2021-07-20] MEDS: THIAMINE HCL 100 MG TABLET (FP) PO SCH (21:34)
[2021-07-20] MEDS: QUEtiapine FUMARATE 100 MG TABLET (FP) PO SCH (21:35)
[2021-07-21] MEDS: amLODIPine BESYLATE 5 MG TABLET (FP) PO SCH (09:52)
[2021-07-21] MEDS: BACITRACIN 0.9 GM PACKET TP SCH (09:52)
[2021-07-21] MEDS: PRENATAL VITAMINS W/ FOLIC ACID TABLET (FP) PO SCH (09:53)
[2021-07-21] MEDS: FERROUS SO4 325 MG TABLET (FP) PO SCH ×3 (09:53→18:20)
[2021-07-21] MEDS: BUPRENORPHINE/NALOXONE 8 MG/2 MG FILM PACKET SL SCH ×3 (09:54→21:30)
[2021-07-21] MEDS: MELATONIN 5 MG TABLETS PO SCH (21:29)
[2021-07-21] MEDS: QUEtiapine FUMARATE 100 MG TABLET (FP) PO SCH (21:29)
[2021-07-21] MEDS: hydrOXYzine PAMOATE 50 MG CAPSULE (FP) PO PRN (21:29)
[2021-07-21] MEDS: THIAMINE HCL 100 MG TABLET (FP) PO SCH (21:29)
[2021-07-22] MEDS: FERROUS SO4 325 MG TABLET (FP) PO SCH ×3 (07:55→18:02)
[2021-07-22] MEDS: PRENATAL VITAMINS W/ FOLIC ACID TABLET (FP) PO SCH (10:05)
[2021-07-22] MEDS: amLODIPine BESYLATE 5 MG TABLET (FP) PO SCH (10:05)
[2021-07-22] MEDS: BACITRACIN 0.9 GM PACKET TP SCH (10:05)
[2021-07-22] MEDS: BUPRENORPHINE/NALOXONE 8 MG/2 MG FILM PACKET SL SCH ×3 (10:06→21:17)
[2021-07-22] MEDS: MELATONIN 5 MG TABLETS PO SCH (21:17)
[2021-07-22] MEDS: hydrOXYzine PAMOATE 50 MG CAPSULE (FP) PO PRN (21:17)
[2021-07-22] MEDS: THIAMINE HCL 100 MG TABLET (FP) PO SCH (21:17)
[2021-07-22] MEDS: QUEtiapine FUMARATE 100 MG TABLET (FP) PO SCH (21:17)
[2021-07-23] MEDS: FERROUS SO4 325 MG TABLET (FP) PO SCH ×3 (07:45→17:04)
[2021-07-23] MEDS: BUPRENORPHINE/NALOXONE 8 MG/2 MG FILM PACKET SL SCH ×3 (09:46→21:19)
[2021-07-23] MEDS: PRENATAL VITAMINS W/ FOLIC ACID TABLET (FP) PO SCH (09:46)
[2021-07-23] MEDS: BACITRACIN 0.9 GM PACKET TP SCH (09:46)
[2021-07-23] MEDS: amLODIPine BESYLATE 5 MG TABLET (FP) PO SCH (11:44)
[2021-07-23] MEDS: QUEtiapine FUMARATE 100 MG TABLET (FP) PO SCH (21:19)
[2021-07-23] MEDS: MELATONIN 5 MG TABLETS PO SCH (21:19)
[2021-07-23] MEDS: THIAMINE HCL 100 MG TABLET (FP) PO SCH (21:20)
[2021-07-23] MEDS: hydrOXYzine PAMOATE 50 MG CAPSULE (FP) PO PRN (21:20)
[2021-07-24] MEDS: FERROUS SO4 325 MG TABLET (FP) PO SCH ×3 (07:04→17:47)
[2021-07-24] MEDS: PRENATAL VITAMINS W/ FOLIC ACID TABLET (FP) PO SCH (09:51)
[2021-07-24] MEDS: BACITRACIN 0.9 GM PACKET TP SCH (09:51)
[2021-07-24] MEDS: BUPRENORPHINE/NALOXONE 8 MG/2 MG FILM PACKET SL SCH ×3 (09:51→20:17)
[2021-07-24] MEDS: amLODIPine BESYLATE 5 MG TABLET (FP) PO SCH (09:51)
[2021-07-24] MEDS: MELATONIN 5 MG TABLETS PO SCH (21:13)
[2021-07-24] MEDS: QUEtiapine FUMARATE 100 MG TABLET (FP) PO SCH (21:13)
[2021-07-24] MEDS: THIAMINE HCL 100 MG TABLET (FP) PO SCH (21:13)
[2021-07-24] MEDS: hydrOXYzine PAMOATE 50 MG CAPSULE (FP) PO PRN (21:13)
[2021-07-25] MEDS: ACETAMINOPHEN 325 MG TABLET (FP) PO PRN ×2 (06:18→15:55)
[2021-07-25] MEDS: FERROUS SO4 325 MG TABLET (FP) PO SCH ×3 (07:41→17:45)
[2021-07-25] MEDS: BACITRACIN 0.9 GM PACKET TP SCH (09:45)
[2021-07-25] MEDS: amLODIPine BESYLATE 5 MG TABLET (FP) PO SCH (09:45)
[2021-07-25] MEDS: PRENATAL VITAMINS W/ FOLIC ACID TABLET (FP) PO SCH (09:45)
[2021-07-25] MEDS: BUPRENORPHINE/NALOXONE 8 MG/2 MG FILM PACKET SL SCH ×3 (09:45→21:05)
[2021-07-25] MEDS: MELATONIN 5 MG TABLETS PO SCH (21:27)
[2021-07-25] MEDS: THIAMINE HCL 100 MG TABLET (FP) PO SCH (21:28)
[2021-07-25] MEDS: hydrOXYzine PAMOATE 50 MG CAPSULE (FP) PO PRN (21:28)
[2021-07-25] MEDS: QUEtiapine FUMARATE 100 MG TABLET (FP) PO SCH (21:28)
[2021-07-26] MEDS: ACETAMINOPHEN 325 MG TABLET (FP) PO PRN ×3 (06:13→17:42)
[2021-07-26] MEDS: FERROUS SO4 325 MG TABLET (FP) PO SCH ×3 (07:49→17:42)
[2021-07-26] MEDS: amLODIPine BESYLATE 5 MG TABLET (FP) PO SCH (10:06)
[2021-07-26] MEDS: BUPRENORPHINE/NALOXONE 8 MG/2 MG FILM PACKET SL SCH ×3 (10:06→21:19)
[2021-07-26] MEDS: PRENATAL VITAMINS W/ FOLIC ACID TABLET (FP) PO SCH (10:07)
[2021-07-26] MEDS: BACITRACIN 0.9 GM PACKET TP SCH (10:07)
[2021-07-26] MEDS: MAG HYDROX/AL HYDROX/SIMETH 30 ML UNIT-DOSE CUP PO PRN (18:37)
[2021-07-26] MEDS: THIAMINE HCL 100 MG TABLET (FP) PO SCH (21:20)
[2021-07-26] MEDS: QUEtiapine FUMARATE 100 MG TABLET (FP) PO SCH (21:20)
[2021-07-26] MEDS: hydrOXYzine PAMOATE 50 MG CAPSULE (FP) PO PRN (21:20)
[2021-07-26] MEDS: MELATONIN 5 MG TABLETS PO SCH (21:20)
[2021-07-27 06:37] VITALS: TEMP 97.4
[2021-07-27] MEDS: FERROUS SO4 325 MG TABLET (FP) PO SCH (07:36)
[2021-07-27] MEDS: amLODIPine BESYLATE 5 MG TABLET (FP) PO SCH (09:16)
[2021-07-27] MEDS: PRENATAL VITAMINS W/ FOLIC ACID TABLET (FP) PO SCH (09:16)
[2021-07-27] MEDS: BUPRENORPHINE/NALOXONE 8 MG/2 MG FILM PACKET SL SCH (09:17)
[2021-07-27] MEDS: BACITRACIN 0.9 GM PACKET TP SCH (09:17)
[2021-07-27 10:56] VITALS: BP 106/67; PULSE 73
== END 2021-07-27 09:58 | disposition home or self-care (01) | DRG 895 ==
LOC: YASAS 15:36 → Y5N 15:37
PROVIDERS: ADMIT Allergy & Immunology; ATTEND Allergy & Immunology
PROC: HZ42ZZZ Group Counseling for Substance Abuse Treatment, Cognitive-Behavioral (ICD-10-PCS; principal; 2021-07-13)
DX: F10.20 Alcohol dependence, uncomplicated (principal); F11.20 Opioid dependence, uncomplicated; F14.20 Cocaine dependence, uncomplicated; F12.20 Cannabis dependence, uncomplicated; F17.210 Nicotine dependence, cigarettes, uncomplicated; F41.9 Anxiety disorder, unspecified; F32.A Depression, unspecified; D64.9 Anemia, unspecified; G47.33 Obstructive sleep apnea (adult) (pediatric); I10 Essential (primary) hypertension; J45.909 Unspecified asthma, uncomplicated; K21.9 Gastro-esophageal reflux disease without esophagitis; K74.60 Unspecified cirrhosis of liver; R21 Rash and other nonspecific skin eruption; E66.9 Obesity, unspecified; Z68.35 Body mass index [BMI] 35.0-35.9, adult; Z98.84 Bariatric surgery status; S80.811A Abrasion, right lower leg, initial encounter; X58.XXXA Exposure to other specified factors, initial encounter; Y92.230 Patient room in hospital as the place of occurrence of the external cause
CPT/HCPCS: 36415; 82962; 85025; 93005; 93010

== ENCOUNTER 2021-10-04 16:49 | Inpatient (IN) | payer OTHER ==
[2021-10-04 19:37] VITALS: BMI 39.2
[2021-10-04] MEDS ORDERED: MELATONIN 5 MG TABLETS PO PRN (19:54)
[2021-10-04] MEDS ORDERED: ONDANSETRON *ODT* 4 MG TABLET SL PRN (19:54)
[2021-10-04] MEDS ORDERED: MAG HYDROX/AL HYDROX/SIMETH 30 ML UNIT-DOSE CUP PO PRN (19:54)
[2021-10-04] MEDS ORDERED: MAGNESIUM CITRATE 300 ML BOTTLE PO PRN (19:54)
[2021-10-04] MEDS ORDERED: MENTHOL/PHENOL 1 EACH UD MM PRN (19:54)
[2021-10-04] MEDS ORDERED: MAGNESIUM HYDROX 2400MG/30ML ORAL SUSPENSION 30 ML CUP PO PRN (19:54)
[2021-10-04] MEDS ORDERED: BISMUTH SUBSALICYLATE 524 MG/30 ML PO PRN (19:54)
[2021-10-04] MEDS ORDERED: ACETAMINOPHEN 325 MG TABLET (FP) PO PRN ×2 (19:54)
[2021-10-04] MEDS ORDERED: IBUPROFEN 400 MG TABLET (FP) PO PRN (19:54)
[2021-10-04] MEDS ORDERED: METHOCARBAMOL 500 MG TABLET PO PRN (19:54)
[2021-10-04] MEDS ORDERED: ALBUTEROL SO4 HFA INHALER IH PRN (23:20)
[2021-10-04] MEDS ORDERED: diazePAM 5 MG TABLET PO PRN (23:22)
[2021-10-05] MEDS: hydrOXYzine PAMOATE 25 MG CAPSULE (FP) PO PRN (01:06)
[2021-10-05] MEDS: THIAMINE HCL 100 MG TABLET (FP) PO SCH ×2 (02:46→22:17)
[2021-10-05] MEDS: FERROUS SO4 325 MG TABLET (FP) PO SCH ×3 (07:57→17:22)
[2021-10-05] MEDS: amLODIPine BESYLATE 5 MG TABLET (FP) PO SCH (10:18)
[2021-10-05] MEDS: PRENATAL VITAMINS W/ FOLIC ACID TABLET (FP) PO SCH (10:18)
[2021-10-05] MEDS ORDERED: LORazepam 1 MG TABLET PO PRN (10:34)
[2021-10-05] MEDS: LORazepam 2 MG TABLET PO SCH ×3 (10:48→22:17)
[2021-10-05] MEDS: BUPRENORPHINE/NALOXONE 8 MG/2 MG FILM PACKET SL SCH ×2 (10:49→22:18)
[2021-10-05 12:15] LABS: BLOOD UREA NITROGEN 6.6 mg/dL (7-18)
[2021-10-05 12:16] LABS: HEMATOCRIT 26.6 % (35.4-49); MCH 20.6 pg (25.7-33.7); MEAN CELL VOLUME 68.5 fl (80-96); MEAN PLT VOLUME 8.2 fl (7.5-11.1); PLATELET COUNT 80 10^3/uL (134-434); RBC 3.88 M/mm3 (4.00-5.60); RDW 18.1 % (11.9-15.9); WHITE BLOOD COUNT 3.8 K/mm3 (4.0-10.0)
[2021-10-05 12:19] LABS: CREATININE 0.7 mg/dL (0.55-1.3)
[2021-10-05 12:21] LABS: BILIRUBIN,TOTAL 0.9 mg/dL (0.2-1)
[2021-10-06] MEDS: LORazepam 2 MG TABLET PO SCH ×4 (05:31→22:17)
[2021-10-06] MEDS: FERROUS SO4 325 MG TABLET (FP) PO SCH ×3 (07:05→17:49)
[2021-10-06] MEDS: BUPRENORPHINE/NALOXONE 8 MG/2 MG FILM PACKET SL SCH ×2 (10:04→22:19)
[2021-10-06] MEDS: amLODIPine BESYLATE 5 MG TABLET (FP) PO SCH (10:04)
[2021-10-06] MEDS: hydrOXYzine PAMOATE 25 MG CAPSULE (FP) PO PRN ×2 (10:05→22:19)
[2021-10-06] MEDS: PRENATAL VITAMINS W/ FOLIC ACID TABLET (FP) PO SCH (10:05)
[2021-10-06] MEDS: THIAMINE HCL 100 MG TABLET (FP) PO SCH (22:17)
[2021-10-07] MEDS: LORazepam 1 MG TABLET PO SCH ×4 (05:34→22:16)
[2021-10-07] MEDS: FERROUS SO4 325 MG TABLET (FP) PO SCH ×3 (07:20→17:47)
[2021-10-07] MEDS: amLODIPine BESYLATE 5 MG TABLET (FP) PO SCH (10:05)
[2021-10-07] MEDS: BUPRENORPHINE/NALOXONE 8 MG/2 MG FILM PACKET SL SCH ×2 (10:05→22:18)
[2021-10-07 10:21] LABS: EOS % 2.9 % (0-4.5); HEMATOCRIT 28.7 % (35.4-49); HEMOGLOBIN 8.6 GM/dL (11.7-16.9); LYMPH % 34.5 % (8-40); MCH 20.8 pg (25.7-33.7); MEAN CELL VOLUME 69.3 fl (80-96); MEAN PLT VOLUME 8.7 fl (7.5-11.1); MONO % 10.4 % (3.8-10.2); NEUT % 51.2 % (42.8-82.8); PLATELET COUNT 87 10^3/uL (134-434); RBC 4.14 M/mm3 (4.00-5.60); RDW 17.7 % (11.9-15.9); WHITE BLOOD COUNT 5.3 K/mm3 (4.0-10.0)
[2021-10-07] MEDS: PRENATAL VITAMINS W/ FOLIC ACID TABLET (FP) PO SCH (11:24)
[2021-10-07 12:42] LABS: ANISOCYTOSIS 2+; MACROCYTOSIS 0; OVALOCYTE 1+; PLATELET ESTIMATE DECREASED; TEAR DROP CELLS 1+
[2021-10-07] MEDS: THIAMINE HCL 100 MG TABLET (FP) PO SCH (22:17)
[2021-10-07] MEDS: hydrOXYzine PAMOATE 25 MG CAPSULE (FP) PO PRN (22:17)
[2021-10-07] MEDS: QUEtiapine FUMARATE 100 MG TABLET (FP) PO SCH (22:17)
[2021-10-08] MEDS ORDERED: LORazepam 0.5 MG TABLET PO PRN
[2021-10-08] MEDS: LORazepam 0.5 MG TABLET PO SCH ×4 (05:36→22:15)
[2021-10-08] MEDS: FERROUS SO4 325 MG TABLET (FP) PO SCH ×3 (08:48→17:52)
[2021-10-08] MEDS: PRENATAL VITAMINS W/ FOLIC ACID TABLET (FP) PO SCH (10:10)
[2021-10-08] MEDS: BUPRENORPHINE/NALOXONE 8 MG/2 MG FILM PACKET SL SCH ×2 (10:10→22:15)
[2021-10-08] MEDS: amLODIPine BESYLATE 5 MG TABLET (FP) PO SCH (10:10)
[2021-10-08] MEDS: QUEtiapine FUMARATE 100 MG TABLET (FP) PO SCH (22:15)
[2021-10-08] MEDS: THIAMINE HCL 100 MG TABLET (FP) PO SCH (22:15)
[2021-10-08] MEDS: hydrOXYzine PAMOATE 25 MG CAPSULE (FP) PO PRN (22:16)
[2021-10-09] MEDS ORDERED: LORazepam 0.5 MG TABLET PO ONE (05:00)
[2021-10-09] MEDS: hydrOXYzine PAMOATE 25 MG CAPSULE (FP) PO PRN ×2 (05:20→10:05)
[2021-10-09] MEDS: FERROUS SO4 325 MG TABLET (FP) PO SCH ×2 (07:08→11:12)
[2021-10-09 09:01] VITALS: BP 126/83; PULSE 82; TEMP 97.4
[2021-10-09] MEDS: BUPRENORPHINE/NALOXONE 8 MG/2 MG FILM PACKET SL SCH (10:04)
[2021-10-09] MEDS: PRENATAL VITAMINS W/ FOLIC ACID TABLET (FP) PO SCH (10:04)
[2021-10-09] MEDS: amLODIPine BESYLATE 5 MG TABLET (FP) PO SCH (10:04)
== END 2021-10-09 11:35 | disposition home or self-care (01) | DRG 897 ==
LOC: YASAS 16:49 → Y3N 21:56
PROVIDERS: ADMIT Allergy & Immunology; ATTEND Allergy & Immunology
PROC: HZ2ZZZZ Detoxification Services for Substance Abuse Treatment (ICD-10-PCS; principal; 2021-10-05)
DX: F10.230 Alcohol dependence with withdrawal, uncomplicated (principal); D61.818 Other pancytopenia; F12.20 Cannabis dependence, uncomplicated; F17.210 Nicotine dependence, cigarettes, uncomplicated; F32.9 Major depressive disorder, single episode, unspecified; I10 Essential (primary) hypertension; J45.909 Unspecified asthma, uncomplicated; K21.9 Gastro-esophageal reflux disease without esophagitis; K74.60 Unspecified cirrhosis of liver; R74.01 Elevation of levels of liver transaminase levels; Z86.16 Personal history of COVID-19
CPT/HCPCS: 36415; 80053; 85025; 85027; 86780; C9803; Q0162; U0003; U0005

== ENCOUNTER 2022-03-16 13:52 | Inpatient (IN) | payer OTHER ==
[2022-03-16 14:04] VITALS: BMI 37.1
[2022-03-16] MEDS ORDERED: LIDOCAINE 5% TOPICAL PATCH TP ONE (15:33)
[2022-03-16] MEDS ORDERED: chlordiazePOXIDE 5 MG CAPSULE PO ONE (15:41)
[2022-03-16] MEDS ORDERED: chlordiazePOXIDE HCL 25 MG CAPSULE ONE (15:56)
[2022-03-16] MEDS ORDERED: LIDOCAINE 5% TOPICAL PATCH ONE (15:57)
[2022-03-16 16:57] LABS: BASO % 0.8 % (0-2.0); EOS % 1.7 % (0-4.5); HEMATOCRIT 28.2 % (35.4-49); HEMOGLOBIN 9.1 GM/dL (11.7-16.9); LYMPH % 18.4 % (8-40); MCH 26.5 pg (25.7-33.7); MCHC 32.4 g/dl (32.0-35.9); MEAN CELL VOLUME 81.7 fl (80-96); MEAN PLT VOLUME 6.2 fl (7.5-11.1); MONO % 10.5 % (3.8-10.2); NEUT % 68.6 % (42.8-82.8); PLATELET COUNT 154 10^3/uL (134-434); RBC 3.45 M/mm3 (4.00-5.60); RDW 15.1 % (11.9-15.9)
[2022-03-16 17:05] LABS: INR 1.25 (0.83-1.09); PROTHROMBIN TIME (PATIENT) 14.4 SEC (9.7-13.0)
[2022-03-16 17:07] LABS: ACTIVATED PTT 34.3 SECONDS (25.2-36.5)
[2022-03-16 17:19] LABS: CALCIUM 7.9 mg/dL (8.5-10.1)
[2022-03-16 17:20] LABS: ALBUMIN 2.6 g/dl (3.4-5.0); BLOOD UREA NITROGEN 4.1 mg/dL (7-18)
[2022-03-16 17:24] LABS: CREATININE 0.6 mg/dL (0.55-1.3)
[2022-03-16 17:26] LABS: BILIRUBIN,TOTAL 0.9 mg/dL (0.2-1); TOT PROT 6.5 g/dl (6.4-8.2)
[2022-03-16] MEDS ORDERED: NAPH,MB-DB/K PH,MBDB POWDER PACKET PO ONE (17:37)
[2022-03-16] MEDS ORDERED: POTASSIUM CHLORIDE TABS 20 MEQ TABLET.ER (FP) PO ONE ×2 (17:38→19:16)
[2022-03-16] MEDS ORDERED: FUROSEMIDE 40 MG/4 ML INJECTABLE VIAL IVPUSH ONE (17:45)
[2022-03-16] MEDS ORDERED: KETOROLAC TROMETHAMINE 15 MG/ML VIAL IVPUSH ONE (18:13)
[2022-03-16] MEDS ORDERED: NAPH,MB-DB/K PH,MBDB POWDER PACKET ONE (19:17)
[2022-03-16] MEDS ORDERED: KETOROLAC TROMETHAMINE 15 MG/ML VIAL ONE (19:17)
[2022-03-16] MEDS ORDERED: FUROSEMIDE 40 MG/4 ML INJECTABLE VIAL ONE (19:17)
[2022-03-16] MEDS ORDERED: SPIRONOLACTONE 25 MG TABLET ONE (19:17)
[2022-03-16] MEDS: SPIRONOLACTONE 25 MG TABLET PO SCH (19:33)
[2022-03-16] MEDS ORDERED: POTASSIUM CHLORIDE ORAL LIQUID 20 MEQ/15 ML PO ONE (21:41)
[2022-03-16] MEDS ORDERED: CYCLOBENZAPRINE HCL 5 MG TABLET PO ONE (21:53)
[2022-03-16] MEDS ORDERED: LIDOCAINE PATCH REMOVAL MC SCH (22:00)
[2022-03-16] MEDS ORDERED: CYCLOBENZAPRINE HCL 5 MG TABLET ONE (22:43)
[2022-03-16 22:48] LABS: MAGNESIUM 1.8 mg/dL (1.8-2.4)
[2022-03-16 22:51] LABS: PHOSPHOROUS 3.3 mg/dL (2.5-4.9)
[2022-03-17] MEDS ORDERED: hydrOXYzine PAMOATE 50 MG CAPSULE (FP) PO PRN (01:34)
[2022-03-17] MEDS ORDERED: ALBUTEROL SO4 HFA INHALER IH PRN (01:34)
[2022-03-17] MEDS ORDERED: LORazepam 1 MG TABLET PO PRN (01:58)
[2022-03-17] MEDS ORDERED: QUEtiapine FUMARATE 200 MG TABLET PO SCH ×2 (02:02→22:00)
[2022-03-17] MEDS ORDERED: KETOROLAC TROMETHAMINE 15 MG/ML VIAL ONE (02:42)
[2022-03-17] MEDS ORDERED: LORazepam 1 MG TABLET ONE (02:42)
[2022-03-17] MEDS: LORazepam 1 MG TABLET PO SCH ×5 (02:48→22:27)
[2022-03-17] MEDS: KETOROLAC TROMETHAMINE 15 MG/ML VIAL IVPUSH PRN ×4 (02:48→22:29)
[2022-03-17] MEDS ORDERED: QUEtiapine FUMARATE 200 MG TABLET PO ONE (02:50)
[2022-03-17] MEDS ORDERED: QUEtiapine FUMARATE 100 MG TABLET (FP) ONE (03:14)
[2022-03-17] MEDS: FUROSEMIDE 40 MG/4 ML INJECTABLE VIAL IVPUSH SCH ×2 (05:36→14:38)
[2022-03-17 09:23] LABS: BASO % 0.7 % (0-2.0); EOS % 2.5 % (0-4.5); HEMOGLOBIN 9.3 GM/dL (11.7-16.9); LYMPH % 20.5 % (8-40); MCH 26.4 pg (25.7-33.7); MCHC 32.2 g/dl (32.0-35.9); MEAN PLT VOLUME 6.9 fl (7.5-11.1); MONO % 10.6 % (3.8-10.2); NEUT % 65.7 % (42.8-82.8); PLATELET COUNT 149 10^3/uL (134-434); RBC 3.53 M/mm3 (4.00-5.60); RDW 14.9 % (11.9-15.9); WHITE BLOOD COUNT 5.7 K/mm3 (4.0-10.0)
[2022-03-17 09:47] LABS: IRON SERUM 30 ug/dL (50-175)
[2022-03-17 09:48] LABS: TOTAL IRON BINDING CAPACITY 337 ug/dL (250-450)
[2022-03-17 09:52] LABS: CREATININE 0.6 mg/dL (0.55-1.3); PHOSPHOROUS 3.1 mg/dL (2.5-4.9)
[2022-03-17 09:53] LABS: BILIRUBIN,TOTAL 1.4 mg/dL (0.2-1); TOT PROT 6.5 g/dl (6.4-8.2)
[2022-03-17 09:57] LABS: ALBUMIN 2.6 g/dl (3.4-5.0); BLOOD UREA NITROGEN 6.9 mg/dL (7-18)
[2022-03-17] MEDS ORDERED: PANTOPRAZOLE 20 MG TABLET PO SCH (10:00)
[2022-03-17 10:01] LABS: CALCIUM 7.5 mg/dL (8.5-10.1); MAGNESIUM 1.7 mg/dL (1.8-2.4)
[2022-03-17] MEDS ORDERED: IRON SUCROSE INJECTION 200 MG in SODIUM CHLORIDE 90 ML IVPB ONE (10:48)
[2022-03-17] MEDS: amLODIPine BESYLATE 5 MG TABLET (FP) PO SCH (11:07)
[2022-03-17] MEDS: FOLIC ACID 1 MG TABLET (FP) PO SCH (11:07)
[2022-03-17] MEDS: SPIRONOLACTONE 25 MG TABLET PO SCH (11:07)
[2022-03-17] MEDS: THIAMINE HCL 200 MG/2 ML VIAL IVPB SCH (11:12)
[2022-03-17] MEDS: ENOXAPARIN NA (PORCINE) 40 MG/0.4 ML DISP.SYRIN SQ SCH (11:13)
[2022-03-17] MEDS ORDERED: MAGNESIUM SULF 50% (8.12 MEQ/2 ML-1 GM VIAL) IVPB ONE (16:22)
[2022-03-17] MEDS ORDERED: POTASSIUM CHLORIDE TABS 20 MEQ TABLET.ER (FP) PO ONE (16:22)
[2022-03-17] MEDS ORDERED: QUEtiapine FUMARATE 100 MG TABLET (FP) PO SCH (21:10)
[2022-03-18] MEDS: KETOROLAC TROMETHAMINE 15 MG/ML VIAL IVPUSH PRN ×2 (05:32→11:36)
[2022-03-18] MEDS ORDERED: FUROSEMIDE 40 MG TABLET (FP) PO SCH ×2 (10:00→11:56)
[2022-03-18] MEDS: ENOXAPARIN NA (PORCINE) 40 MG/0.4 ML DISP.SYRIN SQ SCH (10:05)
[2022-03-18] MEDS: SPIRONOLACTONE 25 MG TABLET PO SCH (10:05)
[2022-03-18] MEDS: FOLIC ACID 1 MG TABLET (FP) PO SCH (10:06)
[2022-03-18] MEDS: THIAMINE HCL 200 MG/2 ML VIAL IVPB SCH (10:06)
[2022-03-18] MEDS: amLODIPine BESYLATE 5 MG TABLET (FP) PO SCH (10:06)
[2022-03-18 10:10] LABS: BASO % 0.9 % (0-2.0); EOS % 3.5 % (0-4.5); HEMATOCRIT 32.2 % (35.4-49); HEMOGLOBIN 10.3 GM/dL (11.7-16.9); LYMPH % 21.5 % (8-40); MCH 26.4 pg (25.7-33.7); MCHC 32.1 g/dl (32.0-35.9); MEAN CELL VOLUME 82.4 fl (80-96); MEAN PLT VOLUME 6.7 fl (7.5-11.1); MONO % 8.1 % (3.8-10.2); PLATELET COUNT 173 10^3/uL (134-434); RBC 3.91 M/mm3 (4.00-5.60); RDW 15.9 % (11.9-15.9); WHITE BLOOD COUNT 5.4 K/mm3 (4.0-10.0)
[2022-03-18 10:37] LABS: CALCIUM 8.5 mg/dL (8.5-10.1)
[2022-03-18 10:38] LABS: ALBUMIN 2.8 g/dl (3.4-5.0); BLOOD UREA NITROGEN 9.9 mg/dL (7-18); MAGNESIUM 2.2 mg/dL (1.8-2.4)
[2022-03-18 10:40] LABS: CREATININE 0.8 mg/dL (0.55-1.3)
[2022-03-18 10:42] LABS: BILIRUBIN,TOTAL 0.8 mg/dL (0.2-1); TOT PROT 7.2 g/dl (6.4-8.2)
[2022-03-18] MEDS ORDERED: SPIRONOLACTONE 25 MG TABLET PO SCH (11:56)
[2022-03-18] MEDS ORDERED: POTASSIUM CHLORIDE TABS 10 MEQ TABLET.ER (FP) PO SCH (12:00)
[2022-03-18] MEDS ORDERED: LACTULOSE 20 GM/30 ML UDC (FOR ORAL USE ONLY) PO SCH (12:00)
[2022-03-18] MEDS ORDERED: LORazepam 1 MG TABLET PO SCH ×2 (14:00→17:00)
[2022-03-18] MEDS ORDERED: ACETAMINOPHEN 1000 MG/100 ML BAG IVPB ONE (14:30)
[2022-03-18] MEDS ORDERED: POTASSIUM CHLORIDE TABS 20 MEQ TABLET.ER (FP) PO ONE (14:53)
[2022-03-18 15:30] VITALS: BP 118/76; PULSE 85; TEMP 98.3
[2022-03-19] MEDS ORDERED: LORazepam 1 MG TABLET PO SCH (05:00)
[2022-03-20] MEDS ORDERED: LORazepam 0.5 MG TABLET PO PRN
[2022-03-20] MEDS ORDERED: LORazepam 0.5 MG TABLET PO SCH (05:00)
[2022-03-21] MEDS ORDERED: LORazepam 0.5 MG TABLET PO ONE (05:00)
== END 2022-03-18 16:59 | disposition other institution (70) | DRG 433 ==
LOC: JER 13:52 → JERBED 19:14 → J8W 03-17 03:41
PROVIDERS: ADMIT Hospitalist; ATTEND Internal Medicine
DX: K70.31 Alcoholic cirrhosis of liver with ascites (principal); F11.20 Opioid dependence, uncomplicated; F10.230 Alcohol dependence with withdrawal, uncomplicated; J45.909 Unspecified asthma, uncomplicated; K21.9 Gastro-esophageal reflux disease without esophagitis; F32.A Depression, unspecified; F41.9 Anxiety disorder, unspecified; F12.10 Cannabis abuse, uncomplicated; E87.70 Fluid overload, unspecified; E87.6 Hypokalemia; M54.50 Low back pain, unspecified; R20.2 Paresthesia of skin; D50.9 Iron deficiency anemia, unspecified; E83.42 Hypomagnesemia; M79.604 Pain in right leg
CPT/HCPCS: 36415; 71045-TC-FY; 73502-TC-RT-FY; 76705-TC; 80053; 82105; 82140; 82550; 82553; 82607; 82746; 82977; 83540; 83550; 83735; 84100; 85025; 85610; 85730; 86704; 86708; 86803; 87040; 87340; 87517; 93005; 93010; 97116-GP; 97161-GP; 99285-25; C9803-CS; J1756; U0003; U0005

== ENCOUNTER 2022-03-18 17:30 | Inpatient (IN) | payer OTHER ==
[~2022-03-18 17:30] MED LIST: LORazepam 0.5 MG TABLET PO PRN
[2022-03-18 20:26] VITALS: BMI 37.1
[2022-03-18] MEDS ORDERED: LORazepam 1 MG TABLET PO ONE (22:00)
[2022-03-18] MEDS ORDERED: ONDANSETRON *ODT* 4 MG TABLET SL PRN (22:24)
[2022-03-18] MEDS ORDERED: BENZOCAINE/MENTHOL (CHLORASEPTIC ) LOZENGE MM PRN (22:24)
[2022-03-18] MEDS ORDERED: MAGNESIUM HYDROX 2400MG/30ML ORAL SUSPENSION 30 ML CUP PO PRN (22:24)
[2022-03-18] MEDS ORDERED: LOPERAMIDE HCL 2 MG CAPSULE PO PRN (22:24)
[2022-03-18] MEDS ORDERED: MAGNESIUM CITRATE 300 ML BOTTLE PO PRN (22:24)
[2022-03-18] MEDS ORDERED: BISMUTH SUBSALICYLATE 524 MG/30 ML PO PRN (22:24)
[2022-03-18] MEDS ORDERED: LORazepam 1 MG TABLET PO PRN (22:24)
[2022-03-18] MEDS ORDERED: NICOTINE 10 MG CARTRIDGE (INHALER) IH PRN (22:24)
[2022-03-18] MEDS ORDERED: MAG HYDROX/AL HYDROX/SIMETH 30 ML UNIT-DOSE CUP PO PRN (22:24)
[2022-03-18] MEDS ORDERED: ALBUTEROL SO4 HFA INHALER IH PRN (22:29)
[2022-03-18] MEDS ORDERED: QUEtiapine FUMARATE 100 MG TABLET (FP) PO ONE (22:34)
[2022-03-19] MEDS: METHOCARBAMOL 500 MG TABLET PO PRN ×4 (00:59→22:28)
[2022-03-19] MEDS: IBUPROFEN 400 MG TABLET (FP) PO PRN ×2 (00:59→15:31)
[2022-03-19] MEDS: LIDOCAINE PATCH REMOVAL MC SCH ×2 (01:03→22:25)
[2022-03-19] MEDS: BUPRENORPHINE/NALOXONE 8 MG/2 MG FILM PACKET SL SCH ×4 (06:01→22:25)
[2022-03-19] MEDS: LORazepam 0.5 MG TABLET PO SCH ×4 (06:01→22:24)
[2022-03-19] MEDS ORDERED: FUROSEMIDE 40 MG TABLET (FP) PO SCH (10:00)
[2022-03-19] MEDS: LIDOCAINE 5% TOPICAL PATCH TP SCH (10:19)
[2022-03-19] MEDS: amLODIPine BESYLATE 5 MG TABLET (FP) PO SCH (10:20)
[2022-03-19] MEDS: hydrOXYzine PAMOATE 25 MG CAPSULE (FP) PO PRN ×2 (10:20→18:06)
[2022-03-19] MEDS: SPIRONOLACTONE 25 MG TABLET PO SCH (10:20)
[2022-03-19] MEDS: PANTOPRAZOLE 20 MG TABLET PO SCH (10:20)
[2022-03-19] MEDS: PRENATAL VITAMINS W/ FOLIC ACID TABLET (FP) PO SCH (10:21)
[2022-03-19] MEDS: BUDESONIDE/FORMETEROL FUMARATE 80/4.5 mcg INHALER IH SCH (10:21)
[2022-03-19] MEDS: LACTULOSE 20 GM/30 ML UDC (FOR ORAL USE ONLY) PO SCH (10:22)
[2022-03-19] MEDS ORDERED: FUROSEMIDE 20 MG TABLET (FP) PO SCH (11:06)
[2022-03-19] MEDS ORDERED: QUEtiapine FUMARATE 50 MG TABLET PO PRN (11:25)
[2022-03-19] MEDS ORDERED: THIAMINE HCL 100 MG TABLET (FP) PO SCH (22:00)
[2022-03-19] MEDS ORDERED: MELATONIN 5 MG TABLETS PO SCH (22:00)
[2022-03-19] MEDS ORDERED: PATIENT'S OWN MEDICATION (NON-FORMULARY) (Lidocaine Patch Removal 1 EACH Each) MC SCH (22:00)
[2022-03-20] MEDS: IBUPROFEN 400 MG TABLET (FP) PO PRN ×2 (00:33→10:17)
[2022-03-20] MEDS ORDERED: LORazepam 0.5 MG TABLET PO ONE (05:00)
[2022-03-20] MEDS: BUPRENORPHINE/NALOXONE 8 MG/2 MG FILM PACKET SL SCH ×2 (05:51→13:40)
[2022-03-20] MEDS: METHOCARBAMOL 500 MG TABLET PO PRN ×2 (05:54→12:09)
[2022-03-20] MEDS: hydrOXYzine PAMOATE 25 MG CAPSULE (FP) PO PRN (05:55)
[2022-03-20 09:35] VITALS: TEMP 97.8
[2022-03-20] MEDS: amLODIPine BESYLATE 5 MG TABLET (FP) PO SCH (10:13)
[2022-03-20] MEDS: PANTOPRAZOLE 20 MG TABLET PO SCH (10:13)
[2022-03-20] MEDS: PRENATAL VITAMINS W/ FOLIC ACID TABLET (FP) PO SCH (10:13)
[2022-03-20] MEDS: LIDOCAINE 5% TOPICAL PATCH TP SCH (10:14)
[2022-03-20] MEDS: SPIRONOLACTONE 25 MG TABLET PO SCH (10:14)
[2022-03-20] MEDS: LACTULOSE 20 GM/30 ML UDC (FOR ORAL USE ONLY) PO SCH (10:15)
[2022-03-20] MEDS: BUDESONIDE/FORMETEROL FUMARATE 80/4.5 mcg INHALER IH SCH (10:15)
[2022-03-20 13:11] VITALS: BP 118/55; PULSE 90
== END 2022-03-20 16:15 | disposition other institution (70) | DRG 897 ==
LOC: YASAS 17:30 → Y6N 23:19
PROVIDERS: ADMIT Allergy & Immunology; ATTEND Surgery
PROC: HZ2ZZZZ Detoxification Services for Substance Abuse Treatment (ICD-10-PCS; principal; 2022-03-18)
DX: F10.230 Alcohol dependence with withdrawal, uncomplicated (principal); F10.282 Alcohol dependence with alcohol-induced sleep disorder; F19.24 Other psychoactive substance dependence with psychoactive substance-induced mood disorder; F41.9 Anxiety disorder, unspecified; E87.6 Hypokalemia; D50.9 Iron deficiency anemia, unspecified; I10 Essential (primary) hypertension; J45.909 Unspecified asthma, uncomplicated; K21.9 Gastro-esophageal reflux disease without esophagitis; K74.60 Unspecified cirrhosis of liver; R60.0 Localized edema; Z86.16 Personal history of COVID-19
CPT/HCPCS: C9803-CS; U0003; U0005

== ENCOUNTER 2022-03-20 11:01 | Inpatient (IN) | payer OTHER ==
[2022-03-20] MEDS ORDERED: P-EPHED 60MG/TRIPROLIDI 2.5MG TABLET PO PRN (17:36)
[2022-03-20] MEDS ORDERED: NICOTINE 10 MG CARTRIDGE (INHALER) IH PRN (17:36)
[2022-03-20] MEDS ORDERED: guaiFENesin 200 MG/10 ML 10 ML UNIT-DOSE CUPS PO PRN (17:36)
[2022-03-20] MEDS ORDERED: MAGNESIUM HYDROX 2400MG/30ML ORAL SUSPENSION 30 ML CUP PO PRN (17:36)
[2022-03-20] MEDS ORDERED: MAGNESIUM CITRATE 300 ML BOTTLE PO PRN (17:36)
[2022-03-20] MEDS ORDERED: ACETAMINOPHEN 325 MG TABLET (FP) PO PRN (17:36)
[2022-03-20] MEDS ORDERED: LOPERAMIDE HCL 2 MG CAPSULE PO PRN (17:36)
[2022-03-20] MEDS ORDERED: BENZOCAINE/MENTHOL (CHLORASEPTIC ) LOZENGE MM PRN (17:36)
[2022-03-20] MEDS ORDERED: hydrOXYzine PAMOATE 25 MG CAPSULE (FP) PO SCH (18:00)
[2022-03-20] MEDS: IBUPROFEN 400 MG TABLET (FP) PO PRN (18:58)
[2022-03-20] MEDS ORDERED: ALBUTEROL SO4 HFA INHALER IH PRN (19:20)
[2022-03-20] MEDS: MELATONIN 5 MG TABLETS PO SCH (21:06)
[2022-03-20] MEDS: hydrOXYzine PAMOATE 25 MG CAPSULE (FP) PO PRN (21:07)
[2022-03-20] MEDS: THIAMINE HCL 100 MG TABLET (FP) PO SCH (21:07)
[2022-03-20] MEDS ORDERED: PATIENT'S OWN MEDICATION (NON-FORMULARY) (Lidocaine Patch Removal 1 EACH Each) MC SCH (22:00)
[2022-03-21] MEDS: hydrOXYzine PAMOATE 25 MG CAPSULE (FP) PO PRN ×2 (06:20→15:52)
[2022-03-21] MEDS: IBUPROFEN 400 MG TABLET (FP) PO PRN ×2 (06:20→19:10)
[2022-03-21] MEDS: NICOTINE 7 MG/24 HOURS TOPICAL PATCH TD SCH (10:22)
[2022-03-21] MEDS: FUROSEMIDE 40 MG TABLET (FP) PO SCH (10:22)
[2022-03-21] MEDS: amLODIPine BESYLATE 5 MG TABLET (FP) PO SCH (10:22)
[2022-03-21] MEDS: SPIRONOLACTONE 25 MG TABLET PO SCH (10:22)
[2022-03-21] MEDS: LACTULOSE 20 GM/30 ML UDC (FOR ORAL USE ONLY) PO SCH (10:22)
[2022-03-21] MEDS: PRENATAL VITAMINS W/ FOLIC ACID TABLET (FP) PO SCH (10:23)
[2022-03-21] MEDS: POTASSIUM CHLORIDE TABS 20 MEQ TABLET.ER (FP) PO SCH (10:23)
[2022-03-21] MEDS: BUPRENORPHINE/NALOXONE 8 MG/2 MG FILM PACKET SL SCH ×2 (12:08→21:21)
[2022-03-21] MEDS: MELATONIN 5 MG TABLETS PO SCH (21:21)
[2022-03-21] MEDS: THIAMINE HCL 100 MG TABLET (FP) PO SCH (21:21)
[2022-03-21] MEDS: QUEtiapine FUMARATE 50 MG TABLET PO SCH (21:21)
[2022-03-21] MEDS: METHYL SALICYLATE/MENTHOL OINT 30 GM TUBE TP SCH (21:23)
[2022-03-22] MEDS: hydrOXYzine PAMOATE 25 MG CAPSULE (FP) PO PRN ×3 (03:29→21:56)
[2022-03-22] MEDS: IBUPROFEN 400 MG TABLET (FP) PO PRN ×3 (03:30→17:13)
[2022-03-22] MEDS: FOLIC ACID 1 MG TABLET (FP) PO SCH (10:21)
[2022-03-22] MEDS: PRENATAL VITAMINS W/ FOLIC ACID TABLET (FP) PO SCH (10:21)
[2022-03-22] MEDS: FERROUS SO4 325 MG TABLET (FP) PO SCH ×2 (10:21→21:55)
[2022-03-22] MEDS: SPIRONOLACTONE 25 MG TABLET PO SCH (10:22)
[2022-03-22] MEDS: FUROSEMIDE 40 MG TABLET (FP) PO SCH (10:22)
[2022-03-22] MEDS: amLODIPine BESYLATE 5 MG TABLET (FP) PO SCH (10:22)
[2022-03-22] MEDS: PANTOPRAZOLE 20 MG TABLET PO SCH (10:23)
[2022-03-22] MEDS: NICOTINE 7 MG/24 HOURS TOPICAL PATCH TD SCH (10:23)
[2022-03-22] MEDS: BUDESONIDE/FORMETEROL FUMARATE 80/4.5 mcg INHALER IH SCH ×2 (10:24→21:59)
[2022-03-22] MEDS: BUPRENORPHINE/NALOXONE 8 MG/2 MG FILM PACKET SL SCH ×2 (10:26→21:58)
[2022-03-22] MEDS: LACTULOSE 20 GM/30 ML UDC (FOR ORAL USE ONLY) PO SCH (12:28)
[2022-03-22] MEDS: METHYL SALICYLATE/MENTHOL OINT 30 GM TUBE TP SCH ×2 (12:28→21:57)
[2022-03-22] MEDS: QUEtiapine FUMARATE 50 MG TABLET PO SCH (21:54)
[2022-03-22] MEDS: MELATONIN 5 MG TABLETS PO SCH (21:54)
[2022-03-22] MEDS: THIAMINE HCL 100 MG TABLET (FP) PO SCH (21:59)
[2022-03-23] MEDS: IBUPROFEN 400 MG TABLET (FP) PO PRN (05:53)
[2022-03-23] MEDS: hydrOXYzine PAMOATE 25 MG CAPSULE (FP) PO PRN ×2 (05:53→21:07)
[2022-03-23] MEDS: FOLIC ACID 1 MG TABLET (FP) PO SCH (10:05)
[2022-03-23] MEDS: amLODIPine BESYLATE 5 MG TABLET (FP) PO SCH (10:05)
[2022-03-23] MEDS: SPIRONOLACTONE 25 MG TABLET PO SCH (10:06)
[2022-03-23] MEDS: PANTOPRAZOLE 20 MG TABLET PO SCH (10:06)
[2022-03-23] MEDS: FUROSEMIDE 40 MG TABLET (FP) PO SCH (10:06)
[2022-03-23] MEDS: FERROUS SO4 325 MG TABLET (FP) PO SCH ×2 (10:06→21:06)
[2022-03-23] MEDS: MAG HYDROX/AL HYDROX/SIMETH 30 ML UNIT-DOSE CUP PO PRN (10:09)
[2022-03-23] MEDS: BUPRENORPHINE/NALOXONE 8 MG/2 MG FILM PACKET SL SCH ×2 (10:09→21:05)
[2022-03-23] MEDS: METHYL SALICYLATE/MENTHOL OINT 30 GM TUBE TP SCH ×2 (11:02→21:55)
[2022-03-23] MEDS: LACTULOSE 20 GM/30 ML UDC (FOR ORAL USE ONLY) PO SCH (11:02)
[2022-03-23] MEDS: PRENATAL VITAMINS W/ FOLIC ACID TABLET (FP) PO SCH (11:02)
[2022-03-23] MEDS: BUDESONIDE/FORMETEROL FUMARATE 80/4.5 mcg INHALER IH SCH ×2 (11:02→21:56)
[2022-03-23] MEDS: NICOTINE 7 MG/24 HOURS TOPICAL PATCH TD SCH (11:02)
[2022-03-23] MEDS: THIAMINE HCL 100 MG TABLET (FP) PO SCH (21:05)
[2022-03-23] MEDS: MELATONIN 5 MG TABLETS PO SCH (21:05)
[2022-03-23] MEDS: QUEtiapine FUMARATE 50 MG TABLET PO SCH (21:06)
[2022-03-24] MEDS: IBUPROFEN 400 MG TABLET (FP) PO PRN ×2 (02:16→13:13)
[2022-03-24] MEDS: METHYL SALICYLATE/MENTHOL OINT 30 GM TUBE TP SCH ×2 (10:39→21:08)
[2022-03-24] MEDS: LACTULOSE 20 GM/30 ML UDC (FOR ORAL USE ONLY) PO SCH (10:39)
[2022-03-24] MEDS: amLODIPine BESYLATE 5 MG TABLET (FP) PO SCH (10:40)
[2022-03-24] MEDS: FERROUS SO4 325 MG TABLET (FP) PO SCH ×2 (10:40→21:07)
[2022-03-24] MEDS: BUPRENORPHINE/NALOXONE 8 MG/2 MG FILM PACKET SL SCH ×2 (10:40→21:07)
[2022-03-24] MEDS: PANTOPRAZOLE 20 MG TABLET PO SCH (10:40)
[2022-03-24] MEDS: PRENATAL VITAMINS W/ FOLIC ACID TABLET (FP) PO SCH (10:40)
[2022-03-24] MEDS: FOLIC ACID 1 MG TABLET (FP) PO SCH (10:40)
[2022-03-24] MEDS: hydrOXYzine PAMOATE 25 MG CAPSULE (FP) PO PRN ×2 (10:40→21:08)
[2022-03-24] MEDS: SPIRONOLACTONE 25 MG TABLET PO SCH (10:40)
[2022-03-24] MEDS: FUROSEMIDE 40 MG TABLET (FP) PO SCH (10:40)
[2022-03-24] MEDS: NICOTINE 7 MG/24 HOURS TOPICAL PATCH TD SCH (11:05)
[2022-03-24] MEDS: POTASSIUM CHLORIDE TABS 20 MEQ TABLET.ER (FP) PO SCH (11:06)
[2022-03-24] MEDS: BUDESONIDE/FORMETEROL FUMARATE 80/4.5 mcg INHALER IH SCH ×2 (11:09→21:07)
[2022-03-24 13:57] LABS: CALCIUM 8.8 mg/dL (8.5-10.1)
[2022-03-24 13:58] LABS: BLOOD UREA NITROGEN 17.6 mg/dL (7-18)
[2022-03-24 14:01] LABS: CREATININE 0.9 mg/dL (0.55-1.3)
[2022-03-24] MEDS: QUEtiapine FUMARATE 50 MG TABLET PO SCH (21:06)
[2022-03-24] MEDS: THIAMINE HCL 100 MG TABLET (FP) PO SCH (21:07)
[2022-03-24] MEDS: MELATONIN 5 MG TABLETS PO SCH (21:07)
[2022-03-25] MEDS: IBUPROFEN 400 MG TABLET (FP) PO PRN ×2 (03:51→16:31)
[2022-03-25] MEDS: hydrOXYzine PAMOATE 25 MG CAPSULE (FP) PO PRN ×3 (03:52→21:12)
[2022-03-25] MEDS: FOLIC ACID 1 MG TABLET (FP) PO SCH (10:10)
[2022-03-25] MEDS: amLODIPine BESYLATE 5 MG TABLET (FP) PO SCH (10:10)
[2022-03-25] MEDS: FUROSEMIDE 40 MG TABLET (FP) PO SCH (10:10)
[2022-03-25] MEDS: FERROUS SO4 325 MG TABLET (FP) PO SCH ×2 (10:10→21:12)
[2022-03-25] MEDS: SPIRONOLACTONE 25 MG TABLET PO SCH (10:10)
[2022-03-25] MEDS: PRENATAL VITAMINS W/ FOLIC ACID TABLET (FP) PO SCH (10:10)
[2022-03-25] MEDS: PANTOPRAZOLE 20 MG TABLET PO SCH (10:10)
[2022-03-25] MEDS: BUPRENORPHINE/NALOXONE 8 MG/2 MG FILM PACKET SL SCH ×2 (10:11→21:13)
[2022-03-25] MEDS: LACTULOSE 20 GM/30 ML UDC (FOR ORAL USE ONLY) PO SCH (10:11)
[2022-03-25] MEDS: METHYL SALICYLATE/MENTHOL OINT 30 GM TUBE TP SCH ×2 (10:48→21:48)
[2022-03-25] MEDS: BUDESONIDE/FORMETEROL FUMARATE 80/4.5 mcg INHALER IH SCH ×2 (10:49→21:13)
[2022-03-25] MEDS: NICOTINE 7 MG/24 HOURS TOPICAL PATCH TD SCH (10:49)
[2022-03-25] MEDS: MELATONIN 5 MG TABLETS PO SCH (21:12)
[2022-03-25] MEDS: THIAMINE HCL 100 MG TABLET (FP) PO SCH (21:12)
[2022-03-25] MEDS: QUEtiapine FUMARATE 50 MG TABLET PO SCH (21:12)
[2022-03-26] MEDS: hydrOXYzine PAMOATE 25 MG CAPSULE (FP) PO PRN (06:43)
[2022-03-26] MEDS: IBUPROFEN 400 MG TABLET (FP) PO PRN ×2 (06:43→13:30)
[2022-03-26 07:14] VITALS: RESP 18
[2022-03-26] MEDS: SPIRONOLACTONE 25 MG TABLET PO SCH (09:51)
[2022-03-26] MEDS: FUROSEMIDE 40 MG TABLET (FP) PO SCH (09:52)
[2022-03-26] MEDS: METHYL SALICYLATE/MENTHOL OINT 30 GM TUBE TP SCH ×2 (09:52→21:32)
[2022-03-26] MEDS: LACTULOSE 20 GM/30 ML UDC (FOR ORAL USE ONLY) PO SCH (09:52)
[2022-03-26] MEDS: FERROUS SO4 325 MG TABLET (FP) PO SCH ×2 (09:52→21:31)
[2022-03-26] MEDS: FOLIC ACID 1 MG TABLET (FP) PO SCH (09:52)
[2022-03-26] MEDS: PRENATAL VITAMINS W/ FOLIC ACID TABLET (FP) PO SCH (09:53)
[2022-03-26] MEDS: BUPRENORPHINE/NALOXONE 8 MG/2 MG FILM PACKET SL SCH ×2 (09:53→21:31)
[2022-03-26] MEDS: PANTOPRAZOLE 20 MG TABLET PO SCH (09:53)
[2022-03-26] MEDS: amLODIPine BESYLATE 5 MG TABLET (FP) PO SCH (09:53)
[2022-03-26] MEDS: NICOTINE 7 MG/24 HOURS TOPICAL PATCH TD SCH (09:53)
[2022-03-26] MEDS: BUDESONIDE/FORMETEROL FUMARATE 80/4.5 mcg INHALER IH SCH ×2 (09:54→21:33)
[2022-03-26] MEDS: THIAMINE HCL 100 MG TABLET (FP) PO SCH (21:31)
[2022-03-26] MEDS: QUEtiapine FUMARATE 50 MG TABLET PO SCH (21:31)
[2022-03-26] MEDS: MELATONIN 5 MG TABLETS PO SCH (21:31)
[2022-03-27] MEDS: IBUPROFEN 400 MG TABLET (FP) PO PRN ×2 (06:08→18:10)
[2022-03-27] MEDS: hydrOXYzine PAMOATE 25 MG CAPSULE (FP) PO PRN ×2 (06:08→21:25)
[2022-03-27] MEDS: SPIRONOLACTONE 25 MG TABLET PO SCH (10:08)
[2022-03-27] MEDS: FERROUS SO4 325 MG TABLET (FP) PO SCH ×2 (10:08→21:25)
[2022-03-27] MEDS: amLODIPine BESYLATE 5 MG TABLET (FP) PO SCH (10:08)
[2022-03-27] MEDS: LACTULOSE 20 GM/30 ML UDC (FOR ORAL USE ONLY) PO SCH (10:08)
[2022-03-27] MEDS: FUROSEMIDE 40 MG TABLET (FP) PO SCH (10:08)
[2022-03-27] MEDS: FOLIC ACID 1 MG TABLET (FP) PO SCH (10:08)
[2022-03-27] MEDS: PANTOPRAZOLE 20 MG TABLET PO SCH (10:08)
[2022-03-27] MEDS: PRENATAL VITAMINS W/ FOLIC ACID TABLET (FP) PO SCH (10:08)
[2022-03-27] MEDS: METHYL SALICYLATE/MENTHOL OINT 30 GM TUBE TP SCH ×2 (10:09→21:27)
[2022-03-27] MEDS: BUPRENORPHINE/NALOXONE 8 MG/2 MG FILM PACKET SL SCH ×2 (10:09→21:27)
[2022-03-27] MEDS: BUDESONIDE/FORMETEROL FUMARATE 80/4.5 mcg INHALER IH SCH ×2 (10:09→21:28)
[2022-03-27] MEDS: NICOTINE 7 MG/24 HOURS TOPICAL PATCH TD SCH (10:09)
[2022-03-27] MEDS: QUEtiapine FUMARATE 50 MG TABLET PO SCH (21:25)
[2022-03-27] MEDS: THIAMINE HCL 100 MG TABLET (FP) PO SCH (21:26)
[2022-03-27] MEDS: MELATONIN 5 MG TABLETS PO SCH (21:26)
[2022-03-28] MEDS: IBUPROFEN 400 MG TABLET (FP) PO PRN (05:55)
[2022-03-28] MEDS: hydrOXYzine PAMOATE 25 MG CAPSULE (FP) PO PRN ×2 (05:55→21:26)
[2022-03-28] MEDS: PRENATAL VITAMINS W/ FOLIC ACID TABLET (FP) PO SCH (10:33)
[2022-03-28] MEDS: PANTOPRAZOLE 20 MG TABLET PO SCH (10:33)
[2022-03-28] MEDS: FOLIC ACID 1 MG TABLET (FP) PO SCH (10:33)
[2022-03-28] MEDS: BUPRENORPHINE/NALOXONE 8 MG/2 MG FILM PACKET SL SCH (10:33)
[2022-03-28] MEDS: NICOTINE 7 MG/24 HOURS TOPICAL PATCH TD SCH (10:34)
[2022-03-28] MEDS: amLODIPine BESYLATE 5 MG TABLET (FP) PO SCH (10:34)
[2022-03-28] MEDS: LACTULOSE 20 GM/30 ML UDC (FOR ORAL USE ONLY) PO SCH (10:34)
[2022-03-28] MEDS: FERROUS SO4 325 MG TABLET (FP) PO SCH ×2 (10:34→21:25)
[2022-03-28] MEDS: SPIRONOLACTONE 25 MG TABLET PO SCH (10:35)
[2022-03-28] MEDS: METHYL SALICYLATE/MENTHOL OINT 30 GM TUBE TP SCH ×2 (10:36→21:25)
[2022-03-28] MEDS: FUROSEMIDE 40 MG TABLET (FP) PO SCH (10:37)
[2022-03-28] MEDS: BUDESONIDE/FORMETEROL FUMARATE 80/4.5 mcg INHALER IH SCH ×2 (10:37→21:27)
[2022-03-28] MEDS: MELATONIN 5 MG TABLETS PO SCH (21:25)
[2022-03-28] MEDS: QUEtiapine FUMARATE 50 MG TABLET PO SCH (21:25)
[2022-03-28] MEDS: THIAMINE HCL 100 MG TABLET (FP) PO SCH (21:25)
[2022-03-28] MEDS ORDERED: BUPRENORPHINE/NALOXONE 8 MG/2 MG FILM PACKET SL ONE (22:00)
[2022-03-29] MEDS: IBUPROFEN 400 MG TABLET (FP) PO PRN ×2 (06:12→15:59)
[2022-03-29] MEDS: hydrOXYzine PAMOATE 25 MG CAPSULE (FP) PO PRN (06:12)
[2022-03-29] MEDS: PRENATAL VITAMINS W/ FOLIC ACID TABLET (FP) PO SCH (09:58)
[2022-03-29] MEDS: FUROSEMIDE 40 MG TABLET (FP) PO SCH (09:58)
[2022-03-29] MEDS: FERROUS SO4 325 MG TABLET (FP) PO SCH ×2 (09:58→21:44)
[2022-03-29] MEDS: PANTOPRAZOLE 20 MG TABLET PO SCH (09:58)
[2022-03-29] MEDS: amLODIPine BESYLATE 5 MG TABLET (FP) PO SCH (09:58)
[2022-03-29] MEDS: SPIRONOLACTONE 25 MG TABLET PO SCH (09:59)
[2022-03-29] MEDS: BUPRENORPHINE/NALOXONE 8 MG/2 MG FILM PACKET SL SCH ×2 (09:59→21:44)
[2022-03-29] MEDS: FOLIC ACID 1 MG TABLET (FP) PO SCH (09:59)
[2022-03-29] MEDS: METHYL SALICYLATE/MENTHOL OINT 30 GM TUBE TP SCH ×2 (09:59→21:45)
[2022-03-29] MEDS: BUDESONIDE/FORMETEROL FUMARATE 80/4.5 mcg INHALER IH SCH ×2 (10:02→21:46)
[2022-03-29] MEDS: NICOTINE 7 MG/24 HOURS TOPICAL PATCH TD SCH (10:02)
[2022-03-29] MEDS: LACTULOSE 20 GM/30 ML UDC (FOR ORAL USE ONLY) PO SCH (10:03)
[2022-03-29] MEDS: QUEtiapine FUMARATE 50 MG TABLET PO SCH (21:44)
[2022-03-29] MEDS: MELATONIN 5 MG TABLETS PO SCH (21:45)
[2022-03-29] MEDS: THIAMINE HCL 100 MG TABLET (FP) PO SCH (21:45)
[2022-03-30] MEDS: IBUPROFEN 400 MG TABLET (FP) PO PRN ×2 (06:31→16:44)
[2022-03-30] MEDS: hydrOXYzine PAMOATE 25 MG CAPSULE (FP) PO PRN (06:32)
[2022-03-30] MEDS: PANTOPRAZOLE 20 MG TABLET PO SCH (10:14)
[2022-03-30] MEDS: SPIRONOLACTONE 25 MG TABLET PO SCH (10:14)
[2022-03-30] MEDS: FERROUS SO4 325 MG TABLET (FP) PO SCH ×2 (10:14→21:17)
[2022-03-30] MEDS: FUROSEMIDE 40 MG TABLET (FP) PO SCH (10:14)
[2022-03-30] MEDS: FOLIC ACID 1 MG TABLET (FP) PO SCH (10:14)
[2022-03-30] MEDS: PRENATAL VITAMINS W/ FOLIC ACID TABLET (FP) PO SCH (10:14)
[2022-03-30] MEDS: METHYL SALICYLATE/MENTHOL OINT 30 GM TUBE TP SCH ×2 (10:15→21:20)
[2022-03-30] MEDS: NICOTINE 7 MG/24 HOURS TOPICAL PATCH TD SCH (10:15)
[2022-03-30] MEDS: amLODIPine BESYLATE 5 MG TABLET (FP) PO SCH (10:15)
[2022-03-30] MEDS: LACTULOSE 20 GM/30 ML UDC (FOR ORAL USE ONLY) PO SCH (10:15)
[2022-03-30] MEDS: BUDESONIDE/FORMETEROL FUMARATE 80/4.5 mcg INHALER IH SCH ×2 (10:16→21:19)
[2022-03-30] MEDS: BUPRENORPHINE/NALOXONE 8 MG/2 MG FILM PACKET SL SCH ×2 (10:16→21:18)
[2022-03-30] MEDS: QUEtiapine FUMARATE 50 MG TABLET PO SCH (21:17)
[2022-03-30] MEDS: MELATONIN 5 MG TABLETS PO SCH (21:18)
[2022-03-30] MEDS: THIAMINE HCL 100 MG TABLET (FP) PO SCH (21:18)
[2022-03-31] MEDS: IBUPROFEN 400 MG TABLET (FP) PO PRN ×2 (06:21→17:54)
[2022-03-31] MEDS: hydrOXYzine PAMOATE 25 MG CAPSULE (FP) PO PRN (06:21)
[2022-03-31] MEDS: amLODIPine BESYLATE 5 MG TABLET (FP) PO SCH (10:24)
[2022-03-31] MEDS: PANTOPRAZOLE 20 MG TABLET PO SCH (10:25)
[2022-03-31] MEDS: FOLIC ACID 1 MG TABLET (FP) PO SCH (10:25)
[2022-03-31] MEDS: PRENATAL VITAMINS W/ FOLIC ACID TABLET (FP) PO SCH (10:25)
[2022-03-31] MEDS: BUPRENORPHINE/NALOXONE 8 MG/2 MG FILM PACKET SL SCH ×2 (10:25→21:46)
[2022-03-31] MEDS: METHYL SALICYLATE/MENTHOL OINT 30 GM TUBE TP SCH ×2 (10:25→21:45)
[2022-03-31] MEDS: FERROUS SO4 325 MG TABLET (FP) PO SCH ×2 (10:25→21:44)
[2022-03-31] MEDS: LACTULOSE 20 GM/30 ML UDC (FOR ORAL USE ONLY) PO SCH (10:25)
[2022-03-31] MEDS: NICOTINE 7 MG/24 HOURS TOPICAL PATCH TD SCH (10:25)
[2022-03-31] MEDS: SPIRONOLACTONE 25 MG TABLET PO SCH (10:25)
[2022-03-31] MEDS: FUROSEMIDE 40 MG TABLET (FP) PO SCH (10:28)
[2022-03-31] MEDS: BUDESONIDE/FORMETEROL FUMARATE 80/4.5 mcg INHALER IH SCH ×2 (12:13→22:01)
[2022-03-31] MEDS: QUEtiapine FUMARATE 50 MG TABLET PO SCH (21:44)
[2022-03-31] MEDS: MELATONIN 5 MG TABLETS PO SCH (21:44)
[2022-03-31] MEDS: THIAMINE HCL 100 MG TABLET (FP) PO SCH (21:46)
[2022-04-01] MEDS: IBUPROFEN 400 MG TABLET (FP) PO PRN ×3 (06:19→21:12)
[2022-04-01] MEDS: hydrOXYzine PAMOATE 25 MG CAPSULE (FP) PO PRN ×2 (06:20→21:14)
[2022-04-01] MEDS: FOLIC ACID 1 MG TABLET (FP) PO SCH (10:16)
[2022-04-01] MEDS: FUROSEMIDE 40 MG TABLET (FP) PO SCH (10:16)
[2022-04-01] MEDS: PANTOPRAZOLE 20 MG TABLET PO SCH (10:16)
[2022-04-01] MEDS: FERROUS SO4 325 MG TABLET (FP) PO SCH ×2 (10:16→21:12)
[2022-04-01] MEDS: amLODIPine BESYLATE 5 MG TABLET (FP) PO SCH (10:16)
[2022-04-01] MEDS: PRENATAL VITAMINS W/ FOLIC ACID TABLET (FP) PO SCH (10:16)
[2022-04-01] MEDS: METHYL SALICYLATE/MENTHOL OINT 30 GM TUBE TP SCH ×2 (10:17→21:11)
[2022-04-01] MEDS: BUDESONIDE/FORMETEROL FUMARATE 80/4.5 mcg INHALER IH SCH ×2 (10:17→21:14)
[2022-04-01] MEDS: BUPRENORPHINE/NALOXONE 8 MG/2 MG FILM PACKET SL SCH ×2 (10:17→21:12)
[2022-04-01] MEDS: LACTULOSE 20 GM/30 ML UDC (FOR ORAL USE ONLY) PO SCH (10:17)
[2022-04-01] MEDS: NICOTINE 7 MG/24 HOURS TOPICAL PATCH TD SCH (10:17)
[2022-04-01] MEDS: SPIRONOLACTONE 25 MG TABLET PO SCH (10:17)
[2022-04-01] MEDS: MAG HYDROX/AL HYDROX/SIMETH 30 ML UNIT-DOSE CUP PO PRN (17:19)
[2022-04-01] MEDS: QUEtiapine FUMARATE 50 MG TABLET PO SCH (21:11)
[2022-04-01] MEDS: THIAMINE HCL 100 MG TABLET (FP) PO SCH (21:12)
[2022-04-01] MEDS: MELATONIN 5 MG TABLETS PO SCH (21:12)
[2022-04-02] MEDS: IBUPROFEN 400 MG TABLET (FP) PO PRN ×3 (05:58→21:28)
[2022-04-02] MEDS: hydrOXYzine PAMOATE 25 MG CAPSULE (FP) PO PRN (05:58)
[2022-04-02] MEDS: NICOTINE 7 MG/24 HOURS TOPICAL PATCH TD SCH (10:24)
[2022-04-02] MEDS: PANTOPRAZOLE 20 MG TABLET PO SCH (10:24)
[2022-04-02] MEDS: FUROSEMIDE 40 MG TABLET (FP) PO SCH (10:24)
[2022-04-02] MEDS: FOLIC ACID 1 MG TABLET (FP) PO SCH (10:24)
[2022-04-02] MEDS: LACTULOSE 20 GM/30 ML UDC (FOR ORAL USE ONLY) PO SCH (10:24)
[2022-04-02] MEDS: amLODIPine BESYLATE 5 MG TABLET (FP) PO SCH (10:24)
[2022-04-02] MEDS: BUDESONIDE/FORMETEROL FUMARATE 80/4.5 mcg INHALER IH SCH ×2 (10:25→21:49)
[2022-04-02] MEDS: SPIRONOLACTONE 25 MG TABLET PO SCH (10:25)
[2022-04-02] MEDS: PRENATAL VITAMINS W/ FOLIC ACID TABLET (FP) PO SCH (10:25)
[2022-04-02] MEDS: FERROUS SO4 325 MG TABLET (FP) PO SCH ×2 (10:25→21:28)
[2022-04-02] MEDS: BUPRENORPHINE/NALOXONE 8 MG/2 MG FILM PACKET SL SCH ×2 (10:25→21:28)
[2022-04-02] MEDS: METHYL SALICYLATE/MENTHOL OINT 30 GM TUBE TP SCH ×2 (10:25→21:28)
[2022-04-02] MEDS: QUEtiapine FUMARATE 50 MG TABLET PO SCH (21:27)
[2022-04-02] MEDS: THIAMINE HCL 100 MG TABLET (FP) PO SCH (21:27)
[2022-04-02] MEDS: MELATONIN 5 MG TABLETS PO SCH (21:27)
[2022-04-03] MEDS: hydrOXYzine PAMOATE 25 MG CAPSULE (FP) PO PRN ×2 (06:17→21:18)
[2022-04-03] MEDS: IBUPROFEN 400 MG TABLET (FP) PO PRN ×2 (06:17→13:58)
[2022-04-03 06:57] VITALS: TEMP 97.3
[2022-04-03] MEDS: FOLIC ACID 1 MG TABLET (FP) PO SCH (09:47)
[2022-04-03] MEDS: FERROUS SO4 325 MG TABLET (FP) PO SCH ×2 (09:47→21:17)
[2022-04-03] MEDS: SPIRONOLACTONE 25 MG TABLET PO SCH (09:47)
[2022-04-03] MEDS: FUROSEMIDE 40 MG TABLET (FP) PO SCH (09:48)
[2022-04-03] MEDS: PRENATAL VITAMINS W/ FOLIC ACID TABLET (FP) PO SCH (09:48)
[2022-04-03] MEDS: amLODIPine BESYLATE 5 MG TABLET (FP) PO SCH (09:48)
[2022-04-03] MEDS: PANTOPRAZOLE 20 MG TABLET PO SCH (09:48)
[2022-04-03] MEDS: LACTULOSE 20 GM/30 ML UDC (FOR ORAL USE ONLY) PO SCH (09:49)
[2022-04-03] MEDS: BUPRENORPHINE/NALOXONE 8 MG/2 MG FILM PACKET SL SCH ×2 (09:49→21:19)
[2022-04-03] MEDS: NICOTINE 7 MG/24 HOURS TOPICAL PATCH TD SCH (10:53)
[2022-04-03] MEDS: METHYL SALICYLATE/MENTHOL OINT 30 GM TUBE TP SCH ×2 (10:53→21:19)
[2022-04-03] MEDS: BUDESONIDE/FORMETEROL FUMARATE 80/4.5 mcg INHALER IH SCH ×2 (10:53→21:19)
[2022-04-03] MEDS: QUEtiapine FUMARATE 50 MG TABLET PO SCH (21:17)
[2022-04-03] MEDS: THIAMINE HCL 100 MG TABLET (FP) PO SCH (21:17)
[2022-04-03] MEDS: MELATONIN 5 MG TABLETS PO SCH (21:18)
[2022-04-04] MEDS: IBUPROFEN 400 MG TABLET (FP) PO PRN (06:00)
[2022-04-04] MEDS: hydrOXYzine PAMOATE 25 MG CAPSULE (FP) PO PRN (06:01)
[2022-04-04] MEDS: SPIRONOLACTONE 25 MG TABLET PO SCH (09:57)
[2022-04-04] MEDS: METHYL SALICYLATE/MENTHOL OINT 30 GM TUBE TP SCH (09:57)
[2022-04-04] MEDS: FUROSEMIDE 40 MG TABLET (FP) PO SCH (09:58)
[2022-04-04] MEDS: FERROUS SO4 325 MG TABLET (FP) PO SCH (09:58)
[2022-04-04] MEDS: amLODIPine BESYLATE 5 MG TABLET (FP) PO SCH (09:58)
[2022-04-04] MEDS: FOLIC ACID 1 MG TABLET (FP) PO SCH (09:58)
[2022-04-04] MEDS: LACTULOSE 20 GM/30 ML UDC (FOR ORAL USE ONLY) PO SCH (09:58)
[2022-04-04] MEDS: NICOTINE 7 MG/24 HOURS TOPICAL PATCH TD SCH (09:58)
[2022-04-04] MEDS: PRENATAL VITAMINS W/ FOLIC ACID TABLET (FP) PO SCH (09:59)
[2022-04-04] MEDS: BUDESONIDE/FORMETEROL FUMARATE 80/4.5 mcg INHALER IH SCH (09:59)
[2022-04-04] MEDS: PANTOPRAZOLE 20 MG TABLET PO SCH (09:59)
[2022-04-04] MEDS ORDERED: BUPRENORPHINE/NALOXONE 8 MG/2 MG FILM PACKET SL SCH (10:00)
[2022-04-04 11:57] VITALS: BP 98/63; PULSE 75
== END 2022-04-04 10:06 | disposition home or self-care (01) | DRG 895 ==
LOC: YASAS 11:01 → Y3W 11:02
PROVIDERS: ADMIT Allergy & Immunology; ATTEND Psychiatry & Neurology Pain Medicine
PROC: HZ42ZZZ Group Counseling for Substance Abuse Treatment, Cognitive-Behavioral (ICD-10-PCS; principal; 2022-03-20)
DX: F10.20 Alcohol dependence, uncomplicated (principal); F11.20 Opioid dependence, uncomplicated; F12.20 Cannabis dependence, uncomplicated; F17.210 Nicotine dependence, cigarettes, uncomplicated; I10 Essential (primary) hypertension; K21.9 Gastro-esophageal reflux disease without esophagitis; K74.60 Unspecified cirrhosis of liver; J45.909 Unspecified asthma, uncomplicated; D50.9 Iron deficiency anemia, unspecified; G47.33 Obstructive sleep apnea (adult) (pediatric); E66.9 Obesity, unspecified; Z68.37 Body mass index [BMI] 37.0-37.9, adult; Z98.84 Bariatric surgery status
CPT/HCPCS: 36415; 72100-TC-FY; 80048; 82140; 82947; 82962

== ENCOUNTER 2022-07-27 11:39 | Inpatient (IN) | payer OTHER ==
[2022-07-27 12:36] VITALS: BMI 38.2
[2022-07-27] MEDS ORDERED: ONDANSETRON *ODT* 4 MG TABLET SL PRN (12:43)
[2022-07-27] MEDS ORDERED: MAGNESIUM HYDROX 2400MG/30ML ORAL SUSPENSION 30 ML CUP PO PRN (12:43)
[2022-07-27] MEDS ORDERED: DICYCLOMINE HCL 10 MG CAPSULE PO PRN (12:43)
[2022-07-27] MEDS ORDERED: IBUPROFEN 400 MG TABLET (FP) PO PRN (12:43)
[2022-07-27] MEDS ORDERED: LORazepam 1 MG TABLET PO PRN (12:43)
[2022-07-27] MEDS ORDERED: POLYETHYLENE GLYCOL (HEALTHYLAX) 3350 17 GM PACKET PO PRN (12:43)
[2022-07-27] MEDS ORDERED: BENZOCAINE/MENTHOL (CHLORASEPTIC ) LOZENGE MM PRN (12:43)
[2022-07-27] MEDS ORDERED: MAG HYDROX/AL HYDROX/SIMETH 30 ML UNIT-DOSE CUP PO PRN (12:43)
[2022-07-27] MEDS ORDERED: ACETAMINOPHEN 325 MG TABLET (FP) PO PRN ×2 (12:43)
[2022-07-27] MEDS ORDERED: NALOXONE HCL (KLOXXADO) 8 MG SPRAY NS PRN (12:43)
[2022-07-27] MEDS ORDERED: LORazepam 2 MG TABLET PO ONE (12:43)
[2022-07-27] MEDS ORDERED: BISMUTH SUBSALICYLATE 262 MG/15 ML BTL PO PRN (12:43)
[2022-07-27] MEDS ORDERED: LOPERAMIDE HCL 2 MG CAPSULE PO PRN (12:43)
[2022-07-27] MEDS ORDERED: ALBUTEROL SO4 HFA INHALER IH PRN (12:47)
[2022-07-27] MEDS ORDERED: LORazepam 2 MG TABLET ONE (13:21)
[2022-07-27] MEDS ORDERED: ONDANSETRON *ODT* 4 MG TABLET ONE (13:21)
[2022-07-27] MEDS: POTASSIUM CHLORIDE TABS 20 MEQ TABLET.ER (FP) PO SCH (14:37)
[2022-07-27] MEDS: PRENATAL VITAMINS W/ FOLIC ACID TABLET (FP) PO SCH (14:37)
[2022-07-27] MEDS: IBUPROFEN 600 MG TABLET (FP) PO PRN (17:47)
[2022-07-27] MEDS: LORazepam 2 MG TABLET PO SCH ×2 (17:49→22:43)
[2022-07-27 18:40] LABS: CALCIUM 8.1 mg/dL (8.5-10.1)
[2022-07-27 18:41] LABS: ALBUMIN 3.3 g/dl (3.4-5.0); BLOOD UREA NITROGEN 4.9 mg/dL (7-18)
[2022-07-27 18:42] LABS: HEMATOCRIT 38.2 % (35.4-49); HEMOGLOBIN 12.2 GM/dL (11.7-16.9); MCHC 31.8 g/dl (32.0-35.9); MEAN CELL VOLUME 84.9 fl (80-96); PLATELET COUNT 155 10^3/uL (134-434); RBC 4.51 M/mm3 (4.00-5.60); RDW 18.8 % (11.9-15.9)
[2022-07-27 18:44] LABS: CREATININE 0.8 mg/dL (0.55-1.3)
[2022-07-27 18:45] LABS: BILIRUBIN,TOTAL 0.6 mg/dL (0.2-1)
[2022-07-27 18:46] LABS: TOT PROT 7.1 g/dl (6.4-8.2)
[2022-07-27] MEDS: MELATONIN 5 MG TABLETS PO SCH (21:57)
[2022-07-27] MEDS: THIAMINE HCL 100 MG TABLET (FP) PO SCH (21:57)
[2022-07-27] MEDS ORDERED: PATIENT'S OWN MEDICATION (NON-FORMULARY) (Lidocaine Patch Removal 1 EACH Each) MC SCH (22:00)
[2022-07-27] MEDS: QUEtiapine FUMARATE 50 MG TABLET PO SCH (22:00)
[2022-07-27] MEDS: BUDESONIDE/FORMETEROL FUMARATE 80/4.5 mcg INHALER IH SCH (22:44)
[2022-07-28] MEDS: LORazepam 2 MG TABLET PO SCH ×4 (05:20→22:12)
[2022-07-28] MEDS: METHOCARBAMOL 500 MG TABLET PO PRN ×2 (05:21→17:19)
[2022-07-28] MEDS ORDERED: LACTULOSE 20 GM/30 ML UDC (FOR ORAL USE ONLY) PO SCH (10:00)
[2022-07-28] MEDS: PRENATAL VITAMINS W/ FOLIC ACID TABLET (FP) PO SCH (10:16)
[2022-07-28] MEDS: amLODIPine BESYLATE 5 MG TABLET (FP) PO SCH (10:16)
[2022-07-28] MEDS: BUDESONIDE/FORMETEROL FUMARATE 80/4.5 mcg INHALER IH SCH ×2 (10:16→22:12)
[2022-07-28] MEDS: PANTOPRAZOLE 20 MG TABLET PO SCH (10:16)
[2022-07-28] MEDS: SPIRONOLACTONE 25 MG TABLET PO SCH (10:16)
[2022-07-28] MEDS: FUROSEMIDE 40 MG TABLET (FP) PO SCH (10:18)
[2022-07-28] MEDS: LACTULOSE 20 GM/30 ML UDC (FOR ORAL USE ONLY) PO SCH ×2 (13:36→22:13)
[2022-07-28] MEDS: POTASSIUM CHLORIDE TABS 20 MEQ TABLET.ER (FP) PO SCH (13:56)
[2022-07-28] MEDS: IBUPROFEN 600 MG TABLET (FP) PO PRN (17:20)
[2022-07-28] MEDS: THIAMINE HCL 100 MG TABLET (FP) PO SCH (22:11)
[2022-07-28] MEDS: MELATONIN 5 MG TABLETS PO SCH (22:12)
[2022-07-28] MEDS: QUEtiapine FUMARATE 50 MG TABLET PO SCH (22:12)
[2022-07-29] MEDS: LORazepam 1 MG TABLET PO SCH ×4 (05:31→22:05)
[2022-07-29] MEDS: LACTULOSE 20 GM/30 ML UDC (FOR ORAL USE ONLY) PO SCH ×3 (05:32→22:04)
[2022-07-29] MEDS: hydrOXYzine PAMOATE 25 MG CAPSULE (FP) PO PRN ×2 (05:34→19:15)
[2022-07-29] MEDS: SPIRONOLACTONE 25 MG TABLET PO SCH (10:21)
[2022-07-29] MEDS: PRENATAL VITAMINS W/ FOLIC ACID TABLET (FP) PO SCH (10:21)
[2022-07-29] MEDS: amLODIPine BESYLATE 5 MG TABLET (FP) PO SCH (10:22)
[2022-07-29] MEDS: PANTOPRAZOLE 20 MG TABLET PO SCH (10:22)
[2022-07-29] MEDS: BUDESONIDE/FORMETEROL FUMARATE 80/4.5 mcg INHALER IH SCH ×2 (10:23→22:05)
[2022-07-29] MEDS: METHOCARBAMOL 500 MG TABLET PO PRN (10:25)
[2022-07-29] MEDS: BUPRENORPHINE/NALOXONE 8 MG/2 MG FILM PACKET SL SCH (10:58)
[2022-07-29] MEDS: FUROSEMIDE 40 MG TABLET (FP) PO SCH (11:18)
[2022-07-29] MEDS: POTASSIUM CHLORIDE TABS 20 MEQ TABLET.ER (FP) PO SCH (13:08)
[2022-07-29 16:50] VITALS: RESP 18
[2022-07-29] MEDS: QUEtiapine FUMARATE 50 MG TABLET PO SCH (22:04)
[2022-07-29] MEDS: THIAMINE HCL 100 MG TABLET (FP) PO SCH (22:05)
[2022-07-29] MEDS: MELATONIN 5 MG TABLETS PO SCH (23:10)
[2022-07-30] MEDS ORDERED: LORazepam 0.5 MG TABLET PO PRN
[2022-07-30] MEDS: LORazepam 0.5 MG TABLET PO SCH ×4 (05:49→22:14)
[2022-07-30] MEDS: LACTULOSE 20 GM/30 ML UDC (FOR ORAL USE ONLY) PO SCH ×3 (05:50→22:14)
[2022-07-30] MEDS: SPIRONOLACTONE 25 MG TABLET PO SCH (10:16)
[2022-07-30] MEDS: FUROSEMIDE 40 MG TABLET (FP) PO SCH (10:16)
[2022-07-30] MEDS: BUPRENORPHINE/NALOXONE 8 MG/2 MG FILM PACKET SL SCH (10:16)
[2022-07-30] MEDS: METHOCARBAMOL 500 MG TABLET PO PRN (10:17)
[2022-07-30] MEDS: PRENATAL VITAMINS W/ FOLIC ACID TABLET (FP) PO SCH (10:17)
[2022-07-30] MEDS: amLODIPine BESYLATE 5 MG TABLET (FP) PO SCH (10:17)
[2022-07-30] MEDS: BUDESONIDE/FORMETEROL FUMARATE 80/4.5 mcg INHALER IH SCH ×2 (10:34→22:14)
[2022-07-30] MEDS: PANTOPRAZOLE 20 MG TABLET PO SCH (10:49)
[2022-07-30] MEDS: hydrOXYzine PAMOATE 25 MG CAPSULE (FP) PO PRN (14:02)
[2022-07-30] MEDS: POTASSIUM CHLORIDE TABS 20 MEQ TABLET.ER (FP) PO SCH (14:17)
[2022-07-30] MEDS: MELATONIN 5 MG TABLETS PO SCH (22:14)
[2022-07-30] MEDS: THIAMINE HCL 100 MG TABLET (FP) PO SCH (22:14)
[2022-07-30] MEDS: QUEtiapine FUMARATE 50 MG TABLET PO SCH (22:14)
[2022-07-31] MEDS ORDERED: LORazepam 0.5 MG TABLET PO ONE (05:00)
[2022-07-31] MEDS: LACTULOSE 20 GM/30 ML UDC (FOR ORAL USE ONLY) PO SCH ×2 (05:12→13:10)
[2022-07-31 09:55] VITALS: BP 146/89; PULSE 86; TEMP 97.8
[2022-07-31] MEDS: BUDESONIDE/FORMETEROL FUMARATE 80/4.5 mcg INHALER IH SCH (10:22)
[2022-07-31] MEDS: PRENATAL VITAMINS W/ FOLIC ACID TABLET (FP) PO SCH (10:23)
[2022-07-31] MEDS: SPIRONOLACTONE 25 MG TABLET PO SCH (10:23)
[2022-07-31] MEDS: PANTOPRAZOLE 20 MG TABLET PO SCH (10:23)
[2022-07-31] MEDS: FUROSEMIDE 40 MG TABLET (FP) PO SCH (10:23)
[2022-07-31] MEDS: BUPRENORPHINE/NALOXONE 8 MG/2 MG FILM PACKET SL SCH (10:24)
[2022-07-31] MEDS: amLODIPine BESYLATE 5 MG TABLET (FP) PO SCH (10:24)
[2022-07-31] MEDS: POTASSIUM CHLORIDE TABS 20 MEQ TABLET.ER (FP) PO SCH (13:10)
== END 2022-07-31 13:10 | disposition other institution (70) | DRG 897 ==
LOC: YASAS 11:39 → Y6N 14:06
PROVIDERS: ADMIT Allergy & Immunology; ATTEND Surgery
PROC: HZ2ZZZZ Detoxification Services for Substance Abuse Treatment (ICD-10-PCS; principal; 2022-07-27)
DX: F10.230 Alcohol dependence with withdrawal, uncomplicated (principal); F14.20 Cocaine dependence, uncomplicated; F11.20 Opioid dependence, uncomplicated; F19.282 Other psychoactive substance dependence with psychoactive substance-induced sleep disorder; F12.20 Cannabis dependence, uncomplicated; F19.24 Other psychoactive substance dependence with psychoactive substance-induced mood disorder; F41.9 Anxiety disorder, unspecified; I10 Essential (primary) hypertension; J45.909 Unspecified asthma, uncomplicated; K70.30 Alcoholic cirrhosis of liver without ascites; K21.9 Gastro-esophageal reflux disease without esophagitis; R79.89 Other specified abnormal findings of blood chemistry; R60.0 Localized edema; E66.9 Obesity, unspecified; Z68.38 Body mass index [BMI] 38.0-38.9, adult; Z99.89 Dependence on other enabling machines and devices; Z98.84 Bariatric surgery status
CPT/HCPCS: 36415; 80053; 82140; 85027; 86780; 93005; 93010; C9803-CS; Q0162; U0003; U0005

== ENCOUNTER 2022-07-31 12:47 | Inpatient (IN) | payer OTHER ==
[2022-07-31] MEDS ORDERED: POLYETHYLENE GLYCOL (HEALTHYLAX) 3350 17 GM PACKET PO PRN ×2 (15:02→15:09)
[2022-07-31] MEDS ORDERED: LOPERAMIDE HCL 2 MG CAPSULE PO PRN ×2 (15:02→15:09)
[2022-07-31] MEDS ORDERED: NICOTINE POLACRILEX 2 MG GUM BC PRN (15:02)
[2022-07-31] MEDS ORDERED: NICOTINE 7 MG/24 HOURS TOPICAL PATCH TD PRN ×2 (15:02→15:09)
[2022-07-31] MEDS ORDERED: BENZOCAINE/MENTHOL (CHLORASEPTIC ) LOZENGE MM PRN ×2 (15:02→15:09)
[2022-07-31] MEDS ORDERED: MAGNESIUM HYDROX 2400MG/30ML ORAL SUSPENSION 30 ML CUP PO PRN ×2 (15:02→15:09)
[2022-07-31] MEDS ORDERED: MAG HYDROX/AL HYDROX/SIMETH 30 ML UNIT-DOSE CUP PO PRN ×2 (15:02→15:09)
[2022-07-31] MEDS ORDERED: ACETAMINOPHEN 325 MG TABLET (FP) PO PRN ×2 (15:02→15:09)
[2022-07-31] MEDS ORDERED: NICOTINE 10 MG CARTRIDGE (INHALER) IH PRN ×2 (15:02→15:09)
[2022-07-31] MEDS ORDERED: P-EPHED 60MG/TRIPROLIDI 2.5MG TABLET PO PRN ×2 (15:02→15:09)
[2022-07-31] MEDS ORDERED: guaiFENesin 200 MG/10 ML 10 ML UNIT-DOSE CUPS PO PRN ×2 (15:02→15:09)
[2022-07-31] MEDS ORDERED: ALBUTEROL SO4 HFA INHALER IH PRN (15:04)
[2022-07-31] MEDS ORDERED: hydrOXYzine PAMOATE 25 MG CAPSULE (FP) PO PRN (15:09)
[2022-07-31] MEDS ORDERED: IBUPROFEN 400 MG TABLET (FP) PO PRN (15:09)
[2022-07-31] MEDS: hydrOXYzine PAMOATE 25 MG CAPSULE (FP) PO PRN (15:25)
[2022-07-31] MEDS: LACTULOSE 20 GM/30 ML UDC (FOR ORAL USE ONLY) PO SCH (21:29)
[2022-07-31] MEDS: MELATONIN 5 MG TABLETS PO SCH (21:29)
[2022-07-31] MEDS: THIAMINE HCL 100 MG TABLET (FP) PO SCH (21:29)
[2022-07-31] MEDS: BUDESONIDE/FORMETEROL FUMARATE 80/4.5 mcg INHALER IH SCH (21:31)
[2022-07-31] MEDS: QUEtiapine FUMARATE 50 MG TABLET PO SCH (21:31)
[2022-07-31] MEDS ORDERED: MELATONIN 5 MG TABLETS PO SCH (22:00)
[2022-07-31] MEDS ORDERED: SEROQUEL 150 MG PO SCH (22:00)
[2022-07-31] MEDS ORDERED: THIAMINE HCL 100 MG TABLET (FP) PO SCH (22:00)
[2022-08-01] MEDS: LACTULOSE 20 GM/30 ML UDC (FOR ORAL USE ONLY) PO SCH ×3 (06:11→21:03)
[2022-08-01] MEDS: hydrOXYzine PAMOATE 25 MG CAPSULE (FP) PO PRN ×2 (06:13→14:29)
[2022-08-01] MEDS: IBUPROFEN 400 MG TABLET (FP) PO PRN ×2 (06:13→21:02)
[2022-08-01] MEDS ORDERED: BUPRENORPHINE SL SCH (10:00)
[2022-08-01] MEDS ORDERED: NALOXONE SL SCH (10:00)
[2022-08-01] MEDS ORDERED: PRENATAL VITAMINS W/ FOLIC ACID TABLET (FP) PO SCH (10:00)
[2022-08-01] MEDS: PRENATAL VITAMINS W/ FOLIC ACID TABLET (FP) PO SCH (10:02)
[2022-08-01] MEDS: BUPRENORPHINE/NALOXONE 8 MG/2 MG FILM PACKET SL SCH (10:02)
[2022-08-01] MEDS: FAMOTIDINE 20 MG TABLET PO SCH (10:03)
[2022-08-01] MEDS: BUDESONIDE/FORMETEROL FUMARATE 80/4.5 mcg INHALER IH SCH ×2 (10:03→21:03)
[2022-08-01] MEDS: amLODIPine BESYLATE 5 MG TABLET (FP) PO SCH (10:36)
[2022-08-01] MEDS: FUROSEMIDE 40 MG TABLET (FP) PO SCH (10:36)
[2022-08-01] MEDS: SPIRONOLACTONE 25 MG TABLET PO SCH (10:36)
[2022-08-01] MEDS: MELATONIN 5 MG TABLETS PO SCH (21:01)
[2022-08-01] MEDS: THIAMINE HCL 100 MG TABLET (FP) PO SCH (21:01)
[2022-08-01] MEDS: QUEtiapine FUMARATE 50 MG TABLET PO SCH (21:03)
[2022-08-02] MEDS: LACTULOSE 20 GM/30 ML UDC (FOR ORAL USE ONLY) PO SCH ×3 (06:15→21:04)
[2022-08-02] MEDS: hydrOXYzine PAMOATE 25 MG CAPSULE (FP) PO PRN ×2 (06:16→21:05)
[2022-08-02] MEDS: IBUPROFEN 400 MG TABLET (FP) PO PRN ×2 (06:16→21:05)
[2022-08-02] MEDS: FAMOTIDINE 20 MG TABLET PO SCH (10:00)
[2022-08-02] MEDS: PRENATAL VITAMINS W/ FOLIC ACID TABLET (FP) PO SCH (10:00)
[2022-08-02] MEDS: BUPRENORPHINE/NALOXONE 8 MG/2 MG FILM PACKET SL SCH (10:00)
[2022-08-02] MEDS: BUDESONIDE/FORMETEROL FUMARATE 80/4.5 mcg INHALER IH SCH ×2 (10:00→21:36)
[2022-08-02] MEDS: FUROSEMIDE 40 MG TABLET (FP) PO SCH (10:15)
[2022-08-02] MEDS: SPIRONOLACTONE 25 MG TABLET PO SCH (10:15)
[2022-08-02] MEDS: amLODIPine BESYLATE 5 MG TABLET (FP) PO SCH (10:15)
[2022-08-02] MEDS: QUEtiapine FUMARATE 50 MG TABLET PO SCH (21:04)
[2022-08-02] MEDS: THIAMINE HCL 100 MG TABLET (FP) PO SCH (21:05)
[2022-08-02] MEDS: MELATONIN 5 MG TABLETS PO SCH (21:36)
[2022-08-03] MEDS: LACTULOSE 20 GM/30 ML UDC (FOR ORAL USE ONLY) PO SCH ×3 (06:23→21:13)
[2022-08-03] MEDS: IBUPROFEN 400 MG TABLET (FP) PO PRN ×2 (06:25→21:14)
[2022-08-03] MEDS: hydrOXYzine PAMOATE 25 MG CAPSULE (FP) PO PRN (06:25)
[2022-08-03] MEDS: amLODIPine BESYLATE 5 MG TABLET (FP) PO SCH (09:44)
[2022-08-03] MEDS: FUROSEMIDE 40 MG TABLET (FP) PO SCH (09:44)
[2022-08-03] MEDS: SPIRONOLACTONE 25 MG TABLET PO SCH (09:44)
[2022-08-03] MEDS: PRENATAL VITAMINS W/ FOLIC ACID TABLET (FP) PO SCH (09:45)
[2022-08-03] MEDS: BUDESONIDE/FORMETEROL FUMARATE 80/4.5 mcg INHALER IH SCH ×2 (09:45→21:31)
[2022-08-03] MEDS: FAMOTIDINE 20 MG TABLET PO SCH (09:45)
[2022-08-03] MEDS: BUPRENORPHINE/NALOXONE 8 MG/2 MG FILM PACKET SL SCH (09:46)
[2022-08-03] MEDS: QUEtiapine FUMARATE 50 MG TABLET PO SCH (21:13)
[2022-08-03] MEDS: THIAMINE HCL 100 MG TABLET (FP) PO SCH (21:13)
[2022-08-03] MEDS: MELATONIN 5 MG TABLETS PO SCH (21:13)
[2022-08-04] MEDS: LACTULOSE 20 GM/30 ML UDC (FOR ORAL USE ONLY) PO SCH ×3 (06:16→21:06)
[2022-08-04] MEDS: hydrOXYzine PAMOATE 25 MG CAPSULE (FP) PO PRN (06:17)
[2022-08-04] MEDS: IBUPROFEN 400 MG TABLET (FP) PO PRN ×2 (06:17→21:06)
[2022-08-04] MEDS: SPIRONOLACTONE 25 MG TABLET PO SCH (09:59)
[2022-08-04] MEDS: amLODIPine BESYLATE 5 MG TABLET (FP) PO SCH (09:59)
[2022-08-04] MEDS: FAMOTIDINE 20 MG TABLET PO SCH (09:59)
[2022-08-04] MEDS: FUROSEMIDE 40 MG TABLET (FP) PO SCH (09:59)
[2022-08-04] MEDS: BUDESONIDE/FORMETEROL FUMARATE 80/4.5 mcg INHALER IH SCH ×2 (09:59→21:07)
[2022-08-04] MEDS: BUPRENORPHINE/NALOXONE 8 MG/2 MG FILM PACKET SL SCH (10:00)
[2022-08-04] MEDS: PRENATAL VITAMINS W/ FOLIC ACID TABLET (FP) PO SCH (10:00)
[2022-08-04] MEDS: MELATONIN 5 MG TABLETS PO SCH (21:05)
[2022-08-04] MEDS: THIAMINE HCL 100 MG TABLET (FP) PO SCH (21:05)
[2022-08-04] MEDS: QUEtiapine FUMARATE 50 MG TABLET PO SCH (21:07)
[2022-08-05] MEDS: LACTULOSE 20 GM/30 ML UDC (FOR ORAL USE ONLY) PO SCH ×3 (06:10→21:04)
[2022-08-05] MEDS: hydrOXYzine PAMOATE 25 MG CAPSULE (FP) PO PRN ×2 (06:10→21:05)
[2022-08-05] MEDS: IBUPROFEN 400 MG TABLET (FP) PO PRN ×2 (06:10→21:04)
[2022-08-05] MEDS: FUROSEMIDE 40 MG TABLET (FP) PO SCH (10:05)
[2022-08-05] MEDS: PRENATAL VITAMINS W/ FOLIC ACID TABLET (FP) PO SCH (10:05)
[2022-08-05] MEDS: BUPRENORPHINE/NALOXONE 8 MG/2 MG FILM PACKET SL SCH (10:05)
[2022-08-05] MEDS: amLODIPine BESYLATE 5 MG TABLET (FP) PO SCH (10:05)
[2022-08-05] MEDS: FAMOTIDINE 20 MG TABLET PO SCH (10:05)
[2022-08-05] MEDS: BUDESONIDE/FORMETEROL FUMARATE 80/4.5 mcg INHALER IH SCH ×2 (10:05→21:06)
[2022-08-05] MEDS: SPIRONOLACTONE 25 MG TABLET PO SCH (10:05)
[2022-08-05] MEDS: MELATONIN 5 MG TABLETS PO SCH (21:04)
[2022-08-05] MEDS: THIAMINE HCL 100 MG TABLET (FP) PO SCH (21:04)
[2022-08-05] MEDS: QUEtiapine FUMARATE 50 MG TABLET PO SCH (21:05)
[2022-08-06] MEDS: LACTULOSE 20 GM/30 ML UDC (FOR ORAL USE ONLY) PO SCH ×3 (06:13→21:11)
[2022-08-06] MEDS: IBUPROFEN 400 MG TABLET (FP) PO PRN ×2 (06:15→21:13)
[2022-08-06] MEDS: hydrOXYzine PAMOATE 25 MG CAPSULE (FP) PO PRN ×2 (06:15→21:10)
[2022-08-06] MEDS: BUPRENORPHINE/NALOXONE 8 MG/2 MG FILM PACKET SL SCH (09:40)
[2022-08-06] MEDS: PRENATAL VITAMINS W/ FOLIC ACID TABLET (FP) PO SCH (09:40)
[2022-08-06] MEDS: SPIRONOLACTONE 25 MG TABLET PO SCH (09:40)
[2022-08-06] MEDS: FUROSEMIDE 40 MG TABLET (FP) PO SCH (09:41)
[2022-08-06] MEDS: amLODIPine BESYLATE 5 MG TABLET (FP) PO SCH (09:41)
[2022-08-06] MEDS: FAMOTIDINE 20 MG TABLET PO SCH (09:41)
[2022-08-06] MEDS: BUDESONIDE/FORMETEROL FUMARATE 80/4.5 mcg INHALER IH SCH ×2 (09:41→22:38)
[2022-08-06] MEDS: MELATONIN 5 MG TABLETS PO SCH (21:11)
[2022-08-06] MEDS: QUEtiapine FUMARATE 50 MG TABLET PO SCH (21:11)
[2022-08-06] MEDS: THIAMINE HCL 100 MG TABLET (FP) PO SCH (21:13)
[2022-08-07] MEDS: LACTULOSE 20 GM/30 ML UDC (FOR ORAL USE ONLY) PO SCH ×3 (06:08→21:07)
[2022-08-07] MEDS: hydrOXYzine PAMOATE 25 MG CAPSULE (FP) PO PRN ×2 (06:08→21:08)
[2022-08-07] MEDS: IBUPROFEN 400 MG TABLET (FP) PO PRN ×2 (06:08→21:09)
[2022-08-07] MEDS: FAMOTIDINE 20 MG TABLET PO SCH (09:42)
[2022-08-07] MEDS: BUPRENORPHINE/NALOXONE 8 MG/2 MG FILM PACKET SL SCH (09:42)
[2022-08-07] MEDS: PRENATAL VITAMINS W/ FOLIC ACID TABLET (FP) PO SCH (09:42)
[2022-08-07] MEDS: BUDESONIDE/FORMETEROL FUMARATE 80/4.5 mcg INHALER IH SCH ×2 (09:43→21:10)
[2022-08-07] MEDS: SPIRONOLACTONE 25 MG TABLET PO SCH (10:27)
[2022-08-07] MEDS: amLODIPine BESYLATE 5 MG TABLET (FP) PO SCH (10:27)
[2022-08-07] MEDS: FUROSEMIDE 40 MG TABLET (FP) PO SCH (10:27)
[2022-08-07] MEDS: QUEtiapine FUMARATE 50 MG TABLET PO SCH (21:08)
[2022-08-07] MEDS: THIAMINE HCL 100 MG TABLET (FP) PO SCH (21:09)
[2022-08-07] MEDS: MELATONIN 5 MG TABLETS PO SCH (21:10)
[2022-08-08] MEDS: IBUPROFEN 400 MG TABLET (FP) PO PRN ×2 (06:27→21:03)
[2022-08-08] MEDS: LACTULOSE 20 GM/30 ML UDC (FOR ORAL USE ONLY) PO SCH ×3 (06:27→21:03)
[2022-08-08] MEDS: hydrOXYzine PAMOATE 25 MG CAPSULE (FP) PO PRN ×2 (06:28→21:04)
[2022-08-08] MEDS: FAMOTIDINE 20 MG TABLET PO SCH (10:01)
[2022-08-08] MEDS: PRENATAL VITAMINS W/ FOLIC ACID TABLET (FP) PO SCH (10:01)
[2022-08-08] MEDS: SPIRONOLACTONE 25 MG TABLET PO SCH (10:01)
[2022-08-08] MEDS: FUROSEMIDE 40 MG TABLET (FP) PO SCH (10:01)
[2022-08-08] MEDS: amLODIPine BESYLATE 5 MG TABLET (FP) PO SCH (10:01)
[2022-08-08] MEDS: BUDESONIDE/FORMETEROL FUMARATE 80/4.5 mcg INHALER IH SCH ×2 (10:02→21:04)
[2022-08-08] MEDS: BUPRENORPHINE/NALOXONE 8 MG/2 MG FILM PACKET SL SCH (10:52)
[2022-08-08] MEDS: MELATONIN 5 MG TABLETS PO SCH (21:03)
[2022-08-08] MEDS: THIAMINE HCL 100 MG TABLET (FP) PO SCH (21:04)
[2022-08-08] MEDS: QUEtiapine FUMARATE 50 MG TABLET PO SCH (21:04)
[2022-08-09] MEDS: IBUPROFEN 400 MG TABLET (FP) PO PRN ×2 (06:09→21:12)
[2022-08-09] MEDS: hydrOXYzine PAMOATE 25 MG CAPSULE (FP) PO PRN ×2 (06:10→21:12)
[2022-08-09] MEDS: LACTULOSE 20 GM/30 ML UDC (FOR ORAL USE ONLY) PO SCH ×3 (06:10→21:12)
[2022-08-09] MEDS: PRENATAL VITAMINS W/ FOLIC ACID TABLET (FP) PO SCH (09:30)
[2022-08-09] MEDS: FAMOTIDINE 20 MG TABLET PO SCH (09:30)
[2022-08-09] MEDS: BUDESONIDE/FORMETEROL FUMARATE 80/4.5 mcg INHALER IH SCH ×2 (09:30→22:29)
[2022-08-09] MEDS: BUPRENORPHINE/NALOXONE 8 MG/2 MG FILM PACKET SL SCH (09:31)
[2022-08-09] MEDS: amLODIPine BESYLATE 5 MG TABLET (FP) PO SCH (09:39)
[2022-08-09] MEDS: FUROSEMIDE 40 MG TABLET (FP) PO SCH (09:39)
[2022-08-09] MEDS: SPIRONOLACTONE 25 MG TABLET PO SCH (09:39)
[2022-08-09] MEDS: THIAMINE HCL 100 MG TABLET (FP) PO SCH (21:12)
[2022-08-09] MEDS: MELATONIN 5 MG TABLETS PO SCH (21:12)
[2022-08-09] MEDS: QUEtiapine FUMARATE 50 MG TABLET PO SCH (21:12)
[2022-08-10] MEDS: LACTULOSE 20 GM/30 ML UDC (FOR ORAL USE ONLY) PO SCH ×3 (06:12→21:01)
[2022-08-10] MEDS: IBUPROFEN 400 MG TABLET (FP) PO PRN ×2 (06:12→21:01)
[2022-08-10] MEDS: hydrOXYzine PAMOATE 25 MG CAPSULE (FP) PO PRN ×2 (06:13→21:00)
[2022-08-10 06:33] VITALS: RESP 16; TEMP 97.1
[2022-08-10] MEDS: SPIRONOLACTONE 25 MG TABLET PO SCH (09:39)
[2022-08-10] MEDS: BUPRENORPHINE/NALOXONE 8 MG/2 MG FILM PACKET SL SCH (09:39)
[2022-08-10] MEDS: BUDESONIDE/FORMETEROL FUMARATE 80/4.5 mcg INHALER IH SCH ×2 (09:40→21:02)
[2022-08-10] MEDS: PRENATAL VITAMINS W/ FOLIC ACID TABLET (FP) PO SCH (09:40)
[2022-08-10] MEDS: FUROSEMIDE 40 MG TABLET (FP) PO SCH (09:40)
[2022-08-10] MEDS: FAMOTIDINE 20 MG TABLET PO SCH (09:40)
[2022-08-10] MEDS: amLODIPine BESYLATE 5 MG TABLET (FP) PO SCH (09:40)
[2022-08-10] MEDS: THIAMINE HCL 100 MG TABLET (FP) PO SCH (21:00)
[2022-08-10] MEDS: QUEtiapine FUMARATE 50 MG TABLET PO SCH (21:00)
[2022-08-10] MEDS: MELATONIN 5 MG TABLETS PO SCH (21:01)
[2022-08-11] MEDS: IBUPROFEN 400 MG TABLET (FP) PO PRN (06:14)
[2022-08-11] MEDS: hydrOXYzine PAMOATE 25 MG CAPSULE (FP) PO PRN ×2 (06:14→21:07)
[2022-08-11] MEDS: LACTULOSE 20 GM/30 ML UDC (FOR ORAL USE ONLY) PO SCH ×3 (06:14→21:07)
[2022-08-11] MEDS: SPIRONOLACTONE 25 MG TABLET PO SCH (09:53)
[2022-08-11] MEDS: FUROSEMIDE 40 MG TABLET (FP) PO SCH (09:53)
[2022-08-11] MEDS: amLODIPine BESYLATE 5 MG TABLET (FP) PO SCH (09:53)
[2022-08-11] MEDS: FAMOTIDINE 20 MG TABLET PO SCH (09:54)
[2022-08-11] MEDS: PRENATAL VITAMINS W/ FOLIC ACID TABLET (FP) PO SCH (09:54)
[2022-08-11] MEDS: BUPRENORPHINE/NALOXONE 8 MG/2 MG FILM PACKET SL SCH (09:54)
[2022-08-11] MEDS: BUDESONIDE/FORMETEROL FUMARATE 80/4.5 mcg INHALER IH SCH ×2 (09:57→21:35)
[2022-08-11] MEDS: MELATONIN 5 MG TABLETS PO SCH (21:07)
[2022-08-11] MEDS: THIAMINE HCL 100 MG TABLET (FP) PO SCH (21:07)
[2022-08-11] MEDS: QUEtiapine FUMARATE 50 MG TABLET PO SCH (21:07)
[2022-08-12] MEDS: LACTULOSE 20 GM/30 ML UDC (FOR ORAL USE ONLY) PO SCH (06:10)
[2022-08-12] MEDS: IBUPROFEN 400 MG TABLET (FP) PO PRN (06:11)
[2022-08-12] MEDS: hydrOXYzine PAMOATE 25 MG CAPSULE (FP) PO PRN (06:12)
[2022-08-12 06:34] VITALS: BP 111/77; PULSE 71
[2022-08-12] MEDS: SPIRONOLACTONE 25 MG TABLET PO SCH (09:09)
[2022-08-12] MEDS: FAMOTIDINE 20 MG TABLET PO SCH (09:09)
[2022-08-12] MEDS: amLODIPine BESYLATE 5 MG TABLET (FP) PO SCH (09:09)
[2022-08-12] MEDS: FUROSEMIDE 40 MG TABLET (FP) PO SCH (09:09)
[2022-08-12] MEDS: BUPRENORPHINE/NALOXONE 8 MG/2 MG FILM PACKET SL SCH (09:10)
[2022-08-12] MEDS: PRENATAL VITAMINS W/ FOLIC ACID TABLET (FP) PO SCH (09:10)
[2022-08-12] MEDS: BUDESONIDE/FORMETEROL FUMARATE 80/4.5 mcg INHALER IH SCH (09:11)
== END 2022-08-12 09:23 | disposition home or self-care (01) | DRG 895 ==
LOC: YASAS 12:47 → Y3E 12:48
PROVIDERS: ADMIT Allergy & Immunology; ATTEND Psychiatry & Neurology Pain Medicine
PROC: HZ42ZZZ Group Counseling for Substance Abuse Treatment, Cognitive-Behavioral (ICD-10-PCS; principal; 2022-07-31)
DX: F10.20 Alcohol dependence, uncomplicated (principal); F11.20 Opioid dependence, uncomplicated; F14.20 Cocaine dependence, uncomplicated; E72.20 Disorder of urea cycle metabolism, unspecified; F12.20 Cannabis dependence, uncomplicated; F17.210 Nicotine dependence, cigarettes, uncomplicated; G47.30 Sleep apnea, unspecified; I10 Essential (primary) hypertension; J45.909 Unspecified asthma, uncomplicated; K74.60 Unspecified cirrhosis of liver; K21.9 Gastro-esophageal reflux disease without esophagitis; E66.9 Obesity, unspecified; Z68.36 Body mass index [BMI] 36.0-36.9, adult; Z99.89 Dependence on other enabling machines and devices; Z98.84 Bariatric surgery status
CPT/HCPCS: 82140

== ENCOUNTER 2022-09-21 10:43 | Inpatient (IN) | payer OTHER ==
[2022-09-21 11:52] VITALS: BMI 36.3
[2022-09-21] MEDS ORDERED: DICYCLOMINE HCL 10 MG CAPSULE PO PRN (13:09)
[2022-09-21] MEDS ORDERED: IBUPROFEN 600 MG TABLET (FP) PO PRN (13:09)
[2022-09-21] MEDS ORDERED: MAGNESIUM HYDROX 2400MG/30ML ORAL SUSPENSION 30 ML CUP PO PRN (13:09)
[2022-09-21] MEDS ORDERED: diazePAM 5 MG TABLET PO ONE (13:09)
[2022-09-21] MEDS ORDERED: ONDANSETRON *ODT* 4 MG TABLET SL PRN (13:09)
[2022-09-21] MEDS ORDERED: LOPERAMIDE HCL 2 MG CAPSULE PO PRN (13:09)
[2022-09-21] MEDS ORDERED: NALOXONE HCL (KLOXXADO) 8 MG SPRAY NS PRN (13:09)
[2022-09-21] MEDS ORDERED: IBUPROFEN 400 MG TABLET (FP) PO PRN (13:09)
[2022-09-21] MEDS ORDERED: POLYETHYLENE GLYCOL (HEALTHYLAX) 3350 17 GM PACKET PO PRN (13:09)
[2022-09-21] MEDS ORDERED: BISMUTH SUBSALICYLATE 524 MG/30 ML PO PRN (13:09)
[2022-09-21] MEDS ORDERED: BENZOCAINE/MENTHOL (CHLORASEPTIC ) LOZENGE MM PRN (13:09)
[2022-09-21] MEDS ORDERED: MAG HYDROX/AL HYDROX/SIMETH 30 ML UNIT-DOSE CUP PO PRN (13:09)
[2022-09-21] MEDS ORDERED: NICOTINE 10 MG CARTRIDGE (INHALER) IH PRN (13:09)
[2022-09-21] MEDS ORDERED: ACETAMINOPHEN 325 MG TABLET (FP) PO PRN ×2 (13:09)
[2022-09-21] MEDS ORDERED: ALBUTEROL SO4 HFA INHALER IH PRN (13:16)
[2022-09-21] MEDS ORDERED: diazePAM 5 MG TABLET ONE (13:32)
[2022-09-21] MEDS ORDERED: ONDANSETRON *ODT* 4 MG TABLET ONE (13:32)
[2022-09-21] MEDS ORDERED: ONDANSETRON *ODT* 4 MG TABLET SL ONE (13:45)
[2022-09-21] MEDS ORDERED: ONDANSETRON 4 MG TABLET PO ONE (13:45)
[2022-09-21] MEDS ORDERED: BUPRENORPHINE/NALOXONE 8 MG/2 MG FILM PACKET SL SCH (13:45)
[2022-09-21] MEDS: PRENATAL VITAMINS W/ FOLIC ACID TABLET (FP) PO SCH (14:19)
[2022-09-21] MEDS: FUROSEMIDE 40 MG TABLET (FP) PO SCH (14:19)
[2022-09-21] MEDS: amLODIPine BESYLATE 5 MG TABLET (FP) PO SCH (14:19)
[2022-09-21] MEDS: BUDESONIDE/FORMETEROL FUMARATE 80/4.5 mcg INHALER IH SCH ×2 (14:20→22:10)
[2022-09-21] MEDS: SPIRONOLACTONE 25 MG TABLET PO SCH (15:23)
[2022-09-21] MEDS: diazePAM 5 MG TABLET PO SCH ×2 (17:12→22:09)
[2022-09-21] MEDS: MELATONIN 5 MG TABLETS PO SCH (22:09)
[2022-09-21] MEDS: THIAMINE HCL 100 MG TABLET (FP) PO SCH (22:10)
[2022-09-21] MEDS: METHOCARBAMOL 500 MG TABLET PO PRN (22:11)
[2022-09-22] MEDS: diazePAM 5 MG TABLET PO SCH ×4 (05:24→22:05)
[2022-09-22] MEDS: BUDESONIDE/FORMETEROL FUMARATE 80/4.5 mcg INHALER IH SCH ×2 (10:08→22:05)
[2022-09-22] MEDS: PRENATAL VITAMINS W/ FOLIC ACID TABLET (FP) PO SCH (10:08)
[2022-09-22] MEDS: BUPRENORPHINE/NALOXONE 8 MG/2 MG FILM PACKET SL SCH (10:08)
[2022-09-22] MEDS: FUROSEMIDE 40 MG TABLET (FP) PO SCH (10:09)
[2022-09-22] MEDS: amLODIPine BESYLATE 5 MG TABLET (FP) PO SCH (10:09)
[2022-09-22] MEDS: SPIRONOLACTONE 25 MG TABLET PO SCH (10:36)
[2022-09-22 12:54] LABS: HEMOGLOBIN 12.7 GM/dL (11.7-16.9); MCH 26.8 pg (25.7-33.7); MCHC 32.6 g/dl (32.0-35.9); MEAN CELL VOLUME 82.1 fl (80-96); MEAN PLT VOLUME 7.2 fl (7.5-11.1); PLATELET COUNT 149 10^3/uL (134-434); RBC 4.75 M/mm3 (4.00-5.60); RDW 13.5 % (11.9-15.9); WHITE BLOOD COUNT 6.9 K/mm3 (4.0-10.0)
[2022-09-22 14:09] LABS: ALBUMIN 3.5 g/dl (3.4-5.0)
[2022-09-22 14:10] LABS: BLOOD UREA NITROGEN 8.9 mg/dL (7-18); CALCIUM 8.9 mg/dL (8.5-10.1)
[2022-09-22 14:12] LABS: CREATININE 0.9 mg/dL (0.55-1.3)
[2022-09-22 14:14] LABS: BILIRUBIN,TOTAL 2.2 mg/dL (0.2-1); TOT PROT 7.8 g/dl (6.4-8.2)
[2022-09-22] MEDS: hydrOXYzine PAMOATE 25 MG CAPSULE (FP) PO PRN (14:30)
[2022-09-22] MEDS: MELATONIN 5 MG TABLETS PO SCH (22:06)
[2022-09-22] MEDS: QUEtiapine FUMARATE 100 MG TABLET (FP) PO SCH (22:06)
[2022-09-22] MEDS: THIAMINE HCL 100 MG TABLET (FP) PO SCH (22:06)
[2022-09-23] MEDS: diazePAM 5 MG TABLET PO SCH ×3 (05:27→22:13)
[2022-09-23] MEDS: SPIRONOLACTONE 25 MG TABLET PO SCH (10:02)
[2022-09-23] MEDS: PRENATAL VITAMINS W/ FOLIC ACID TABLET (FP) PO SCH (10:02)
[2022-09-23] MEDS: BUDESONIDE/FORMETEROL FUMARATE 80/4.5 mcg INHALER IH SCH ×2 (10:02→22:24)
[2022-09-23] MEDS: FUROSEMIDE 40 MG TABLET (FP) PO SCH (10:02)
[2022-09-23] MEDS: amLODIPine BESYLATE 5 MG TABLET (FP) PO SCH (10:02)
[2022-09-23] MEDS: BUPRENORPHINE/NALOXONE 8 MG/2 MG FILM PACKET SL SCH (10:03)
[2022-09-23] MEDS: hydrOXYzine PAMOATE 25 MG CAPSULE (FP) PO PRN ×2 (10:04→17:21)
[2022-09-23] MEDS: METHOCARBAMOL 500 MG TABLET PO PRN (17:21)
[2022-09-23] MEDS: THIAMINE HCL 100 MG TABLET (FP) PO SCH (22:12)
[2022-09-23] MEDS: MELATONIN 5 MG TABLETS PO SCH (22:12)
[2022-09-23] MEDS: QUEtiapine FUMARATE 100 MG TABLET (FP) PO SCH (22:13)
[2022-09-24] MEDS: hydrOXYzine PAMOATE 25 MG CAPSULE (FP) PO PRN ×2 (05:20→15:53)
[2022-09-24] MEDS ORDERED: diazePAM 5 MG TABLET PO SCH (06:00)
[2022-09-24] MEDS: PRENATAL VITAMINS W/ FOLIC ACID TABLET (FP) PO SCH (10:10)
[2022-09-24] MEDS: BUPRENORPHINE/NALOXONE 8 MG/2 MG FILM PACKET SL SCH (10:11)
[2022-09-24] MEDS: BUDESONIDE/FORMETEROL FUMARATE 80/4.5 mcg INHALER IH SCH (10:11)
[2022-09-24] MEDS: SPIRONOLACTONE 25 MG TABLET PO SCH (10:11)
[2022-09-24] MEDS: amLODIPine BESYLATE 5 MG TABLET (FP) PO SCH (10:11)
[2022-09-24] MEDS: FUROSEMIDE 40 MG TABLET (FP) PO SCH (10:13)
[2022-09-24] MEDS: METHOCARBAMOL 500 MG TABLET PO PRN (10:13)
[2022-09-24] MEDS ORDERED: LACTULOSE 20 GM/30 ML UDC (FOR ORAL USE ONLY) PO SCH (14:00)
[2022-09-24 18:20] VITALS: BP 136/84; PULSE 92; RESP 18; TEMP 97.3
[2022-09-25] MEDS ORDERED: diazePAM 5 MG TABLET PO ONE (06:00)
== END 2022-09-24 17:55 | disposition home or self-care (01) | DRG 896 ==
LOC: YASAS 10:43 → Y3N 13:19
PROVIDERS: ADMIT Allergy & Immunology; ATTEND Surgery
PROC: HZ2ZZZZ Detoxification Services for Substance Abuse Treatment (ICD-10-PCS; principal; 2022-09-21)
DX: F10.230 Alcohol dependence with withdrawal, uncomplicated (principal); U07.1 COVID-19; F11.20 Opioid dependence, uncomplicated; F12.20 Cannabis dependence, uncomplicated; F17.210 Nicotine dependence, cigarettes, uncomplicated; F41.9 Anxiety disorder, unspecified; F32.A Depression, unspecified; G47.30 Sleep apnea, unspecified; I10 Essential (primary) hypertension; K21.9 Gastro-esophageal reflux disease without esophagitis; K74.60 Unspecified cirrhosis of liver; Z87.19 Personal history of other diseases of the digestive system
CPT/HCPCS: 36415; 80053; 82140; 85027; 86780; C9803-CS; Q0162; U0003; U0005

== ENCOUNTER 2022-10-21 10:48 | Inpatient (IN) | payer OTHER ==
[2022-10-21 11:46] VITALS: BMI 37.4
[2022-10-21] MEDS ORDERED: BISMUTH SUBSALICYLATE 524 MG/30 ML PO PRN (15:32)
[2022-10-21] MEDS ORDERED: ONDANSETRON *ODT* 4 MG TABLET SL PRN (15:32)
[2022-10-21] MEDS ORDERED: BENZOCAINE/MENTHOL (CHLORASEPTIC ) LOZENGE MM PRN (15:32)
[2022-10-21] MEDS ORDERED: NALOXONE HCL (KLOXXADO) 8 MG SPRAY NS PRN (15:32)
[2022-10-21] MEDS ORDERED: MAGNESIUM HYDROX 2400MG/30ML ORAL SUSPENSION 30 ML CUP PO PRN (15:32)
[2022-10-21] MEDS ORDERED: NALOXONE HCL 0.4 MG/ML VIAL IM PRN (15:32)
[2022-10-21] MEDS ORDERED: DICYCLOMINE HCL 10 MG CAPSULE PO PRN (15:32)
[2022-10-21] MEDS ORDERED: IBUPROFEN 600 MG TABLET (FP) PO PRN (15:32)
[2022-10-21] MEDS ORDERED: LOPERAMIDE HCL 2 MG CAPSULE PO PRN (15:32)
[2022-10-21] MEDS ORDERED: POLYETHYLENE GLYCOL (HEALTHYLAX) 3350 17 GM PACKET PO PRN (15:32)
[2022-10-21] MEDS ORDERED: IBUPROFEN 400 MG TABLET (FP) PO PRN (15:32)
[2022-10-21] MEDS ORDERED: MAG HYDROX/AL HYDROX/SIMETH 30 ML UNIT-DOSE CUP PO PRN (15:32)
[2022-10-21] MEDS ORDERED: ACETAMINOPHEN 325 MG TABLET (FP) PO PRN ×2 (15:32)
[2022-10-21] MEDS ORDERED: LORazepam 1 MG TABLET PO PRN (15:39)
[2022-10-21] MEDS: hydrOXYzine PAMOATE 25 MG CAPSULE (FP) PO PRN (20:17)
[2022-10-21] MEDS: MELATONIN 5 MG TABLETS PO SCH (22:19)
[2022-10-21] MEDS: THIAMINE HCL 100 MG TABLET (FP) PO SCH (22:19)
[2022-10-21] MEDS: LORazepam 2 MG TABLET PO SCH (22:20)
[2022-10-22] MEDS: LORazepam 2 MG TABLET PO SCH ×4 (05:24→22:02)
[2022-10-22] MEDS: hydrOXYzine PAMOATE 25 MG CAPSULE (FP) PO PRN ×2 (10:05→22:03)
[2022-10-22] MEDS: BUPRENORPHINE/NALOXONE 8 MG/2 MG FILM PACKET SL SCH (10:05)
[2022-10-22] MEDS: PRENATAL VITAMINS W/ FOLIC ACID TABLET (FP) PO SCH (10:05)
[2022-10-22] MEDS: QUEtiapine FUMARATE 100 MG TABLET (FP) PO SCH (22:02)
[2022-10-22] MEDS: THIAMINE HCL 100 MG TABLET (FP) PO SCH (22:02)
[2022-10-22] MEDS: MELATONIN 5 MG TABLETS PO SCH (22:02)
[2022-10-23] MEDS: LORazepam 1 MG TABLET PO SCH ×4 (05:11→21:59)
[2022-10-23] MEDS: hydrOXYzine PAMOATE 25 MG CAPSULE (FP) PO PRN ×2 (05:13→22:01)
[2022-10-23] MEDS: PRENATAL VITAMINS W/ FOLIC ACID TABLET (FP) PO SCH (10:38)
[2022-10-23] MEDS: BUPRENORPHINE/NALOXONE 8 MG/2 MG FILM PACKET SL SCH (10:38)
[2022-10-23] MEDS: QUEtiapine FUMARATE 100 MG TABLET (FP) PO SCH (22:00)
[2022-10-23] MEDS: THIAMINE HCL 100 MG TABLET (FP) PO SCH (22:00)
[2022-10-23] MEDS: MELATONIN 5 MG TABLETS PO SCH (22:00)
[2022-10-24] MEDS: LORazepam 0.5 MG TABLET PO SCH ×4 (04:41→22:01)
[2022-10-24] MEDS ORDERED: ALBUTEROL SO4 HFA INHALER IH PRN (10:14)
[2022-10-24] MEDS: PRENATAL VITAMINS W/ FOLIC ACID TABLET (FP) PO SCH (10:37)
[2022-10-24] MEDS: hydrOXYzine PAMOATE 25 MG CAPSULE (FP) PO PRN ×2 (10:40→22:01)
[2022-10-24] MEDS: BUPRENORPHINE/NALOXONE 8 MG/2 MG FILM PACKET SL SCH (10:43)
[2022-10-24] MEDS ORDERED: PANTOPRAZOLE 20 MG TABLET PO SCH (10:45)
[2022-10-24] MEDS: BUDESONIDE/FORMETEROL FUMARATE 80/4.5 mcg INHALER IH SCH ×2 (12:57→22:01)
[2022-10-24] MEDS: QUEtiapine FUMARATE 100 MG TABLET (FP) PO SCH (22:01)
[2022-10-24] MEDS: THIAMINE HCL 100 MG TABLET (FP) PO SCH (22:01)
[2022-10-24] MEDS: MELATONIN 5 MG TABLETS PO SCH (22:01)
[2022-10-25] MEDS ORDERED: LORazepam 0.5 MG TABLET PO ONE (05:00)
[2022-10-25] MEDS: hydrOXYzine PAMOATE 25 MG CAPSULE (FP) PO PRN (05:06)
[2022-10-25] MEDS ORDERED: amLODIPine BESYLATE 5 MG TABLET (FP) PO SCH (10:00)
[2022-10-25] MEDS ORDERED: PANTOPRAZOLE 20 MG TABLET PO SCH (10:00)
[2022-10-25] MEDS ORDERED: SPIRONOLACTONE 25 MG TABLET PO SCH (10:00)
[2022-10-25 10:11] VITALS: RESP 17; TEMP 97.7
[2022-10-25] MEDS: PRENATAL VITAMINS W/ FOLIC ACID TABLET (FP) PO SCH (10:14)
[2022-10-25] MEDS: BUPRENORPHINE/NALOXONE 8 MG/2 MG FILM PACKET SL SCH (10:14)
[2022-10-25] MEDS: BUDESONIDE/FORMETEROL FUMARATE 80/4.5 mcg INHALER IH SCH (10:30)
[2022-10-25 10:41] VITALS: BP 107/79; PULSE 84
== END 2022-10-25 10:58 | disposition other institution (70) | DRG 897 ==
LOC: YASAS 10:48 → Y3N 15:38
PROVIDERS: ADMIT Allergy & Immunology; ATTEND Surgery
PROC: HZ2ZZZZ Detoxification Services for Substance Abuse Treatment (ICD-10-PCS; principal; 2022-10-22)
DX: F10.230 Alcohol dependence with withdrawal, uncomplicated (principal); F11.20 Opioid dependence, uncomplicated; F12.20 Cannabis dependence, uncomplicated; F17.210 Nicotine dependence, cigarettes, uncomplicated; F19.24 Other psychoactive substance dependence with psychoactive substance-induced mood disorder; G47.00 Insomnia, unspecified; I10 Essential (primary) hypertension; J45.909 Unspecified asthma, uncomplicated; K21.9 Gastro-esophageal reflux disease without esophagitis; K74.60 Unspecified cirrhosis of liver; R60.0 Localized edema; Z98.84 Bariatric surgery status
CPT/HCPCS: 87811; C9803-CS; U0003; U0005

== ENCOUNTER 2022-10-25 11:04 | Inpatient (IN) | payer OTHER ==
[2022-10-25] MEDS ORDERED: ACETAMINOPHEN 325 MG TABLET (FP) PO PRN (13:00)
[2022-10-25] MEDS ORDERED: LOPERAMIDE HCL 2 MG CAPSULE PO PRN (13:00)
[2022-10-25] MEDS ORDERED: guaiFENesin 200 MG/10 ML 10 ML UNIT-DOSE CUPS PO PRN (13:00)
[2022-10-25] MEDS ORDERED: MAGNESIUM HYDROX 2400MG/30ML ORAL SUSPENSION 30 ML CUP PO PRN (13:00)
[2022-10-25] MEDS ORDERED: P-EPHED 60MG/TRIPROLIDI 2.5MG TABLET PO PRN (13:00)
[2022-10-25] MEDS ORDERED: POLYETHYLENE GLYCOL (HEALTHYLAX) 3350 17 GM PACKET PO PRN (13:00)
[2022-10-25] MEDS ORDERED: NICOTINE 10 MG CARTRIDGE (INHALER) IH PRN (13:00)
[2022-10-25] MEDS ORDERED: BENZOCAINE/MENTHOL (CHLORASEPTIC ) LOZENGE MM PRN (13:00)
[2022-10-25] MEDS ORDERED: ALBUTEROL SO4 HFA INHALER IH PRN (13:01)
[2022-10-25] MEDS: hydrOXYzine PAMOATE 25 MG CAPSULE (FP) PO PRN ×2 (14:33→21:07)
[2022-10-25] MEDS: MELATONIN 5 MG TABLETS PO SCH (21:07)
[2022-10-25] MEDS: THIAMINE HCL 100 MG TABLET (FP) PO SCH (21:07)
[2022-10-25] MEDS ORDERED: QUEtiapine FUMARATE 50 MG TABLET PO SCH (22:00)
[2022-10-25] MEDS: BUDESONIDE/FORMETEROL FUMARATE 80/4.5 mcg INHALER IH SCH (22:18)
[2022-10-26] MEDS: hydrOXYzine PAMOATE 25 MG CAPSULE (FP) PO PRN ×2 (06:39→15:21)
[2022-10-26] MEDS ORDERED: NICOTINE 7 MG/24 HOURS TOPICAL PATCH TD SCH (10:00)
[2022-10-26] MEDS: BUDESONIDE/FORMETEROL FUMARATE 80/4.5 mcg INHALER IH SCH ×2 (10:15→21:01)
[2022-10-26] MEDS: PRENATAL VITAMINS W/ FOLIC ACID TABLET (FP) PO SCH (10:15)
[2022-10-26] MEDS: BUPRENORPHINE/NALOXONE 8 MG/2 MG FILM PACKET SL SCH (10:18)
[2022-10-26] MEDS: amLODIPine BESYLATE 5 MG TABLET (FP) PO SCH (10:19)
[2022-10-26] MEDS: METHOCARBAMOL 500 MG TABLET PO PRN ×2 (10:19→21:03)
[2022-10-26] MEDS: SPIRONOLACTONE 25 MG TABLET PO SCH (10:19)
[2022-10-26] MEDS: MELATONIN 5 MG TABLETS PO SCH (21:00)
[2022-10-26] MEDS: THIAMINE HCL 100 MG TABLET (FP) PO SCH (21:00)
[2022-10-26] MEDS: QUEtiapine FUMARATE 50 MG TABLET PO SCH (21:02)
[2022-10-27] MEDS: METHOCARBAMOL 500 MG TABLET PO PRN ×2 (06:09→21:07)
[2022-10-27] MEDS: hydrOXYzine PAMOATE 25 MG CAPSULE (FP) PO PRN (06:09)
[2022-10-27] MEDS: SPIRONOLACTONE 25 MG TABLET PO SCH (10:08)
[2022-10-27] MEDS: PRENATAL VITAMINS W/ FOLIC ACID TABLET (FP) PO SCH (10:09)
[2022-10-27] MEDS: amLODIPine BESYLATE 5 MG TABLET (FP) PO SCH (10:09)
[2022-10-27] MEDS: BUDESONIDE/FORMETEROL FUMARATE 80/4.5 mcg INHALER IH SCH ×2 (10:10→21:08)
[2022-10-27] MEDS: BUPRENORPHINE/NALOXONE 8 MG/2 MG FILM PACKET SL SCH (10:10)
[2022-10-27 13:40] LABS: HEMATOCRIT 33.5 % (35.4-49); MCH 27.2 pg (25.7-33.7); MCHC 32.9 g/dl (32.0-35.9); MEAN CELL VOLUME 82.7 fl (80-96); MEAN PLT VOLUME 7.8 fl (7.5-11.1); PLATELET COUNT 120 10^3/uL (134-434); RBC 4.05 M/mm3 (4.00-5.60); RDW 16.5 % (11.9-15.9); WHITE BLOOD COUNT 7.7 K/mm3 (4.0-10.0)
[2022-10-27 14:46] LABS: BLOOD UREA NITROGEN 14.4 mg/dL (7-18)
[2022-10-27 14:47] LABS: ALBUMIN 3.3 g/dl (3.4-5.0); CALCIUM 8.7 mg/dL (8.5-10.1)
[2022-10-27 14:49] LABS: BILIRUBIN,TOTAL 1.2 mg/dL (0.2-1); TOT PROT 7.3 g/dl (6.4-8.2)
[2022-10-27] MEDS: LACTULOSE 20 GM/30 ML UDC (FOR ORAL USE ONLY) PO SCH ×2 (19:03→21:06)
[2022-10-27] MEDS: MELATONIN 5 MG TABLETS PO SCH (21:06)
[2022-10-27] MEDS: THIAMINE HCL 100 MG TABLET (FP) PO SCH (21:06)
[2022-10-27] MEDS: QUEtiapine FUMARATE 50 MG TABLET PO SCH (21:07)
[2022-10-28] MEDS: IBUPROFEN 400 MG TABLET (FP) PO PRN (06:21)
[2022-10-28] MEDS: METHOCARBAMOL 500 MG TABLET PO PRN ×2 (06:22→21:10)
[2022-10-28] MEDS ORDERED: ONDANSETRON *ODT* 4 MG TABLET SL PRN (09:02)
[2022-10-28] MEDS: SPIRONOLACTONE 25 MG TABLET PO SCH (10:11)
[2022-10-28] MEDS: amLODIPine BESYLATE 5 MG TABLET (FP) PO SCH (10:12)
[2022-10-28] MEDS: LACTULOSE 20 GM/30 ML UDC (FOR ORAL USE ONLY) PO SCH ×3 (10:12→21:09)
[2022-10-28] MEDS: BUDESONIDE/FORMETEROL FUMARATE 80/4.5 mcg INHALER IH SCH ×2 (10:12→21:09)
[2022-10-28] MEDS: PRENATAL VITAMINS W/ FOLIC ACID TABLET (FP) PO SCH (10:13)
[2022-10-28] MEDS: BUPRENORPHINE/NALOXONE 8 MG/2 MG FILM PACKET SL SCH (10:13)
[2022-10-28] MEDS: MELATONIN 5 MG TABLETS PO SCH (21:09)
[2022-10-28] MEDS: THIAMINE HCL 100 MG TABLET (FP) PO SCH (21:09)
[2022-10-28] MEDS: QUEtiapine FUMARATE 50 MG TABLET PO SCH (21:10)
[2022-10-29] MEDS: METHOCARBAMOL 500 MG TABLET PO PRN ×2 (06:26→21:06)
[2022-10-29] MEDS: hydrOXYzine PAMOATE 25 MG CAPSULE (FP) PO PRN ×3 (06:26→21:06)
[2022-10-29] MEDS: PRENATAL VITAMINS W/ FOLIC ACID TABLET (FP) PO SCH (09:33)
[2022-10-29] MEDS: LACTULOSE 20 GM/30 ML UDC (FOR ORAL USE ONLY) PO SCH ×3 (09:34→21:06)
[2022-10-29] MEDS: SPIRONOLACTONE 25 MG TABLET PO SCH (09:34)
[2022-10-29] MEDS: BUPRENORPHINE/NALOXONE 8 MG/2 MG FILM PACKET SL SCH (09:34)
[2022-10-29] MEDS: amLODIPine BESYLATE 5 MG TABLET (FP) PO SCH (09:34)
[2022-10-29] MEDS: MAG HYDROX/AL HYDROX/SIMETH 30 ML UNIT-DOSE CUP PO PRN ×2 (09:35→21:31)
[2022-10-29] MEDS: BUDESONIDE/FORMETEROL FUMARATE 80/4.5 mcg INHALER IH SCH ×2 (09:35→21:52)
[2022-10-29] MEDS: QUEtiapine FUMARATE 50 MG TABLET PO SCH (21:06)
[2022-10-29] MEDS: THIAMINE HCL 100 MG TABLET (FP) PO SCH (21:06)
[2022-10-29] MEDS: MELATONIN 5 MG TABLETS PO SCH (21:52)
[2022-10-30] MEDS: hydrOXYzine PAMOATE 25 MG CAPSULE (FP) PO PRN ×2 (06:14→21:07)
[2022-10-30] MEDS: METHOCARBAMOL 500 MG TABLET PO PRN ×3 (06:14→21:07)
[2022-10-30] MEDS: amLODIPine BESYLATE 5 MG TABLET (FP) PO SCH (09:30)
[2022-10-30] MEDS: PRENATAL VITAMINS W/ FOLIC ACID TABLET (FP) PO SCH (09:50)
[2022-10-30] MEDS: LACTULOSE 20 GM/30 ML UDC (FOR ORAL USE ONLY) PO SCH ×3 (09:50→21:06)
[2022-10-30] MEDS: BUPRENORPHINE/NALOXONE 8 MG/2 MG FILM PACKET SL SCH (09:50)
[2022-10-30] MEDS: SPIRONOLACTONE 25 MG TABLET PO SCH (09:51)
[2022-10-30] MEDS: BUDESONIDE/FORMETEROL FUMARATE 80/4.5 mcg INHALER IH SCH ×2 (09:51→21:08)
[2022-10-30] MEDS: THIAMINE HCL 100 MG TABLET (FP) PO SCH (21:07)
[2022-10-30] MEDS: QUEtiapine FUMARATE 50 MG TABLET PO SCH (21:07)
[2022-10-30] MEDS: MELATONIN 5 MG TABLETS PO SCH (21:08)
[2022-10-31] MEDS: METHOCARBAMOL 500 MG TABLET PO PRN ×2 (06:20→21:04)
[2022-10-31] MEDS: hydrOXYzine PAMOATE 25 MG CAPSULE (FP) PO PRN ×2 (06:20→21:04)
[2022-10-31] MEDS: PRENATAL VITAMINS W/ FOLIC ACID TABLET (FP) PO SCH (09:48)
[2022-10-31] MEDS: BUDESONIDE/FORMETEROL FUMARATE 80/4.5 mcg INHALER IH SCH ×2 (09:48→21:05)
[2022-10-31] MEDS: amLODIPine BESYLATE 5 MG TABLET (FP) PO SCH (09:49)
[2022-10-31] MEDS: SPIRONOLACTONE 25 MG TABLET PO SCH (09:49)
[2022-10-31] MEDS: LACTULOSE 20 GM/30 ML UDC (FOR ORAL USE ONLY) PO SCH ×3 (09:49→21:05)
[2022-10-31] MEDS: BUPRENORPHINE/NALOXONE 8 MG/2 MG FILM PACKET SL SCH (09:49)
[2022-10-31] MEDS: MAG HYDROX/AL HYDROX/SIMETH 30 ML UNIT-DOSE CUP PO PRN (09:51)
[2022-10-31] MEDS: IBUPROFEN 400 MG TABLET (FP) PO PRN (09:52)
[2022-10-31] MEDS: PANTOPRAZOLE 20 MG TABLET PO SCH (14:03)
[2022-10-31] MEDS: THIAMINE HCL 100 MG TABLET (FP) PO SCH (21:04)
[2022-10-31] MEDS: MELATONIN 5 MG TABLETS PO SCH (21:04)
[2022-10-31] MEDS: QUEtiapine FUMARATE 50 MG TABLET PO SCH (21:04)
[2022-11-01] MEDS: hydrOXYzine PAMOATE 25 MG CAPSULE (FP) PO PRN ×2 (06:15→21:06)
[2022-11-01] MEDS: SPIRONOLACTONE 25 MG TABLET PO SCH (09:55)
[2022-11-01] MEDS: amLODIPine BESYLATE 5 MG TABLET (FP) PO SCH (09:56)
[2022-11-01] MEDS: BUPRENORPHINE/NALOXONE 8 MG/2 MG FILM PACKET SL SCH (09:56)
[2022-11-01] MEDS: BUDESONIDE/FORMETEROL FUMARATE 80/4.5 mcg INHALER IH SCH ×2 (09:56→23:14)
[2022-11-01] MEDS: PANTOPRAZOLE 20 MG TABLET PO SCH (09:56)
[2022-11-01] MEDS: PRENATAL VITAMINS W/ FOLIC ACID TABLET (FP) PO SCH (09:56)
[2022-11-01] MEDS: MELATONIN 5 MG TABLETS PO SCH (21:04)
[2022-11-01] MEDS: METHOCARBAMOL 500 MG TABLET PO PRN (21:06)
[2022-11-01] MEDS: QUEtiapine FUMARATE 50 MG TABLET PO SCH (21:06)
[2022-11-01] MEDS: THIAMINE HCL 100 MG TABLET (FP) PO SCH (21:06)
[2022-11-02] MEDS: hydrOXYzine PAMOATE 25 MG CAPSULE (FP) PO PRN ×2 (06:07→21:06)
[2022-11-02] MEDS: METHOCARBAMOL 500 MG TABLET PO PRN ×2 (06:07→21:06)
[2022-11-02] MEDS: PRENATAL VITAMINS W/ FOLIC ACID TABLET (FP) PO SCH (09:54)
[2022-11-02] MEDS: amLODIPine BESYLATE 5 MG TABLET (FP) PO SCH (09:54)
[2022-11-02] MEDS: PANTOPRAZOLE 20 MG TABLET PO SCH (09:54)
[2022-11-02] MEDS: BUPRENORPHINE/NALOXONE 8 MG/2 MG FILM PACKET SL SCH (09:54)
[2022-11-02] MEDS: SPIRONOLACTONE 25 MG TABLET PO SCH (09:54)
[2022-11-02] MEDS: BUDESONIDE/FORMETEROL FUMARATE 80/4.5 mcg INHALER IH SCH ×2 (09:55→21:07)
[2022-11-02] MEDS: THIAMINE HCL 100 MG TABLET (FP) PO SCH (21:05)
[2022-11-02] MEDS: MELATONIN 5 MG TABLETS PO SCH (21:06)
[2022-11-02] MEDS: QUEtiapine FUMARATE 50 MG TABLET PO SCH (21:06)
[2022-11-03] MEDS: hydrOXYzine PAMOATE 25 MG CAPSULE (FP) PO PRN ×2 (06:10→21:08)
[2022-11-03] MEDS: SPIRONOLACTONE 25 MG TABLET PO SCH (09:53)
[2022-11-03] MEDS: amLODIPine BESYLATE 5 MG TABLET (FP) PO SCH (09:53)
[2022-11-03] MEDS: PANTOPRAZOLE 20 MG TABLET PO SCH (09:54)
[2022-11-03] MEDS: BUDESONIDE/FORMETEROL FUMARATE 80/4.5 mcg INHALER IH SCH ×2 (09:54→21:08)
[2022-11-03] MEDS: BUPRENORPHINE/NALOXONE 8 MG/2 MG FILM PACKET SL SCH (09:54)
[2022-11-03] MEDS: PRENATAL VITAMINS W/ FOLIC ACID TABLET (FP) PO SCH (09:54)
[2022-11-03] MEDS: MELATONIN 5 MG TABLETS PO SCH (21:07)
[2022-11-03] MEDS: THIAMINE HCL 100 MG TABLET (FP) PO SCH (21:07)
[2022-11-03] MEDS: QUEtiapine FUMARATE 50 MG TABLET PO SCH (21:08)
[2022-11-03] MEDS: METHOCARBAMOL 500 MG TABLET PO PRN (21:08)
[2022-11-04] MEDS: hydrOXYzine PAMOATE 25 MG CAPSULE (FP) PO PRN ×2 (06:17→21:02)
[2022-11-04] MEDS: IBUPROFEN 400 MG TABLET (FP) PO PRN (06:17)
[2022-11-04] MEDS: amLODIPine BESYLATE 5 MG TABLET (FP) PO SCH (10:00)
[2022-11-04] MEDS: SPIRONOLACTONE 25 MG TABLET PO SCH (10:01)
[2022-11-04] MEDS: PRENATAL VITAMINS W/ FOLIC ACID TABLET (FP) PO SCH (10:01)
[2022-11-04] MEDS: BUPRENORPHINE/NALOXONE 8 MG/2 MG FILM PACKET SL SCH (10:02)
[2022-11-04] MEDS: PANTOPRAZOLE 20 MG TABLET PO SCH (10:02)
[2022-11-04] MEDS: BUDESONIDE/FORMETEROL FUMARATE 80/4.5 mcg INHALER IH SCH ×2 (10:03→21:02)
[2022-11-04] MEDS: METHOCARBAMOL 500 MG TABLET PO PRN (21:02)
[2022-11-04] MEDS: THIAMINE HCL 100 MG TABLET (FP) PO SCH (21:02)
[2022-11-04] MEDS: MELATONIN 5 MG TABLETS PO SCH (21:02)
[2022-11-04] MEDS: QUEtiapine FUMARATE 50 MG TABLET PO SCH (21:02)
[2022-11-05] MEDS: METHOCARBAMOL 500 MG TABLET PO PRN ×2 (05:59→21:05)
[2022-11-05] MEDS: hydrOXYzine PAMOATE 25 MG CAPSULE (FP) PO PRN ×2 (05:59→21:05)
[2022-11-05] MEDS: PRENATAL VITAMINS W/ FOLIC ACID TABLET (FP) PO SCH (10:10)
[2022-11-05] MEDS: amLODIPine BESYLATE 5 MG TABLET (FP) PO SCH (10:10)
[2022-11-05] MEDS: PANTOPRAZOLE 20 MG TABLET PO SCH (10:10)
[2022-11-05] MEDS: SPIRONOLACTONE 25 MG TABLET PO SCH (10:10)
[2022-11-05] MEDS: BUDESONIDE/FORMETEROL FUMARATE 80/4.5 mcg INHALER IH SCH ×2 (10:11→21:06)
[2022-11-05] MEDS: BUPRENORPHINE/NALOXONE 8 MG/2 MG FILM PACKET SL SCH (10:11)
[2022-11-05] MEDS: MELATONIN 5 MG TABLETS PO SCH (21:04)
[2022-11-05] MEDS: THIAMINE HCL 100 MG TABLET (FP) PO SCH (21:04)
[2022-11-05] MEDS: QUEtiapine FUMARATE 50 MG TABLET PO SCH (21:05)
[2022-11-06] MEDS: hydrOXYzine PAMOATE 25 MG CAPSULE (FP) PO PRN ×2 (06:06→21:07)
[2022-11-06 07:24] VITALS: RESP 18
[2022-11-06] MEDS: amLODIPine BESYLATE 5 MG TABLET (FP) PO SCH (09:45)
[2022-11-06] MEDS: SPIRONOLACTONE 25 MG TABLET PO SCH (09:45)
[2022-11-06] MEDS: PRENATAL VITAMINS W/ FOLIC ACID TABLET (FP) PO SCH (09:45)
[2022-11-06] MEDS: BUPRENORPHINE/NALOXONE 8 MG/2 MG FILM PACKET SL SCH (09:46)
[2022-11-06] MEDS: PANTOPRAZOLE 20 MG TABLET PO SCH (09:46)
[2022-11-06] MEDS: BUDESONIDE/FORMETEROL FUMARATE 80/4.5 mcg INHALER IH SCH ×2 (09:46→21:40)
[2022-11-06] MEDS: THIAMINE HCL 100 MG TABLET (FP) PO SCH (21:05)
[2022-11-06] MEDS: MELATONIN 5 MG TABLETS PO SCH (21:05)
[2022-11-06] MEDS: METHOCARBAMOL 500 MG TABLET PO PRN (21:06)
[2022-11-06] MEDS: QUEtiapine FUMARATE 50 MG TABLET PO SCH (21:08)
[2022-11-07] MEDS: hydrOXYzine PAMOATE 25 MG CAPSULE (FP) PO PRN ×2 (06:09→21:05)
[2022-11-07] MEDS: PANTOPRAZOLE 20 MG TABLET PO SCH (09:56)
[2022-11-07] MEDS: amLODIPine BESYLATE 5 MG TABLET (FP) PO SCH (09:56)
[2022-11-07] MEDS: SPIRONOLACTONE 25 MG TABLET PO SCH (09:56)
[2022-11-07] MEDS: PRENATAL VITAMINS W/ FOLIC ACID TABLET (FP) PO SCH (09:57)
[2022-11-07] MEDS: BUPRENORPHINE/NALOXONE 8 MG/2 MG FILM PACKET SL SCH (09:57)
[2022-11-07] MEDS: BUDESONIDE/FORMETEROL FUMARATE 80/4.5 mcg INHALER IH SCH ×2 (09:57→21:06)
[2022-11-07] MEDS: MELATONIN 5 MG TABLETS PO SCH (21:04)
[2022-11-07] MEDS: THIAMINE HCL 100 MG TABLET (FP) PO SCH (21:04)
[2022-11-07] MEDS: METHOCARBAMOL 500 MG TABLET PO PRN (21:05)
[2022-11-07] MEDS: QUEtiapine FUMARATE 50 MG TABLET PO SCH (21:05)
[2022-11-08 06:40] VITALS: BP 122/81; PULSE 88; TEMP 97.4
[2022-11-08] MEDS: amLODIPine BESYLATE 5 MG TABLET (FP) PO SCH (09:12)
[2022-11-08] MEDS: PRENATAL VITAMINS W/ FOLIC ACID TABLET (FP) PO SCH (09:12)
[2022-11-08] MEDS: SPIRONOLACTONE 25 MG TABLET PO SCH (09:12)
[2022-11-08] MEDS: PANTOPRAZOLE 20 MG TABLET PO SCH (09:12)
[2022-11-08] MEDS: BUDESONIDE/FORMETEROL FUMARATE 80/4.5 mcg INHALER IH SCH (09:13)
== END 2022-11-08 09:15 | disposition home or self-care (01) | DRG 895 ==
LOC: YASAS 11:04 → Y3E 11:06
PROVIDERS: ADMIT Allergy & Immunology; ATTEND Psychiatry & Neurology Pain Medicine
PROC: HZ42ZZZ Group Counseling for Substance Abuse Treatment, Cognitive-Behavioral (ICD-10-PCS; principal; 2022-10-25)
DX: F11.20 Opioid dependence, uncomplicated (principal); F19.282 Other psychoactive substance dependence with psychoactive substance-induced sleep disorder; E72.20 Disorder of urea cycle metabolism, unspecified; F10.20 Alcohol dependence, uncomplicated; F12.20 Cannabis dependence, uncomplicated; F19.24 Other psychoactive substance dependence with psychoactive substance-induced mood disorder; G47.00 Insomnia, unspecified; I10 Essential (primary) hypertension; J45.909 Unspecified asthma, uncomplicated; K70.30 Alcoholic cirrhosis of liver without ascites; E66.9 Obesity, unspecified; Z68.37 Body mass index [BMI] 37.0-37.9, adult; R60.0 Localized edema; R74.8 Abnormal levels of other serum enzymes; Z87.19 Personal history of other diseases of the digestive system; Z98.84 Bariatric surgery status
CPT/HCPCS: 36415; 80053; 82140; 85027; 86780; Q0162

== ENCOUNTER 2023-07-14 12:19 | Inpatient (IN) | payer OTHER ==
[2023-07-14 13:36] VITALS: BMI 33.5
[2023-07-14] MEDS ORDERED: IBUPROFEN 600 MG TABLET (FP) PO PRN (14:03)
[2023-07-14] MEDS ORDERED: NALOXONE HCL 0.4 MG/ML VIAL IM PRN (14:03)
[2023-07-14] MEDS ORDERED: ACETAMINOPHEN 325 MG TABLET (FP) PO PRN (14:03)
[2023-07-14] MEDS ORDERED: IBUPROFEN 400 MG TABLET (FP) PO PRN (14:03)
[2023-07-14] MEDS ORDERED: NALOXONE HCL (KLOXXADO) 8 MG SPRAY NS PRN (14:03)
[2023-07-14] MEDS ORDERED: POLYETHYLENE GLYCOL (HEALTHYLAX) 3350 17 GM PACKET PO PRN (14:03)
[2023-07-14] MEDS ORDERED: BISMUTH SUBSALICYLATE 262 MG/15 ML BTL PO PRN (14:03)
[2023-07-14] MEDS ORDERED: METHOCARBAMOL 500 MG TABLET PO PRN (14:03)
[2023-07-14] MEDS ORDERED: ONDANSETRON *ODT* 4 MG TABLET SL PRN (14:03)
[2023-07-14] MEDS ORDERED: MAGNESIUM HYDROX 2400MG/30ML ORAL SUSPENSION 30 ML CUP PO PRN (14:03)
[2023-07-14] MEDS ORDERED: BENZOCAINE/MENTHOL (CHLORASEPTIC ) LOZENGE MM PRN (14:03)
[2023-07-14] MEDS ORDERED: guaiFENesin 600 MG TABLET.ER (FP) PO PRN (14:03)
[2023-07-14] MEDS ORDERED: hydrOXYzine PAMOATE 25 MG CAPSULE (FP) PO PRN (14:03)
[2023-07-14] MEDS ORDERED: DICYCLOMINE HCL 10 MG CAPSULE PO PRN (14:03)
[2023-07-14] MEDS ORDERED: LORazepam 1 MG TABLET PO PRN (14:03)
[2023-07-14] MEDS ORDERED: BENZONATATE 200 MG CAPSULE PO PRN (14:03)
[2023-07-14] MEDS ORDERED: LOPERAMIDE HCL 2 MG CAPSULE PO PRN (14:03)
[2023-07-14] MEDS ORDERED: MAG HYDROX/AL HYDROX/SIMETH 30 ML UNIT-DOSE CUP PO PRN (14:03)
[2023-07-14] MEDS ORDERED: ALBUTEROL SO4 HFA INHALER IH PRN (14:06)
[2023-07-14] MEDS ORDERED: LORazepam 2 MG TABLET PO STA (14:13)
[2023-07-14] MEDS ORDERED: LORazepam 2 MG TABLET ONE (14:15)
[2023-07-14] MEDS: PRENATAL VITAMINS W/ FOLIC ACID TABLET (FP) PO SCH (14:34)
[2023-07-14] MEDS ORDERED: hydrOXYzine PAMOATE 25 MG CAPSULE (FP) PO ONE (14:59)
[2023-07-14] MEDS: LACTULOSE 20 GM/30 ML UDC (FOR ORAL USE ONLY) PO SCH ×2 (17:32→22:26)
[2023-07-14] MEDS: LORazepam 2 MG TABLET PO SCH ×2 (17:36→22:28)
[2023-07-14] MEDS ORDERED: MELATONIN 5 MG TABLETS PO SCH (22:00)
[2023-07-14] MEDS ORDERED: THIAMINE HCL 100 MG TABLET (FP) PO SCH (22:00)
[2023-07-14] MEDS: BUDESONIDE/FORMETEROL FUMARATE 80/4.5 mcg INHALER IH SCH (22:30)
[2023-07-15] MEDS: LORazepam 2 MG TABLET PO SCH ×2 (05:46→10:56)
[2023-07-15 06:00] VITALS: RESP 18
[2023-07-15] MEDS ORDERED: amLODIPine BESYLATE 5 MG TABLET (FP) PO SCH (10:00)
[2023-07-15] MEDS ORDERED: SPIRONOLACTONE 25 MG TABLET PO SCH (10:00)
[2023-07-15] MEDS ORDERED: FUROSEMIDE 40 MG TABLET (FP) PO SCH (10:00)
[2023-07-15] MEDS ORDERED: BUPRENORPHINE/NALOXONE 8 MG/2 MG FILM PACKET SL SCH (10:00)
[2023-07-15] MEDS ORDERED: PANTOPRAZOLE 20 MG TABLET PO SCH (10:00)
[2023-07-15] MEDS: PRENATAL VITAMINS W/ FOLIC ACID TABLET (FP) PO SCH (10:54)
[2023-07-15] MEDS: LACTULOSE 20 GM/30 ML UDC (FOR ORAL USE ONLY) PO SCH ×2 (10:56→14:15)
[2023-07-15] MEDS: BUDESONIDE/FORMETEROL FUMARATE 80/4.5 mcg INHALER IH SCH (10:58)
[2023-07-15 12:40] VITALS: BP 111/64; PULSE 61; TEMP 97.3
[2023-07-15 15:58] LABS: CHLORIDE 109 mmol/L (98-107); POTASSIUM 3.4 mmol/L (3.5-5.1); SODIUM 141 mmol/L (136-145)
[2023-07-15 16:01] LABS: ANION GAP 7 mmol/L (4-13); BLOOD UREA NITROGEN 7.6 mg/dL (7-18); CO2 26 mmol/L (21-32); GLUCOSE,RANDOM 99 mg/dL (74-106)
[2023-07-15 16:02] LABS: ALBUMIN 2.9 g/dl (3.4-5.0)
[2023-07-15 16:03] LABS: CALCIUM 7.9 mg/dL (8.5-10.1)
[2023-07-15 16:05] LABS: HEMOGLOBIN 12.1 GM/dL (11.7-16.9); MCHC 31.8 g/dl (32.0-35.9); MEAN CELL VOLUME 84.8 fl (80-96); MEAN PLT VOLUME 6.9 fl (7.5-11.1); PLATELET COUNT 138 10^3/uL (134-434); RBC 4.47 M/mm3 (4.00-5.60); RDW 14.2 % (11.9-15.9); WHITE BLOOD COUNT 7.4 K/mm3 (4.0-10.0)
[2023-07-15 16:06] LABS: BILIRUBIN,TOTAL 2.2 mg/dL (0.2-1); SGPT/ALT 24 U/L (13-61); TOT PROT 6.5 g/dl (6.4-8.2)
[2023-07-15 16:07] LABS: CREATININE 0.7 mg/dL (0.55-1.3); SGOT/AST 42 U/L (15-37)
[2023-07-15 16:09] LABS: ALK PHOS 218 U/L (45-117)
[2023-07-16] MEDS ORDERED: LORazepam 1 MG TABLET PO SCH (05:00)
[2023-07-17] MEDS ORDERED: LORazepam 0.5 MG TABLET PO PRN
[2023-07-17] MEDS ORDERED: LORazepam 0.5 MG TABLET PO SCH (05:00)
[2023-07-18] MEDS ORDERED: LORazepam 0.5 MG TABLET PO ONE (05:00)
== END 2023-07-15 15:51 | disposition left against medical advice (07) | DRG 894 ==
LOC: YASAS 12:19 → Y3N 14:22
PROVIDERS: ADMIT Allergy & Immunology; ATTEND Surgery
PROC: HZ2ZZZZ Detoxification Services for Substance Abuse Treatment (ICD-10-PCS; principal; 2023-07-14)
DX: F10.230 Alcohol dependence with withdrawal, uncomplicated (principal); F11.20 Opioid dependence, uncomplicated; F17.210 Nicotine dependence, cigarettes, uncomplicated; I10 Essential (primary) hypertension; K74.60 Unspecified cirrhosis of liver; J45.909 Unspecified asthma, uncomplicated; Z20.822 Contact with and (suspected) exposure to COVID-19
CPT/HCPCS: 36415; 80053; 80307; 85027; 86780; 87635

== ENCOUNTER 2023-07-22 09:38 | Inpatient (IN) | payer OTHER ==
[2023-07-22 10:07] VITALS: BMI 33.5
[2023-07-22] MEDS ORDERED: BISMUTH SUBSALICYLATE 524 MG/30 ML PO PRN (10:59)
[2023-07-22] MEDS ORDERED: DICYCLOMINE HCL 10 MG CAPSULE PO PRN (10:59)
[2023-07-22] MEDS ORDERED: LORazepam 2 MG TABLET PO ONE (10:59)
[2023-07-22] MEDS ORDERED: POLYETHYLENE GLYCOL (HEALTHYLAX) 3350 17 GM PACKET PO PRN (10:59)
[2023-07-22] MEDS ORDERED: BENZOCAINE/MENTHOL (CHLORASEPTIC ) LOZENGE MM PRN (10:59)
[2023-07-22] MEDS ORDERED: LOPERAMIDE HCL 2 MG CAPSULE PO PRN (10:59)
[2023-07-22] MEDS ORDERED: NALOXONE HCL (KLOXXADO) 8 MG SPRAY NS PRN (10:59)
[2023-07-22] MEDS ORDERED: guaiFENesin 600 MG TABLET.ER (FP) PO PRN (10:59)
[2023-07-22] MEDS ORDERED: ACETAMINOPHEN 325 MG TABLET (FP) PO PRN (10:59)
[2023-07-22] MEDS ORDERED: METHOCARBAMOL 500 MG TABLET PO PRN (10:59)
[2023-07-22] MEDS ORDERED: ONDANSETRON *ODT* 4 MG TABLET SL PRN (10:59)
[2023-07-22] MEDS ORDERED: MAGNESIUM HYDROX 2400MG/30ML ORAL SUSPENSION 30 ML CUP PO PRN (10:59)
[2023-07-22] MEDS ORDERED: NALOXONE HCL 0.4 MG/ML VIAL IM PRN (10:59)
[2023-07-22] MEDS ORDERED: MAG HYDROX/AL HYDROX/SIMETH 30 ML UNIT-DOSE CUP PO PRN (10:59)
[2023-07-22] MEDS ORDERED: IBUPROFEN 600 MG TABLET (FP) PO PRN (10:59)
[2023-07-22] MEDS ORDERED: BENZONATATE 200 MG CAPSULE PO PRN (10:59)
[2023-07-22] MEDS ORDERED: LORazepam 1 MG TABLET PO PRN (10:59)
[2023-07-22] MEDS ORDERED: ALBUTEROL SO4 HFA INHALER IH PRN (11:03)
[2023-07-22] MEDS ORDERED: LORazepam 2 MG TABLET ONE (11:56)
[2023-07-22] MEDS: BUPRENORPHINE/NALOXONE 8 MG/2 MG FILM PACKET SL SCH ×2 (13:58→22:25)
[2023-07-22] MEDS: LORazepam 2 MG TABLET PO SCH ×2 (17:19→22:25)
[2023-07-22] MEDS: THIAMINE HCL 100 MG TABLET (FP) PO SCH (22:25)
[2023-07-22] MEDS: MELATONIN 5 MG TABLETS PO SCH (22:26)
[2023-07-22] MEDS: BUDESONIDE/FORMETEROL FUMARATE 80/4.5 mcg INHALER IH SCH (22:27)
[2023-07-23] MEDS: LORazepam 2 MG TABLET PO SCH ×4 (05:26→22:17)
[2023-07-23] MEDS: BUPRENORPHINE/NALOXONE 8 MG/2 MG FILM PACKET SL SCH ×3 (06:03→22:17)
[2023-07-23] MEDS: PANTOPRAZOLE 20 MG TABLET PO SCH (10:13)
[2023-07-23] MEDS: FUROSEMIDE 40 MG TABLET (FP) PO SCH (10:14)
[2023-07-23] MEDS: SPIRONOLACTONE 25 MG TABLET PO SCH (10:14)
[2023-07-23] MEDS: PRENATAL VITAMINS W/ FOLIC ACID TABLET (FP) PO SCH (10:14)
[2023-07-23] MEDS: BUDESONIDE/FORMETEROL FUMARATE 80/4.5 mcg INHALER IH SCH ×2 (10:14→22:18)
[2023-07-23 15:34] LABS: HEMATOCRIT 39.7 % (35.4-49); MCH 27.4 pg (25.7-33.7); MCHC 32.6 g/dl (32.0-35.9); MEAN CELL VOLUME 84.1 fl (80-96); MEAN PLT VOLUME 7.1 fl (7.5-11.1); PLATELET COUNT 139 10^3/uL (134-434); RBC 4.72 M/mm3 (4.00-5.60); WHITE BLOOD COUNT 6.3 K/mm3 (4.0-10.0)
[2023-07-23 15:35] LABS: CHLORIDE 105 mmol/L (98-107); POTASSIUM 3.9 mmol/L (3.5-5.1); SODIUM 141 mmol/L (136-145)
[2023-07-23 15:37] LABS: ALBUMIN 3.2 g/dl (3.4-5.0); ANION GAP 9 mmol/L (4-13); BLOOD UREA NITROGEN 10.9 mg/dL (7-18); CALCIUM 8.4 mg/dL (8.5-10.1); CO2 26 mmol/L (21-32); GLUCOSE,RANDOM 177 mg/dL (74-106)
[2023-07-23 15:40] LABS: SGOT/AST 46 U/L (15-37); SGPT/ALT 23 U/L (13-61)
[2023-07-23 15:41] LABS: BILIRUBIN,TOTAL 1.7 mg/dL (0.2-1); TOT PROT 7.1 g/dl (6.4-8.2)
[2023-07-23 15:45] LABS: ALK PHOS 185 U/L (45-117)
[2023-07-23] MEDS: THIAMINE HCL 100 MG TABLET (FP) PO SCH (22:17)
[2023-07-23] MEDS: QUEtiapine FUMARATE 100 MG TABLET (FP) PO SCH (22:19)
[2023-07-23] MEDS: MELATONIN 5 MG TABLETS PO SCH (22:19)
[2023-07-24] MEDS: LORazepam 1 MG TABLET PO SCH ×4 (05:56→22:12)
[2023-07-24] MEDS: BUPRENORPHINE/NALOXONE 8 MG/2 MG FILM PACKET SL SCH ×3 (05:56→22:12)
[2023-07-24] MEDS: FUROSEMIDE 40 MG TABLET (FP) PO SCH (10:18)
[2023-07-24] MEDS: PRENATAL VITAMINS W/ FOLIC ACID TABLET (FP) PO SCH (10:18)
[2023-07-24] MEDS: SPIRONOLACTONE 25 MG TABLET PO SCH (10:18)
[2023-07-24] MEDS: BUDESONIDE/FORMETEROL FUMARATE 80/4.5 mcg INHALER IH SCH ×2 (10:19→22:13)
[2023-07-24] MEDS: PANTOPRAZOLE 20 MG TABLET PO SCH (10:19)
[2023-07-24] MEDS: LACTULOSE 20 GM/30 ML UDC (FOR ORAL USE ONLY) PO SCH ×3 (13:21→22:11)
[2023-07-24] MEDS: MELATONIN 5 MG TABLETS PO SCH (22:12)
[2023-07-24] MEDS: QUEtiapine FUMARATE 100 MG TABLET (FP) PO SCH (22:12)
[2023-07-24] MEDS: THIAMINE HCL 100 MG TABLET (FP) PO SCH (22:12)
[2023-07-25] MEDS ORDERED: LORazepam 0.5 MG TABLET PO PRN
[2023-07-25] MEDS: LORazepam 0.5 MG TABLET PO SCH ×4 (05:15→22:10)
[2023-07-25] MEDS: BUPRENORPHINE/NALOXONE 8 MG/2 MG FILM PACKET SL SCH ×3 (05:16→22:08)
[2023-07-25] MEDS: PANTOPRAZOLE 20 MG TABLET PO SCH (10:01)
[2023-07-25] MEDS: LACTULOSE 20 GM/30 ML UDC (FOR ORAL USE ONLY) PO SCH ×4 (10:01→22:09)
[2023-07-25] MEDS: SPIRONOLACTONE 25 MG TABLET PO SCH (10:01)
[2023-07-25] MEDS: PRENATAL VITAMINS W/ FOLIC ACID TABLET (FP) PO SCH (10:01)
[2023-07-25] MEDS: FUROSEMIDE 40 MG TABLET (FP) PO SCH (10:01)
[2023-07-25] MEDS: BUDESONIDE/FORMETEROL FUMARATE 80/4.5 mcg INHALER IH SCH ×3 (10:03→22:44)
[2023-07-25 11:00] LABS: POTASSIUM 3.7 mmol/L (3.5-5.1)
[2023-07-25 11:10] LABS: CALCIUM 8.3 mg/dL (8.5-10.1)
[2023-07-25 11:11] LABS: BLOOD UREA NITROGEN 15.5 mg/dL (7-18)
[2023-07-25 11:13] LABS: ALBUMIN 2.9 g/dl (3.4-5.0)
[2023-07-25 11:16] LABS: BILIRUBIN,TOTAL 0.9 mg/dL (0.2-1); TOT PROT 6.5 g/dl (6.4-8.2)
[2023-07-25] MEDS: MELATONIN 5 MG TABLETS PO SCH (22:09)
[2023-07-25] MEDS: THIAMINE HCL 100 MG TABLET (FP) PO SCH (22:09)
[2023-07-25] MEDS: QUEtiapine FUMARATE 100 MG TABLET (FP) PO SCH (22:09)
[2023-07-26] MEDS ORDERED: LORazepam 0.5 MG TABLET PO ONE (05:00)
[2023-07-26] MEDS: BUPRENORPHINE/NALOXONE 8 MG/2 MG FILM PACKET SL SCH (05:19)
[2023-07-26 05:42] VITALS: RESP 16; TEMP 97.7
[2023-07-26] MEDS: SPIRONOLACTONE 25 MG TABLET PO SCH (09:42)
[2023-07-26] MEDS: LACTULOSE 20 GM/30 ML UDC (FOR ORAL USE ONLY) PO SCH (09:42)
[2023-07-26] MEDS: BUDESONIDE/FORMETEROL FUMARATE 80/4.5 mcg INHALER IH SCH (09:42)
[2023-07-26] MEDS: FUROSEMIDE 40 MG TABLET (FP) PO SCH (09:42)
[2023-07-26] MEDS: PANTOPRAZOLE 20 MG TABLET PO SCH (09:42)
[2023-07-26] MEDS: PRENATAL VITAMINS W/ FOLIC ACID TABLET (FP) PO SCH (09:43)
[2023-07-26 09:52] VITALS: BP 109/77; PULSE 82
== END 2023-07-26 12:40 | disposition home or self-care (01) | DRG 897 ==
LOC: YASAS 09:38 → Y6N 11:40
PROVIDERS: ADMIT Allergy & Immunology; ATTEND Surgery
PROC: HZ2ZZZZ Detoxification Services for Substance Abuse Treatment (ICD-10-PCS; principal; 2023-07-22)
DX: F10.230 Alcohol dependence with withdrawal, uncomplicated (principal); F11.20 Opioid dependence, uncomplicated; E72.20 Disorder of urea cycle metabolism, unspecified; F14.10 Cocaine abuse, uncomplicated; F17.210 Nicotine dependence, cigarettes, uncomplicated; J45.909 Unspecified asthma, uncomplicated; K21.9 Gastro-esophageal reflux disease without esophagitis; H91.90 Unspecified hearing loss, unspecified ear; K74.60 Unspecified cirrhosis of liver; Z99.89 Dependence on other enabling machines and devices; Z98.84 Bariatric surgery status
CPT/HCPCS: 36415; 80053; 80307; 82140; 82947; 83036; 85027; 86780; 87635; 87811

== ENCOUNTER 2023-07-26 12:45 | Inpatient (IN) | payer OTHER ==
[2023-07-26] MEDS ORDERED: NICOTINE POLACRILEX 4 MG GUM BUC PRN (15:18)
[2023-07-26] MEDS ORDERED: ACETAMINOPHEN 325 MG TABLET (FP) PO PRN (15:18)
[2023-07-26] MEDS ORDERED: POLYETHYLENE GLYCOL (HEALTHYLAX) 3350 17 GM PACKET PO PRN (15:18)
[2023-07-26] MEDS ORDERED: COLLOIDAL OATMEAL 1 BAR EACH TP PRN (15:18)
[2023-07-26] MEDS ORDERED: NALOXONE HCL (KLOXXADO) 8 MG SPRAY NS PRN (15:18)
[2023-07-26] MEDS ORDERED: LOPERAMIDE HCL 2 MG CAPSULE PO PRN (15:18)
[2023-07-26] MEDS ORDERED: BENZOCAINE/MENTHOL (CHLORASEPTIC ) LOZENGE MM PRN (15:18)
[2023-07-26] MEDS ORDERED: BENZONATATE 200 MG CAPSULE PO PRN (15:18)
[2023-07-26] MEDS ORDERED: MAGNESIUM HYDROX 2400MG/30ML ORAL SUSPENSION 30 ML CUP PO PRN (15:18)
[2023-07-26] MEDS ORDERED: guaiFENesin 600 MG TABLET.ER (FP) PO PRN (15:18)
[2023-07-26] MEDS ORDERED: IBUPROFEN 400 MG TABLET (FP) PO PRN (15:18)
[2023-07-26] MEDS ORDERED: NICOTINE 14 MG/24 HOURS TOPICAL PATCH TD PRN (15:18)
[2023-07-26] MEDS ORDERED: METHOCARBAMOL 500 MG TABLET PO PRN (15:18)
[2023-07-26] MEDS ORDERED: NALOXONE HCL 0.4 MG/ML VIAL IVPUSH PRN (15:18)
[2023-07-26] MEDS ORDERED: IBUPROFEN 600 MG TABLET (FP) PO PRN (15:18)
[2023-07-26] MEDS: LACTULOSE 20 GM/30 ML UDC (FOR ORAL USE ONLY) PO SCH ×2 (17:15→21:08)
[2023-07-26] MEDS: BUPRENORPHINE/NALOXONE 8 MG/2 MG FILM PACKET SL SCH (21:08)
[2023-07-26] MEDS: BUDESONIDE/FORMETEROL FUMARATE 80/4.5 mcg INHALER IH SCH (21:08)
[2023-07-26] MEDS: QUEtiapine FUMARATE 100 MG TABLET (FP) PO SCH (21:09)
[2023-07-26] MEDS: THIAMINE HCL 100 MG TABLET (FP) PO SCH (21:09)
[2023-07-26] MEDS: MELATONIN 5 MG TABLETS PO SCH (21:39)
[2023-07-27] MEDS ORDERED: PATIENT'S OWN MEDICATION (NON-FORMULARY) (Omeprazole [Omeprazole] 20 MG Tablet.Dr) PO SCH (10:00)
[2023-07-27] MEDS: BUPRENORPHINE/NALOXONE 8 MG/2 MG FILM PACKET SL SCH ×2 (10:01→21:02)
[2023-07-27] MEDS: SPIRONOLACTONE 25 MG TABLET PO SCH (10:02)
[2023-07-27] MEDS: FUROSEMIDE 40 MG TABLET (FP) PO SCH (10:02)
[2023-07-27] MEDS: PRENATAL VITAMINS W/ FOLIC ACID TABLET (FP) PO SCH (10:03)
[2023-07-27] MEDS: PANTOPRAZOLE 20 MG TABLET PO SCH (10:03)
[2023-07-27] MEDS: LACTULOSE 20 GM/30 ML UDC (FOR ORAL USE ONLY) PO SCH ×4 (10:04→21:02)
[2023-07-27] MEDS: BUDESONIDE/FORMETEROL FUMARATE 80/4.5 mcg INHALER IH SCH ×2 (10:04→21:02)
[2023-07-27] MEDS: hydrOXYzine PAMOATE 25 MG CAPSULE (FP) PO PRN (10:07)
[2023-07-27 12:03] LABS: INR 1.21 (0.83-1.09)
[2023-07-27 15:45] LABS: HIV INTERPRETATION NEGATIVE (NEGATIVE)
[2023-07-27] MEDS: QUEtiapine FUMARATE 100 MG TABLET (FP) PO SCH (21:02)
[2023-07-27] MEDS: THIAMINE HCL 100 MG TABLET (FP) PO SCH (21:02)
[2023-07-27] MEDS: MELATONIN 5 MG TABLETS PO SCH (21:02)
[2023-07-28] MEDS: hydrOXYzine PAMOATE 25 MG CAPSULE (FP) PO PRN ×2 (09:53→21:07)
[2023-07-28] MEDS: PANTOPRAZOLE 20 MG TABLET PO SCH (09:53)
[2023-07-28] MEDS: PRENATAL VITAMINS W/ FOLIC ACID TABLET (FP) PO SCH (09:54)
[2023-07-28] MEDS: FUROSEMIDE 40 MG TABLET (FP) PO SCH (09:54)
[2023-07-28] MEDS: LACTULOSE 20 GM/30 ML UDC (FOR ORAL USE ONLY) PO SCH ×4 (09:54→21:07)
[2023-07-28] MEDS: BUPRENORPHINE/NALOXONE 8 MG/2 MG FILM PACKET SL SCH ×2 (09:54→21:07)
[2023-07-28] MEDS: BUDESONIDE/FORMETEROL FUMARATE 80/4.5 mcg INHALER IH SCH ×2 (09:54→23:13)
[2023-07-28] MEDS: SPIRONOLACTONE 25 MG TABLET PO SCH (09:54)
[2023-07-28] MEDS: MAG HYDROX/AL HYDROX/SIMETH 30 ML UNIT-DOSE CUP PO PRN (11:14)
[2023-07-28] MEDS: MELATONIN 5 MG TABLETS PO SCH (21:06)
[2023-07-28] MEDS: THIAMINE HCL 100 MG TABLET (FP) PO SCH (21:07)
[2023-07-28] MEDS: QUEtiapine FUMARATE 100 MG TABLET (FP) PO SCH (21:07)
[2023-07-29] MEDS: LACTULOSE 20 GM/30 ML UDC (FOR ORAL USE ONLY) PO SCH ×4 (09:37→21:02)
[2023-07-29] MEDS: PRENATAL VITAMINS W/ FOLIC ACID TABLET (FP) PO SCH (09:37)
[2023-07-29] MEDS: BUPRENORPHINE/NALOXONE 8 MG/2 MG FILM PACKET SL SCH ×2 (09:38→21:02)
[2023-07-29] MEDS: PANTOPRAZOLE 20 MG TABLET PO SCH (09:38)
[2023-07-29] MEDS: BUDESONIDE/FORMETEROL FUMARATE 80/4.5 mcg INHALER IH SCH ×2 (09:38→21:02)
[2023-07-29] MEDS: FUROSEMIDE 40 MG TABLET (FP) PO SCH (10:36)
[2023-07-29] MEDS: SPIRONOLACTONE 25 MG TABLET PO SCH (10:36)
[2023-07-29] MEDS: MELATONIN 5 MG TABLETS PO SCH (21:01)
[2023-07-29] MEDS: THIAMINE HCL 100 MG TABLET (FP) PO SCH (21:01)
[2023-07-29] MEDS: QUEtiapine FUMARATE 100 MG TABLET (FP) PO SCH (21:02)
[2023-07-29 22:11] VITALS: BMI 33.4
[2023-07-30] MEDS: LACTULOSE 20 GM/30 ML UDC (FOR ORAL USE ONLY) PO SCH ×4 (09:45→21:05)
[2023-07-30] MEDS: PANTOPRAZOLE 20 MG TABLET PO SCH (09:45)
[2023-07-30] MEDS: SPIRONOLACTONE 25 MG TABLET PO SCH (09:45)
[2023-07-30] MEDS: PRENATAL VITAMINS W/ FOLIC ACID TABLET (FP) PO SCH (09:45)
[2023-07-30] MEDS: FUROSEMIDE 40 MG TABLET (FP) PO SCH (09:45)
[2023-07-30] MEDS: BUDESONIDE/FORMETEROL FUMARATE 80/4.5 mcg INHALER IH SCH ×2 (09:46→21:04)
[2023-07-30] MEDS: BUPRENORPHINE/NALOXONE 8 MG/2 MG FILM PACKET SL SCH ×2 (09:46→21:04)
[2023-07-30] MEDS: hydrOXYzine PAMOATE 25 MG CAPSULE (FP) PO PRN ×2 (09:47→21:05)
[2023-07-30] MEDS: MELATONIN 5 MG TABLETS PO SCH (21:03)
[2023-07-30] MEDS: THIAMINE HCL 100 MG TABLET (FP) PO SCH (21:03)
[2023-07-30] MEDS: QUEtiapine FUMARATE 100 MG TABLET (FP) PO SCH (21:04)
[2023-07-31] MEDS: PRENATAL VITAMINS W/ FOLIC ACID TABLET (FP) PO SCH (09:55)
[2023-07-31] MEDS: SPIRONOLACTONE 25 MG TABLET PO SCH (09:55)
[2023-07-31] MEDS: PANTOPRAZOLE 20 MG TABLET PO SCH (09:55)
[2023-07-31] MEDS: FUROSEMIDE 40 MG TABLET (FP) PO SCH (09:55)
[2023-07-31] MEDS: BUPRENORPHINE/NALOXONE 8 MG/2 MG FILM PACKET SL SCH ×2 (09:57→21:04)
[2023-07-31] MEDS: hydrOXYzine PAMOATE 25 MG CAPSULE (FP) PO PRN ×2 (09:58→21:04)
[2023-07-31] MEDS: BUDESONIDE/FORMETEROL FUMARATE 80/4.5 mcg INHALER IH SCH ×2 (10:01→21:03)
[2023-07-31] MEDS: LACTULOSE 20 GM/30 ML UDC (FOR ORAL USE ONLY) PO SCH ×4 (10:01→21:04)
[2023-07-31] MEDS: MELATONIN 5 MG TABLETS PO SCH (21:03)
[2023-07-31] MEDS: THIAMINE HCL 100 MG TABLET (FP) PO SCH (21:03)
[2023-07-31] MEDS: QUEtiapine FUMARATE 100 MG TABLET (FP) PO SCH (21:04)
[2023-08-01] MEDS: BUDESONIDE/FORMETEROL FUMARATE 80/4.5 mcg INHALER IH SCH ×2 (09:54→22:14)
[2023-08-01] MEDS: SPIRONOLACTONE 25 MG TABLET PO SCH (09:54)
[2023-08-01] MEDS: LACTULOSE 20 GM/30 ML UDC (FOR ORAL USE ONLY) PO SCH ×4 (09:54→21:07)
[2023-08-01] MEDS: PRENATAL VITAMINS W/ FOLIC ACID TABLET (FP) PO SCH (09:55)
[2023-08-01] MEDS: PANTOPRAZOLE 20 MG TABLET PO SCH (09:55)
[2023-08-01] MEDS: BUPRENORPHINE/NALOXONE 8 MG/2 MG FILM PACKET SL SCH ×2 (09:55→21:07)
[2023-08-01] MEDS: hydrOXYzine PAMOATE 25 MG CAPSULE (FP) PO PRN ×2 (09:55→21:07)
[2023-08-01] MEDS: FUROSEMIDE 20 MG TABLET (FP) PO SCH (09:57)
[2023-08-01] MEDS ORDERED: FUROSEMIDE 40 MG TABLET (FP) PO SCH (10:00)
[2023-08-01] MEDS: MELATONIN 5 MG TABLETS PO SCH (21:07)
[2023-08-01] MEDS: THIAMINE HCL 100 MG TABLET (FP) PO SCH (21:07)
[2023-08-01] MEDS: QUEtiapine FUMARATE 100 MG TABLET (FP) PO SCH (21:07)
[2023-08-01] MEDS: MAG HYDROX/AL HYDROX/SIMETH 30 ML UNIT-DOSE CUP PO PRN (21:08)
[2023-08-02] MEDS: BUPRENORPHINE/NALOXONE 8 MG/2 MG FILM PACKET SL SCH ×2 (09:38→21:02)
[2023-08-02] MEDS: LACTULOSE 20 GM/30 ML UDC (FOR ORAL USE ONLY) PO SCH ×4 (09:39→21:03)
[2023-08-02] MEDS: FUROSEMIDE 20 MG TABLET (FP) PO SCH (09:39)
[2023-08-02] MEDS: hydrOXYzine PAMOATE 25 MG CAPSULE (FP) PO PRN ×2 (09:39→21:03)
[2023-08-02] MEDS: BUDESONIDE/FORMETEROL FUMARATE 80/4.5 mcg INHALER IH SCH ×2 (09:39→21:03)
[2023-08-02] MEDS: PANTOPRAZOLE 20 MG TABLET PO SCH (09:39)
[2023-08-02] MEDS: PRENATAL VITAMINS W/ FOLIC ACID TABLET (FP) PO SCH (09:39)
[2023-08-02] MEDS: SPIRONOLACTONE 25 MG TABLET PO SCH (09:40)
[2023-08-02] MEDS: MELATONIN 5 MG TABLETS PO SCH (21:02)
[2023-08-02] MEDS: QUEtiapine FUMARATE 100 MG TABLET (FP) PO SCH (21:02)
[2023-08-02] MEDS: THIAMINE HCL 100 MG TABLET (FP) PO SCH (21:02)
[2023-08-03] MEDS: BUDESONIDE/FORMETEROL FUMARATE 80/4.5 mcg INHALER IH SCH ×2 (09:39→21:04)
[2023-08-03] MEDS: PANTOPRAZOLE 20 MG TABLET PO SCH (09:39)
[2023-08-03] MEDS: PRENATAL VITAMINS W/ FOLIC ACID TABLET (FP) PO SCH (09:39)
[2023-08-03] MEDS: LACTULOSE 20 GM/30 ML UDC (FOR ORAL USE ONLY) PO SCH ×4 (09:39→21:05)
[2023-08-03] MEDS: hydrOXYzine PAMOATE 25 MG CAPSULE (FP) PO PRN ×2 (09:40→21:04)
[2023-08-03] MEDS: BUPRENORPHINE/NALOXONE 8 MG/2 MG FILM PACKET SL SCH ×2 (09:40→21:04)
[2023-08-03] MEDS: SPIRONOLACTONE 25 MG TABLET PO SCH (10:44)
[2023-08-03] MEDS: FUROSEMIDE 20 MG TABLET (FP) PO SCH (10:44)
[2023-08-03] MEDS: QUEtiapine FUMARATE 100 MG TABLET (FP) PO SCH (21:04)
[2023-08-03] MEDS: THIAMINE HCL 100 MG TABLET (FP) PO SCH (21:04)
[2023-08-03] MEDS: MELATONIN 5 MG TABLETS PO SCH (21:04)
[2023-08-04] MEDS: PANTOPRAZOLE 20 MG TABLET PO SCH (09:46)
[2023-08-04] MEDS: SPIRONOLACTONE 25 MG TABLET PO SCH (09:47)
[2023-08-04] MEDS: BUDESONIDE/FORMETEROL FUMARATE 80/4.5 mcg INHALER IH SCH ×2 (09:47→21:05)
[2023-08-04] MEDS: PRENATAL VITAMINS W/ FOLIC ACID TABLET (FP) PO SCH (09:47)
[2023-08-04] MEDS: BUPRENORPHINE/NALOXONE 8 MG/2 MG FILM PACKET SL SCH ×2 (09:47→21:05)
[2023-08-04] MEDS: LACTULOSE 20 GM/30 ML UDC (FOR ORAL USE ONLY) PO SCH ×4 (09:47→21:05)
[2023-08-04] MEDS: FUROSEMIDE 20 MG TABLET (FP) PO SCH (09:47)
[2023-08-04] MEDS: hydrOXYzine PAMOATE 25 MG CAPSULE (FP) PO PRN ×2 (09:47→21:05)
[2023-08-04] MEDS: MELATONIN 5 MG TABLETS PO SCH (21:05)
[2023-08-04] MEDS: QUEtiapine FUMARATE 100 MG TABLET (FP) PO SCH (21:05)
[2023-08-04] MEDS: THIAMINE HCL 100 MG TABLET (FP) PO SCH (21:05)
[2023-08-05] MEDS: LACTULOSE 20 GM/30 ML UDC (FOR ORAL USE ONLY) PO SCH ×4 (09:39→20:59)
[2023-08-05] MEDS: BUDESONIDE/FORMETEROL FUMARATE 80/4.5 mcg INHALER IH SCH ×2 (09:39→21:00)
[2023-08-05] MEDS: PANTOPRAZOLE 20 MG TABLET PO SCH (09:39)
[2023-08-05] MEDS: BUPRENORPHINE/NALOXONE 8 MG/2 MG FILM PACKET SL SCH ×2 (09:39→21:01)
[2023-08-05] MEDS: FUROSEMIDE 20 MG TABLET (FP) PO SCH (09:39)
[2023-08-05] MEDS: SPIRONOLACTONE 25 MG TABLET PO SCH (09:40)
[2023-08-05] MEDS: PRENATAL VITAMINS W/ FOLIC ACID TABLET (FP) PO SCH (09:40)
[2023-08-05] MEDS: hydrOXYzine PAMOATE 25 MG CAPSULE (FP) PO PRN ×2 (09:41→20:59)
[2023-08-05] MEDS: THIAMINE HCL 100 MG TABLET (FP) PO SCH (20:59)
[2023-08-05] MEDS: QUEtiapine FUMARATE 100 MG TABLET (FP) PO SCH (20:59)
[2023-08-05] MEDS: MELATONIN 5 MG TABLETS PO SCH (20:59)
[2023-08-06] MEDS: BUDESONIDE/FORMETEROL FUMARATE 80/4.5 mcg INHALER IH SCH ×2 (09:26→21:04)
[2023-08-06] MEDS: LACTULOSE 20 GM/30 ML UDC (FOR ORAL USE ONLY) PO SCH ×4 (09:26→21:03)
[2023-08-06] MEDS: hydrOXYzine PAMOATE 25 MG CAPSULE (FP) PO PRN ×2 (09:26→21:05)
[2023-08-06] MEDS: BUPRENORPHINE/NALOXONE 8 MG/2 MG FILM PACKET SL SCH ×2 (09:26→21:05)
[2023-08-06] MEDS: SPIRONOLACTONE 25 MG TABLET PO SCH (09:27)
[2023-08-06] MEDS: PANTOPRAZOLE 20 MG TABLET PO SCH (09:27)
[2023-08-06] MEDS: FUROSEMIDE 20 MG TABLET (FP) PO SCH (09:28)
[2023-08-06] MEDS: PRENATAL VITAMINS W/ FOLIC ACID TABLET (FP) PO SCH (09:28)
[2023-08-06] MEDS: MELATONIN 5 MG TABLETS PO SCH (21:03)
[2023-08-06] MEDS: QUEtiapine FUMARATE 100 MG TABLET (FP) PO SCH (21:05)
[2023-08-06] MEDS: THIAMINE HCL 100 MG TABLET (FP) PO SCH (21:05)
[2023-08-07] MEDS: PRENATAL VITAMINS W/ FOLIC ACID TABLET (FP) PO SCH (09:57)
[2023-08-07] MEDS: BUPRENORPHINE/NALOXONE 8 MG/2 MG FILM PACKET SL SCH ×2 (09:58→21:00)
[2023-08-07] MEDS: BUDESONIDE/FORMETEROL FUMARATE 80/4.5 mcg INHALER IH SCH ×2 (09:58→21:00)
[2023-08-07] MEDS: SPIRONOLACTONE 25 MG TABLET PO SCH (09:58)
[2023-08-07] MEDS: FUROSEMIDE 20 MG TABLET (FP) PO SCH (09:59)
[2023-08-07] MEDS: PANTOPRAZOLE 20 MG TABLET PO SCH (09:59)
[2023-08-07] MEDS: hydrOXYzine PAMOATE 25 MG CAPSULE (FP) PO PRN (10:02)
[2023-08-07] MEDS: THIAMINE HCL 100 MG TABLET (FP) PO SCH (21:00)
[2023-08-07] MEDS: MELATONIN 5 MG TABLETS PO SCH (21:00)
[2023-08-07] MEDS: QUEtiapine FUMARATE 100 MG TABLET (FP) PO SCH (21:00)
[2023-08-08 06:41] VITALS: RESP 16; TEMP 97.1
[2023-08-08] MEDS: SPIRONOLACTONE 25 MG TABLET PO SCH (09:06)
[2023-08-08] MEDS: PANTOPRAZOLE 20 MG TABLET PO SCH (09:06)
[2023-08-08] MEDS: FUROSEMIDE 20 MG TABLET (FP) PO SCH (09:06)
[2023-08-08] MEDS: BUDESONIDE/FORMETEROL FUMARATE 80/4.5 mcg INHALER IH SCH (09:06)
[2023-08-08] MEDS: PRENATAL VITAMINS W/ FOLIC ACID TABLET (FP) PO SCH (09:06)
[2023-08-08] MEDS: BUPRENORPHINE/NALOXONE 8 MG/2 MG FILM PACKET SL SCH (09:06)
[2023-08-08 09:34] VITALS: BP 106/71; PULSE 69
== END 2023-08-08 09:50 | disposition home or self-care (01) | DRG 895 ==
LOC: YASAS 12:45 → Y3E 12:48
PROVIDERS: ADMIT Allergy & Immunology; ATTEND Psychiatry & Neurology Pain Medicine
PROC: HZ42ZZZ Group Counseling for Substance Abuse Treatment, Cognitive-Behavioral (ICD-10-PCS; principal; 2023-07-26)
DX: F10.20 Alcohol dependence, uncomplicated (principal); F11.20 Opioid dependence, uncomplicated; F19.282 Other psychoactive substance dependence with psychoactive substance-induced sleep disorder; F41.9 Anxiety disorder, unspecified; F32.A Depression, unspecified; G62.9 Polyneuropathy, unspecified; I10 Essential (primary) hypertension; K21.9 Gastro-esophageal reflux disease without esophagitis; K70.30 Alcoholic cirrhosis of liver without ascites; H91.90 Unspecified hearing loss, unspecified ear; Z86.2 Personal history of diseases of the blood and blood-forming organs and certain disorders involving the immune mechanism; Z99.89 Dependence on other enabling machines and devices
CPT/HCPCS: 36415; 82140; 82652; 83735; 85610; 86803; 87389

== ENCOUNTER 2023-10-26 11:23 | Inpatient (IN) | payer OTHER ==
[2023-10-26 11:45] VITALS: BMI 35.8
[2023-10-26] MEDS ORDERED: LOPERAMIDE HCL 2 MG CAPSULE PO PRN (12:25)
[2023-10-26] MEDS ORDERED: BENZOCAINE/MENTHOL (CHLORASEPTIC ) LOZENGE MM PRN (12:25)
[2023-10-26] MEDS ORDERED: NALOXONE HCL 0.4 MG/ML VIAL IM PRN (12:25)
[2023-10-26] MEDS ORDERED: guaiFENesin 600 MG TABLET.ER (FP) PO PRN (12:25)
[2023-10-26] MEDS ORDERED: MAGNESIUM HYDROX 2400MG/30ML ORAL SUSPENSION 30 ML CUP PO PRN (12:25)
[2023-10-26] MEDS ORDERED: POLYETHYLENE GLYCOL (HEALTHYLAX) 3350 17 GM PACKET PO PRN (12:25)
[2023-10-26] MEDS ORDERED: DICYCLOMINE HCL 10 MG CAPSULE PO PRN (12:25)
[2023-10-26] MEDS ORDERED: ACETAMINOPHEN 325 MG TABLET (FP) PO PRN (12:25)
[2023-10-26] MEDS ORDERED: BISMUTH SUBSALICYLATE 262 MG/15 ML BTL PO PRN (12:25)
[2023-10-26] MEDS ORDERED: NALOXONE HCL (KLOXXADO) 8 MG SPRAY NS PRN (12:25)
[2023-10-26] MEDS ORDERED: IBUPROFEN 400 MG TABLET (FP) PO PRN (12:25)
[2023-10-26] MEDS ORDERED: BENZONATATE 200 MG CAPSULE PO PRN (12:25)
[2023-10-26] MEDS ORDERED: MAG HYDROX/AL HYDROX/SIMETH 30 ML UNIT-DOSE CUP ONE (12:50)
[2023-10-26] MEDS ORDERED: PRENATAL VITAMINS W/ FOLIC ACID TABLET (FP) PO ONE (12:50)
[2023-10-26] MEDS: PRENATAL VITAMINS W/ FOLIC ACID TABLET (FP) PO SCH (12:52)
[2023-10-26] MEDS: MAG HYDROX/AL HYDROX/SIMETH 30 ML UNIT-DOSE CUP PO PRN (12:53)
[2023-10-26] MEDS: LORazepam 1 MG TABLET PO PRN (13:34)
[2023-10-26] MEDS: hydrOXYzine PAMOATE 25 MG CAPSULE (FP) PO PRN (14:48)
[2023-10-26] MEDS: IBUPROFEN 600 MG TABLET (FP) PO PRN (14:48)
[2023-10-26] MEDS ORDERED: ALBUTEROL SO4 HFA INHALER IH PRN (15:36)
[2023-10-26] MEDS: LORazepam 2 MG TABLET PO SCH (17:26)
[2023-10-26] MEDS: QUEtiapine FUMARATE 100 MG TABLET (FP) PO SCH (22:18)
[2023-10-26] MEDS: MELATONIN 5 MG TABLETS PO SCH (22:18)
[2023-10-26] MEDS: THIAMINE HCL 100 MG TABLET (FP) PO SCH (22:18)
[2023-10-26] MEDS: BUPRENORPHINE/NALOXONE 8 MG/2 MG FILM PACKET SL SCH (22:19)
[2023-10-26] MEDS: BUDESONIDE/FORMETEROL FUMARATE 80/4.5 mcg INHALER IH SCH (22:21)
[2023-10-27] MEDS: METHOCARBAMOL 500 MG TABLET PO PRN (05:43)
[2023-10-27] MEDS: SPIRONOLACTONE 25 MG TABLET PO SCH (10:15)
[2023-10-27] MEDS: FUROSEMIDE 20 MG TABLET (FP) PO SCH (10:15)
[2023-10-27] MEDS: PANTOPRAZOLE 20 MG TABLET PO SCH (10:16)
[2023-10-27] MEDS: ONDANSETRON *ODT* 4 MG TABLET SL PRN (10:17)
[2023-10-27 10:45] LABS: HEMATOCRIT 43.1 % (35.4-49); HEMOGLOBIN 14.1 GM/dL (11.7-16.9); MCH 27.6 pg (25.7-33.7); MCHC 32.6 g/dl (32.0-35.9); MEAN CELL VOLUME 84.5 fl (80-96); MEAN PLT VOLUME 7.1 fl (7.5-11.1); PLATELET COUNT 132 10^3/uL (134-434); RDW 15.3 % (11.9-15.9); WHITE BLOOD COUNT 7.6 K/mm3 (4.0-10.0)
[2023-10-27 11:27] LABS: CHLORIDE 101 mmol/L (98-107); POTASSIUM 3.5 mmol/L (3.5-5.1); SODIUM 142 mmol/L (136-145)
[2023-10-27 11:31] LABS: ALBUMIN 3.1 g/dl (3.4-5.0); ANION GAP 10 mmol/L (4-13); BLOOD UREA NITROGEN 7.9 mg/dL (7-18); CALCIUM 8.8 mg/dL (8.5-10.1); CO2 31 mmol/L (21-32); GLUCOSE,RANDOM 132 mg/dL (74-106)
[2023-10-27 11:35] LABS: CREATININE 0.9 mg/dL (0.55-1.3); SGOT/AST 24 U/L (15-37); SGPT/ALT 14 U/L (13-61)
[2023-10-27 11:36] LABS: ALK PHOS 142 U/L (45-117); TOT PROT 7.1 g/dl (6.4-8.2)
[2023-10-27] MEDS: LACTULOSE 20 GM/30 ML UDC (FOR ORAL USE ONLY) PO SCH (22:23)
[2023-10-28] MEDS: LORazepam 1 MG TABLET PO SCH (05:26)
[2023-10-29] MEDS ORDERED: LORazepam 0.5 MG TABLET PO PRN
[2023-10-29] MEDS: LORazepam 0.5 MG TABLET PO SCH (06:00)
[2023-10-29 17:37] VITALS: RESP 18
[2023-10-30] MEDS: LORazepam 0.5 MG TABLET PO ONE (05:57)
[2023-10-30 13:38] VITALS: BP 129/87; PULSE 101; TEMP 96.9
== END 2023-10-30 13:35 | disposition other institution (70) | DRG 897 ==
LOC: YASAS 11:23 → Y6N 12:57
PROVIDERS: ADMIT Allergy & Immunology; ATTEND Surgery
PROC: HZ2ZZZZ Detoxification Services for Substance Abuse Treatment (ICD-10-PCS; principal; 2023-10-26)
DX: F10.230 Alcohol dependence with withdrawal, uncomplicated (principal); F14.20 Cocaine dependence, uncomplicated; F11.20 Opioid dependence, uncomplicated; F19.280 Other psychoactive substance dependence with psychoactive substance-induced anxiety disorder; F19.282 Other psychoactive substance dependence with psychoactive substance-induced sleep disorder; E72.20 Disorder of urea cycle metabolism, unspecified; F12.20 Cannabis dependence, uncomplicated; I10 Essential (primary) hypertension; J45.20 Mild intermittent asthma, uncomplicated; K74.60 Unspecified cirrhosis of liver; K21.9 Gastro-esophageal reflux disease without esophagitis; Z86.16 Personal history of COVID-19; Z99.89 Dependence on other enabling machines and devices; Z98.84 Bariatric surgery status
CPT/HCPCS: 36415; 80053; 80307; 82140; 85027; 86780; 87635; 93005; 93010; Q0162

== ENCOUNTER 2023-10-30 13:51 | Inpatient (IN) | payer OTHER ==
[2023-10-30] MEDS ORDERED: MAGNESIUM HYDROX 2400MG/30ML ORAL SUSPENSION 30 ML CUP PO PRN (14:15)
[2023-10-30] MEDS ORDERED: LOPERAMIDE HCL 2 MG CAPSULE PO PRN (14:15)
[2023-10-30] MEDS ORDERED: ACETAMINOPHEN 325 MG TABLET (FP) PO PRN (14:15)
[2023-10-30] MEDS ORDERED: guaiFENesin 600 MG TABLET.ER (FP) PO PRN (14:15)
[2023-10-30] MEDS ORDERED: NICOTINE POLACRILEX 2 MG GUM BUC PRN (14:15)
[2023-10-30] MEDS ORDERED: BENZONATATE 200 MG CAPSULE PO PRN (14:15)
[2023-10-30] MEDS ORDERED: BENZOCAINE/MENTHOL (CHLORASEPTIC ) LOZENGE MM PRN (14:15)
[2023-10-30] MEDS ORDERED: POLYETHYLENE GLYCOL (HEALTHYLAX) 3350 17 GM PACKET PO PRN (14:15)
[2023-10-30] MEDS ORDERED: ALBUTEROL SO4 HFA INHALER IH PRN (14:18)
[2023-10-30] MEDS: MAG HYDROX/AL HYDROX/SIMETH 30 ML UNIT-DOSE CUP PO PRN (16:36)
[2023-10-30] MEDS: IBUPROFEN 400 MG TABLET (FP) PO PRN (16:36)
[2023-10-30] MEDS: hydrOXYzine PAMOATE 25 MG CAPSULE (FP) PO PRN (21:38)
[2023-10-30] MEDS: THIAMINE HCL 100 MG TABLET (FP) PO SCH (21:38)
[2023-10-30] MEDS: MELATONIN 5 MG TABLETS PO SCH (21:38)
[2023-10-30] MEDS: BUDESONIDE/FORMETEROL FUMARATE 80/4.5 mcg INHALER IH SCH (21:38)
[2023-10-30] MEDS: BUPRENORPHINE/NALOXONE 8 MG/2 MG FILM PACKET SL SCH (21:38)
[2023-10-30] MEDS: QUEtiapine FUMARATE 100 MG TABLET (FP) PO SCH (21:38)
[2023-10-30] MEDS: LACTULOSE 20 GM/30 ML UDC (FOR ORAL USE ONLY) PO SCH (21:39)
[2023-10-31] MEDS: METHOCARBAMOL 500 MG TABLET PO PRN (06:12)
[2023-10-31] MEDS ORDERED: PANTOPRAZOLE 20 MG TABLET PO SCH (10:00)
[2023-10-31] MEDS: SPIRONOLACTONE 25 MG TABLET PO SCH (10:09)
[2023-10-31] MEDS: PRENATAL VITAMINS W/ FOLIC ACID TABLET (FP) PO SCH (10:09)
[2023-10-31] MEDS: PANTOPRAZOLE 40 MG TABLET PO SCH (10:09)
[2023-10-31] MEDS: FUROSEMIDE 20 MG TABLET (FP) PO SCH (10:09)
[2023-10-31] MEDS: ACAMPROSATE CALCIUM 333 MG TABLET.DR PO SCH (13:37)
[2023-10-31] MEDS: QUEtiapine FUMARATE 50 MG TABLET PO SCH (21:31)
[2023-10-31] MEDS: SUVOREXANT 5 MG TABLET PO PRN (22:47)
[2023-11-02] MEDS: IBUPROFEN 600 MG TABLET (FP) PO PRN (10:05)
[2023-11-03] MEDS: PANTOPRAZOLE 40 MG TABLET PO SCH (10:16)
[2023-11-03] MEDS: SUVOREXANT 5 MG TABLET PO PRN (21:35)
[2023-11-06] MEDS: SUVOREXANT 5 MG TABLET PO PRN (21:43)
[2023-11-09 06:58] VITALS: RESP 18
[2023-11-09] MEDS: SUVOREXANT 5 MG TABLET PO PRN (21:41)
[2023-11-12] MEDS: BUPRENORPHINE/NALOXONE 8 MG/2 MG FILM PACKET SL SCH (21:15)
[2023-11-12] MEDS: SUVOREXANT 5 MG TABLET PO PRN (21:17)
[2023-11-13 07:18] VITALS: BP 130/70; PULSE 67; TEMP 96.9
== END 2023-11-13 09:43 | disposition home or self-care (01) | DRG 895 ==
LOC: YASAS 13:51 → Y5N 13:53
PROVIDERS: ADMIT Allergy & Immunology; ATTEND Psychiatry & Neurology Pain Medicine
PROC: HZ42ZZZ Group Counseling for Substance Abuse Treatment, Cognitive-Behavioral (ICD-10-PCS; principal; 2023-10-30)
DX: F10.20 Alcohol dependence, uncomplicated (principal); F11.20 Opioid dependence, uncomplicated; F14.20 Cocaine dependence, uncomplicated; F12.20 Cannabis dependence, uncomplicated; F41.9 Anxiety disorder, unspecified; F32.A Depression, unspecified; D64.9 Anemia, unspecified; I10 Essential (primary) hypertension; K21.9 Gastro-esophageal reflux disease without esophagitis; K74.60 Unspecified cirrhosis of liver; J45.20 Mild intermittent asthma, uncomplicated; R79.89 Other specified abnormal findings of blood chemistry; Z99.89 Dependence on other enabling machines and devices
CPT/HCPCS: 36415; 82140; 86803